=== PATIENT | male | born 1945 | race Caucasian/White ===

== ENCOUNTER 2019-08-03 02:32 | Emergency (ER) | payer MEDICARE, BC, SELFPAY ==
--- NOTE | 2019-08-03 02:42 | ED_ITS ---
Entered by Vania Cornelius, acting as scribe for Amy Samaniego MD HPI - Extremity Problem General: Chief complaint: Extremity Problem,Nontraumatic Stated complaint: Right Wrist Pain/Swelling Time Seen by Provider: 08/03/19 02:40 Source: patient and family Mode of arrival: wheelchair Limitations: no limitations History of Present Illness: HPI Narrative: 74 y/o male presents to the ED with complaint of extremity pain post back sx. Pt states he recently had a back sx and had to stop taking his arthritis medications. Pt has joint swelling and tenderness to his ankles and right wrist. reports nausea and vomiting this evening. He is scheduled to follow-up with his surgeon next week. Complaint: extremity pain, joint swelling and joint paint Onset (ago): day(s) Pain Consistency: constant Location: upper extremity and lower extremity Quality: aching and sharp Relieving factors: nothing Exacerbating factors: palpation Associated symptoms: Deny chest pain Review of Systems Const: Denies: chills Eyes: Denies: change in vision ENMT: Denies: throat pain or mouth pain Card: Denies: chest pain Resp: Denies: shortness of breath GI: Reports: nausea and vomiting; Denies: abdominal pain or diarrhea Musc: Reports: extremity pain, joint pain, redness and limited range of motion; Denies: back pain Skin/Breast: Reports: redness Neuro: Denies: headache or behavioral changes Psych: Denies: depression Endo: Denies: excessive urination [place]/Lymph: Denies: easy bruising All/Imm: Denies: hives PFSH ED PFSH: Statuses (acute, chronic, etc) shown below reflect problem list status as previously entered and may not be historically accurate Social History Smoking and tobacco status: former smoker Physical Exam Const: COMMON NORMALS: no apparent distress, oriented x3 and healthy appearing HENMT: COMMON NORMALS: normocephalic and external nose normal HEAD & SCALP: normocephalic NOSE: external nose normal Eye: COMMON NORMALS: PERRL PUPIL: Yes PERRL Neck/C-Spine: COMMON NORMALS: full ROM and no lymphadenopathy Chest: COMMONS NORMALS: inspection of chest normal Resp: COMMON NORMALS: normal respiratory effort, no use of accessory muscles and clear to auscultation bilaterally AUSCULTATION: clear to auscultation bilaterally Cardio: COMMON NORMALS: regular rate and regular rhythm RATE: regular rate RHYTHM: regular rhythm GI: COMMON NORMALS: normal to inspection, nondistended, normoactive bowel sounds, soft to palpation, non-tender and no masses PALPATION: Yes soft Back/Pelvis: THORACIC SPINE/UPPER BACK: Yes normal to inspection Extremity: COMMON NORMALS: normal capillary refill RIGHT UPPER EXTREMITY: Yes wrist (painful) Right wrist: Yes palpation and Yes ROM RIGHT LOWER EXTREMITY: Yes ankle joint LEFT LOWER EXTREMITY: Yes ankle joint Neuro: COMMON NORMALS: oriented x3 Psych: COMMON NORMALS: mental status grossly normal and cooperative Course Vital Signs: Vital signs: Vital Signs Temperature 98.6 F 08/03/19 02:49 Pulse Rate 75 08/03/19 03:46 Respiratory Rate 15 08/03/19 03:46 Blood Pressure 155/91 08/03/19 03:46 Pulse Oximetry 94 08/03/19 03:46 MDM - Extremity (Nontraumatic) MDM Narrative: Medical decision making narrative: Patient presents here with back pain from his surgery. He has no signs of infection. He also has wrist pain and has chronic arthritis and has not been taking his meloxicam due to his recent surgery. He is to follow-up with his surgeon as scheduled on Thursday. He has no signs of serious infection is stable for discharge. Patient is to return if worsening. Lab Data: Labs: Lab Results 08/03/19 08/03/19 Range/Units 03:00 03:00 WBC 11.4 H (4.0-10.0) 10^3/ uL RBC 4.98 (4.1-5.3) 10^6/u L Hgb 14.7 (11.7-16.6) g/dL Hct 44.1 (42.0-52.0) % MCV 88.6 (80-94) fL MCH 29.5 (28.0-34.0) pg MCHC 33.3 (30.0-36.0) g/dL RDW 12.9 (12.1-15.1) % Plt Count 416 H (130-400) 10^3/c mm MPV 10.1 (7.4-10.4) fL Neut % (Auto) 79.5 % Lymph % (Auto) 12.0 % [place] % (Auto) 7.7 % Eos % (Auto) 0.1 % Baso % (Auto) 0.3 % Neut # (Auto) 9.1 H (1.8-7.7) 10^3/u L Lymph # (Auto) 1.4 (0.8-4.8) 10^3/u L [place] # (Auto) 0.9 (0.2-0.9) 10^3/u L Eos # (Auto) 0.0 (0.0-0.8) 10^3/u L Baso # (Auto) 0.0 (0.0-0.1) 10^3/u L Nucleated RBC % (a uto) 0 % Nucleated RBCs # 0.0 /100WBC Sodium 139 (136-145) mmol/L Potassium 3.8 (3.5-5.1) mmol/L Chloride 103 (98-107) mmol/L Carbon Dioxide 22 (22-29) mmol/L Anion Gap 17.8 (5-19) BUN 13 (8-23) mg/dL Creatinine 0.7 (0.7-1.2) mg/dL Glucose 142 H (74-106) mg/dL Calcium 10.3 H (8.8-10.2) mg/Dl Discharge Plan Discharge Patient Disposition: Home, Self-Care Clinical Impression: Back pain Qualifiers: Back pain location: low back pain Chronicity: unspecified Back pain laterality: bilateral Sciatica presence: without sciatica Qualified Code(s): M54.5 - Low back pain Condition: Stable Prescriptions: New Zofran 4 mg tablet 4 mg PO QID PRN (Reason: nausea and vomiting) Qty: 14 RF: 0 No Action atorvastatin 20 mg tablet 20 mg PO DAILY RF: 0 meloxicam 15 mg tablet 15 mg PO DAILY RF: 0 hydrocodone-acetaminophen 10-325 mg tablet 1 tab PO Q4H PRN (Reason: Pain, Severe) RF: 0 amlodipine 10 mg tablet 10 mg PO DAILY RF: 0 DOK 100 mg capsule 100 mg PO BID RF: 0 albuterol sulfate 90 mcg/actuation HFA aerosol inhaler 2 puff INHALATION PRN RF: 0 Symbicort 160-4.5 mcg/actuation HFA aerosol inhaler 2 puff INHALATION UNK RF: 0 Discharge Orders: Discharge Order (Routine); Ordered 01/15/20 Ordered By: Amy Samaniego Referrals: Ana Luisa Dela Cruz MD [Family Provider] - Discharge Diet: Advance as tolerated Discharge Activity: Resume usual activity Patient Instructions: Back Pain (ED) Discharge Date/Time: 08/03/19 03:49 Coding Level of Care Code ED Bioinformatics Engineer for Chg Fwd Exam Problem Focused The documentation recorded by the Adryan bell Ashley, accurately reflects the service I personally performed and the decisions made by , Amy Samaniego MD Aug 03, 2019 02:32
[2019-08-03 02:49] VITALS: BP 153/89; PULSE 83; RESP 20; TEMP 37; O2SAT 96; BMI 27.4
[2019-08-03] MEDS: ondansetron 2 mg/ML SDV 2 mL 4 MG IVP (03:01)
[2019-08-03 03:03] VITALS: RESP 16; O2SAT 96
[2019-08-03] MEDS: morphine 4 mg/mL SDV 1 mL IVP (03:03)
[2019-08-03 03:06] VITALS: BP 149/90; PULSE 74; RESP 16; O2SAT 97
[2019-08-03 03:27] LABS: Basophils % 0.3 %; Eosinophils % 0.1 %; Hematocrit 44.1 % (42.0-52.0); Hemoglobin 14.7 g/dL (11.7-16.6); Lymphocytes # 1.4 10^3/uL (0.8-4.8); Mean Corpuscular HGB Conc 33.3 g/dL (30.0-36.0); Mean Corpuscular Hemoglobin 29.5 pg (28.0-34.0); Mean Corpuscular Volume 88.6 fL (80-94); Mean Platelet Volume 10.1 fL (7.4-10.4); Monocytes # 0.9 10^3/uL (0.2-0.9); Monocytes % 7.7 %; Neutrophils # 9.1 10^3/uL (1.8-7.7); Neutrophils % 79.5 %; Nucleated Red Blood Cells % 0 %; Platelet Count 416 10^3/cmm (130-400); Red Blood Count 4.98 10^6/uL (4.1-5.3); Red Cell Distribution Width 12.9 % (12.1-15.1); White Blood Count 11.4 10^3/uL (4.0-10.0)
[2019-08-03 03:31] LABS: Anion Gap 17.8 (5-19); Blood Urea Nitrogen 13 mg/dL (8-23); Calcium 10.3 mg/Dl (8.8-10.2); Carbon Dioxide 22 mmol/L (22-29); Chloride 103 mmol/L (98-107); Glucose 142 mg/dL (74-106); Potassium 3.8 mmol/L (3.5-5.1); Sodium 139 mmol/L (136-145)
[2019-08-03 03:46] VITALS: BP 155/91; PULSE 75; RESP 15; O2SAT 94
== END 2019-08-03 03:49 | disposition home or self-care (01) ==
PROVIDERS: Emergency Provider Emergency Medicine; Family Provider Family Medicine
DX: M54.5 Low back pain (principal); Z87.891 Personal history of nicotine dependence
CPT/HCPCS: 36415; 80048; 85025; 96374; 99281; J2270; J2405

== ENCOUNTER 2019-08-10 13:03 | Outpatient (RCR) | payer MEDICARE, BC, SELFPAY | END 2019-08-19 23:59 | disposition home or self-care (01) | LOC: SPT 13:03 | PROVIDERS: Family Provider Family Medicine; PCP Nurse Practitioner Family; Referring Provider Nurse Practitioner Family; Visit Provider Nurse Practitioner Family | DX: M48.062 Spinal stenosis, lumbar region with neurogenic claudication (principal); Z98.890 Other specified postprocedural states ==

== ENCOUNTER 2019-08-31 11:56 | Outpatient (CLI) | payer MEDICARE, BC, SELFPAY ==
--- NOTE | 2019-08-31 | XR_ITS ---
WS: [id number] PROCEDURE: XR chest 2V* [id number] CLINICAL INFORMATION: COUGH COMPARISON: August 06, 2018 FINDINGS: Heart: Normal cardiac silhouette. Lungs: Mild chronic emphysematous changes. No acute pulmonary infiltrates. No focal pneumonia. Bones: Postoperative changes lower cervical spine.. Hypertrophic changes thoracic spine. XR/XR chest 2V* [id number] IMPRESSION: No acute chest findings
== END 2019-08-31 11:57 | disposition home or self-care (01) ==
LOC: RADOUTREAD 14:29
PROVIDERS: Family Provider Family Medicine; PCP Nurse Practitioner Family; Visit Provider Family Medicine
DX: Z76.89 Persons encountering health services in other specified circumstances (principal)

== ENCOUNTER 2019-09-18 06:00 | Outpatient (RCR) | payer MEDICARE, BC, SELFPAY | END 2019-10-18 23:59 | disposition home or self-care (01) | LOC: SPT 06:00 | PROVIDERS: Family Provider Family Medicine; PCP Nurse Practitioner Family; Referring Provider Nurse Practitioner Family; Visit Provider Nurse Practitioner Family | DX: M54.5 Low back pain (principal); M79.604 Pain in right leg; M79.605 Pain in left leg | CPT/HCPCS: 97161; 97530 ==

== ENCOUNTER 2019-12-21 06:49 | Emergency (ER) | payer MEDICARE, BC, SELFPAY ==
--- NOTE | 2019-12-21 | XR_ITS ---
WS: [id number] XR elbow LT min 3V* [id number] REASON FOR EXAM: arm pain after fall FINDINGS: Impacted fracture of the head of the radius is seen. There is degenerate changes across the capitellum and radial head region. Anterior fat pad is identified. IMPRESSION: Impacted fracture of the head of the radius. Mild degenerate changes of the capitellum radial head articulation.
[2019-12-21 07:02] VITALS: BP 140/85; PULSE 77; RESP 20; TEMP 37; O2SAT 95; BMI 27.4
[2019-12-21 07:19] VITALS: BP 140/85
--- NOTE | 2019-12-21 07:19 | ED_ITS ---
HPI - Neck Pain/Injury General: Chief Complaint: Neck Pain/Injury Stated Complaint: NECK AND RIGHT HAND PAIN Time Seen by Provider: 12/21/19 07:19 History of Present Illness: HPI Narrative: 74-year-old male comes in with complaint of neck pain comes in complaining of neck pain for the last 2 days 2 days ago he fell off of a truck tractor immediately did not have any significant pain the following day he had some neck pain and then Thursday night he began hav ing some right arm pain this began progressively worse it is localized to the elbow he has pain with flexion and extension it does not radiate down from the shoulder or neck into the elbow does radiate a little bit into the forearm. He has a difficult time with pronation and supination he denies any other injuries denies striking his head. Associated symptoms: Denies nausea Review of Systems Const: Denies: fever(s), chills, body aches, change in appetite, fatigue or malaise ENMT: Denies: throat pain, ear or mastoid pain, nasal discharge or nasal congestion Card: Denies: chest pain, edema, dyspnea on exertion or orthopnea Resp: Denies: dyspnea, productive cough or non-productive cough GI: Denies: abdominal pain, nausea, vomiting, hematemesis, coffee ground emesis, diarrhea, constipation, bloating, hematochezia or melena : Denies: flank pain, dysuria, urinary frequency or urinary urgency Skin/Breast: Denies: rash or pruritus [facility] ED PFSH: Medical History (Updated 12/21/19 @ 11:26 by German Roberson DO) Hyperlipidemia Hypertension Surgical History (Updated 12/21/19 @ 11:28 by German Roberson DO) History of lumbar fusion S/P cervical spinal fusion Social History Smoking and tobacco status: former smoker Physical Exam Const: COMMON NORMALS: no acute distress GENERAL APPEARANCE: cooperative and comfortable ORIENTATION/CONSCIOUSNESS: Yes awake, Yes oriented to person, Yes oriented to place and Yes oriented to time HENMT: COMMON NORMALS: normocephalic, atraumatic, hearing grossly normal bilaterally, external ears normal, EAC's normal, TM's normal bilaterally, Normal nasal mucous membranes and turbinates present, moist oral mucous membranes and oropharynx normal HEAD & SCALP: normocephalic and atraumatic NOSE: Normal nasal mucous membranes and turbinates present EXTERNAL EAR: Yes external ears normal EXTERNAL AUDITORY CANAL: EAC's normal TYMPANIC MEMBRANE: TM's normal bilaterally Eye: COMMON NORMALS: Equal, round and reactive pupils present, EOMs intact bilaterally, conjunctivae normal and no scleral icterus CONJUNCTIVA: Yes conjunctivae normal PUPIL: Yes Equal, round and reactive pupils present Neck/C-Spine: COMMON NORMALS: full ROM, no lymphadenopathy, supple and no JVD Lymph: LYMPHATIC: no lymphadenopathy noted and no lymphedema noted Resp: COMMON NORMALS: normal respiratory effort, No retractions, No use of accessory muscles and clear to auscultation bilaterally AUSCULTATION: clear to auscultation bilaterally Cardio: COMMON NORMALS: no JVD, regular rate, regular rhythm and No murmurs present (Cardio) RATE: regular rate RHYTHM: regular rhythm GI: COMMON NORMALS: Soft to palpation and No hepatosplenomegaly present AUSCULTATION: Yes normoactive bowel sounds PALPATION: Yes Soft to palpation, No Tenderness to palpation present (GI), No Guarding due to palpation present (GI) and Yes No hepatosplenomegaly present Extremity: NARRATIVE EXTREMITY EXAM: Moderate swelling of the right elbow with inability to flex or extend even mild attempts at pronation and supination are met with severe pain good peripheral pulses and sensation Neuro: SENSORIUM/ORIENTATION: Yes oriented to person, Yes oriented to place and Yes oriented to time Skin: COMMON NORMALS: no rashes or lesions noted GENERAL SKIN EXAM: no rashes or lesions noted Course Vital Signs: Vital signs: Vital Signs Temperature 98.6 F 12/21/19 07:02 Pulse Rate 77 12/21/19 07:02 Respiratory Rate 17 12/21/19 09:00 Blood Pressure 140/85 12/21/19 07:19 Pulse Oximetry 95 12/21/19 07:02 MDM - Neck Pain/Injury MDM Narrative: Medical decision making narrative: CT the spine does not show any acute fracture a lot of chronic changes which is expected given his reported history. X-rays of the upper extremity on the right show an impacted radial head fracture there is some question of a olecranon fossa fracture on the distal humerus I discussed with radiologist he recommended a CT CT does not show any further fracture only the impacted radial head fracture. Recommend that he use a sling will refer to Ortho can continue to use the pain meds previously prescribed. Lab Data: Labs: Lab Results 12/21/19 12/21/19 Range/Units 08:35 08:35 WBC 9.4 (4.0-10.0) 10^3/ uL RBC 4.86 (4.1-5.3) 10^6/u L Hgb 14.9 (11.7-16.6) g/dL Hct 45.1 (42.0-52.0) % MCV 92.8 (80-94) fL MCH 30.7 (28.0-34.0) pg MCHC 33.0 (30.0-36.0) g/dL RDW 13.9 (12.1-15.1) % Plt Count 194 (130-400) 10^3/c mm MPV 10.7 H (7.4-10.4) fL Neut % (Auto) 80.2 % Lymph % (Auto) 9.5 % [place] % (Auto) 9.8 % Eos % (Auto) 0.1 % Baso % (Auto) 0.2 % Neut # (Auto) 7.5 (1.8-7.7) 10^3/u L Lymph # (Auto) 0.9 (0.8-4.8) 10^3/u L [place] # (Auto) 0.9 (0.2-0.9) 10^3/u L Eos # (Auto) 0.0 (0.0-0.8) 10^3/u L Baso # (Auto) 0.0 (0.0-0.1) 10^3/u L Nucleated RBC % (a uto) 0 % Nucleated RBCs # 0.0 /100WBC Sodium 135 L (136-145) mmol/L Potassium 3.4 L (3.5-5.1) mmol/L Chloride 96 L (98-107) mmol/L Carbon Dioxide 25 (22-29) mmol/L Anion Gap 17.4 (5-19) BUN 14 (8-23) mg/dL Creatinine 0.8 (0.7-1.2) mg/dL Glucose 113 (65-115) mg/dL Calculated Osmolal ity 277 L (285-295) mOsm/k g Calcium 9.8 (8.5-10.5) mg/dL Total Bilirubin 0.7 (0.15-1.2) mg/dL AST 18 (0-40) U/L ALT 12 (0-41) U/L Alkaline Phosphata se 66 (40-130) IU/L Total Protein 6.9 (6.6-8.7) g/dL Albumin 4.1 (3.5-5.2) g/dL Globulin 2.8 (1.3-4.6) g/dL Discharge Plan Discharge Patient Disposition: Home, Self-Care Clinical Impression: Fracture of head of right radius Condition: Stable Prescriptions: No Action atorvastatin 20 mg tablet 20 mg PO DAILY RF: 0 meloxicam 15 mg tablet 15 mg PO DAILY RF: 0 hydrocodone-acetaminophen 10-325 mg tablet 1 tab PO Q4H PRN (Reason: Pain, Severe) RF: 0 amlodipine 10 mg tablet 10 mg PO DAILY RF: 0 albuterol sulfate 90 mcg/actuation HFA aerosol inhaler 2 puff INHALATION PRN PRN (Reason: Shortness Of Breath) RF: 0 budesonide-formoterol [Symbicort] 160-4.5 mcg/actuation HFA aerosol inhaler 2 puff INHALATION BID RF: 0 cyclobenzaprine 10 mg Tablet 10 mg PO TID PRN (Reason: Muscle Pain) RF: 0 Referrals: Timo Erickson, CHECK WRITER SALESPERSON-IVETH [Primary Care Provider] - Discharge Diet: Usual diet Discharge Activity: Limit activity as instructed Activity Restrictions/Additional Instructions: Case management will call with referral to orthopedics for the radial head fracture in your right elbow. For pain continue previously prescribed medications. Coding Level of Care Code ED Solderer Barrel Ribs for Alan Mathews
--- NOTE | 2019-12-21 07:20 | CT_ITS ---
WS: [id number] CT cervical spin wo con* [id number] REASON FOR EXAM: fall IV CONTRAST ADMINISTERED: None. TOTAL EXAM DLP: All CT scans at [facility] use at least one of these dose optimization techniques: automat ed exposure control; mA and/or kV adjustment per patient size (includes targeted exams where dose is matched to clinical indication); or iterative reconstruction. FINDINGS: The odontoid process shows degenerate changes. The craniocervical junction anatomy was normal. C1-C2 shows normal anatomical findings. C2-C3: Normal vertebral alignment. Exiting foramina normal. No disc bulge or herniation. No spinal st enosis. [place] C3-4 shows hypertrophy of the left uncinate processes no stenosis of the exiting jaspal nadege were seen. No disc bulge or herniation. No fractures. There is low-grade grade 1 spondylolisthesi s C3 on C4 C4-C5 shows bilateral hypertrophy of the uncinate processes. Exiting foramina normal. No fractures ar e seen. Mild retrolisthesis C4 on C5. C5-C6 shows anterior fusion exiting foramina is were normal no spinal stenosis. C6-C7 shows fusion good alignment no fractures were noted. C7-T1: Fusion vertebra normal alignment no spinal stenosis or fractures. CT/CT cervical spin wo con* [id number] IMPRESSION: Vertically of the uncinate processes are noted on the left side at C3-4 and gwen aterally C4-C5 There is no fractures of the cervical spine noted. There is mild retrolisthesis C3 on C4 and C4-C5.
--- NOTE | 2019-12-21 08:44 | XR_ITS ---
WS: [id number] [place] [id number] REASON FOR EXAM: fall pain FINDINGS: The humerus shaft is normal. Adenoid humeral articulations normal. At the elbow there appears to be a comminuted fracture of the olecranon fossa. We recommend detail x-rays be made to this area if this has not been done. XR/[place] [id number] IMPRESSION: Normal appearance of the humerus Suspect comminuted fracture through the olecranon fossa.
--- NOTE | 2019-12-21 08:44 | XR_ITS ---
WS: [id number] XR wrist RT min 3V* [id number] REASON FOR EXAM: fall pain FINDINGS: Degenerate changes of the articulation of the head of the radius with the carpal bones. There is degenerate changes of the scaphoid with the greater and lesser multangular with loss of the joint space. There is no fractures knee seen in the wrists. XR/XR wrist RT min 3V* [id number] IMPRESSION: Moderately severe degenerated changes of the wrists. No definite fractures identified.
--- NOTE | 2019-12-21 08:44 | XR_ITS ---
WS: [id number] XR elbow LT min 3V* [id number] REASON FOR EXAM: arm pain after fall FINDINGS: Impacted fracture of the head of the radius is seen. There is degenerate changes across the capitellum and radial head region. Anterior fat pad is identified. IMPRESSION: Impacted fracture of the head of the radius. Mild degenerate changes of the capitellum radial head articulation.
--- NOTE | 2019-12-21 08:44 | XR_ITS ---
WS: [id number] XR shoulder RT min 2V* [id number] REASON FOR EXAM: fall pain FINDINGS: The clavicle and scapula show no fractures. The glenoid humeral articulations normal. There appears to be mild spurring off the olecranon and clavicle articulation. XR/XR shoulder RT min 2V* [id number] IMPRESSION: Degenerate changes of the acromioclavicular joint No fractures of the shoulder. The elbow was reevaluated was marked is the right elbow and showed the fracture of the head of the radius the fossa area did not show the fracture noted on th e humeral view consideration of CT of the elbow recommended.
[2019-12-21 08:48] LABS: Basophils % 0.2 %; Eosinophils % 0.1 %; Hematocrit 45.1 % (42.0-52.0); Hemoglobin 14.9 g/dL (11.7-16.6); Lymphocytes # 0.9 10^3/uL (0.8-4.8); Lymphocytes % 9.5 %; Mean Corpuscular Hemoglobin 30.7 pg (28.0-34.0); Mean Corpuscular Volume 92.8 fL (80-94); Mean Platelet Volume 10.7 fL (7.4-10.4); Monocytes # 0.9 10^3/uL (0.2-0.9); Monocytes % 9.8 %; Neutrophils # 7.5 10^3/uL (1.8-7.7); Neutrophils % 80.2 %; Nucleated Red Blood Cells % 0 %; Platelet Count 194 10^3/cmm (130-400); Red Blood Count 4.86 10^6/uL (4.1-5.3); Red Cell Distribution Width 13.9 % (12.1-15.1); White Blood Count 9.4 10^3/uL (4.0-10.0)
[2019-12-21] MEDS: HYDROcodone-acetaminophen 5-325 mg Tablet 2 TAB PO (08:59)
[2019-12-21 09:00] VITALS: RESP 17
[2019-12-21 09:02] LABS: Alanine Aminotransferase 12 U/L (0-41); Albumin Level 4.1 g/dL (3.5-5.2); Alkaline Phosphatase 66 IU/L (40-130); Anion Gap 17.4 (5-19); Aspartate Amino Transferase 18 U/L (0-40); Blood Urea Nitrogen 14 mg/dL (8-23); Calcium 9.8 mg/dL (8.5-10.5); Carbon Dioxide 25 mmol/L (22-29); Chloride 96 mmol/L (98-107); Globulin 2.8 g/dL (1.3-4.6); Glucose 113 mg/dL (65-115); Osmolality Calculated 277 mOsm/kg (285-295); Potassium 3.4 mmol/L (3.5-5.1); Sodium 135 mmol/L (136-145); Total Bilirubin 0.7 mg/dL (0.15-1.2); Total Protein 6.9 g/dL (6.6-8.7)
--- NOTE | 2019-12-21 09:45 | CT_ITS ---
WS: [id number] CT elbow RT wo con* [id number] REASON FOR EXAM: elbow pain/abnormal humerus xray IV CONTRAST ADMINISTERED: None. TOTAL EXAM DLP: All CT scans at [facility] use at least one of these dose optimization techniques: automat ed exposure control; mA and/or kV adjustment per patient size (includes targeted exams where dose is matched to clinical indication); or iterative reconstruction. FINDINGS: Previous evaluation of the lower humerus suggested a fracture through the olecranon fossa. Multiple CT sections through this area did not show a definite fracture there is degenerate changes p resent. The impacted fracture of the head of the radius is also well seen. Positioning appears to be satisfac tory of the fracture parts. The remaining elbow appears to be normal. CT/CT elbow RT wo con* [id number] IMPRESSION: Impacted fracture of the head of the radius No definite fractures are seen through the olecranon fossa.
[2019-12-21 11:47] VITALS: BP 136/81; PULSE 75; RESP 17; O2SAT 96
--- NOTE | 2019-12-21 14:38 | DCPLANNER ---
manager compliance had message to schedule a follow up appointment for patient with ortho. manager compliance called the ortho clinic, spoke with Natasha, gave clinic patients information. manager compliance was told that patients information would be printed and reviewed. Clinic will call family independence case manager and patient with appointment information.
--- NOTE | 2019-12-22 08:45 | DCPLANNER ---
Patient has a follow up appointment scheduled for December at 11:[address] Clemons. Clinic will call patient with appointment information.
--- NOTE | 2020-01-05 12:34 | DCPLANNER ---
Patient has a follow up appointment scheduled for Thursday, January 18, 2020 at 10:[address] Collier. Clinic will call patient with appointment information.
--- NOTE | 2020-01-05 12:36 | DCPLANNER ---
Patient attended follow up appointment scheduled for 12.22.19 with ortho.
== END 2019-12-21 11:48 | disposition home or self-care (01) ==
PROVIDERS: Emergency Provider Family Medicine; PCP Nurse Practitioner Family
DX: S52.121A Displaced fracture of head of right radius, initial encounter for closed fracture (principal); W17.89XA Other fall from one level to another, initial encounter; E78.5 Hyperlipidemia, unspecified; I10 Essential (primary) hypertension; Z87.891 Personal history of nicotine dependence
CPT/HCPCS: 12345; 36415; 72125; 73030; 73060; 73080; 73110; 73200; 80053; 85025; 99282; 99283

== ENCOUNTER → 2019-12-22 11:49 | Outpatient (BNVA) | payer MEDICARE, BC, SELFPAY | PROVIDERS: PCP Nurse Practitioner Family; Referring Provider Family Medicine; Visit Provider Specialist | DX: M25.531 Pain in right wrist (principal) | CPT/HCPCS: 73110 ==

== ENCOUNTER 2019-12-22 13:58 | Outpatient (CLI) | payer MEDICARE, BC, SELFPAY | END 2019-12-22 13:59 | disposition home or self-care (01) | LOC: SPT 13:59 | PROVIDERS: PCP Nurse Practitioner Family; Visit Provider Specialist | DX: Z46.89 Encounter for fitting and adjustment of other specified devices (principal); S52.121D Displaced fracture of head of right radius, subsequent encounter for closed fracture with routine healing; X58.XXXD Exposure to other specified factors, subsequent encounter; M25.531 Pain in right wrist | CPT/HCPCS: 73110; 97760; L3761 ==

== ENCOUNTER → 2020-01-05 10:19 | Outpatient (BNVA) | payer MEDICARE, BC, SELFPAY | PROVIDERS: PCP Nurse Practitioner Family; Visit Provider Specialist | DX: S52.124D Nondisplaced fracture of head of right radius, subsequent encounter for closed fracture with routine healing; W17.89XD Other fall from one level to another, subsequent encounter | CPT/HCPCS: 73080 ==

== ENCOUNTER 2020-01-06 14:57 | Outpatient (CLI) | payer MEDICARE, BC, SELFPAY ==
--- NOTE | 2020-01-06 15:06 | MR_ITS ---
WS: [id number] MRI CERVICAL SPINE NONCONTRAST TECHNIQUE: Sagittal T1, T2 and STIR imaging. Axial T2, gradient, and fiesta imaging. CLINICAL INFORMATION: ACUTE NECK PAIN COMPARISON: None. FINDINGS: Mild lumbar curve. No high-grade central canal stenosis. Postoperative changes anterior interbody cer vical fusion C5-C6. Prior bony fusion C6-C7. No high-grade central canal narrowing. Cord signal appea rs normal. Hardware degrades images at the C5-6 level. C2-C3: Mild bilateral foraminal narrowing. Mild facet arthropathy. Spinal canal is patent. C3-C4: Mild disc bulging and osteophytic ridging. Moderate left and mild right bony foraminal narrowi ng. Mild facet arthropathy. Mild central canal stenosis. C4-C5: Disc osteophyte complex with a broad-based central protrusion. Mild to moderate central canal stenosis. Moderate to severe left and moderate right bony foraminal narrowing. Moderate facet arthrop athy. C5-C6: Images degraded at this level due to susceptibility artifact. Spinal canal appears patent. For amen are not well visualized. C6-C7: Prior bony fusion. Anterior hardware at C6. Moderate bilateral bony foraminal narrowing right greater than left. Spinal canal is patent. C7-T1: No significant disc bulging. No significant foraminal narrowing. Spinal canal is patent. Visualized brain stem structures: Normal. Prevertebral soft tissues: Normal. MR/MR cervical spin wo con* [id number] IMPRESSION: 1. Mild cervical curve. No high-grade central canal stenosis. Anterior fusion C5-C7 with interbody fusion C5-C6 and C6-C7. 2. Cord signal appears normal. No high-grade central canal stenosis. 3. Images degraded at the C5-6 level due to susceptibility artifact from hardw are. 4. Mild central canal stenosis C3-C4 mild to moderate central canal stenosis C 4-C5 due to disc osteophyte complex. 5. Moderate to severe bony foraminal narrowing worse at left C3-4 and bilatera l C4-5 worse in the left,
== END 2020-01-06 14:58 | disposition home or self-care (01) ==
LOC: RADWPI 15:04
PROVIDERS: Family Provider Family Medicine; PCP Family Medicine; Visit Provider Family Medicine
DX: M54.2 Cervicalgia (principal); M43.22 Fusion of spine, cervical region; M48.02 Spinal stenosis, cervical region; M25.78 Osteophyte, vertebrae
CPT/HCPCS: 72141

== ENCOUNTER → 2020-02-07 08:40 | Outpatient (BNVA) | payer MEDICARE, BC, SELFPAY | PROVIDERS: Family Provider Family Medicine; PCP Family Medicine; Visit Provider Urology | DX: R31.29 Other microscopic hematuria (principal); N40.1 Benign prostatic hyperplasia with lower urinary tract symptoms; N52.9 Male erectile dysfunction, unspecified | CPT/HCPCS: 81001 ==

== ENCOUNTER → 2020-02-09 08:14 | Outpatient (BNVA) | payer MEDICARE, BC, SELFPAY | PROVIDERS: Family Provider Family Medicine; PCP Family Medicine; Visit Provider Specialist | DX: M25.531 Pain in right wrist (principal); S52.124A Nondisplaced fracture of head of right radius, initial encounter for closed fracture; X58.XXXA Exposure to other specified factors, initial encounter | CPT/HCPCS: 73080 ==

== ENCOUNTER 2020-05-21 08:19 | Outpatient (CLI) | payer MEDICARE, BC, SELFPAY ==
--- NOTE | 2020-05-21 08:41 | MR_ITS ---
WS: [id number] MRI RIGHT KNEE HISTORY: DERANGEMENT OF MENISCUS OF RIGHT KNEE COMPARISON: None available. Anterior cruciate ligament: Intact. Posterior cruciate ligament: Intact. Medial collateral ligament: Fluid on both sides of the MCL but no tear. Posterior lateral corner structures: Intact. Medial menisci: Fraying along the articular surfaces. Most significant involving the superior surface of the posterior horn. No full-thickness tear. Lateral meniscus: Intact. Normal signal, size and shape. Extensor mechanism: Distal quadriceps tendon and patellar tendons are intact. Fluid and soft tissue: There is a large amount of fluid in the suprapatellar bursa. Soft tissue edema surrounds the knee. Fluid extends into the infrapatellar fat pad. There is a small loose body versus osteophyte anterior to the tibial plateau. Large lobulated Villaseñor's cyst. Osseous and articular structures: Patellofemoral compartment: Near complete loss of cartilage over the medial patellar facet. A small a mount of subchondral edema in the superior patella. Small surface osteophytes. Medial compartment: Moderate narrowing medial compartment with loss of cartilage. Small amount of mar row edema in the medial condyle of tibial plateau. Lateral compartment: Minimal narrowing. Cartilage is well preserved. Increased fluid in the semimembranosus tendon sheath. MR/MR knee RT wo con* [id number] IMPRESSION: 1. Moderate to severe internal derangement medial compartment with joint space narrowing, loss of cartilage and marrow edema. 2. Mild chondromalacia medial patellar facet with subchondral edema. 3. Large joint effusion. 4. Large lobulated Villaseñor's cyst. 5. Mild MCL sprain. 6. Tenosynovitis semimembranosus tendon. No tear identified.
== END 2020-05-21 08:20 | disposition home or self-care (01) ==
LOC: RADWPI 08:25
PROVIDERS: PCP Family Medicine; Visit Provider Family Medicine
DX: M23.306 Other meniscus derangements, unspecified meniscus, right knee (principal); M22.41 Chondromalacia patellae, right knee; M25.461 Effusion, right knee; M71.21 Synovial cyst of popliteal space [Baker], right knee; S83.411A Sprain of medial collateral ligament of right knee, initial encounter; X58.XXXA Exposure to other specified factors, initial encounter; M65.861 Other synovitis and tenosynovitis, right lower leg
CPT/HCPCS: 73721

== ENCOUNTER → 2020-05-30 09:28 | Outpatient (BNVA) | payer MEDICARE, BC, SELFPAY | PROVIDERS: PCP Family Medicine; Referring Provider Family Medicine; Visit Provider Orthopaedic Surgery | DX: M25.561 Pain in right knee (principal) | CPT/HCPCS: 73560; 73565 ==

== ENCOUNTER 2020-07-16 15:20 | Observation (INO) | payer MEDICARE, BC, SELFPAY ==
--- NOTE | 2020-07-10 06:26 | ECG_ITS ---
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 [id number]
[2020-07-10 07:42] VITALS: BMI 26.6
[2020-07-10 08:12] LABS: Basophils # 0.1 10^3/uL (0.0-0.1); Basophils % 0.8 %; Eosinophils # 0.3 10^3/uL (0.0-0.8); Eosinophils % 3.5 %; Hemoglobin 15.7 g/dL (11.7-16.6); Lymphocytes # 2.4 10^3/uL (0.8-4.8); Lymphocytes % 26.9 %; Mean Corpuscular HGB Conc 33.4 g/dL (30.0-36.0); Mean Corpuscular Volume 89.9 fL (80-94); Mean Platelet Volume 10.7 fL (7.4-10.4); Monocytes # 0.8 10^3/uL (0.2-0.9); Monocytes % 8.8 %; Neutrophils # 5.24 10^3/uL (1.8-7.7); Neutrophils % 59.9 %; Nucleated Red Blood Cells % 0 %; Platelet Count 227 10^3/cmm (130-400); Red Blood Count 5.23 10^6/uL (4.1-5.3); Red Cell Distribution Width 13.5 % (12.1-15.1); White Blood Count 8.8 10^3/uL (4.0-10.0)
--- NOTE | 2020-07-10 08:28 | ANES.PREANE2 ---
Pre-Anesthetic Assessment Pre-Anesthetic Assessment: Height/Weight: Height 1.65 m Weight 72.575 kg Proposed Procedure: Operation Date: 07/16/20 09:30 Proposed Procedures p Total Knee Arthroplasty 77596 M17.11(Right) - Cody Najera MD Social: Social History: Tobacco (quit 2004) and No alcohol Exam: Pre-Anes Outpt Exam: alert, oriented x 3, clear to auscultation bilaterally and regular rate & rhythm Airway: Submandibular: WNL Cervical ROM: Other (limited) MP: 2 Additional comments: poor dentation History/ROS: No significant history except as noted Pulmonary: Pulmonary: COPD CV/HEM: CV/HEM: HTN : : None reported Hepatic: Hepatic: None reported GI: GI: None reported Metabolic: Metabolic: Hyperlipidemia Musc/skel: Musc/skel: OA/DJD Neuropsych: Neuropsych: None reported Anesthetic Plan: ASA status: 2 Anesthesia: Anesthesia Evaluation, General and Regional (specify below) (right adductor canal) Risk of > 500 ml blood loss (7ml/kg in children): Yes, adequate IV access and fluids planned PFSH Anesthesia PFSH: Medical History BPH NOS w ur obs/LUTS Hyperlipidemia Hypertension Impotence Microscopic hematuria Surgical History H/O sinus surgery H/O vasectomy History of colonoscopy History of lumbar fusion Hx of cataract surgery S/P cervical spinal fusion Family History Father Myocardial infarction (lateral wall) Mother Cancer lung Social History Smoking and tobacco status: former smoker Alcohol intake: current Alcohol intake frequency: holidays/special occasions only Marital status: Current occupational status: retired History of recent travel: No Data Anesthesia CBC & Chem 7: 07/10/20 08:00 07/10/20 08:00 Other Labs: Laboratory Results - last 48 hr 07/10/20 08:00 WBC 8.8 RBC 5.23 Hgb 15.7 Hct 47.0 MCV 89.9 MCH 30.0 MCHC 33.4 RDW 13.5 Plt Count 227 MPV 10.7 H Neut % (Auto) 59.9 Lymph % (Auto) 26.9 [place] % (Auto) 8.8 Eos % (Auto) 3.5 Baso % (Auto) 0.8 Neut # (Auto) 5.24 Lymph # (Auto) 2.4 [place] # (Auto) 0.8 Eos # (Auto) 0.3 Baso # (Auto) 0.1 Nucleated RBC % (auto) 0 Nucleated RBCs # 0.0 Cardiac Studies: No Data to Display
[2020-07-10 08:31] LABS: Alanine Aminotransferase 40 U/L (0-41); Albumin Level 4.5 g/dL (3.5-5.2); Alkaline Phosphatase 67 IU/L (40-130); Aspartate Amino Transferase 28 U/L (0-40); Blood Urea Nitrogen 19 mg/dL (8-23); Calcium 9.7 mg/dL (8.5-10.5); Carbon Dioxide 24 mmol/L (22-29); Chloride 101 mmol/L (98-107); Globulin 2.6 g/dL (1.3-4.6); Glucose 93 mg/dL (65-115); Osmolality Calculated 284 mOsm/kg (285-295); Sodium 136 mmol/L (136-145); Total Bilirubin 0.7 mg/dL (0.15-1.2); Total Protein 7.1 g/dL (6.6-8.7)
[2020-07-16] VITALS (25 sets, daily range): BP systolic 108–159; BP diastolic 58–94; PULSE 50–88; RESP 13–22; TEMP 36.3–36.9; O2SAT 92–98
[2020-07-16] MEDS: oxyCODONE 20 mg ER (12 HR) Tablet PO (06:17)
[2020-07-16] MEDS: acetaminophen 500 mg Tablet 1000 MG PO (06:17)
[2020-07-16] MEDS: CELEcoxib 200 mg Capsule PO ×2 (06:17→18:12)
[2020-07-16] MEDS: gabapentin 300 mg Capsule PO ×2 (06:18→18:11)
[2020-07-16] MEDS: sodium chloride 0.9% 1,000 ML 30 ML IV (06:20)
--- NOTE | 2020-07-16 06:48 | P.ANESUD_ITS ---
Pre-Anesthetic Update Pre-Anesthetic Assessment: Date of Surgery/Procedure: 07/16/20 Preop Pinky gnosis: Osteoarthritis right knee Proposed Procedure: Operation Date: 07/16/20 07:00 Proposed Procedures p Total Knee Arthroplasty 23551 M17.11(Right) - Cody Najera MD Any changes to Pre-Anesthetic Assessment?: No Last Intake: Intake Last Liquid Date 07/15/20 Last Liquid Time 18:00 Last Solid Date 07/15/20 Last Solid Time 18:00 Vitals: Temperature 98.4 F 07/16/20 05:45 Temperature Source Temporal Artery S can 07/16/20 05:45 Pulse Rate 62 07/16/20 05:45 Pulse Rhythm 07/16/20 05:45 Pulse Strength 3+ Normal 07/16/20 05:45 Respiratory Rate 18 07/16/20 05:45 Blood Pressure 150/94 07/16/20 05:45 Blood Pressure Enedina n 112 07/16/20 05:45 Pulse Oximetry 98 07/16/20 05:45 Oxygen Delivery Me thod 07/16/20 05:45 Exam: Pre-Anes Outpt Exam: alert, oriented x 3, clear to auscultation bilaterally and regular rate & rhythm Cardiac Studies: No Data to Display
--- NOTE | 2020-07-16 06:57 | W.PM.OPSFHP ---
Same Day Surgery H&P Indication for Procedure/HPI DATE OF PROCEDURE: July 16, 2020 CHIEF COMPLAINT/INDICATIONFOR SURGICAL PROCEDURE: 75-year-old male with end-stage osteoarthritis of the right knee. Patient has failed conservative measures including medication. He has complete obliteration and varus alignment. He is here for elective total knee arthroplasty. PREOP DIAGNOSIS: Osteoarthritis right knee PLANNED PROCEDRUE: Operation Date: 07/16/20 07:00 Proposed Procedures p Total Knee Arthroplasty 87617 M17.11(Right) - Coyd Najera MD Medications/Allergies* Home Medications Medication Instructions Recorded Confirmed Type albuterol sulfate 2 puff INHALATION PRN PRN 08/03/19 07/16/20 History amlodipine 10 mg PO DAILY 08/03/19 07/16/20 History atorvastatin 20 mg PO DAILY 08/03/19 07/16/20 History budesonide-formoterol [Symbicort] 2 puff INHALATION BID 08/03/19 07/16/20 History meloxicam 15 mg PO DAILY 08/03/19 07/16/20 History cyclobenzaprine 10 mg PO TID PRN 12/21/19 07/16/20 History hydrochlorothiazide 12.5 mg tablet 12.5 mg PO QAM 02/07/20 07/16/20 History Allergies/Adverse Reactions Allergy/AdvReac Type Severity Reaction Status Date / Time aclidinium AdvReac urinary Verified 05/30/20 09:18 [From Yoon Christian] retention Current Medications: Generic Name Dose Route Start Last Admin Trade Name Freq PRN Reason Stop Dose Admin Sodium Chloride 1,000 mls @ 30 mls/hr 07/16/20 05:45 07/16/20 06:20 Sodium Chloride 0.9% IV 07/17/20 05:44 30 mls/hr .Q24H JIMENA Administration Pertinent History/Comorbid Conditions* Medical History (Updated 02/09/20 @ 10:52 by Elizabeth Clemons MD) BPH NOS w ur obs/LUTS Hyperlipidemia Hypertension Impotence Microscopic hematuria Surgical History (Updated 02/07/20 @ 09:03 by Rogerio Orozco MD) H/O sinus surgery H/O vasectomy History of colonoscopy History of lumbar fusion Hx of cataract surgery S/P cervical spinal fusion Family History (Updated 01/17/20 @ 17:07 by Jane Torres LPN) Father Mother Myocardial infarction (lateral wall) Father Cancer Mother lung Social History Smoking and tobacco status: former smoker Alcohol intake: current Alcohol intake frequency: holidays/special occasions only Marital status: Current occupational status: retired History of recent travel: No Pertinent Exam Findings alert, oriented x 3, clear to auscultation bilaterally, regular rate & rhythm and operative site marked Recommendations Surgery/Procedure today Coding Level of Care Code Acute Resource Coordinator for Alan Mathews
--- NOTE | 2020-07-16 07:36 | ANES.PROC ---
Anesthesia Procedures Procedure/Date: 07/16/20 Nerve Block ^: Nerve Block 1: Main Anesthesia: spinal anesthesia block Time Out Performed: Yes Consent: requested by attending/covering physician, risks and benefits reviewed and patient agrees to proceed Nerve block location: adductor canal Anesthesia monitors applied: pulse oximetry, EKG, BP cuff and oxygen Nerve block position: supine Anesthetic Used: ropivicaine 0.5% Amount of anesthesia used (mL): 20 Ultrasound used to: recognize landmarks Nerve Stimulator Used?: No Interscalene/Femoral BLK: 4 stimuplex 21 g needle used for position and inplane approach and visualize local anesthetic spread Injection: neg aspiration of heme Patient Tolerated Procedure: well Complications: none
[2020-07-16] MEDS: ketorolac 30 mg/mL INJ XX (07:49)
[2020-07-16] MEDS: tranexamic acid 1,000 mg/10mL SDV 1000 MG IRRIGATION (07:49)
[2020-07-16] MEDS: EPINEPHrine 1 mg/mL INJ XX (07:50)
--- NOTE | 2020-07-16 07:54 | SUR.OPER ---
Family Notified Of Patient's Status Via Phone.
--- NOTE | 2020-07-16 09:21 | XRR_ITS ---
PROCEDURE INFORMATION: Exam: XR Right Knee Exam date and time: 07/16/2020 9:21 AM Age: 75 years old Clinical indication: Device placement; Joint replacement hardware; Prior surgery; Surgery date: Post-operative (0-2 days); Surgery type: Total knee arthroplasty; Additional info: Right total knee arthroplasty TECHNIQUE: Imaging protocol: XR Right knee. Views: 1 or 2 views. COMPARISON: CR XR knees AP WB w RT lmt ORTH 05/30/2020 9:34 AM FINDINGS: Bones/joints: The patient has undergone recent insertion of a total knee prosthesis. No fractures are seen. The position appears satisfactory. Soft tissues: Some gas is present in the soft tissues from the recent surgery.. XR/XR knee RT 1-2V [id number] IMPRESSION: Satisfactory appearance of the knee prosthesis.
--- NOTE | 2020-07-16 09:24 | P.OP_ITS ---
Operative Report Date of procedure: July 16, 2020 Pre-op Diagnosis: Osteoarthritis right knee Post-op diagnosis: same Post-op Findings: Same Procedure Done: Right total knee arthroplasty Implants: 1) 5 triathalon cruciate retaining femoral component 2) Size 5 Tritanium tibial component 3) Size 5/13 mm thickness CR tibial bearing insert Pathology: none sent Surgeon: Cody Najera Anesthesia: General Estimated blood loss (mL): 200 Complications: None Findings: The patient had eburnated bone over his medial femoral condyle and medial tibial plateau Condition: stable Disposition: PACU Brief History: See history and physical Procedure: The patient was taken to the operating room. Patient was given 1 g of tranexamic acid . The above anesthesia provided by the anesthesia service. A timeout was performed. The patient was prepped and draped in the usual fashion with the lower extremity exposed. A anterior incision was made, midline, from a point proximal to the patella to the distal tibial tubercle. The knee was entered through a medial parapatellar approach. The patella could be displaced laterally and the knee flexed. The patellar fat pad was resected to provide better visibility. Retractors were placed medially and laterally adjacent to the tibial plateau. The femoral canal was drilled in line with the longitudinal axis of the femur. Intramedullary femoral guide for used to make a distal femoral cut in 5 degrees of valgus, resecting 8 mm from the more prominent condyle. Next the extra medullary tibial guide was placed in alignment with the longitudinal axis of the tibia. The cutting guides were set to remove just over 9 mm from the high tibial plateau. The proximal tibia was then cut. The femoral measuring guide was then placed over the distal femur. Rotation was verified checking the relationship of the guide to the condyle and the trochlear groove. The femur was measured and cut for the desired femoral component. The desired tibial baseplate was then chosen. A trial reduction with the femur tibial baseplate and polyethylene was done, assuring that the knee was stable throughout full motion. Ligament balancing involve nothing more than a release of the deep medial collateral ligament and removal of medial osteophytes.the patella was inspected and found to be free of any significant chondromalacia. I articulated well with femoral components and patellar resurfacing was not done. All surfaces were cleaned with pulsatile lavage. The femur tibia were then press- fit into place. The posterior capsule and collateral ligaments were then injected with a 40 cc of a solution of 100 mL of 0.2% ropivacaine, 1 mL of a 1:1000 epinephrine solution, and 30 mg of Toradol. Final polyethylene component was then snapped into place into the tibia. 2 grams of tranexamic acid were applied to the wound. The tourniquet was deflated. The tranxanemic acid was left contact with the knee for 5 minutes before the knee was irrigated with saline. The extensor retinaculum was closed with 1 Ethibond. The subcutaneous tissues were closed with 2-0 Vicryl and the skin was closed with skin sigrid. A compressive dressing was applied. The patient was taken to recovery room in stable condition. Zutux total knee arthroplasty components were used includin) Size
--- NOTE | 2020-07-16 09:39 | ANE.PACU2 ---
Inpatient post-anesthesia follow up: Airway intact: Yes Vital signs: Temperature 97.3 F Pulse Rate 62 Respiratory Rate 22 Blood Pressure 114/63 Pulse Oximetry 95 Oxygen Delivery Me thod Room Air Oxygen Flow Rate Fraction of Inspir ed Oxygen Hydration adequate: Yes Nausea and vomiting: No Pain level: 1 Mental status: Baseline
--- NOTE | 2020-07-16 10:47 | SUR.PHASEI ---
0930 PT HAS SENSATION/MOVEMENT TO ALL EXTREMITIES, PEDAL PULSE PALPATED R. FOOT, CAP REFILL <3 SEC
[2020-07-16] MEDS: fentaNYL 50 mcg/mL INJ 2mL IVP ×2 (12:37→12:50)
--- NOTE | 2020-07-16 15:21 | SUR.PHASEI ---
1500 Li catheter dc'd per Dr. Najera verbal order. Cefazolin 2gm IVPB started and infusing. Pt to go to floor for observation and may be discharged home later tonight if feeling well enough for discharge. Physical therapy at bedside finishing with instruction. Pt to floor via bed. Report given to Nicole Erwin RN.
[2020-07-16] MEDS: sennosides-docusate Tablet 2 TAB PO (18:11)
--- NOTE | 2020-07-17 13:26 | P.DS_ITS ---
Discharge Providers Date of Admission: 07/16/20 15:20 Date of Discharge: July 17, 2020 Attending Provider at Admission: Cody Najera MD Attending Provider at Discharge: Cody Najera MD Diagnoses at Discharge Discharge Diagnosis (1) Osteoarthritis of right knee: Status: Resolved (2) Status post right knee replacement: Status: Acute Reason for Visit Reason for Visit: Arthritis of right knee Hospital Course Hospital Course Mr. Jimenez underwent elective right total knee arthroplasty on 07/08/2020. He had little pain postoperatively. On his first therapy session he was independent with his walker. He was then discharged home that day of surgery. He'll be on aspirin for DVT prophylaxis. Physical Exam Narrative: EXAM NARRATIVE: On the day of discharge his knee incision was clean. They had no drainage. There is minimal swelling in the thigh and knee and the calf. No distal neurovascular deficits were noted Urinary Catheter Management^: Li: Cath Placed During This Visit: yes, but has since been removed by the nurse Urinary Catheter Date of Insertion: 07/16/20 Urinary Catheter Time of Insertion: 07:25 Date Urinary Catheter Removed: 07/16/20 Time Urinary Catheter Discontinued: 15:00 Discharge Data Data Completed and Pending: Completed Studies During Hospitalization Category Date Time Status XR knee RT 1-2V 7 [id number] Routine Exams 07/16/20 09:21 Completed Vitals: Last Vital Signs Temp 97.8 F 07/16/20 19:20 Pulse 88 07/16/20 19:20 Resp 20 H 07/16/20 19:20 BP 159/84 07/16/20 19:20 Pulse Ox 95 07/16/20 19:20 Discharge Plan Discharge Patient Disposition: Home Condition: Stable Prescriptions: New aspirin 325 mg Tablet,Delayed Release (Dr/Ec) 325 mg PO DAILY 30 Days Qty: 30 RF: 0 celecoxib 200 mg Capsule 200 mg PO Q12H 15 Days Qty: 30 RF: 0 gabapentin 300 mg Capsule 300 mg PO BID 15 Days Qty: 30 RF: 0 oxycodone 5 mg Tablet 5 mg PO Q4H PRN (Reason: Moderate Pain) 7 Days Qty: 40 RF: 0 Continued (DME) Hinged Elbow Brace See Rx Instructions .Route .MEDSUPPLY Qty: 1 RF: 0 hydrochlorothiazide 12.5 mg tablet 12.5 mg PO QAM RF: 0 sildenafil 100 mg tablet 100 mg PO DAILY PRN (Reason: sexual activity) Qty: 20 RF: 12 tamsulosin 0.4 mg capsule 0.4 mg PO QDAY Qty: 90 RF: 3 atorvastatin 20 mg tablet 20 mg PO DAILY RF: 0 meloxicam 15 mg tablet 15 mg PO DAILY RF: 0 amlodipine 10 mg tablet 10 mg PO DAILY RF: 0 albuterol sulfate 90 mcg/actuation HFA aerosol inhaler 2 puff INHALATION PRN PRN (Reason: Shortness Of Breath) RF: 0 budesonide-formoterol [Symbicort] 160-4.5 mcg/actuation HFA aerosol inhaler 2 puff INHALATION BID RF: 0 cyclobenzaprine 10 mg Tablet 10 mg PO TID PRN (Reason: Muscle Pain) RF: 0 Discharge Orders: Discharge Order (Routine); Ordered 07/16/20 Ordered By: Cody Najera Referrals: Cody Najera MD [Physician] - 07/31/20 2:15 pm Discharge Diet: Advance as tolerated Discharge Activity: Limit activity as instructed Patient Instructions: Aspirin (By mouth), Gabapentin (By mouth), Oxycodone, Rapid Release (By mouth), Celecoxib (By mouth), Total Knee Replacement (DC) Activity Restrictions/Additional Instructions: Keep dressing dry and in place for next 48 hrs. May shower once incisions completely free of drainage. Replace dressing as needed. Take Celebrex and Neurontin twice a day for the next 15 days for pain , discontinue other anti-inflammatories Take Tylenol for mild pain Take oxycodone for breakthrough pain. Exercises per physical therapy. May weight-bear as tolerated on total knee arthroplasty Discharge Attestations Time Spent in Discharge Care*: other Quality Metrics Clinical Quality Measures During this hospital stay, did patient experience: None Coding Level of Care Code Acute Multicultural Services Librarian for Alan Fwchelle Diagnoses Osteoarthritis of right knee M17.11 Status post right knee replacement Z96.651
== END 2020-07-16 19:23 | disposition home or self-care (01) ==
LOC: MEDSURG 15:20
PROVIDERS: Anesthesiology; Admitting Provider Orthopaedic Surgery; Visit Provider Orthopaedic Surgery
PROC: (CPT 27447; principal; 2020-07-16 07:00)
DX: M17.11 Unilateral primary osteoarthritis, right knee (principal); J44.9 Chronic obstructive pulmonary disease, unspecified; I10 Essential (primary) hypertension; E78.5 Hyperlipidemia, unspecified; Z87.891 Personal history of nicotine dependence; N40.1 Benign prostatic hyperplasia with lower urinary tract symptoms; N13.8 Other obstructive and reflux uropathy; Z98.1 Arthrodesis status
CPT/HCPCS: 27447; 12345; 73560; 80053; 85025; 93005; 97161; 97530; C1776; G0378; J0171; J0690; J1580; J1885; J2250; J2405; J2704; J2795; J3010; J7030

== ENCOUNTER 2020-08-08 08:11 | Outpatient (RCR) | payer MEDICARE, BC, SELFPAY | END 2020-08-19 23:59 | disposition home or self-care (01) | LOC: SPT 08:11 | PROVIDERS: Referring Provider Orthopaedic Surgery; Visit Provider Orthopaedic Surgery | DX: Z47.1 Aftercare following joint replacement surgery (principal); Z96.651 Presence of right artificial knee joint | CPT/HCPCS: 97110; 97161 ==

== ENCOUNTER → 2020-08-09 09:33 | Outpatient (BNVA) | payer MEDICARE, BC, SELFPAY | PROVIDERS: PCP Family Medicine; Visit Provider Urology | DX: N40.1 Benign prostatic hyperplasia with lower urinary tract symptoms (principal); N52.9 Male erectile dysfunction, unspecified | CPT/HCPCS: 81003 ==

== ENCOUNTER 2020-08-20 06:00 | Outpatient (RCR) | payer MEDICARE, BC, SELFPAY | END 2020-09-16 23:59 | disposition home or self-care (01) | LOC: SPT 06:00 | PROVIDERS: PCP Family Medicine; Referring Provider Orthopaedic Surgery; Visit Provider Orthopaedic Surgery | DX: Z47.1 Aftercare following joint replacement surgery (principal); Z96.651 Presence of right artificial knee joint | CPT/HCPCS: 97110 ==

== ENCOUNTER → 2020-08-28 09:20 | Outpatient (BNVA) | payer MEDICARE, BC, SELFPAY | PROVIDERS: PCP Family Medicine; Visit Provider Orthopaedic Surgery | DX: Z47.1 Aftercare following joint replacement surgery (principal); M17.11 Unilateral primary osteoarthritis, right knee; Z96.651 Presence of right artificial knee joint | CPT/HCPCS: 73560; 73565 ==

== ENCOUNTER → 2020-10-19 09:54 | Outpatient (BNVA) | payer MEDICARE, BC, SELFPAY | PROVIDERS: PCP Family Medicine; Visit Provider Surgery | DX: Z20.822 Contact with and (suspected) exposure to COVID-19 (principal) | CPT/HCPCS: 87635 ==

== ENCOUNTER 2020-10-23 07:34 | Day surgery (SDC) | payer MEDICARE, BC, SELFPAY ==
[2020-10-19 11:05] VITALS: BMI 26.6
--- NOTE | 2020-10-23 07:46 | ANES.PREANE2 ---
Pre-Anesthetic Assessment Pre-Anesthetic Assessment: Height/Weight: Height 1.68 m Weight 74.843 kg Preop Diagnosis: Osteoarthritis right knee Proposed Procedure: Operation Date: 10/23/20 09:00 Proposed Procedures p Colonoscopy 32086 z12.11(Not Applicable) - Michael Hall MD Familial anesthetic complications: screening Last intake: NPO > 8 hrs Social: Social History: No alcohol and No tobacco Exam: Pre-Anes Outpt Exam: alert, oriented x 3, clear to auscultation bilaterally and regular rate & rhythm Airway: Cervical ROM: WNL MP: 4 Dentition: Full Pulmonary: Pulmonary: COPD CV/HEM: CV/HEM: HTN Musc/skel: Musc/skel: OA/DJD Anesthetic Plan: ASA status: 2 Anesthesia: MAC Risk of > 500 ml blood loss (7ml/kg in children): No PFSH Anesthesia PFSH: Medical History BPH NOS w ur obs/LUTS Hyperlipidemia Hypertension Impotence Surgical History H/O sinus surgery H/O vasectomy History of colonoscopy History of lumbar fusion Hx of cataract surgery S/P cervical spinal fusion Family History Father , at age 51 Myocardial infarction (lateral wall) Mother , at age 75 Cancer lung Social History Smoking and tobacco status: former smoker Alcohol intake: current Alcohol intake frequency: holidays/special occasions only Marital status: Current occupational status: retired History of recent travel: No Data Anesthesia Cardiac Studies: No Data to Display
--- NOTE | 2020-10-23 07:49 | P.HP_ITS ---
Same Day Surgery H&P Indication for Procedure/HPI DATE OF PROCEDURE: October 23, 2020 CHIEF COMPLAINT/INDICATIONFOR SURGICAL PROCEDURE: screening PREOP DIAGNOSIS: Osteoarthritis right knee PLANNED PROCEDRUE: Operation Date: 10/23/20 09:00 Proposed Procedures p Colonoscopy 70462 z12.11(Not Applicable) - Michael Hall MD Medications/Allergies* Home Medications Medication Instructions Recorded Confirmed Type amlodipine 10 mg PO DAILY 08/03/19 10/22/20 History atorvastatin 20 mg PO DAILY 08/03/19 10/22/20 History budesonide-formoterol [Symbicort] 2 puff INHALATION BID 08/03/19 10/22/20 History meloxicam 15 mg PO DAILY 08/03/19 10/22/20 History hydrochlorothiazide 12.5 mg tablet 12.5 mg PO QAM 02/07/20 10/22/20 History albuterol sulfate 90 mcg/actuation 2 puff INHALATION Q6H PRN 08/09/20 10/22/20 History aerosol inhaler Allergies/Adverse Reactions Allergy/AdvReac Type Severity Reaction Status Date / Time No Known Allergies Allergy Verified 10/19/20 11:03 Pertinent History/Comorbid Conditions* Medical History (Updated 08/09/20 @ 17:09 by Rogerio Orozco MD) BPH NOS w ur obs/LUTS Hyperlipidemia Hypertension Impotence Surgical History (Updated 07/16/20 @ 16:09 by Cody Najera MD) H/O sinus surgery H/O vasectomy History of colonoscopy History of lumbar fusion Hx of cataract surgery S/P cervical spinal fusion Family History (Updated 01/17/20 @ 17:07 by Jane Torres LPN) Father, at age 51 Mother, at age 75 Myocardial infarction (lateral wall) Father Cancer Mother lung Social History Smoking and tobacco status: former smoker Alcohol intake: current Alcohol intake frequency: holidays/special occasions only Marital status: Current occupational status: retired History of recent travel: No Pertinent Exam Findings alert, oriented x 3, regular rate & rhythm and operative site marked Recommendations Surgery/Procedure today Coding Level of Care Code Acute Hospital Chief Executive Officer for Brendag Reid
[2020-10-23 08:05] VITALS: BP 135/74; PULSE 56; RESP 18; TEMP 36.8; O2SAT 96
[2020-10-23] MEDS: sodium chloride 0.9% 1,000 ML 30 ML IV (08:20)
[2020-10-23 09:47] VITALS: BP 128/79; PULSE 63; RESP 18; TEMP 36.5; O2SAT 91
[2020-10-23 10:02] VITALS: BP 146/90; PULSE 58; RESP 16; TEMP 36.4; O2SAT 97
--- NOTE | 2020-10-23 12:25 | ANE.PACU2 ---
Inpatient post-anesthesia follow up: Airway intact: Yes Vital signs: Temperature 97.6 F Pulse Rate 58 Respiratory Rate 16 Blood Pressure 146/90 Pulse Oximetry 97 Oxygen Delivery Me thod Room Air Oxygen Flow Rate Fraction of Inspir ed Oxygen Hydration adequate: Yes Nausea and vomiting: No Pain level: 1 Mental status: Baseline
== END 2020-10-23 10:25 | disposition home or self-care (01) ==
PROVIDERS: PCP Family Medicine; Visit Provider Surgery
PROC: 0DJD8ZZ Inspection of Lower Intestinal Tract, Via Natural or Artificial Opening Endoscopic (ICD-10-PCS; CPT 45378; principal; 2020-10-23 09:00)
DX: Z12.11 Encounter for screening for malignant neoplasm of colon (principal); K57.30 Diverticulosis of large intestine without perforation or abscess without bleeding; K64.8 Other hemorrhoids; N40.1 Benign prostatic hyperplasia with lower urinary tract symptoms; N13.8 Other obstructive and reflux uropathy; E78.5 Hyperlipidemia, unspecified; I10 Essential (primary) hypertension; Z98.1 Arthrodesis status; Z87.891 Personal history of nicotine dependence; J44.9 Chronic obstructive pulmonary disease, unspecified
CPT/HCPCS: 45378; 96360; 96361; G0121; J7030

== ENCOUNTER → 2021-02-06 09:21 | Outpatient (BNVA) | payer MEDICARE, BC, SELFPAY | PROVIDERS: PCP Family Medicine; Visit Provider Urology | DX: N40.1 Benign prostatic hyperplasia with lower urinary tract symptoms (principal); N52.9 Male erectile dysfunction, unspecified | CPT/HCPCS: 81003 ==

== ENCOUNTER 2021-10-03 14:03 | Outpatient (CLI) | payer MEDICARE, OTHER, SELFPAY ==
--- NOTE | 2021-10-03 14:14 | CT_ITS ---
WS: [id number] LDCT LUNG CANCER SCREENING TECHNIQUE: Noncontrast CT of the chest with coronal and sagittal reformatted images. CLINICAL INFORMATION: ASBESTOS EXPOSURE COMPARISON: None. DLP: 86.30 mGy.cm DIvol: Mean CTDIvol: 1.60 (mGy) All CT scans at [facility] use at least one of these dose optimization techniques: automat ed exposure control; mA and/or kV adjustment per patient size (includes targeted exams where dose is matched to clinical indication); or iterative reconstruction. FINDINGS: Calcified granulomatous disease. No acute pulmonary infiltrates. No focal pneumonia or pleural fluid. A few tiny noncalcified nodules RIGHT upper lobe. Normal caliber thoracic aorta. Aortic calcification. Coronary calcification. No mediastinal or hilar lymphadenopathy. Numerous normal size mediastinal lymph nodes likely reactive. Partially visualized peripherally calcified low-attenuation LEFT renal lesion is indeterminant measur ing 4.0 cm. This can be further evaluated ultrasound.. Adrenal glands are normal. Mild thoracic kypho sis with hypertrophic changes. Postoperative changes lower cervical spine. CT/CT lung screening [id number] IMPRESSION: Recommend renal ultrasound for evaluation of the peripherally calci fied low-attenuation LEFT renal lesion. LUNG-RADS: 2S-Benign Appearance or Behavior with Significant Findings FOLLOW UP: 12 Month: Continue annual screening with LDCT
== END 2021-10-03 14:04 | disposition home or self-care (01) ==
PROVIDERS: PCP Family Medicine; Visit Provider Family Medicine
DX: Z12.2 Encounter for screening for malignant neoplasm of respiratory organs (principal); Z77.090 Contact with and (suspected) exposure to asbestos
CPT/HCPCS: 71271

== ENCOUNTER 2021-11-05 14:37 | Outpatient (CLI) | payer MEDICARE, OTHER, SELFPAY ==
--- NOTE | 2021-11-05 14:48 | US_ITS ---
WS: [id number] RENAL ULTRASOUND HISTORY: RENAL MASS COMPARISON: 10/27/2018 TECHNIQUE: 2-D and color Doppler imaging of the kidney submitted. Right kidney: 10.1 cm x 4.8 cm x 5.7 cm. Normal echogenicity with no hydronephrosis or mass. No cortical thinning or atrophy. No mass. Left kidney: 11.2 cm x 4.5 cm x 5.0 cm. Normal size kidney. No hydronephrosis. Lobulated cystic mass extends lateral from the mid to upper ki dney. There is partial calcification within the wall of this cystic mass. Mass measures 3.4 x 3.7 x 3 .9 cm. There is a thick septation with no increased vascularity. This mass was previously identified on a prior study of 09/14/2013 with no increase in size. Aorta: Normal. Urinary Bladder: Minimally distended. US/US renal BI* [id number] IMPRESSION: 1. No hydronephrosis or cortical atrophy. 2. Long-term stability of the complex cystic mass with wall calcification and septation in the LEFT kidney. Mass now measures 3.4 x 3.7 x 3.9 cm.
== END 2021-11-05 14:38 | disposition home or self-care (01) ==
LOC: RAD 14:43
PROVIDERS: PCP Family Medicine; Visit Provider Family Medicine
DX: N28.89 Other specified disorders of kidney and ureter (principal)
CPT/HCPCS: 76770

== ENCOUNTER → 2022-01-28 08:31 | Outpatient (BNVA) | payer MEDICARE, OTHER, BC, SELFPAY | PROVIDERS: PCP Family Medicine; Visit Provider Urology | DX: N40.1 Benign prostatic hyperplasia with lower urinary tract symptoms (principal); N52.9 Male erectile dysfunction, unspecified; N28.1 Cyst of kidney, acquired | CPT/HCPCS: 51798; G0463; 81003; 99213 ==

== ENCOUNTER 2022-05-13 06:41 | Outpatient (CLI) | payer MEDICARE, OTHER, SELFPAY | END 2022-05-13 06:42 | disposition home or self-care (01) | LOC: RT 06:41 | PROVIDERS: PCP Electrodiagnostic Medicine; Visit Provider Electrodiagnostic Medicine | DX: J43.9 Emphysema, unspecified (principal) | CPT/HCPCS: 94060; 94726; 94729; J7611 ==

== ENCOUNTER → 2022-12-03 10:10 | Outpatient (BNVA) | payer MEDICARE, OTHER, SELFPAY | PROVIDERS: PCP Electrodiagnostic Medicine; Visit Provider Internal Medicine Cardiovascular Disease | DX: I10 Essential (primary) hypertension (principal); R06.02 Shortness of breath; E78.5 Hyperlipidemia, unspecified; N40.1 Benign prostatic hyperplasia with lower urinary tract symptoms; N13.8 Other obstructive and reflux uropathy; M17.11 Unilateral primary osteoarthritis, right knee | CPT/HCPCS: 93005; 99204 ==

== ENCOUNTER 2022-12-05 13:31 | Inpatient (IN) | payer OTHER, SELFPAY ==
[2022-12-05] VITALS (13 sets, daily range): BP systolic 118–137; BP diastolic 69–91; PULSE 66–74; RESP 14–18; TEMP 36.9–38.3; O2SAT 90–96; BMI 25.9
--- NOTE | 2022-12-05 16:33 | W.ED.EXTPRO ---
HPI - Extremity Problem General: Chief complaint: Extremity Problem,Nontraumatic Stated complaint: right kneepain/fever/nauseas Time Seen by Provider: 12/05/22 16:33 History of Present Illness: Mr. Jimenez is a 77-year-old gentleman with history of right knee arthroplasty presenting to the emergency department due to fevers, chest pain, cough, nausea vomiting, abdominal pain, and right knee pain. He has not felt well for some period of time however was at his baseline yesterday. He woke up this morning with mild knee pain and went to play golf. By the end of 10 holes he had severe pain and was unable to ambulate. He also developed fevers, nausea vomiting, some cough shortness of breath and chest pain. Overall course of symptoms has worsened. Intensity is moderate to severe. No other specific changes in health, exacerbating, or alleviating factors identified. Onset (ago): hour(s) Pain Consistency: constant Location: right and knee Quality: aching Radiation: none Relieving factors: nothing Exacerbating factors: range of motion, weight bearing, walking and palpation Associated symptoms: Reports chest pain, fever(s), short of breath and other Review of Systems General: Reports: 10 or more systems reviewed and unremarkable except in HPI and below Const: Reports: fever(s) Card: Reports: chest pain PFSH ED PFSH: Medical History BPH NOS w ur obs/LUTS Complex renal cyst Originally noted in 2012 with no significant post exchange manager time. Complexity comes from some rim calcification and septation. Hyperlipidemia Hypertension Impotence Surgical History H/O sinus surgery H/O vasectomy History of colonoscopy (10/23/20) Diverticulosis, internal hemorrhoids History of lumbar fusion Hx of cataract surgery S/P cervical spinal fusion Status post right knee replacement Family History Father , at age 51 Myocardial infarction (lateral wall) Mother , at age 75 Cancer lung Social History Smoking and tobacco status: former smoker Alcohol intake: current Alcohol intake frequency: holidays/special occasions only Marital status: Current occupational status: retired Physical Exam Const: COMMON NORMALS: alert GENERAL APPEARANCE: cooperative, well developed and ill appearing (Somewhat) HENMT: COMMON NORMALS: normocephalic and atraumatic HEAD & SCALP: normocephalic and atraumatic THROAT: posterior oropharynx normal Eye: COMMON NORMALS: conjunctivae normal CONJUNCTIVA: Yes conjunctivae normal SCLERA: sclerae normal Neck/C-Spine: COMMON NORMALS: supple GENERAL: Yes trachea midline Resp: COMMON NORMALS: normal respiratory effort and clear to auscultation bilaterally EFFORT & INSPECTION: Yes able to speak in complete sentences AUSCULTATION: clear to auscultation bilaterally Cardio: COMMON NORMALS: regular rate and regular rhythm RATE: regular rate RHYTHM: regular rhythm GI: COMMON NORMALS: Soft to palpation PALPATION: Yes Soft to palpation, Yes Tenderness to palpation present (GI), No Guarding due to palpation present (GI) and No Rigid due to palpation Extremity: NARRATIVE EXTREMITY EXAM: There is warmth and generalized swelling about the right knee most palpable in the posterior aspect suspicious for Villaseñor's cyst at least. Limited range of motion secondary to pain. Distal CMS intact. No evidence of overlying skin changes or cellulitis. GENERAL: Yes normal exam except as noted and No edema Neuro: COMMON NORMALS: moves all extremities SENSORIUM/ORIENTATION: Yes alert and No Orientation impaired Psych: COMMON NORMALS: mental status grossly normal and Normal thought process present THOUGHT PROCESS: Normal thought process present Course Vital Signs: Vital signs: Vital Signs Temperature 98.0 F 12/10/22 08:00 Pulse Rate 60 12/10/22 08:00 Respiratory Rate 16 12/10/22 11:40 Blood Pressure 143/78 12/10/22 08:30 Pulse Oximetry 93 12/10/22 08:00 Oxygen Delivery Me thod Room Air 12/10/22 08:00 Oxygen Flow Rate 0 12/09/22 08:20 MDM - Extremity (Nontraumatic) Medical Decision Making 77-year-old gentleman presented to the emergency department for atraumatic knee pain associated with generalized illness. The patient endorses various symptoms including nausea, vomiting, he is febrile and mildly ill-appearing, he additionally possibly reports some chest discomfort. Knee replacement was approximately 3 years ago. Exam otherwise as above. Labs notable for leukocytosis which is mild at 12.3, normal hemoglobin and platelet count. There is neutrophil predominance. ESR 19 and CRP 31.3. Mild evidence of metabolic stress with normal lactic acid on metabolic panel. Urinalysis with hematuria without evidence of urinary tract infection. Viral panel is negative. Given laboratory findings as well as severity of diagnosis of infected prosthetic joint additional imaging is appropriate to evaluate for other causes given patient description of symptoms. CT demonstrates no significant other source of infection. Ultrasound of the leg reveals popliteal cyst and joint effusion, no x-ray abnormalities of hardware, no evidence of DVT. Given clinical findings, laboratory studies, and imaging there is high concern for septic joint. Orthopedic service consulted and came to evaluate the patient at bedside. Arthrocentesis reveals purulent appearing fluid with some blood. Sent for fluid analysis and cultures as well as other studies. Antibiotics ordered. Most likely etiology of symptoms is infected prosthetic joint. The results of ED evaluation were discussed with the patient including plan for admission due to requirement for level of care not available if discharged to prevent significant worsening/deterioration. Patient agreeable with plan. Discussed with hospitalist service who was agreeable to admit patient. Note on labs: lactic acid result of 13.4 was from synovial fluid. Patient's lactic acid on hematologic study is 0.8. Medical Records I reviewed the patient's medical records. Lab Data I reviewed the patient's lab results. 12/10/22 04:50 12/10/22 05:34 Radiology Impressions Knee X-Ray 12/05/22 16:45 IMPRESSION: 1. Total knee arthroplasty in anatomic alignment without evidence of hardware complication. 2. Mild soft tissue swelling and small effusion. If there is clinical concern for intra-articular infection, joint aspiration may be useful. Venous Duplex 12/05/22 16:49 IMPRESSION: 1. No sonographic evidence of deep vein thrombosis. 2. 2.1 x 3.5 x 0.7 cm popliteal cyst. Chest/Abdomen/Pelvis CT 12/05/22 18:22 IMPRESSION: 1. Mild central peribronchial thickening, suggestive of airway inflammation. 2. Several small pleural based right lower lobe nodular densities, measuring up to 6 mm, similar to prior. Recommend follow-up CT Chest in 6-12 IMPRESSION: 1. No CT evidence of acute intra-abdominal or pelvic pathology. 2. Enlarged prostate. Correlate with clinical exam and PSA levels. 3. Additional findings, as above. Chest X-Ray 12/09/22 11:16 IMPRESSION: RIGHT PICC line with tip in the mid to distal SVC in good position. Laboratory Results WBC 12.3 10^3/uL (4.0-10.0) H 12/05/22 17:02 RBC 4.93 10^6/uL (4.1-5.3) 12/05/22 17:02 Hgb 15.1 g/dL (11.7-16.6) 12/05/22 17:02 Hct 43.7 % (42.0-52.0) 12/05/22 17:02 MCV 88.6 fl (80-94) 12/05/22 17:02 MCH 30.6 pg (28.0-34.0) 12/05/22 17:02 MCHC 34.6 g/dL (30.0-36.0) 12/05/22 17:02 RDW 13.5 % (12.1-15.1) 12/05/22 17:02 Plt Count 188 10^3/cmm (130-400) 12/05/22 17:02 MPV 10.6 fL (7.4-10.4) H 12/05/22 17:02 Neut % (Auto) 88.7 % 12/05/22 17:02 Lymph % (Auto) 3.4 % 12/05/22 17:02 [place] % (Auto) 7.3 % 12/05/22 17:02 Eos % (Auto) 0.0 % 12/05/22 17:02 Baso % (Auto) 0.2 % 12/05/22 17:02 Neut # (Auto) 10.89 10^3/uL (1.8-7.7) H 12/05/22 17:02 Lymph # (Auto) 0.4 10^3/uL (0.8-4.8) L 12/05/22 17:02 [place] # (Auto) 0.9 10^3/uL (0.2-0.9) 12/05/22 17:02 Eos # (Auto) 0.0 10^3/uL (0.0-0.8) 12/05/22 17:02 Baso # (Auto) 0.0 10^3/uL (0.0-0.1) 12/05/22 17:02 Nucleated RBC % (auto) 0 % 12/05/22 17:02 Nucleated RBCs # 0.0 /100WBC 12/05/22 17:02 ESR 19 mm/hr (0-10) H 12/05/22 17:02 Sodium 136 mmol/L (136-145) 12/05/22 17:02 Potassium 3.5 mmol/L (3.5-5.1) 12/05/22 17:02 Chloride 100 mmol/L (98-107) 12/05/22 17:02 Carbon Dioxide 20 mmol/L (22-29) L 12/05/22 17:02 Anion Gap 19.5 (5-19) H 12/05/22 17:02 BUN 13 mg/dL (8-23) 12/05/22 17:02 Creatinine 0.7 mg/dL (0.7-1.2) 12/05/22 17:02 GFR Calculation Not Reportable 12/05/22 17:02 Glucose 122 mg/dL (65-115) H 12/05/22 17:02 Calculated Osmolality 283 mOsm/kg (285-295) L 12/05/22 17:02 Lactic Acid 13.4 mmol/L (0.5-2.2) H* 12/05/22 21:19 Calcium 8.8 mg/dL (8.5-10.5) 12/05/22 17:02 Total Bilirubin 0.6 mg/dL (0.15-1.2) 12/05/22 17:02 AST 19 U/L (0-40) 12/05/22 17:02 ALT 16 U/L (0-41) 12/05/22 17:02 Alkaline Phosphatase 65 U/L (40-130) 12/05/22 17:02 Troponin T Baseline 24 ng/L (0-15) H 12/05/22 17:02 Troponin T 120 Minute 28.84 ng/L (0-15) H 12/05/22 19:20 Delta Troponin T 4.84 ABS# (0-10) 12/05/22 19:20 C-Reactive Protein 31.3 mg/L (0.0-4.9) H 12/05/22 17:02 Total Protein 6.4 g/dL (6.6-8.7) L 12/05/22 17:02 Albumin 4.4 g/dL (3.5-5.2) 12/05/22 17:02 Globulin 2.0 g/dL (1.3-4.6) 12/05/22 17:02 Procalcitonin 0.24 ng/mL (0-0.5) 12/05/22 17:02 Urine Color Yellow (Yellow) 12/05/22 19:30 Urine Appearance Clear (CLEAR) 12/05/22 19:30 Urine pH 5 (5-7) 12/05/22 19:30 Ur Specific [place] 1.010 (1.005-1.030) 12/05/22 19:30 Urine Protein Neg (Negative) 12/05/22 19: Urine Glucose (UA) Norm (Normal) 12/05/22 19: Urine Ketones 1+ (Negative) H 12/05/22 19: Urine Blood 3+ (Negative) H 12/05/22 19:30 Urine Nitrate Negative (Negative) 12/05/22 19:30 Urine Bilirubin Neg (Negative) 12/05/22 19: Urine Urobilinogen Norm mg/dL (Negative) 12/05/22 19:30 Ur Leukocyte Esterase Negative (Negative) 12/05/22 19:30 Urine RBC None /hpf (0-2) 12/05/22 19:30 Urine WBC None /hpf (0-5) 12/05/22 19:30 Ur Squamous Epith Cells None /hpf (0-5) 12/05/22 19:30 Amorphous Sediment Not Reportable 12/05/22 19:30 Urine Bacteria Trace /hpf (NONE) 12/05/22 19:30 Urine Mucus Trace /hpf 12/05/22 19:30 Fluid Crystals See path consult 12/05/22 21:19 Synovial Color Red (PALE YELLOW) 12/05/22 21:19 Synovial Appearance Cloudy (CLEAR) 12/05/22 21:19 Synovial WBC 81977 /uL (0-150) H 12/05/22 21:19 Synovial RBC 37 10^3/uL (0-0) H 12/05/22 21:[address] Sql Data Analyst 12/05/22 21:19 Synovial Mononuclear 10.846 10^3/uL 12/05/22 21:19 Synov Polynuclear WBCs 73.763 10^3/uL 12/05/22 21:19 Synovial Other Cells Not Reportable 12/05/22 21:19 Synovial Polynuclear % 87.200 % 12/05/22 21:19 Synovial Mononuclear % 12.800 % 12/05/22 21:19 Synovial Glucose 2 mg/dL 12/05/22 21:19 Synovial Total Protein 4.5 g/dL 12/05/22 21:19 Synovial LDH > 3854.0 U/L 12/05/22 21:19 Nasal Influ A H1 2009 PCR Not detected (NOT DETECT) 12/05/22 17:50 Adenovirus (PCR) Not detected (NOT DETECT) 12/05/22 17:50 C. pneumoniae DNA (PCR) Not detected (NOT DETECT) 12/05/22 17:50 Coronavirus 229E (PCR) Not detected (NOT DETECT) 12/05/22 17:50 Human Metapneumovir PCR Not detected (NOT DETECT) 12/05/22 17:50 Influenza A (H1) PCR Not detected (NOT DETECT) 12/05/22 17:50 Influenza A (H3) PCR Not detected (NOT DETECT) 12/05/22 17:50 Influenza Type A (PCR) Not detected (NOT DETECT) 12/05/22 17:50 Influenza Type B (PCR) Not detected (NOT DETECT) 12/05/22 17:50 M. pneumoniae (PCR) Not detected (NOT DETECT) 12/05/22 17:50 Parainfluenza 1 (PCR) Not detected (NOT DETECT) 12/05/22 17:50 Parainfluenza 2 (PCR) Not detected (NOT DETECT) 12/05/22 17:50 Parainfluenza 3 (PCR) Not detected (NOT DETECT) 12/05/22 17:50 Parainfluenza 4 (PCR) Not detected (NOT DETECT) 12/05/22 17:50 RSV Type A (PCR) Not detected (NOT DETECT) 12/05/22 17:50 RSV Type B (PCR) Not detected (NOT DETECT) 12/05/22 17:50 Entero/Rhino (PCR) Not detected (NOT DETECT) 12/05/22 17:50 SARS-CoV-2 (PCR) Not detected (NOT DETECT) 12/05/22 17:50 Path Cons w/Slide Yes 12/05/22 21:19 Misc Test Reference Cancelled 05/19/23 21:19 Discharge Plan Discharge Patient Disposition: Admitted As Inpatient Admit Provider: Katina Tena Clinical Impression: Septic joint of right knee joint Condition: Stable Discharge Diet: Advance as tolerated Discharge Activity: Increase activity as tolerated Coding Level of Care Code ED Flooring Helper for Alan Mathews
--- NOTE | 2022-12-05 16:45 | XRR_ITS ---
PROCEDURE INFORMATION: Exam: XR Chest Exam date and time: 12/05/2022 5:28 PM Age: 77 years old Clinical indication: Shortness of breath; Additional info: SOB, yessica TECHNIQUE: Imaging protocol: Radiologic exam of the chest. Views: 1 view. COMPARISON: CR XR chest 2V* [id number] 08/01/2022 8:42 AM FINDINGS: Lungs: Unremarkable. No consolidation. Pleural spaces: Unremarkable. No pleural effusion. No pneumothorax. Heart/Mediastinum: Unremarkable. No cardiomegaly. Bones/joints: No acute osseous abnormality. Degenerative changes. Anterior cervical fusion hardware. XR/XR chest 1V portable [id number] IMPRESSION: No acute radiographic findings.
--- NOTE | 2022-12-05 16:45 | XRR_ITS ---
PROCEDURE INFORMATION: Exam: XR Right Knee Exam date and time: 12/05/2022 5:28 PM Age: 77 years old Clinical indication: Pain; Knee; Right; Additional info: R knee pain, fever, HX replacement TECHNIQUE: Imaging protocol: Radiologic exam of the right knee. Views: 3 views. COMPARISON: MR knee RT wo con* [id number] 05/21/2020 8:52 AM FINDINGS: Bones/joints: Ten in the arthroplasty in place. No evidence of hardware complication. No radiographic evidence of acute fracture or dislocation. Alignment anatomic. No erosive or destructive changes. No lytic or blastic lesion. Small suprapatellar effusion. Soft tissues: Mild soft tissue swelling. XR/XR knee RT 3V* [id number] IMPRESSION: 1. Total knee arthroplasty in anatomic alignment without evidence of hardware complication. 2. Mild soft tissue swelling and small effusion. If there is clinical concern for intra-articular infection, joint aspiration may be useful.
--- NOTE | 2022-12-05 16:46 | ECG_ITS ---
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 Measurements Intervals [place] Rate: 75 P: 29 VA: 172 QRS: -11 QRSD: 103 T: 123 QT: 378 QTc: 423 Interpretive Statements SINUS RHYTHM LOW QRS VOLTAGE IN PRECORDIAL LEADS [QRS DEFLECTION < 1.0 mV IN CHEST LEADS] POSSIBLE RIGHT VENTRICULAR CONDUCTION DELAY [RSR (QR) IN V1/V2] POSSIBLE LEFT VENTRICULAR HYPERTROPHY [VOLTAGE CRITERIA PLUS LAE OR QRS WIDENING] POSSIBLE LATERAL MYOCARDIAL INFARCTION , OF INDETERMINATE AGE [30 ms Q WAVE IN I/aVL/V5/V6] Compared to ECG 12/03/2022 10:23:05 Low QRS voltage now present Sinus bradycardia no longer present Left-axis deviation no longer present Myocardial infarct finding still present Electronically Signed On 12-06-2022 5:56:52 CDT by Tamela Duncan M.D. [id number]
--- NOTE | 2022-12-05 16:49 | USR_ITS ---
PROCEDURE INFORMATION: Exam: US Duplex Right Lower Extremity Veins, Limited Exam date and time: 12/05/2022 5:12 PM Age: 77 years old Clinical indication: Pain; Leg, lower; Right; Additional info: Knee swelling, pain TECHNIQUE: Imaging protocol: Real-time duplex ultrasound of the right extremity with 2-D castro scale, color Doppler flow and spectral waveform analysis including responses to compression and other maneuvers (when performed) with image documentation. Limited exam was focused on the right lower extremity veins. COMPARISON: MR knee RT wo con* [id number] 05/21/2020 8:52 AM FINDINGS: Right deep veins: Unremarkable. The common femoral, femoral, proximal profunda femoral, popliteal, posterior tibial and peroneal veins are patent without thrombus. Normal Doppler waveforms. Normal compressibility and/or augmentation response. Right superficial veins: Unremarkable. Saphenofemoral junction is patent without thrombus. Soft tissues: 2.1 x 3.5 x 0.7 cm popliteal cyst. US/[place] [id number] IMPRESSION: 1. No sonographic evidence of deep vein thrombosis. 2. 2.1 x 3.5 x 0.7 cm popliteal cyst.
[2022-12-05] MEDS: ondansetron 2 mg/ML SDV 2 mL 4 MG IVP (17:10)
[2022-12-05] MEDS: morphine 4 mg/mL SDV 1 mL IVP (17:11)
[2022-12-05 17:16] LABS: Basophils % 0.2 %; Hematocrit 43.7 % (42.0-52.0); Hemoglobin 15.1 g/dL (11.7-16.6); Lymphocytes # 0.4 10^3/uL (0.8-4.8); Lymphocytes % 3.4 %; Mean Corpuscular HGB Conc 34.6 g/dL (30.0-36.0); Mean Corpuscular Hemoglobin 30.6 pg (28.0-34.0); Mean Corpuscular Volume 88.6 fl (80-94); Mean Platelet Volume 10.6 fL (7.4-10.4); Monocytes # 0.9 10^3/uL (0.2-0.9); Monocytes % 7.3 %; Neutrophils # 10.89 10^3/uL (1.8-7.7); Neutrophils % 88.7 %; Nucleated Red Blood Cells % 0 %; Platelet Count 188 10^3/cmm (130-400); Red Blood Count 4.93 10^6/uL (4.1-5.3); Red Cell Distribution Width 13.5 % (12.1-15.1); White Blood Count 12.3 10^3/uL (4.0-10.0)
[2022-12-05 17:46] LABS: Troponin(5th) Baseline 24 ng/L (0-15)
[2022-12-05 17:48] LABS: Erythrocyte Sedimentation Rate 19 mm/hr (0-10)
[2022-12-05 17:49] LABS: Alanine Aminotransferase 16 U/L (0-41); Albumin Level 4.4 g/dL (3.5-5.2); Alkaline Phosphatase 65 U/L (40-130); Anion Gap 19.5 (5-19); Aspartate Amino Transferase 19 U/L (0-40); Blood Urea Nitrogen 13 mg/dL (8-23); C Reactive Protein 31.3 mg/L (0.0-4.9); Calcium 8.8 mg/dL (8.5-10.5); Carbon Dioxide 20 mmol/L (22-29); Chloride 100 mmol/L (98-107); Glucose 122 mg/dL (65-115); Osmolality Calculated 283 mOsm/kg (285-295); Potassium 3.5 mmol/L (3.5-5.1); Sodium 136 mmol/L (136-145); Total Bilirubin 0.6 mg/dL (0.15-1.2); Total Protein 6.4 g/dL (6.6-8.7)
[2022-12-05 17:55] LABS: Procalcitonin 0.24 ng/mL (0-0.5)
--- NOTE | 2022-12-05 18:22 | CTR_ITS ---
PROCEDURE INFORMATION: Exam: CT Chest With Contrast; Diagnostic Exam date and time: 12/05/2022 6:44 PM Age: 77 years old Clinical indication: Fever and nausea and vomiting; Abdominal pain; Generalized; Fever and shortness of breath; Chest pressure; Prior surgery; Surgery date: 6+ months; Surgery type: Vasectomy , lumbar fusion; Additional info: SOB, cp, fever, n/v, abd pain TECHNIQUE: Imaging protocol: Diagnostic computed tomography of the chest with contrast. Axial, coronal and sagittal reformatted images were created and reviewed. Radiation optimization: All CT scans at this facility use at least one of these dose optimization techniques: automated exposure control; mA and/or kV adjustment per patient size (includes targeted exams where dose is matched to clinical indication); or iterative reconstruction. Contrast material: OMNI 350; Contrast volume: 100 ml; Contrast route: INTRAVENOUS (IV); REPORTING DATA: Count of CT and Cardiac NM exams in prior 12 months: This patient has received 0 known CTs and 0 known cardiac nuclear medicine studies in the 12 months prior to the current study. COMPARISON: CT lung screening [id number] 10/03/2021 3:02 PM RADIATION DOSE METRICS: Total DLP (mGy-cm): 316.2 FINDINGS: Lungs: Mild central peribronchial thickening, suggestive of airway inflammation. No consolidation. Scattered calcified granulomata. Several small pleural based right lower lobe nodular densities, measuring up to 6 mm, similar to prior. Pleural spaces: See Lungs finding. Heart: Unremarkable. No cardiomegaly. No pericardial effusion. Lymph nodes: Small mediastinal lymph nodes, nonspecific in appearance. No pathologically enlarged lymph nodes. Vasculature: Mild atherosclerotic disease. No aneurysm or dissection. Bones/joints: No acute osseous abnormality. Degenerative changes. Partially visualized anterior cervical fusion hardware. Soft tissues: Unremarkable. months. (References: Jocelyn and Lisa) 3. Additional findings, as above. REFERENCES: 1. Keehokonrad H, et al. Guidelines for Management of Incidental Pulmonary Nodules Detected on CT Images: From the Fleischner Society 2017. Radiology. 2017;284(1):228-243. 2. Lisa Moreau et al. Updated Fleischner Society Guidelines for Managing Incidental Pulmonary Nodules: Common Questions and Challenging Scenarios. Radiographics. 2018;38(5):6146-5564. PROCEDURE INFORMATION: Exam: CT Abdomen And Pelvis With Contrast Exam date and time: 12/05/2022 6:44 PM Age: 77 years old Clinical indication: Fever and nausea and vomiting; Abdominal pain; Generalized; Fever and shortness of breath; Chest pressure; Prior surgery; Surgery date: 6+ months; Surgery type: Vasectomy , lumbar fusion; Additional info: SOB, cp, fever, n/v, abd pain TECHNIQUE: Imaging protocol: Computed tomography of the abdomen and pelvis with contrast. Axial, coronal and sagittal reformatted images were created and reviewed. Radiation optimization: All CT scans at this facility use at least one of these dose optimization techniques: automated exposure control; mA and/or kV adjustment per patient size (includes targeted exams where dose is matched to clinical indication); or iterative reconstruction. Contrast material: OMNI 350; Contrast volume: 100 ml; Contrast route: INTRAVENOUS (IV); REPORTING DATA: Count of CT and Cardiac NM exams in prior 12 months: This patient has received 0 known CTs and 0 known cardiac nuclear medicine studies in the 12 months prior to the current study. COMPARISON: CT abdomen con [id number] 04/22/2019 1:51 PM RADIATION DOSE METRICS: Total DLP (mGy-cm): 443.9 FINDINGS: Liver: Multiple scattered subcentimeter low-density hepatic lesions, measuring up to 6 mm, too small to characterize. Benign-appearing 1.4 x 0.8 cm low-density lesion in the right hepatic lobe, similar to prior. Gallbladder and bile ducts: No radiodense gallstones. No biliary ductal dilatation. Pancreas: Unremarkable. Spleen: Unremarkable. Adrenal glands: Normal. No mass. Kidneys and ureters: 4.3 cm mildly complex left renal cyst with thin peripheral calcification (no follow-up is indicated based on the imaging appearance). No radiodense calculi. No hydronephrosis. Stomach and bowel: Scattered colonic diverticula without evidence of diverticulitis. No obstruction. No bowel wall thickening. No pneumatosis. Appendix: Normal. Intraperitoneal space: No free fluid. No organized fluid collection. No free air. Vasculature: Moderate atherosclerotic disease. No aneurysm or dissection. Lymph nodes: No pathologically enlarged lymph nodes. Urinary bladder: Unremarkable as visualized. Reproductive: Enlarged prostate. Bones/joints: No acute osseous abnormality. Degenerative changes. Status post bilateral L3, L4 and L5 laminectomies. Soft tissues: Small, fat containing left greater than right inguinal hernias. CT/CT chest abdpel w/*[id number] IMPRESSION: 1. Mild central peribronchial thickening, suggestive of airway inflammation. 2. Several small pleural based right lower lobe nodular densities, measuring up to 6 mm, similar to prior. Recommend follow-up CT Chest in 6-12 [address]PRESSION: 1[address] No CT evidence of acute intra-abdominal or pelvic pathology. 2. Enlarged prostate. Correlate with clinical exam and PSA levels. 3. Additional findings, as above.
--- NOTE | 2022-12-05 18:46 | ECG_ITS ---
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 Measurements Intervals [place] Rate: 70 P: 133 MT: 188 QRS: -18 QRSD: 111 T: 140 QT: 402 QTc: 436 Interpretive Statements SINUS RHYTHM LOW QRS VOLTAGE IN PRECORDIAL LEADS [QRS DEFLECTION < 1.0 mV IN CHEST LEADS] INCOMPLETE RIGHT BUNDLE BRANCH BLOCK [90+ ms QRS DURATION, TERMINAL R IN V1/V2, 40+ ms S IN I/aVL/V4/V5/V6] LEFT VENTRICULAR HYPERTROPHY AND ST-T CHANGE [VOLTAGE CRITERIA PLUS ST/T ABNORMALITY] POSSIBLE SEPTAL MYOCARDIAL INFARCTION , OF INDETERMINATE AGE [30 ms Q WAVE IN V1/V2] PROBABLE LATERAL MYOCARDIAL INFARCTION , OF INDETERMINATE AGE [35 ms Q WAVE IN I/aVL/V5/V6] Compared to ECG 12/05/2022 17:01:18 Incomplete right bundle-branch block now present ST (T wave) deviation now present Myocardial infarct finding still present Electronically Signed On 12-06-2022 6:18:01 CDT by Tamela Duncan M.D. [id number]
[2022-12-05 19:22] LABS: Lactic Sepsis W/Reflex 0.8 mmol/L (0.5-2.2)
[2022-12-05 19:46] LABS: Adenovirus Not Detected (NOT DETECT); Chlamydia Pneumoniae Not Detected (NOT DETECT); Coronavirus 229E,HKU1,NL63,OC4 Not Detected (NOT DETECT); Human Metapneumovirus Not Detected (NOT DETECT); Human Rhinovirus/Enterovirus Not Detected (NOT DETECT); Influenza A Not Detected (NOT DETECT); Influenza A H1 Not Detected (NOT DETECT); Influenza A H1-2009 Not Detected (NOT DETECT); Influenza A H3 Not Detected (NOT DETECT); Influenza B Not Detected (NOT DETECT); Mycoplasma Pneumoniae Not Detected (NOT DETECT); Parainfluenza Virus Type 1 Not Detected (NOT DETECT); Parainfluenza Virus Type 2 Not Detected (NOT DETECT); Parainfluenza Virus Type 3 Not Detected (NOT DETECT); Parainfluenza Virus Type 4 Not Detected (NOT DETECT); Respiratory Syncytial Virus A Not Detected (NOT DETECT); Respiratory Syncytial Virus B Not Detected (NOT DETECT); SARS-COV-2 Not Detected (NOT DETECT)
[2022-12-05 19:48] LABS: Add Urine Microscopic? YES; Bacteria Urine TRACE /hpf; Bilirubin Urine Neg (Negative); Blood Urine 3+ (Negative); Glucose Urine UA Norm (Normal); Ketones Urine 1+ (Negative); Leukocyte Esterase Urine Negative (Negative); Mucus Urine TRACE /hpf; Nitrate Urine Negative (Negative); Protein Urine Neg (Negative); Urine Appearance Clear (CLEAR); Urine Color Yellow (Yellow); Urobilinogen Urine Norm (Negative); pH Urine 5 (5-7)
[2022-12-05 19:53] LABS: Troponin 5 2HR 28.84 ng/L (0-15)
[2022-12-05 19:57] LABS: Troponin 5 2HR Delta 4.84 ABS# (0-10)
[2022-12-05] MEDS: cefepime 2,000 MG in sodium chloride 0.9% (plus) 50 ML 100 MG IV (21:45)
--- NOTE | 2022-12-05 21:45 | P.CONIM_ITS ---
Providers/Reason For Consult Consulting Physician/Specialty*: Sunny Bartlett DO/orthopedic surgery Reason for Consult*: Rule out right knee periprosthetic joint infection Requesting Physician: Dr. Rooney Attending Physician: Dr. Tena Primary Care Provider: Zay Ospina DO History of Present Illness History of Present Illness Anthony Jimenez is a 77 year old male who presents to the emergency department of 2 days of persistent right knee pain. States that just started to hurt roughly 2 days ago was bearable and he subsequently went to play golf today at the end at 10 holes and barely could walk. He states he has been feeling now ill he is complains of fevers and chills just overall general sick feeling. He complains of fevers, nausea and vomiting and some shortness of breath and cough. History reveals roughly 3 years ago in 2019 he had a right total knee arthroplasty done by Dr. Najera he had an uncomplicated course postoperatively he has done really well and states he has had no issues with this up until 2 days ago. He denies any recent illness dental work, recent illness exposure, UTI. Only thing he has had is a laceration on the back of his head from viviana wire but no significant infection noted with this as well as an excoriation on the right lower extremity in the tibial region. Otherwise patient denies any recent change in his health this is confirmed with his . Orthopedics was consulted for evaluation possible joint aspiration given he has a joint effusion. Patient does have hi story of [employer] and agent orange exposure. Review of Systems General: Reports: 10 or more systems reviewed and unremarkable except in HPI and below Medications/Allergies Home Medications Medication Instructions Recorded Confirmed Last Taken Type amlodipine 10 mg tablet 10 mg PO DAILY 08/03/19 12/06/22 10/22/20 History budesonide-formoterol HFA 160 2 puff inhalation BID 08/03/19 12/06/22 10/22/20 History mcg-4.5 mcg/actuation aerosol inhaler (Symbicort) meloxicam 15 mg tablet 15 mg PO DAILY 08/03/19 12/06/22 10/22/20 History albuterol sulfate 90 mcg/actuation 2 puff inhalation Q6H PRN 08/09/20 12/06/22 10/23/20 History aerosol inhaler (Ventolin HFA) Shortness Of Breath losartan 50 mg tablet 50 mg PO DAILY 01/28/22 12/06/22 Unknown History tadalafil 20 mg tablet 20 mg PO DAILY PRN sexual activity 01/28/22 12/06/22 Unknown Rx #20 tabs tamsulosin 0.4 mg capsule See Rx Instructions .Route 01/28/22 12/06/22 Unknown Rx .COMPLEX #90 caps aspirin 325 mg tablet 325 mg PO DAILY 12/03/22 12/06/22 Unknown History montelukast 10 mg tablet 10 mg PO DAILY 12/03/22 12/06/22 Unknown History Allergies Allergy/AdvReac Type Severity Reaction Status Date / Time No Known Allergies Allergy Verified 01/28/22 09:09 PFSH Acute PFSH: Medical History BPH NOS w ur obs/LUTS Complex renal cyst Originally noted in 2012 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 Complexity comes from some rim calcification and septation. Hyperlipidemia Hypertension Impotence Surgical History H/O sinus surgery H/O vasectomy History of colonoscopy (10/23/20) Diverticulosis, internal hemorrhoids History of lumbar fusion Hx of cataract surgery S/P cervical spinal fusion Status post right knee replacement Family History Father , at age 51 Myocardial infarction (lateral wall) Mother , at age 75 Cancer lung Social History Smoking and tobacco status: former smoker Alcohol intake: current Alcohol intake frequency: holidays/special occasions only Marital status: Current occupational status: retired Vitals/I&O/Wt Last Vital Signs Temp 100.9 F H 12/05/22 16:40 Pulse 66 12/05/22 20:56 Resp 14 12/05/22 14:05 BP 128/70 12/05/22 20:56 Pulse Ox 94 12/05/22 20:56 O2 Del Method Room Air 12/05/22 20:56 Weight last 48 hrs Weight 161 lb Physical Exam Narrative: Examination the right knee: Examination right knee incisions well-healed no signs of dehiscence or draining sinus he has a large palpable joint effusion the knee is warm to touch no significant erythema is appreciated he has significant decreased range of motion unable to flex the knee past roughly 60 degrees and has severe pain on micromotion of the knee he is able to plantarflex dorsiflex ankle right lower extremity sensations intact to light touch he has no tenderness palpation of the right hip he has negative logroll bilaterally. No tenderness to palpation or painful joints to the bilateral upper extremity and left lower extremity. Const: COMMON NORMALS: no acute distress, average body habitus and patient oriented x3 Resp: COMMON NORMALS: normal respiratory effort and No retractions Cardio: COMMON NORMALS: Peripheral pulses 2+ throughout PERIPHERAL PULSES: Peripheral pulses 2+ throughout Neuro: COMMON NORMALS: patient oriented x3 Data 12/08/22 05:47 12/08/22 05:47 Other Labs: WBC count 12.3 hemoglobin 15.1 ESR 19 CRP 31.3, lactic acid 13.4 Right knee joint aspiration demonstrates 84,000 WBC with positive neutrophil shift of PMNs of 87% joint aspiration is cloudy dark castro murky fluid Micro: Microbiology 12/05/22 17:50 Blood Culture - Preliminary Blood SPECIMEN COLLECTED 12/05/22 17:02 Blood Culture - Preliminary Blood SPECIMEN COLLECTED Xray Ortho: My impression: X-rays of the right knee reviewed in person interpreted myself demonstrating no acute fracture dislocation joint effusion and swelling noted no evidence of hardware failure or loosening no periprosthetic fracture appreciated. Good stable alignment. CT Abd/Pel: Radiologist's impression: CT/CT chest abdpel w/*[id number] IMPRESSION: 1. ? Mild central peribronchial thickening, suggestive of airway inflammation. 2. ? Several small pleural based right lower lobe nodular densities, measuring up to 6 mm, similar to prior. Recommend follow-up CT Chest in 6-12 IMPRESSION: 1. ? No CT evidence of acute intra-abdominal or pelvic pathology. 2. ? Enlarged prostate. Correlate with clinical exam and PSA levels. 3. ? Additional findings, as above. US: Radiologist's impression: US/[place] [id number] IMPRESSION: 1. ? No sonographic evidence of deep vein thrombosis. 2. ? 2.1 x 3.5 x 0.7 cm popliteal cyst. ? A&P Assessment and plan (1) Infected prosthetic knee joint: Plan Procedure in detail: right knee joint fluid sterile tap aspiration?this was performed under sterile aseptic technique 20 cc of murky castro synovial joint fluid that appears to be cloudy and infected was sent for cell count as well as aerobic and anaerobic cultures as well as crystals and Gram stain patient had not received any antibiotics prior to this joint aspiration given his fevers discussed with primary team and will begin patient to start on empiric antibiotics Internal medicine to admit as primary orthopedics consulted Patient to be n.p.o. at midnight Pain control Imaging and labs reviewed Spoke with patient's previous surgeon and given the acuity of only a couple days through shared decision making with him as well as patient myself agree to proceed with a right knee irrigation debridement with poly exchange. Patient understands and agrees with current plan. All questions answered. I had detailed discussion with patient about his treatment options as well as already have spoken with his initial joint surgeon Dr. Najera.? He is overall had a complicated course with his total knee arthroplasty and was doing extremely well has great range of motion.? Literally just 2 days ago he noted some pain in his knee and this progressively worsened.? Just in the past 24 hours he had significant swelling and decreased ability of bearing weight was warm to the touch this was worked up extensively by the emergency department with no other known infectious source.? Further history he has had a large excor iation and wound on the back of head as well as a small superficial excoriation wound on the lower right tibial extremity.? These do not appear to be frankly infected or draining any wound but do have a small area of erythematous around the wound.? 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 The fluid was castro murky and purulent.? At this point in time again I have discussed this with patient as well as Dr. Najera given patient has had a acute infection given his HPI was given the option and through shared decision making agreed to proceed with hopefully a response to a right knee irrigation debridement extensive synovectomy and poly exchange.? Feel given the acuity and the nature of this I feel there is a good possibility to salvage and retained prosthesis as well as to stabilize this patient through the weekend.? Patient does understand if I go and prosthesis is completely loosen that we will proceed with the beginnings of a two-stage procedure with a explant and antibiotic cement spacer.? At this point time we detailed out the ins and outs of the procedure he is already had a joint aspiration which was not affected by any antibiotics as he had not had any antibiotics at that time.? He had been afebrile and after the joint tap was performed he had been started on empiric antibiotics we will have infectious disease on board hospitalist is admitted patient.? Plan today will be for right knee irrigation debridement extensive synovectomy and poly exchange with possible explant prosthesis and antibiotic cement spacer.? He understands the risk benefits complication a lternatives with surgery.? Understanding risk of surgery which include limited to persistent infection, repeat surgery, blood loss injury to nerves vessels or tendons persistent pain, arthrofibrosis and knee stiffness, wound complications.? Understands risk of surgery agrees to proceed with surgical intervention.? All questions answered at this time. Consult Attestations Medical Necessity Statement: Right knee periprosthetic joint infection Coding Level of Care Code Acute Code for [facility] Fwd Diagnoses Infected prosthetic knee joint T84.59XA; Z96.659 Time Spent (min) 60 Comment Right knee periprosthetic joint aspiration
[2022-12-05 22:04] LABS: Lactic Sepsis W/Reflex 13.4 mmol/L (0.5-2.2)
[2022-12-05 22:26] LABS: Crystals, Fluid See Path Consult
[2022-12-05] MEDS: vancomycin 2,000 MG/400 ML PIGGYBACK 250 MG IV (22:43)
--- NOTE | 2022-12-05 22:46 | ECG_ITS ---
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 Measurements Intervals [place] Rate: 65 P: 37 PA: 171 QRS: -45 QRSD: 103 T: 70 QT: 403 QTc: 419 Interpretive Statements SINUS RHYTHM LEFT ANTERIOR FASCICULAR BLOCK [QRS AXIS <= -45, QR IN I, RS IN II] SEPTAL MYOCARDIAL INFARCTION , PROBABLY OLD [40+ ms Q WAVE IN V1/V2] Compared to ECG 12/05/2022 18:59:40 Left anterior fascicular block now present Incomplete right bundle-branch block no longer present Left ventricular hypertrophy no longer present ST (T wave) deviation no longer present Myocardial infarct finding still present Electronically Signed On 12-06-2022 14:01:45 CDT by Ernst Weaver M.D. [id number]
[2022-12-05 22:54] LABS: Total Protein Synovial Fluid 4.5 g/dL
[2022-12-05 23:37] LABS: Troponin 5 6HR 34.26 ng/L (0-15)
[2022-12-05 23:47] LABS: Troponin 5 6HR Delta 10.26 ng/L (0-12)
[2022-12-06] VITALS (25 sets, daily range): BP systolic 106–157; BP diastolic 53–84; PULSE 51–69; RESP 15–18; TEMP 36.4–37.3; O2SAT 91–99
[2022-12-06] MEDS: ketorolac 30 mg/mL INJ IVP (00:20)
[2022-12-06] MEDS: acetaminophen 1,000 MG/100 ML PIGGYBACK 400 MG IV (00:51)
--- NOTE | 2022-12-06 03:10 | P.HP_ITS ---
Providers/Chief Complaint Admitting Physician: Katina Tena MD Primary Care Provider: Zay Ospina DO Chief Complaint: right kneepain/fever/nauseas History of Present Illness Anthony Jimenez is a 77 year old male PMHx of COPD, BPH, HTN, renal cyst, HLD . he was in his usual state of health until 2 days ago when he suddenly started to develop acute right-sided knee swelling of the previously placed prosthetic joint. Patient states that the swelling came on all of a sudden, he does not recall any obvious trauma to the site. He attempted to play golf this morning but could barely walk on the golf course and presented to the emergency room. He has had fever over the past 2 days as high as 101 Fahrenheit along with chills. He was noted to have a grossly swollen right knee, orthopedics was consulted, synovial aspirate was performed which showed 62,000 WBC with 84% PMNs raising concern for septic arthritis. Patient is planned to go to the operating room in the morning. Culture crystals and Gram stain are currently pending. Review of Systems General: Reports: 10 or more systems reviewed and unremarkable except in HPI and below Const: Denies: fever(s), chills or body aches Eyes: Denies: change in vision, blurry vision or photophobia ENMT: Reports: hoarseness; Denies: throat pain, enlarged tonsils, odynophagia or nasal congestion Card: Denies: chest pain, palpitations, irregular heart rhythm, edema, swelling of feet/ankles, lightheadedness, pre-syncope, dyspnea on exertion or orthopnea Resp: Denies: dyspnea, productive cough, non-productive cough, wheezing, stridor, pain on inspiration, change in phlegm color, hemoptysis or chest congestion GI: Denies: abdominal pain, nausea, vomiting, hematemesis, coffee ground emesis, dysphagia, heartburn, diarrhea, constipation, GI cramping, change in stool character, hematochezia or melena : Denies: flank pain, dysuria, urinary frequency, urinary urgency, urinary hesitancy or hematuria Musc: Denies: neck pain, back pain, extremity pain, joint swelling, joint warmth or deformity Neuro: Denies: headache(s), numbness in extremities, weakness in extremities, sensory changes, difficulty walking, frequent falls, dizziness, vertigo, behavioral changes, Slurred speech present or seizure-like activity Psych: Denies: anxiety, depression, suicidal ideation or homicidal ideation Endo: Denies: polyuria, polydipsia, tired all the time, cold intolerance or hot flashes Chato/Lymph: Denies: easy bruising or easy bleeding Medications/Allergies Home Medications Medication Instructions Recorded Confirmed Last Taken Type amlodipine 10 mg tablet 10 mg PO DAILY 08/03/19 01/28/22 10/22/20 History budesonide-formoterol HFA 160 2 puff inhalation BID 08/03/19 01/28/22 10/22/20 History mcg-4.5 mcg/actuation aerosol inhaler (Symbicort) meloxicam 15 mg tablet 15 mg PO DAILY 08/03/19 01/28/22 10/22/20 History albuterol sulfate 90 mcg/actuation 2 puff inhalation Q6H PRN 08/09/20 01/28/22 10/23/20 History aerosol inhaler (Ventolin HFA) Shortness Of Breath losartan 50 mg tablet 50 mg PO DAILY 01/28/22 01/28/22 Unknown History tadalafil 20 mg tablet 20 mg PO DAILY PRN sexual activity 01/28/22 01/28/22 Unknown Rx #20 tabs tamsulosin 0.4 mg capsule See Rx Instructions .Route 01/28/22 01/28/22 Unknown Rx .COMPLEX #90 caps aspirin 325 mg tablet 325 mg PO DAILY 12/03/22 Unknown History montelukast 10 mg tablet 10 mg PO DAILY 12/03/22 Unknown History Allergies Allergy/AdvReac Type Severity Reaction Status Date / Time No Known Allergies Allergy Verified 01/28/22 09:09 PFSH Acute PFSH: Medical History BPH NOS w ur obs/LUTS Complex renal cyst Originally noted in 2012 with 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 Complexity comes from some rim calcification and septation. Hyperlipidemia Hypertension Impotence Surgical History H/O sinus surgery H/O vasectomy History of colonoscopy (10/23/20) Diverticulosis, internal hemorrhoids History of lumbar fusion Hx of cataract surgery S/P cervical spinal fusion Status post right knee replacement Family History Father , at age 51 Myocardial infarction (lateral wall) Mother , at age 75 Cancer lung Social History Smoking and tobacco status: former smoker Alcohol intake: current Alcohol intake frequency: holidays/special occasions only Marital status: Current occupational status: retired Vitals/I&O/Wt Last Vital Signs Temp 98.8 F 12/06/22 01:35 Pulse 63 12/06/22 01:35 Resp 16 12/06/22 01:35 BP 119/60 12/06/22 01:35 Pulse Ox 96 12/06/22 01:35 O2 Del Method Room Air 12/06/22 01:35 12/05/22 12/05/22 12/06/22 14:59 22:59 06:59 Intake Total 50 / 50 500 / 550 Balance 50 / 50 500 / 550 Weight last 48 hrs Weight 73.028 kg Physical Exam Narrative: General: No acute distress, AO x3 HEENT: PERRLA, pupils bilaterally equal and reactive, pallors not present Chest: Normal vesicular breath sounds, no added sounds, equal good air entry bilaterally CVS: S1-S2 regular, no murmurs, no tachycardia, no gallops, no rubs Abdomen: Soft, nontender, no organomegaly, bowel sounds present Neuro: No focal deficits, no facial deformity, AO x3, power 5/5 in all limbs Extremities: right knee swelling, currently with overlying island dressing in place Data 12/05/22 17:02 12/05/22 17:02 Micro: Microbiology 12/05/22 17:50 Blood Culture - Preliminary Blood SPECIMEN COLLECTED 12/05/22 17:02 Blood Culture - Preliminary Blood SPECIMEN COLLECTED A&P Assessment and plan (1) Septic joint of right knee joint: Patient presenting with acute swelling of the right knee joint over the past 2 days. Of note this is a prosthetic joint status post TKR in 2020. Does not recall any obvious trauma to the site. Joint aspirate was performed in the emergency room by Ortho, showed 68,000 WBC 8 7% PMNs per prelim report. Awaiting this report to be uploaded into the system. Patient is planned to go to the OR for washout tomorrow Gram stain and cultures are currently pending. Empirically started on cefepime and vancomycin Further treatment course dependent on perioperative course and final cultures. prn morphine for pain npo for procedure tomorrow (2) Hypertension: currently well controlled. continue home dose losartan (3) Complex renal cyst: Attestations Medical Necessity Statement*: > 2 midnight admission anticiated for above defined care Coding Level of Care Code Acute Code for [facility] Fwd Diagnoses Septic joint of right knee joint M00.9 Hypertension I10 Complex renal cyst N28.1
--- NOTE | 2022-12-06 03:27 | PC.PHAR ---
Pharmacokinetic dosing service Date: 12/06/22 Time: 327 Objective: Patient: Anthony Jimenez Floor: 270-1 Age: 77 yo Serum creatinine: 0.7 mg/dL Height: 66.0 Inches Weight (kg): 73.028 Diagnosis: Relevant medical/social history: Cultures and sensitivities: Other labs: Assessment: IBW (kg): 63.80 Dosing wt(kg): 73.028 Estimated Creatinine clearance (ml/min): 81.0 CRCL method: Cockcroft and Gault using ibw(default). Drug selected: Vancomycin Loading dose (mg): 0 Vd (liters): 65.7 (factor used: 0.9 L/kg) Jefe (hr-1): 0.072 Half life (hrs): 9.63 Recommended dose: 1250 mg Interval: 12 hrs Infusion time (hrs): 1.5 Predicted peak (mcg/mL): 31.2 Predicted trough (mcg/mL): 14.65 Total body weight is being used for vancomycin dosing. Renal function is stable [ ] /unstable [ ] Recommendations: Give Vancomycin 1250 mg q 12 hrs with an expected Cpeak of 31.2 mcg/ml and an expected Ctrough of 14.65 mcg/ml Renal dosing of other antibiotics (review renal dosing of other medications and list guidelines here): Thank you for the consult, will continue to follow. Signature: Jonna Neal [facility]
[2022-12-06] MEDS: ipratropium-albuterol 3 mL Neb INHALATION ×3 (04:13→19:42)
[2022-12-06] MEDS: losartan 50 mg Tablet PO (08:51)
[2022-12-06] MEDS: amlodipine 10 mg Tablet PO (08:51)
[2022-12-06] MEDS: pantoprazole DR 40 mg Tablet PO (08:51)
--- NOTE | 2022-12-06 09:19 | P.HPUD_ITS ---
Surgery/Procedure H&P Update DATE OF PROCEDURE: December 06, 2022 DATE H&P PERFORMED: 12/05/22 CHANGES TO PREVIOUS DOCUMENTATION: None. No changes in patient's HPI from yesterday's consult note. I had detailed discussion with patient about his treatment options as well as already have spoken with his initial joint surgeon Dr. Najera. He is overall had a complicated course with his total knee arthroplasty and was doing extremely well has great range of motion. Literally just 2 days ago he noted some pain in his knee and this progressively worsened. Just in the past 24 hours he had significant swelling and decreased ability of bearing weight was warm to the touch this was worked up extensively by the emergency department with no other known infectious source. Further history he has had a large excoriation and wound on the back of head as well as a small superficial excoriation wound on the lower right tibial extremity. These do not appear to be frankly infected or draining any wound but do have a small area of erythematous around the wound. 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 The fluid was castro murky and purulent. At this point in time again I have discussed this with patient as well as Dr. Najera given patient has had a acute infection given his HPI was given the option and through shared decision making agreed to proceed with hopefully a response to a right knee irrigation debridement extensive synovectomy and poly exchange. Feel given the acuity and the nature of this I feel there is a good possibility to salvage and retained prosthesis as well as to stabilize this patient through the weekend. Patient does understand if I go and prosthesis is completely loosen that we will proceed with the beginnings of a two-stage procedure with a explant and antibiotic cement spacer. At this point time we detailed out the ins and outs of the procedure he is already had a joint aspiration which was not affected by any a ntibiotics as he had not had any antibiotics at that time. He had been afebrile and after the joint tap was performed he had been started on empiric antibiotics we will have infectious disease on board hospitalist is admitted patient. Plan today will be for right knee irrigation debridement extensive synovectomy and poly exchange with possible explant prosthesis and antibiotic cement spacer. He understands the risk benefits complication alternatives with surgery. Understanding risk of surgery which include limited to persistent infection, repeat surgery, blood loss injury to nerves vessels or tendons persistent pain, arthrofibrosis and knee stiffness, wound complications. Understands risk of surgery agrees to proceed with surgical intervention. All questions answered at this time. PREOP DIAGNOSIS: Right knee periprosthetic joint infection PRIMARY INDICATION FOR PROCEDURE: Right knee periprosthetic joint infection PLANNED PROCEDURE: Operation Date: 12/06/22 11:00 Proposed Procedures p Right knee incision and drainage, poly exchange(Not Applicable) - Sunny Bartlett DO s Polyethelene Exchange Knee(Not Applicable) - Sunny Bartlett DO
--- NOTE | 2022-12-06 09:19 | PM.PN ---
Subjective Subjective: Patient been n.p.o. since midnight patient did have some relief with joint aspiration but continues to have significant pain in the right knee he is ready to proceed with surgical intervention today all questions were answered. Vitals/I&O/Wt Last Vital Signs Temp 98.3 F 12/06/22 07:55 Pulse 63 12/06/22 08:00 Resp 18 12/06/22 08:00 BP 130/76 12/06/22 08:51 Pulse Ox 94 12/06/22 08:00 O2 Del Method Room Air 12/06/22 08:00 12/05/22 12/06/22 12/06/22 22:59 06:59 14:59 Intake Total 50 / 50 500 / 550 Output Total 450 / 450 Balance 50 / 50 50 / 100 Weight last 48 hrs Weight 161 lb Physical Exam Narrative: Examination the right knee: Examination right knee incision well-healed no signs of dehiscence or draining sinus he has a large palpable joint effusion the knee is warm to touch no significant erythema is appreciated he has significant decreased range of motion unable to flex the knee past roughly 60 degrees and has severe pain on micromotion of the knee he is able to plantarflex dorsiflex ankle right lower extremity sensations intact to light touch, bandage on in place from joint aspiration Const: COMMON NORMALS: no acute distress, average body habitus and patient oriented x3 Resp: COMMON NORMALS: normal respiratory effort and No retractions Cardio: COMMON NORMALS: Peripheral pulses 2+ throughout PERIPHERAL PULSES: Peripheral pulses 2+ throughout Neuro: COMMON NORMALS: patient oriented x3 Data 12/08/22 05:47 12/08/22 05:47 Micro: Microbiology 12/05/22 17:50 Blood Culture - Preliminary Blood SPECIMEN COLLECTED 12/05/22 17:02 Blood Culture - Preliminary Blood SPECIMEN COLLECTED A&P Assessment and plan (1) Infected prosthetic knee joint: Plan N.p.o. since midnight all questions have been answered patient elects to proceed with right knee irrigation and debridement with extensive synovectomy and polyethylene exchange. He understands if implant does appear to be frankly loose we will begin a stage one of his stage II revision total knee arthroplasty in the case that hardware is loose or operatively. Attestations Medical Necessity Statement*: Ongoing care right total knee periprosthetic joint infection Coding Level of Care Code Acute Code for Chg Fwd Diagnoses Infected prosthetic knee joint T84.59XA; Z96.659 Time Spent (min) 15
[2022-12-06 09:40] LABS: Lactic Sepsis W/Reflex 0.9 mmol/L (0.5-2.2)
--- NOTE | 2022-12-06 10:17 | P.ANESASSM_ITS ---
Pre-Anesthetic Assessment Height/Weight: Height 1.68 m Weight 73.028 kg Temp Pulse Resp BP Pulse Ox O2 Del Method 98.3 F 63 18 130/76 94 Room Air 12/06/22 07:55 12/06/22 08:00 12/06/22 08:00 12/06/22 08:51 12/06/22 08:00 12/06/22 08:00 Preop Diagnosis: Right knee periprosthetic joint infection Operation Date: 12/06/22 11:00 Proposed Procedures p Right knee incision and drainage, poly exchange(Not Applicable) - Sunny Bartlett DO s Polyethelene Exchange Knee(Not Applicable) - Sunny Bartlett DO Familial anesthetic complications: Sometimes displays violent behavior upon awakening Was Beta Sindhu taken within 24 hours: N/A Was Clonidine taken within 24 hours: N/A Last intake: Intake Last Liquid Date 12/05/22 Last Solid Date 12/05/22 Social No alcohol and No tobacco Exam alert, oriented x 3, clear to auscultation bilaterally and regular rate & rhythm Airway Mallampati: Class II Dentition: full Pulmonary Chronic Obstructive Pulmonary Disease (mild copd) CV/HEM Hypertension States 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 Just needed to get regular checks every few months with US. He's able to achieve over 4 METS without any cardiac or respiratory symptoms. Anesthetic Plan ASA status: 3 Anesthesia: General Risk of > 500 ml blood loss (7ml/kg in children): No Medications/Allergies Home Medications Medication Instructions Recorded Confirmed Last Taken Type amlodipine 10 mg tablet 10 mg PO DAILY 08/03/19 12/06/22 10/22/20 History budesonide-formoterol HFA 160 2 puff inhalation BID 08/03/19 12/06/22 10/22/20 History mcg-4.5 mcg/actuation aerosol inhaler (Symbicort) meloxicam 15 mg tablet 15 mg PO DAILY 08/03/19 12/06/22 10/22/20 History albuterol sulfate 90 mcg/actuation 2 puff inhalation Q6H PRN 08/09/20 12/06/22 10/23/20 History aerosol inhaler (Ventolin HFA) Shortness Of Breath losartan 50 mg tablet 50 mg PO DAILY 01/28/22 12/06/22 Unknown History tadalafil 20 mg tablet 20 mg PO DAILY PRN sexual activity 01/28/22 12/06/22 Unknown Rx #20 tabs tamsulosin 0.4 mg capsule See Rx Instructions .Route 01/28/22 12/06/22 Unknown Rx .COMPLEX #90 caps aspirin 325 mg tablet 325 mg PO DAILY 12/03/22 12/06/22 Unknown History montelukast 10 mg tablet 10 mg PO DAILY 12/03/22 12/06/22 Unknown History Allergies Allergy/AdvReac Type Severity Reaction Status Date / Time No Known Allergies Allergy Verified 01/28/22 09:09 Current Medications Generic Name Dose Route Start Last Admin Trade Name Freq PRN Reason Stop Dose Admin Albuterol/Ipratropium 3 ml 12/06/22 03:30 12/06/22 08:38 Ipratropium-Albuterol 3 Ml Neb INHALATION 3 ml Q6H.RESP JIMENA Administration Amlodipine Besylate 10 mg 12/06/22 09:00 12/06/22 08:51 Amlodipine 10 Mg Tablet PO 10 mg DAILY JIMENA Administration Enoxaparin Sodium 40 mg 12/06/22 01:45 12/06/22 03:25 Enoxaparin 40 Mg/0.4 Ml Syringe SUBCUT Not Given Q24H JIMENA Losartan Potassium 50 mg 12/06/22 09:00 12/06/22 08:51 Losartan 50 Mg Tablet PO 50 mg DAILY JIMENA Administration Pantoprazole Sodium 40 mg 12/06/22 09:00 12/06/22 08:[address] 40 Mg Tablet PO 40 mg DAILY JIMENA Administration PFSH Anesthesia Medical History BPH NOS w ur obs/LUTS Complex renal cyst Originally noted in 2012 with no significant global climate change researcher time. Complexity comes from some rim calcification and septation. Hyperlipidemia Hypertension Impotence Surgical History H/O sinus surgery H/O vasectomy History of colonoscopy (10/23/20) Diverticulosis, internal hemorrhoids History of lumbar fusion Hx of cataract surgery S/P cervical spinal fusion Status post right knee replacement Family History Father , at age 51 Myocardial infarction (lateral wall) Mother , at age 75 Cancer lung Social History Smoking and tobacco status: former smoker Alcohol intake: current Alcohol intake frequency: holidays/special occasions only Marital status: Current occupational status: retired Data Anesthesia 12/05/22 17:02 12/05/22 17:02 Short CBC 12/05/22 Range/Units 17:02 WBC 12.3 H (4.0-10.0) 10^3/uL Hgb 15.1 (11.7-16.6) g/dL Hct 43.7 (42.0-52.0) % MCV 88.6 (80-94) fl Plt Count 188 (130-400) 10^3/cmm Neut % (Auto) 88.7 % Neut # (Auto) 10.89 H (1.8-7.7) 10^3/uL BMP 12/05/22 17:02 Sodium 136 Potassium 3.5 Chloride 100 Carbon Dioxide 20 L BUN 13 Creatinine 0.7 Glucose 122 H Calcium 8.8 Cardiac Enzymes 12/05/22 12/05/22 12/05/22 Range/Units 17:02 19:20 23:10 Troponin T Baseline 24 H (0-15) ng/L Troponin T 120 Minute 28.84 H (0-15) ng/L Delta Troponin T 4.84 (0-10) ABS# Troponin T Hi Sens 6Hr 34.26 H (0-15) ng/L Troponin T Hi Sens 6Hr Delta 10.26 (0-12) ng/L Liver Function 12/05/22 Range/Units 17:02 Total Bilirubin 0.6 (0.15-1.2) mg/dL AST 19 (0-40) U/L ALT 16 (0-41) U/L Alkaline Phosphatase 65 (40-130) U/L Albumin 4.4 (3.5-5.2) g/dL Urine 12/05/22 Range/Units 19:30 Urine Color Yellow (Yellow) Urine Appearance Clear (CLEAR) Urine pH 5 (5-7) Ur Specific Guild 1.010 (1.005-1.030) Urine Protein Neg (Negative) Urine Glucose (UA) Norm (Normal) Urine Ketones 1+ H (Negative) Urine Nitrate Negative (Negative) Urine Bilirubin Neg (Negative) Ur Leukocyte Esterase Negative (Negative) Urine RBC None (0-2) /hpf Urine WBC None (0-5) /hpf Blood Bank 12/06/22 09:10 Blood Type A Positive Rho(D) Type Positive Antibody Screen Negative COVID Results 12/05/22 17:50 Coronavirus 229E (PCR) Not detected SARS-CoV-2 (PCR) Not detected Coags 12/05/22 12/05/22 17:02 17:02 ESR 19 H C-Reactive Protein 31.3 H Microbiology 12/05/22 17:50 Blood Culture - Preliminary Blood SPECIMEN COLLECTED 12/05/22 17:02 Blood Culture - Preliminary Blood SPECIMEN COLLECTED Cardiac Studies: No Data to Display
[2022-12-06] MEDS: sodium chloride 0.9% 1,000 ML 30 ML IV (10:44)
--- NOTE | 2022-12-06 11:19 | PM.PN ---
Subjective Subjective: Patient was seen this morning, is at bedside, had extensive meeting and discussion with patient's family, patient and do not know how he got this infection, he does have some breaks in his skin, he cut his head on the pig wire roughly 3 days ago, is on the top of his head is healing well, he also has a break in his skin, on his right anterior fleming, he is not sure how he got it, but denies any IV drug use, denies any other implants, he was thinking he might have a tooth infection, but his teeth are not really bothering him, jaws really not bothering him, no fevers, no chills, no chest pain, no shortness of breath, no history of cardiovascular disease no history of artificial valves, he has had neck surgery but no plates in his neck he has had ankle surgery, but no other foreign bodies in, no other metal, had extensive discussion about his right knee septic arthritis and feels better, but still feels a bit warm, did discuss surgical intervention, I have left out specifics to Dr. Bartlett, but will have to consult infectious disease he is likely going to need IV antibiotics through PICC line, will await until his blood cultures are negative, we will see what if anything grows, he might need IV antibiotics for 6 weeks, and further surgeries depending on his clinical progress, will have to find out if there is any other seeding for infection depending on what his culture show what his blood culture show and overall his clinical progress him and his voiced understanding, all questions answered Vitals/I&O/Wt Last Vital Signs Temp 99.2 F 12/06/22 10:36 Pulse 69 12/06/22 10:36 Resp 16 12/06/22 10:36 BP 157/84 12/06/22 10:36 Pulse Ox 95 12/06/22 10:36 O2 Del Method Room Air 12/06/22 10:36 12/05/22 12/06/22 12/06/22 22:59 06:59 14:59 Intake Total 50 / 50 500 / 550 Output Total 450 / 450 Balance 50 / 50 50 / 100 Weight last 48 hrs Weight 73.028 kg Physical Exam Const: COMMON NORMALS: no acute distress and patient oriented x3 Resp: COMMON NORMALS: normal respiratory effort, No retractions, No use of accessory muscles and clear to auscultation bilaterally AUSCULTATION: clear to auscultation bilaterally Cardio: COMMON NORMALS: regular rate, regular rhythm, S1 normal heart sound present and S2 normal heart sound present RATE: regular rate RHYTHM: regular rhythm HEART SOUNDS: S1 normal heart sound present and S2 normal heart sound present GI: COMMON NORMALS: Normal to inspection, nondistended, normoactive bowel sounds present and non-tender Extremity: COMMON NORMALS: no pedal edema Neuro: COMMON NORMALS: patient oriented x3 Psych: COMMON NORMALS: mental status grossly normal Data 12/05/22 17:02 12/05/22 17:02 Micro: Microbiology 12/05/22 17:50 Blood Culture - Preliminary Blood SPECIMEN COLLECTED 12/05/22 17:02 Blood Culture - Preliminary Blood SPECIMEN COLLECTED A&P Assessment and plan (1) Septic joint of right knee joint: Patient presenting with acute swelling of the right knee joint over the past 2 days. Of note this is a prosthetic joint status post TKR in 2020. Does not recall any obvious trauma to the site. But does have a break in his skin, occipital region of his head, he has a linear laceration but about 1 cm healing well he does have a break in his skin, lright fleming, looks clean and dry, roughly half a centimeter Joint aspirate was performed in the emergency room by Ortho, showed 68,000 WBC 87% PMNs per prelim report. Awaiting this report to be uploaded into the system. Patient is planned to go to the OR for washout today Gram stain and cultures are currently pending. Empirically started on cefepime and vancomycin Further treatment course dependent on perioperative course and final cultures. prn morphine for pain npo for procedure today (2) Hypertension: currently well controlled. continue home dose losartan (3) Complex renal cyst: Plan We will go to the OR today, likely will need long-term IV antibiotics continue vancomycin continue cefepime, spoke to infectious disease, spoke to Dr. Bartlett Attestations Medical Necessity Statement*: Patient requires hospitalization for right knee septic joint and High Time for a total of 60 minutes, includes reviewing past or interval history, examining/interviewing patient, placing orders, counseling patient/family/other support, updating patient/family/other support, discussing plan of care with staff, communicating with other healthcare providers, documenting encounter and coordinating care Diagnoses Septic joint of right knee joint M00.9 Hypertension I10 Complex renal cyst N28.1
[2022-12-06] MEDS: tranexamic acid 1,000 mg/10mL SDV 1000 MG IV (11:40)
[2022-12-06 11:41] LABS: Cyto Order Verification No Order
[2022-12-06 11:50] LABS: Appearance Synovial Fluid CLOUDY (CLEAR); Color Synovial Fluid RED (PALE YELLOW)
[2022-12-06 11:51] LABS: RBC Synovial Fluid 37 10^3/uL (0-0)
[2022-12-06 11:52] LABS: Synovial Fluid Polynuclear # 73.763 10^3/uL
[2022-12-06 11:53] LABS: PATH Referal YES
[2022-12-06] MEDS: cefepime 2,000 MG in sodium chloride 0.9% (plus) 50 ML 100 MG IV ×2 (12:12→22:34)
[2022-12-06] MEDS: vancomycin 1,250 MG/250 ML PIGGYBACK 250 MG IV (12:27)
[2022-12-06 13:04] LABS: Glucose Synovial Fluid 2 mg/dL
[2022-12-06] MEDS: ketorolac 30 mg/mL INJ XX (13:09)
[2022-12-06] MEDS: EPINEPHrine 1 mg/mL INJ XX (13:12)
[2022-12-06] MEDS: vancomycin 1,000 MG SDV 2000 MG XX (13:15)
--- NOTE | 2022-12-06 14:48 | PM.OP2 ---
Brief Operative Note Date of procedure: 12/06/22 Pre-op diagnosis: Right total knee periprosthetic joint infection Post-op diagnosis: same (No evidence of hardware failure or loosening) Procedure Done: Right knee irrigation and debridement (18 cm x 8 cm x 4 cm) Right knee extensive synovectomy Right total knee arthroplasty polyethylene exchange Surgeon: Sunny Bartlett Estimated blood loss (mL): 25 Complications: None Post-op Plan: Patient taken to PACU in stable condition recovering well patient updated on intraoperative findings implant was stable and infection appeared to be acute in nature appropriate cultures have been taken and sent for pathology and specimen. We will continue with empiric antibiotics and monitor cultures. Patient will return to the floor postoperatively. May be weightbearing as tolerated. We do have an incisional VAC on in place leave this on for 2 days with dressing change at that time. Encourage knee range of motion ice and elevate as needed. Postoperative pain medication DVT prophylaxis infectious disease on board and will defer to them for discharge antibiotic recommendations. Dr. Najera his surgeon's been updated. Condition: stable Disposition: floor Coding Level of Care Code Acute Code for Alan Mathews
--- NOTE | 2022-12-06 14:49 | P.OP_ITS ---
Operative Report Date of procedure: December 06, 2022 Pre-op diagnosis: Preop Diagnosis Right knee periprosthetic joint infection Post-op diagnosis: Same Procedure done: Right knee irrigation and debridement (18 cm x 8 cm x 4 cm) Right knee open extensive synovectomy Right total knee arthroplasty polyethylene exchange Implants: Dennis triathlon tibia size 5, 14 mm thickness polyethylene insert 1 was removed secondary to soft tissue interposition and loss of locking mechanism a new triathlon Bina tibia size 5, 14 mm polyethylene was inserted Specimens removed/disposition: Cultures aerobic and anaerobic x2 were taken of synovial joint fluid on entry into the capsule 5 separate individual specimens were taken of synovium and tissue around the corry-implant Pathology: 5 separate individual specimens were taken of synovium and surrounding tissue around the corry-implant Surgeon: Sunny Bartlett DO Anesthesia: General Estimated blood loss: 25 mL 83 minutes IV fluids: 800 mL IV fluids Urine output: See anesthesia record Complications: None Findings: See operative report narrative Condition: stable Disposition: floor Brief History: Anthony presents last night to the emergency department with 2 days of increasing right knee pain and swelling. He is now having difficulty with weightbearing up on his presentation he is complained of fevers and lack of knee range of motion. He has a palpable joint effusion and orthopedics was consulted for evaluation remote history of a right total knee arthroplasty with Dr. Najera in 2019. He had an uncomplicated course. Patient currently states and denies of any recent dental work any recent infections or illnesses only thing that he and his can think of is he has had an excoriation on his right lower tibia as well as viviana wire On the back of his head these do not appear to be frankly infected but is only wounds are area for possible source of infection. He states up until 2 days ago he was completely fine pertaining to his right knee. A aspiration was performed of the right knee under sterile aseptic technique by myself in the office and was sent for cell count and findings consistent with an infection as well as the clinical signs of murky dark castro purulent type fluid. At this point in time he had not received any antibiotics prior he was feverish and in discussion with primary started on empiric antibiotics and continue to follow cultures. Patient will be n.p.o. at midnight he is medically optimized and at this point time agreeable to proceed with right knee surgery I discussed this with his surgeon as well as with the patient through shared decision making patient would like to proceed with a right knee irrigation and debridement, synovectomy, poly exchange with possible implant removal if periprosthetic implants are loose. Patient understands and agrees with current plan. All questions answered. Consent was obtained. Procedure: Patient seen eval in the preoperative holding area. Consent was reviewed and signed with patient. Correct extremity was then marked. Patient was then seen evaluated by anesthesia once cleared for surgery was taken back to the operative suite. Patient was transported on the OR table placed in supine position all bony prominences well-padded patient was appropriately secured to the bed. Nonsterile tourniquet was applied to the right thigh. Patient then patient then underwent anesthesia per the anesthesia department. Once appropriately anesthetized the right lower extremity was then prepped and draped in standard orthopedic fashion. A final timeout was performed. Patient had already been receiving empiric antibiotics on the floor after his joint aspiration of the emergency department secondary to him having fevers. Again final timeout was performed confirming correct site of surgery correct patient as well as correct procedure Right lower extremity was then elevated and tourniquet was insufflated to 250 mmHg. Patient's previous total knee incision at midline anterior aspect of the knee was then utilized sharp scalpel excision with 10 blade through skin and subcutaneous tissue there is no opening draining wound or sinus noted I then developed full-thickness skin flaps and identified the previous Ethibond suture closing the joint capsule. At this point time I performed a standard medial parapatellar arthrotomy through the previous sutures I immediately encountered murky castro purulent synovial fluid which was then cultured x2 of aerobic and anaerobic. I then performed a standard releasing sequence just for mobilization and visualization for my procedure. Standard medial release was performed. Next I then utilized a rongeur as well as sharp scalpel excision to remove all of the visible suture that closed the capsule once this was all removed I then subsequently took 5 synovial and tissue samples and cultures around the implant 5 separate individuals were taken and then sent for pathology. At this point I then inserted a osteotome into the locking mechanism of the polyethylene implant and then detached to the locking mechanism and remove the polyethylene insert which was a 13 mm. At this point in time I then performed my extensive synovectomy I utilized Marion's as well as sharp scalpel excision and rongeur to perform an extensive synovectomy removing the entire layer of infected synovium to all healthy stable tissue. This was performed circumferentially in the superior and inferior aspects of the knee the medial and lateral gutters as well as the posterior capsule after the polyethylene was removed. Once I was satisfied with my extensive synovectomy I evaluated the integrity of the implants. The implants were a press-fit style implant that had significant bony ingrowth and there was no M evidence of periprosthetic loosening or infection eroding the bone around the implant and as a result plan was for implant retention and polyethylene exchange. I completed my extensive irrigation and debridement of the right knee totaling (18 cm x 8 cm x 4 cm) and this was kartik rided of skin and subcutaneous tissue fascia tendon as well as small areas of bone. This was removed of all necrotic infected appearing tissue and this was removed with sharp scalpel excision Bovie electrocautery as well as rongeur. Once satisfied with my debridement I then utilized a 3 L bag of normal saline to pulse Avage the entire joint at this point I then proceeded with standard sequence of soaks of diluted Betadine solution which was allowed to soak for 5 minutes this was then evacuated then diluted acetic acid was then placed into the joint and then finished with diluted hydrogen peroxide normal saline. Once completed with my soaking sequence I then subsequently Pulsavac the entire knee joint with 9 L of normal saline. This completed the irrigation and debridement. Once this was done I then removed all dirty instrumentations as well as changed gloves and placed new drapes around the knee I then trialed the poly insert and increase to a size 14 mm which I was satisfied with varus valgus stress and knee range of motion as well as appropriate gap balancing. I called for the final implant I attempted implant the first trial but this had soft tissue interposition and disrupted the locking mechanism which with this was subsequently then removed and discarded of it and then a new 14 mm polyethylene insert was then impacted with excellent locking fixation and had stable knee range of motion with varus valgus stress as well as full flexion extension. I then subsequently let down the tourniquet hemostasis was satisfactory with electrocautery. I did inject a periarticular cocktail for patient's pain relief. 2 g of vancomycin powder was sprinkled in the wound bed within the joint capsule as well as CORRY capsular closure. I then subsequently closed the capsule with #1 PDS in standard interrupted fashion and then closed the deep cutaneous layer with 0 PDS in the subcutaneous layer with 2-0 PDS the skin was then closed with 2-0 nylon. I then utilized a standard medium sized black foam sponge to cut out an incisional VAC the incisional VAC was covered with Xeroform and a black foam sponge was placed on and an excellent seal was then performed patient had minimal drainage on closing and bleeding as a result I felt no need for a deep drain. Incisional VAC was then hooked up to the hospital wound VAC system and had excellent seal. Patient was then subsequently dressed and well- padded 4 x 4's ABDs soft roll and an Sylvester wrap. Patient was then awake from anesthesia and taken to PACU in stable condition. Disposition: Patient taken to PACU in stable condition recovering well. We will continue to monitor joint aspiration cultures as well as patient's intraoperative cultures and tissue specimen. Patient's care will be signed out with Dr. Najera on Thursday when he returns. We will have infectious disease on board hospitalist team on his primary and appreciate their assistance in medical management patient will continue empiric antibiotics at this time. Will be allowed weightbearing as tolerated the right knee. We will leave incisional VAC on in place for 2 days postoperatively I will remove this on Thursday. Encourage knee range of motion and weightbearing as tolerated. PT/OT. Patient understands and agrees with current plan. All questions answered. Anticipate need for PICC line at discharge for IV antibiotics per infectious disease rec ommendations patient to follow-up with Dr. Najera in 2 weeks upon discharge. Patient understands and agrees with current plan. All questions answered.
--- NOTE | 2022-12-06 14:49 | PM.PACU ---
PACU note Narrative: Patient taken to PACU in stable condition recovering well. Pain controlled. Incisional VAC on in place with good seal. He is able to wiggle toes plantarflex and dorsiflex ankle sensation intact light touch distally distal pulses are palpable compartments are soft compressible. Exam: awake Disposition: back to floor
--- NOTE | 2022-12-06 15:15 | ANE.PACU2 ---
Inpatient post-anesthesia follow up: Airway intact: Yes Vital signs: Temperature 98.0 F Pulse Rate 61 Respiratory Rate 20 Blood Pressure 131/53 Pulse Oximetry 95 Oxygen Delivery Me thod [ Room Air Current Rate & Del sanju] Oxygen Delivery Me thod Room Air Oxygen Flow Rate 6 Fraction of Inspir ed Oxygen Hydration adequate: Yes Nausea and vomiting: No Pain level: 2 Mental status: Baseline
[2022-12-06] MEDS: oxyCODONE 5 mg IR Tab/Cap PO ×2 (16:02→21:32)
[2022-12-06] MEDS: docusate sodium 100 mg Capsule PO (17:00)
[2022-12-06] MEDS: iron polysaccharide complex 150 mg Capsule PO (17:00)
[2022-12-06] MEDS: calcium carb-vit d 600mg/400unit 1 Tablet 1 EACH PO (17:09)
[2022-12-07] VITALS (17 sets, daily range): BP systolic 125–146; BP diastolic 53–83; PULSE 61–71; RESP 16–20; TEMP 36.7–37; O2SAT 93–98
[2022-12-07] MEDS: vancomycin 1,250 MG/250 ML PIGGYBACK 250 MG IV ×2 (00:22→12:51)
--- NOTE | 2022-12-07 00:55 | PC.PHAR ---
Pharmacokinetic dosing service Date: 12/07/22 Time: 54 Objective: Patient: Reid Saleh Floor: ICU-5 Age: 74 yo Serum creatinine: 0.9 mg/dL Height: 63.0 Inches Weight (kg): 99.337 Diagnosis: Relevant medical/social history: Cultures and sensitivities: Other labs: Assessment: IBW (kg): 56.90 Dosing wt(kg): 99.337 Estimated Creatinine clearance (ml/min): 58.8 CRCL method: Cockcroft and Gault using ibw(default). Drug selected: Vancomycin Loading dose (mg): 0 Vd (liters): 89.4 (factor used: 0.9 L/kg) Jefe (hr-1): 0.053 Half life (hrs): 13.08 Recommended dose: 1250 mg Interval: 12 hrs Infusion time (hrs): 1.5 Predicted peak (mcg/mL): 28.6 Predicted trough (mcg/mL): 16.39 Total body weight is being used for vancomycin dosing. Renal function is stable [ ] /unstable [ ] Recommendations: Give Vancomycin 1250 mg q 12 hrs with an expected Cpeak of 28.6 mcg/ml and an expected Ctrough of 16.39 mcg/ml Renal dosing of other antibiotics (review renal dosing of other medications and list guidelines here): Thank you for the consult, will continue to follow. Signature: Jonna Neal [facility]
[2022-12-07] MEDS: enoxaparin 40 mg/0.4 mL Syringe SUBCUT (01:09)
[2022-12-07] MEDS: oxyCODONE 5 mg IR Tab/Cap PO ×5 (01:09→22:06)
[2022-12-07 06:05] LABS: Basophils % 0.1 %; Hematocrit 42.3 % (42.0-52.0); Lymphocytes # 0.9 10^3/uL (0.8-4.8); Mean Corpuscular HGB Conc 33.1 g/dL (30.0-36.0); Mean Corpuscular Hemoglobin 30.4 pg (28.0-34.0); Mean Platelet Volume 11.5 fL (7.4-10.4); Monocytes # 1.3 10^3/uL (0.2-0.9); Monocytes % 8.5 %; Neutrophils # 12.63 10^3/uL (1.8-7.7); Nucleated Red Blood Cells % 0 %; Platelet Count 182 10^3/cmm (130-400); Red Cell Distribution Width 13.9 % (12.1-15.1); White Blood Count 14.9 10^3/uL (4.0-10.0)
[2022-12-07 06:33] LABS: C Reactive Protein 223.4 mg/L (0.0-4.9); Magnesium 1.8 mg/dL (1.7-2.3)
[2022-12-07 06:34] LABS: Procalcitonin 0.24 ng/mL (0-0.5)
[2022-12-07 06:35] LABS: Alanine Aminotransferase 11 U/L (0-41); Albumin Level 3.3 g/dL (3.5-5.2); Alkaline Phosphatase 56 U/L (40-130); Anion Gap 15.7 (5-19); Aspartate Amino Transferase 17 U/L (0-40); Blood Urea Nitrogen 12 mg/dL (8-23); Calcium 8.8 mg/dL (8.5-10.5); Carbon Dioxide 18 mmol/L (22-29); Chloride 107 mmol/L (98-107); Globulin 2.9 g/dL (1.3-4.6); Glucose 100 mg/dL (65-115); Osmolality Calculated 284 mOsm/kg (285-295); Potassium 3.7 mmol/L (3.5-5.1); Sodium 137 mmol/L (136-145); Total Bilirubin 0.5 mg/dL (0.15-1.2); Total Protein 6.2 g/dL (6.6-8.7)
[2022-12-07] MEDS: ipratropium-albuterol 3 mL Neb INHALATION ×2 (07:37→13:27)
[2022-12-07] MEDS: iron polysaccharide complex 150 mg Capsule PO ×2 (08:18→17:49)
[2022-12-07] MEDS: amlodipine 10 mg Tablet PO (08:18)
[2022-12-07] MEDS: losartan 50 mg Tablet PO (08:18)
[2022-12-07] MEDS: tamsulosin 0.4 mg Capsule PO (08:18)
[2022-12-07] MEDS: docusate sodium 100 mg Capsule PO ×2 (08:18→17:49)
[2022-12-07] MEDS: multivitamin therapeutic Tablet 1 TAB PO (08:18)
[2022-12-07] MEDS: pantoprazole DR 40 mg Tablet PO (08:18)
[2022-12-07] MEDS: calcium carb-vit d 600mg/400unit 1 Tablet 1 EACH PO ×2 (10:02→17:49)
[2022-12-07] MEDS: cefepime 2,000 MG in sodium chloride 0.9% (plus) 50 ML 100 MG IV ×2 (10:02→22:07)
--- NOTE | 2022-12-07 10:16 | P.PN_ITS ---
Subjective Subjective: Patient seen and evaluated postoperatively on postoperative day 1 his pain has been controlled he is felt much less ill and no fevers. Patient states he has some relief in his knee but still has some persistent pain. We will get up and work with therapy. Incisional VAC on in place with good seal no output. Vitals/I&O/Wt Last Vital Signs Temp 98.4 F 12/07/22 08:00 Pulse 70 12/07/22 08:00 Resp 16 12/07/22 08:00 BP 146/75 12/07/22 08:18 Pulse Ox 94 12/07/22 08:00 O2 Del Method Room Air 12/07/22 08:00 O2 Flow Rate 6 12/06/22 14:35 12/06/22 12/07/22 12/07/22 22:59 06:59 14:59 Intake Total 1040 / 1340 780 / 2120 Output Total 200 / 225 Balance 1040 / 1315 580 / 1895 Weight last 48 hrs Weight 161 lb Physical Exam Narrative: Right lower extremity dressing on in place clean dry and intact patient has incisional VAC on in place with good seal and no output distal pulses are palpable toes warm well-perfused brisk capillary refill less than 2 seconds sofía ent is able to plantarflex and dorsiflex ankle sensation intact light touch distally. Data 12/08/22 05:47 12/08/22 05:47 Other Labs: WBC count from 12/07/2022 was 14.9 hemoglobin 14.0 CRP from the morning was 223 Micro: Microbiology 12/06/22 11:59 Gram Stain - Final Knee - #1 12/06/22 12:24 Gram Stain - Final Knee - #3 12/06/22 12:00 Gram Stain - Final Knee - #2 12/05/22 17:50 Blood Culture - Preliminary Blood NEGATIVE TO DATE 12/05/22 17:02 Blood Culture - Preliminary Blood NEGATIVE TO DATE A&P Assessment and plan (1) Infected prosthetic knee joint: Plan Regular diet Weight-bear as tolerated right lower extremity PT/OT Ice and elevate for pain and swelling Pain control DVT prophylaxis Empiric antibiotics Continue to monitor cultures Infectious disease on board A.m. labs reviewed We will remove incisional VAC tomorrow Attestations Medical Necessity Statement*: Ongoing care right knee periprosthetic joint infection Coding Level of Care Code Acute Code for Chg Fwd Diagnoses Infected prosthetic knee joint T84.59XA; Z96.659 Time Spent (min) 20
--- NOTE | 2022-12-07 14:30 | PM.PN ---
Subjective Subjective: Patient was seen this morning, afebrile overnight, at bedside, extensive discussion with patient about concerns for septic joint, with underlying hardware, he has received surgical intervention, will have to follow cultures, blood cultures, surgical cultures he has gone up out of bed, working with physical therapy, is worried about MRSA infection, also had a discussion with patient's family, Dr. Bartlett at bedside, discussed overall plan, patient family voiced understanding, all questions answered Vitals/I&O/Wt Last Vital Signs Temp 98.2 F 12/07/22 12:00 Pulse 69 12/07/22 13:32 Resp 18 12/07/22 13:32 BP 125/68 12/07/22 12:00 Pulse Ox 96 12/07/22 13:32 O2 Del Method Room Air 12/07/22 13:32 O2 Flow Rate 6 12/06/22 14:35 12/06/22 12/07/22 12/07/22 22:59 06:59 14:59 Intake Total 1040 / 1340 780 / 2120 290 / 290 Output Total 200 / 225 Balance 1040 / 1315 580 / 1895 290 / 290 Physical Exam Const: COMMON NORMALS: no acute distress and patient oriented x3 Resp: COMMON NORMALS: normal respiratory effort, No retractions, No use of accessory muscles and clear to auscultation bilaterally AUSCULTATION: clear to auscultation bilaterally Cardio: COMMON NORMALS: regular rate, regular rhythm, S1 normal heart sound present and S2 normal heart sound present RATE: regular rate RHYTHM: regular rhythm HEART SOUNDS: S1 normal heart sound present and S2 normal heart sound present GI: COMMON NORMALS: Normal to inspection, nondistended, normoactive bowel sounds present and non-tender Extremity: COMMON NORMALS: no pedal edema NARRATIVE EXTREMITY EXAM: Right knee wrapped in bandage, with a wound VAC in place Neuro: COMMON NORMALS: patient oriented x3 Psych: COMMON NORMALS: mental status grossly normal Data 12/07/22 05:12 12/07/22 05:12 Micro: Microbiology 12/06/22 12:00 Gram Stain - Final Knee - #2 Tissue Culture - Preliminary 12/06/22 11:59 Gram Stain - Final Knee - #1 Tissue Culture - Preliminary 12/06/22 12:24 Gram Stain - Final Knee - #3 Tissue Culture - Preliminary 12/05/22 21:19 Body Fluid Culture - Preliminary Synovial Fluid 12/05/22 17:50 Blood Culture - Preliminary Blood NEGATIVE TO DATE 12/05/22 17:02 Blood Culture - Preliminary Blood NEGATIVE TO DATE A&P Assessment and plan (1) Septic joint of right knee joint: Patient presenting with acute swelling of the right knee joint over the past 2 days. Of note this is a prosthetic joint status post TKR in 2020. Does not recall any obvious trauma to the site. But does have a break in his skin, occipital region of his head, he has a linear laceration but about 1 cm healing well he does have a break in his skin, lright fleming, looks clean and dry, roughly half a centimeter Joint aspirate was performed in the emergency room by Ortho, showed 68,000 WBC 87% PMNs per prelim report. Status post washout 12/06/[address] Bartlett Gram stain and cultures are currently pending. Blood cultures so far negative Empirically started on cefepime and vancomycin Further treatment course dependent on perioperative course and final cultures We will discuss with infectious disease, to consult Follow inflammatory markers Monitor for fevers Likely will require PICC line and IV antibiotics for 6 weeks depending on cultures and sensitivities prn morphine for pain npo for procedure today (2) Hypertension: currently well controlled. continue home dose losartan (3) Complex renal cyst: Plan Plan for today continue IV antibiotic therapy, spoke to Dr. Bartlett spoke to patient's , spoke to patient, will Attestations Medical Necessity Statement*: Patient requires hospitalization for septic joint right knee Diagnoses Septic joint of right knee joint M00.9 Hypertension I10 Complex renal cyst N28.1
[2022-12-07 23:29] LABS: Vancomycin Trough 18.3 ug/mL (10-15)
[2022-12-08] VITALS (17 sets, daily range): BP systolic 125–157; BP diastolic 73–86; PULSE 59–82; RESP 15–18; TEMP 36.4–36.9; O2SAT 93–98
[2022-12-08] MEDS: vancomycin 1,250 MG/250 ML PIGGYBACK 250 MG IV ×2 (00:34→12:30)
[2022-12-08] MEDS: oxyCODONE 5 mg IR Tab/Cap PO ×5 (01:32→19:54)
--- NOTE | 2022-12-08 02:40 | PC.PHAR ---
Vancomycin Trough 18.3, Please continue with same therapy. Will continue to follow. Thank you, Jonna Neal [facility]
[2022-12-08] MEDS: enoxaparin 40 mg/0.4 mL Syringe SUBCUT (03:07)
[2022-12-08] MEDS: ipratropium-albuterol 3 mL Neb INHALATION ×4 (03:24→20:59)
[2022-12-08 06:27] LABS: Basophils # 0.1 10^3/uL (0.0-0.1); Basophils % 0.5 %; Eosinophils # 0.2 10^3/uL (0.0-0.8); Eosinophils % 1.7 %; Hematocrit 41.8 % (42.0-52.0); Hemoglobin 13.8 g/dL (11.7-16.6); Lymphocytes # 2.1 10^3/uL (0.8-4.8); Lymphocytes % 21.6 %; Mean Corpuscular Hemoglobin 29.4 pg (28.0-34.0); Mean Corpuscular Volume 88.9 fl (80-94); Mean Platelet Volume 11.4 fL (7.4-10.4); Monocytes % 10.7 %; Neutrophils # 6.26 10^3/uL (1.8-7.7); Neutrophils % 65.2 %; Nucleated Red Blood Cells % 0 %; Platelet Count 211 10^3/cmm (130-400); Red Cell Distribution Width 13.5 % (12.1-15.1); White Blood Count 9.6 10^3/uL (4.0-10.0)
[2022-12-08 07:00] LABS: Anion Gap 15.6 (5-19); Blood Urea Nitrogen 11 mg/dL (8-23); C Reactive Protein 133.8 mg/L (0.0-4.9); Calcium 8.9 mg/dL (8.5-10.5); Carbon Dioxide 23 mmol/L (22-29); Chloride 102 mmol/L (98-107); Glucose 92 mg/dL (65-115); Magnesium 1.9 mg/dL (1.7-2.3); Osmolality Calculated 283 mOsm/kg (285-295); Potassium 3.6 mmol/L (3.5-5.1); Sodium 137 mmol/L (136-145)
--- NOTE | 2022-12-08 08:31 | P.PN_ITS ---
Subjective Subjective: Patient seen and examined this morning overall is doing well continues to state of improvement. Still has some pain to the right knee but improved since initial presentation denies any issues overnight or fevers or chills. Incisional VAC dressing subsequent on in place and taken down incision is healing well sutures in place no signs of drainage or any significant erythema. Continue to follow cultures and defer to infectious disease for antibiotic recommendations Vitals/I&O/Wt Last Vital Signs Temp 98.2 F 12/08/22 07:36 Pulse 59 L 12/08/22 07:36 Resp 15 12/08/22 07:36 BP 157/81 12/08/22 07:36 Pulse Ox 93 12/08/22 07:36 O2 Del Method Room Air 12/08/22 07:36 O2 Flow Rate 0 12/07/22 22:13 12/07/22 12/08/22 12/08/22 22:59 06:59 14:59 Intake Total 530 / 1430 250 / 1680 Output Total 600 / 600 Balance 530 / 1430 -350 / 1080 Physical Exam Narrative: Right lower extremity dressing on in place clean dry and intact patient has incisional VAC on in place with good seal and no output, dressing subsequently taken down incision inspected incisions healing well with no signs of dehiscence and no expressible drainage or fluid accumulation patient has mild joint effusion. Patient has improvement in range of motion able to bend close to 90 degrees from 0 degrees of extension he has improvement no pain with micromotion. Distal pulses are palpable toes warm well-perfused brisk capillary refill less than 2 seconds patient is able to plantarflex and dorsiflex ankle sensation intact light touch distally. Data 12/08/22 05:47 12/08/22 05:47 Micro: Microbiology 12/05/22 21:19 Anaerobic Culture - Preliminary Synovial Fluid Body Fluid Culture - Preliminary 12/06/22 12:00 Anaerobic Culture - Preliminary Knee - #2 12/06/22 12:24 Gram Stain - Final Knee - #3 Anaerobic Culture - Preliminary Tissue Culture - Preliminary 12/06/22 11:59 Anaerobic Culture - Preliminary Knee - #1 12/06/22 12:00 Gram Stain - Final Knee - #2 Tissue Culture - Preliminary 12/06/22 11:59 Gram Stain - Final Knee - #1 Tissue Culture - Preliminary A&P Assessment and plan (1) Infected prosthetic knee joint: Plan Regular diet Weight-bear as tolerated right lower extremity PT/OT Ice and elevate for pain and swelling Pain control DVT prophylaxis Empiric antibiotics Continue to monitor cultures Infectious disease on board A.m. labs reviewed Incisional VAC dressing subsequently taken down and a new Silverlon dressing applied Orthopedics will continue to follow we will handoff care to Dr. Najera for continued follow-up and care who is his initial primary right total knee arthro plasty surgeon Attestations Medical Necessity Statement*: Ongoing care right total knee arthroplasty periprosthetic joint infection Coding Level of Care Code Acute Code for Chg Fwd Diagnoses Infected prosthetic knee joint T84.59XA; Z96.659 Time Spent (min) 30
[2022-12-08] MEDS: amlodipine 10 mg Tablet PO (09:14)
[2022-12-08] MEDS: tamsulosin 0.4 mg Capsule PO (09:14)
[2022-12-08] MEDS: calcium carb-vit d 600mg/400unit 1 Tablet 1 EACH PO ×2 (09:14→18:09)
[2022-12-08] MEDS: pantoprazole DR 40 mg Tablet PO (09:14)
[2022-12-08] MEDS: losartan 50 mg Tablet PO (09:14)
[2022-12-08] MEDS: docusate sodium 100 mg Capsule PO ×2 (09:14→18:09)
[2022-12-08] MEDS: iron polysaccharide complex 150 mg Capsule PO ×2 (09:15→18:09)
[2022-12-08] MEDS: multivitamin therapeutic Tablet 1 TAB PO (09:15)
[2022-12-08] MEDS: cefepime 2,000 MG in sodium chloride 0.9% (plus) 50 ML 100 MG IV ×2 (09:25→20:55)
[2022-12-08] MEDS: ketorolac 30 mg/mL INJ 15 MG IVP (09:29)
--- NOTE | 2022-12-08 13:12 | P.PN_ITS ---
Subjective Subjective: Patient was seen this morning, he is in good spirits, at bedside, no fevers overnight, no chills, no cough, had extensive discussion with patient about septic arthritis, antibiotic therapy treatments, continued monitoring here in the hospital, following cultures, Vitals/I&O/Wt Last Vital Signs Temp 97.8 F 12/08/22 12:00 Pulse 62 12/08/22 12:00 Resp 18 12/08/22 12:03 BP 146/78 12/08/22 12:00 Pulse Ox 97 12/08/22 12:00 O2 Del Method Room Air 12/08/22 12:00 O2 Flow Rate 0 12/07/22 22:13 12/07/22 12/08/22 12/08/22 22:59 06:59 14:59 Intake Total 530 / 1430 250 / 1680 50 / 50 Output Total 600 / 600 Balance 530 / 1430 -350 / 1080 50 / 50 Physical Exam Const: COMMON NORMALS: no acute distress and patient oriented x3 Resp: COMMON NORMALS: normal respiratory effort, No retractions, No use of accessory muscles and clear to auscultation bilaterally AUSCULTATION: clear to auscultation bilaterally Cardio: COMMON NORMALS: regular rate, regular rhythm, S1 normal heart sound present and S2 normal heart sound present RATE: regular rate RHYTHM: regular rhythm HEART SOUNDS: S1 normal heart sound present and S2 normal heart sound present GI: COMMON NORMALS: Normal to inspection, nondistended, normoactive bowel sounds present and non-tender Extremity: COMMON NORMALS: no pedal edema NARRATIVE EXTREMITY EXAM: Surgical site right knee looks clean and dry, Neuro: COMMON NORMALS: patient oriented x3 Psych: COMMON NORMALS: mental status grossly normal Data 12/08/22 05:47 12/08/22 05:47 Micro: Microbiology 12/05/22 21:19 Anaerobic Culture - Preliminary Synovial Fluid Body Fluid Culture - Preliminary 12/06/22 12:00 Anaerobic Culture - Preliminary Knee - #2 12/06/22 12:24 Gram Stain - Final Knee - #3 Anaerobic Culture - Preliminary Tissue Culture - Preliminary 12/06/22 11:59 Anaerobic Culture - Preliminary Knee - #1 12/06/22 12:00 Gram Stain - Final Knee - #2 Tissue Culture - Preliminary 12/06/22 11:59 Gram Stain - Final Knee - #1 Tissue Culture - Preliminary A&P Assessment and plan (1) Septic joint of right knee joint: Patient presenting with acute swelling of the right knee joint over the past 2 days. Of note this is a prosthetic joint status post TKR in 2020. Does not recall any obvious trauma to the site. But does have a break in his skin, occipital region of his head, he has a linear laceration but about 1 cm healing well he does have a break in his skin, lright fleming, looks clean and dry, roughly half a centimeter Joint aspirate was performed in the emergency room by Ortho, showed 05193 WBCs, red, cloudy, 2 glucose, LDH 3854, PMN cells 73.63, no crystals seen Status post right knee irrigation and debridement, right knee synovectomy, right total knee arthroplasty polyethylene exchange Gram stain negative and cultures are currently pending. Blood cultures so far negative Empirically started on cefepime and vancomycin Further treatment course dependent on perioperative course and final cultures We will discuss with infectious disease, to consult Follow inflammatory markers Monitor for fevers Likely will require PICC line and IV antibiotics for 6 weeks depending on cult ures and sensitivities Pain control Infectious disease consulted (2) Hypertension: currently well controlled. continue home dose losartan (3) Complex renal cyst: Plan Plan for today continue IV antibiotic therapy, spoke to patient, spoke to Attestations Medical Necessity Statement*: Patient requires hospitalization for septic knee joint, with underlying implant Coding Level of Care Code 77245 High Time for a total of 60 minutes, includes reviewing past or interval history, examining/interviewing patient, placing orders, counseling patient/family/other support, updating patient/family/other support, discussing plan of care with staff, communicating with other healthcare providers, documenting encounter and coordinating care Diagnoses Septic joint of right knee joint M00.9 Hypertension I10 Complex renal cyst N28.1
--- NOTE | 2022-12-08 13:27 | SUR.OPER ---
07/08/[address] Bartlett's request, 500ml of Iodine mixed with 500ml of NS was placed into incision and soaked for 5 minutes. Following that, 500ml of hydrogen peroxide and 500ml of NS was irrigated into incision, then 500ml of acetic acid and 500ml of NS was irrigated into incision which was then rinsed with NS using pulsavac device.
--- NOTE | 2022-12-08 14:43 | PM.PN ---
Subjective Subjective: Hospital course are reviewed. Patient with no complaints. Pain well controlled. Vitals/I&O/Wt Last Vital Signs Temp 97.8 F 12/08/22 12:00 Pulse 68 12/08/22 13:59 Resp 18 12/08/22 13:59 BP 146/78 12/08/22 12:00 Pulse Ox 96 12/08/22 13:59 O2 Del Method Room Air 12/08/22 13:59 O2 Flow Rate 0 12/07/22 22:13 12/07/22 12/08/22 12/08/22 22:59 06:59 14:59 Intake Total 530 / 1430 250 / 1680 50 / 50 Output Total 600 / 600 Balance 530 / 1430 -350 / 1080 50 / 50 Physical Exam Narrative: Left knee dressing clean and dry. Really minimal swelling. Data 12/08/22 05:47 12/08/22 05:47 Micro: Microbiology 12/06/22 12:00 Gram Stain - Final Knee - #2 Tissue Culture - Preliminary 12/06/22 11:59 Gram Stain - Final Knee - #1 Tissue Culture - Preliminary 12/06/22 12:24 Gram Stain - Final Knee - #3 Anaerobic Culture - Preliminary Tissue Culture - Preliminary 12/05/22 21:19 Anaerobic Culture - Preliminary Synovial Fluid Body Fluid Culture - Preliminary 12/06/22 12:00 Anaerobic Culture - Preliminary Knee - #2 12/06/22 11:59 Anaerobic Culture - Preliminary Knee - #1 A&P Assessment and plan (1) Infected prosthetic knee joint: Laboratory markers and cell count highly suggestive of infection. No crystals with aspiration to suggest gout.. Unfortunately cultures are negative but this is not entirely uncommon with infected total joints. Will need aggressive IV antibiotics. Infectious disease is involved to make appropriate recommendations. Attestations Medical Necessity Statement*: Awaiting final antibiotic plans per infectious disease Coding Level of Care Code Acute Code for Chg Fwd Diagnoses Infected prosthetic knee joint T84.59XA; Z96.659
[2022-12-09] VITALS (19 sets, daily range): BP systolic 126–150; BP diastolic 64–92; PULSE 55–66; RESP 16–18; TEMP 36.4–37.3; O2SAT 91–98
[2022-12-09] MEDS: enoxaparin 40 mg/0.4 mL Syringe SUBCUT (00:10)
[2022-12-09] MEDS: vancomycin 1,250 MG/250 ML PIGGYBACK 250 MG IV ×3 (00:10→19:36)
[2022-12-09] MEDS: oxyCODONE 5 mg IR Tab/Cap PO ×6 (00:10→21:51)
[2022-12-09] MEDS: morphine 4 mg/mL SDV 1 mL 2 MG IVP (03:36)
[2022-12-09 05:56] LABS: Basophils # 0.1 10^3/uL (0.0-0.1); Basophils % 0.7 %; Eosinophils # 0.3 10^3/uL (0.0-0.8); Eosinophils % 3.8 %; Hematocrit 44.5 % (42.0-52.0); Hemoglobin 14.5 g/dL (11.7-16.6); Lymphocytes # 1.7 10^3/uL (0.8-4.8); Lymphocytes % 22.7 %; Mean Corpuscular HGB Conc 32.6 g/dL (30.0-36.0); Mean Corpuscular Hemoglobin 29.4 pg (28.0-34.0); Mean Corpuscular Volume 90.1 fl (80-94); Mean Platelet Volume 10.7 fL (7.4-10.4); Monocytes # 0.8 10^3/uL (0.2-0.9); Monocytes % 11.1 %; Neutrophils # 4.66 10^3/uL (1.8-7.7); Neutrophils % 61.4 %; Nucleated Red Blood Cells % 0 %; Platelet Count 252 10^3/cmm (130-400); Red Blood Count 4.94 10^6/uL (4.1-5.3); Red Cell Distribution Width 13.6 % (12.1-15.1); White Blood Count 7.6 10^3/uL (4.0-10.0)
[2022-12-09 06:11] LABS: Anion Gap 15.1 (5-19); Blood Urea Nitrogen 13 mg/dL (8-23); Calcium 9.3 mg/dL (8.5-10.5); Carbon Dioxide 25 mmol/L (22-29); Chloride 101 mmol/L (98-107); Glucose 85 mg/dL (65-115); Magnesium 1.9 mg/dL (1.7-2.3); Osmolality Calculated 283 mOsm/kg (285-295); Potassium 4.1 mmol/L (3.5-5.1); Sodium 137 mmol/L (136-145)
[2022-12-09] MEDS: ipratropium-albuterol 3 mL Neb INHALATION ×2 (07:38→21:08)
[2022-12-09] MEDS: iron polysaccharide complex 150 mg Capsule PO ×2 (08:25→18:01)
[2022-12-09] MEDS: docusate sodium 100 mg Capsule PO ×2 (08:26→18:02)
[2022-12-09] MEDS: calcium carb-vit d 600mg/400unit 1 Tablet 1 EACH PO ×2 (08:26→18:02)
[2022-12-09] MEDS: tamsulosin 0.4 mg Capsule PO (08:26)
[2022-12-09] MEDS: amlodipine 10 mg Tablet PO (08:27)
[2022-12-09] MEDS: losartan 50 mg Tablet PO (08:27)
[2022-12-09] MEDS: multivitamin therapeutic Tablet 1 TAB PO (08:27)
[2022-12-09] MEDS: pantoprazole DR 40 mg Tablet PO (08:28)
[2022-12-09] MEDS: cefepime 2,000 MG in sodium chloride 0.9% (plus) 50 ML 100 MG IV ×2 (09:48→21:52)
--- NOTE | 2022-12-09 11:16 | XR_ITS ---
WS: [id number] CHEST XRAY TECHNIQUE: Portable chest. CLINICAL INFORMATION: Post PICC COMPARISON: December 05, 2022 FINDINGS: RIGHT PICC line with tip in the mid to distal SVC in good position. Heart: Normal cardiac silhouette. Lungs: Chronic emphysematous changes. No acute pulmonary infiltrates. No pneumothorax. Bones: Postoperative changes lower cervical spine. XR/XR chest 1V portable [id number] IMPRESSION: RIGHT PICC line with tip in the mid to distal SVC in good position.
[2022-12-09 11:42] LABS: Vancomycin Trough 15.6 ug/mL (10-15)
--- NOTE | 2022-12-09 12:00 | PC.NURSE ---
Single lumen PICC placed to right brachial vein without difficulty. Risks and benefits explained to patient with informed consent obtained prior to procedure. Mid-arm circumference measured 10 cm from right AC 27 cm. Trimmed cath length 43 cm with 0 cm external length noted. CXR confirms tip in SVC, in good position for use per radiologist. EBL <5 mL. Dressing due to be changed 12/10/22. Report given to bedside nurseLinda.
[2022-12-09] MEDS: ketorolac 30 mg/mL INJ 15 MG IVP (12:57)
--- NOTE | 2022-12-09 14:25 | P.PN_ITS ---
Subjective Subjective: Patient was seen this morning, he has no complaints, no fevers, chills, no cough Vitals/I&O/Wt Last Vital Signs Temp 98.4 F 12/09/22 12:03 Pulse 59 L 12/09/22 12:03 Resp 18 12/09/22 13:59 BP 135/76 12/09/22 12:03 Pulse Ox 95 12/09/22 12:03 O2 Del Method Room Air 12/09/22 12:03 O2 Flow Rate 0 12/09/22 08:20 12/08/22 12/09/22 12/09/22 22:59 06:59 14:59 Intake Total 290 / 590 250 / 840 410 / 410 Output Total 800 / 800 700 / 1500 300 / 300 Balance -510 / -210 -450 / -660 110 / 110 Physical Exam Const: COMMON NORMALS: no acute distress and patient oriented x3 Resp: COMMON NORMALS: normal respiratory effort, No retractions, No use of accessory muscles and clear to auscultation bilaterally AUSCULTATION: clear to auscultation bilaterally Cardio: COMMON NORMALS: regular rate, regular rhythm, S1 normal heart sound present and S2 normal heart sound present RATE: regular rate RHYTHM: regular rhythm HEART SOUNDS: S1 normal heart sound present and S2 normal heart sound present GI: COMMON NORMALS: Normal to inspection, nondistended, normoactive bowel sounds present and non-tender Extremity: COMMON NORMALS: no pedal edema Neuro: COMMON NORMALS: patient oriented x3 Psych: COMMON NORMALS: mental status grossly normal Data 12/09/22 05:22 12/09/22 05:22 Micro: Microbiology 12/06/22 11:59 Gram Stain - Final Knee - #1 Tissue Culture - Final 12/06/22 12:00 Gram Stain - Final Knee - #2 Tissue Culture - Final 12/06/22 12:24 Gram Stain - Final Knee - #3 Anaerobic Culture - Preliminary Tissue Culture - Final 12/05/22 21:19 Anaerobic Culture - Preliminary Synovial Fluid Body Fluid Culture - Preliminary 12/06/22 12:00 Anaerobic Culture - Preliminary Knee - #2 12/06/22 11:59 Anaerobic Culture - Preliminary Knee - #1 A&P Assessment and plan (1) Septic joint of right knee joint: Patient presenting with acute swelling of the right knee joint over the past 2 days. Of note this is a prosthetic joint status post TKR in 2020. Does not recall any obvious trauma to the site. But does have a break in his skin, occipital region of his head, he has a linear laceration but about 1 cm healing well he does have a break in his skin, lright fleming, looks clean and dry, roughly half a centimeter Joint aspirate was performed in the emergency room by Ortho, showed 20423 WBCs, red, cloudy, 2 glucose, LDH 3854, PMN cells 73.63, no crystals seen Status post right knee irrigation and debridement, right knee synovectomy, right total knee arthroplasty polyethylene exchange Gram stain negative and cultures from surgical site negative Blood cultures so far negative Empirically started on cefepime and vancomycin Place PICC line today as blood cultures -72 hours Likely discharge tomorrow on IV vancomycin Spoke to infectious disease, agreeable Follow inflammatory markers Monitor for fevers Likely will require PICC line and IV antibiotics for 6 weeks depending on cult ures and sensitivities Pain control Infectious disease consulted (2) Hypertension: currently well controlled. continue home dose losartan (3) Complex renal cyst: Plan Plan for today continue IV antibiotic therapy, spoke to patient, spoke to , spoke to infectious disease, plan on PA seeing PICC line, likely IV vancomycin based on vancomycin trough 1250 every 12 hours, likely discharge tomorrow if cultures remain negative, spoke to nursing staff,, spoke to infectious disease Attestations Medical Necessity Statement*: Patient requires hospitalization for septic knee joint with hardware Diagnoses Septic joint of right knee joint M00.9 Hypertension I10 Complex renal cyst N28.1
--- NOTE | 2022-12-09 15:34 | P.CONIM_ITS ---
Providers/Reason For Consult Consulting Physician/Specialty*: Katina Tena MD/ Infectious disease Reason for Consult*: PJI Requesting Physician: Dr. Osbaldo Fam/ Hospitalist Attending Physician: Osbaldo Fam MD Primary Care Provider: Zay Ospina DO History of Present Illness History of Present Illness Anthony Jimenez is a 77 year old male with a h/o TKA in 2019 who presented currently with 2 days of sudden onset pain, swelling and erythema of the right knee. Patient was in his usual state of health just prior. Does not recall any trauma leading up to symptoms. On day 2 of symptoms, he felt well enough to play golf however could not continue playing after a few hrs due to worsened pain and swelling. He was febrile on arrival at ER. ROS + chills. No h/o antecedent trauma. No recent surgeries or dental procedures. No animal bites. He underwent joint aspiration by ortho in ER which showed WBC count ~10825, 87% PMNs raising concern for PJI After discussion with orthopedics, he underwent I&D with sy novectomy, polyethylene exchange on 12/06. CX from the synovial aspirate and OR are thus far negative to date. His fever has resolved since the procedure. Crystals are negative. ROS negative for any recent URI or diarrheal illness. no conjunctivitis. Review of Systems General: Reports: 10 or more systems reviewed and unremarkable except in HPI and below Const: Denies: fever(s), chills or body aches Eyes: Denies: change in vision, blurry vision or photophobia ENMT: Reports: hoarseness; Denies: throat pain, enlarged tonsils, odynophagia or nasal congestion Card: Denies: chest pain, palpitations, irregular heart rhythm, edema, swelling of feet/ankles, lightheadedness, pre-syncope, dyspnea on exertion or orthopnea Resp: Denies: dyspnea, productive cough, non-productive cough, wheezing, stridor, pain on inspiration, change in phlegm color, hemoptysis or chest congestion GI: Denies: abdominal pain, nausea, vomiting, hematemesis, coffee ground emesis, dysphagia, heartburn, diarrhea, constipation, GI cramping, change in stool character, hematochezia or melena : Denies: flank pain, dysuria, urinary frequency, urinary urgency, urinary hesitancy or hematuria Musc: Denies: neck pain, back pain, extremity pain, joint swelling, joint warmth or deformity Neuro: Denies: headache(s), numbness in extremities, weakness in extremities, sensory changes, difficulty walking, frequent falls, dizziness, vertigo, behavioral changes, Slurred speech present or seizure-like activity Psych: Denies: anxiety, depression, suicidal ideation or homicidal ideation Endo: Denies: polyuria, polydipsia, tired all the time, cold intolerance or hot flashes Chato/Lymph: Denies: easy bruising or easy bleeding Medications/Allergies Home Medications Medication Instructions Recorded Confirmed Last Taken Type amlodipine 10 mg tablet 10 mg PO DAILY 08/03/19 12/06/22 10/22/20 History budesonide-formoterol HFA 160 2 puff inhalation BID 08/03/19 12/06/22 10/22/20 History mcg-4.5 mcg/actuation aerosol inhaler (Symbicort) meloxicam 15 mg tablet 15 mg PO DAILY 08/03/19 12/06/22 10/22/20 History albuterol sulfate 90 mcg/actuation 2 puff inhalation Q6H PRN 08/09/20 12/06/22 10/23/20 History aerosol inhaler (Ventolin HFA) Shortness Of Breath losartan 50 mg tablet 50 mg PO DAILY 01/28/22 12/06/22 Unknown History tadalafil 20 mg tablet 20 mg PO DAILY PRN sexual activity 01/28/22 12/06/22 Unknown Rx #20 tabs tamsulosin 0.4 mg capsule See Rx Instructions .Route 01/28/22 12/06/22 Unknown Rx .COMPLEX #90 caps montelukast 10 mg tablet 10 mg PO DAILY 12/03/22 12/06/22 Unknown History aspirin 325 mg tablet 325 mg PO BID 14 days #28 tabs 12/08/22 Unknown Rx hydrocodone 5 mg-acetaminophen 325 1 tab PO Q6H PRN pain 7 days #28 12/08/22 Unknown Rx mg tablet tabs Allergies Allergy/AdvReac Type Severity Reaction Status Date / Time No Known Allergies Allergy Verified 01/28/22 09:09 Current Medications Generic Name Dose Route Start Last Admin Trade Name Freq PRN Reason Stop Dose Admin Albuterol/Ipratropium 3 ml 12/06/22 03:30 12/09/22 14:32 Ipratropium-Albuterol 3 Ml Neb INHALATION Not Given Q6H.RESP JIMENA Amlodipine Besylate 10 mg 12/06/22 09:00 12/09/22 08:27 Amlodipine 10 Mg Tablet PO 10 mg DAILY JIMENA Administration Calcium Carbonate 1 each 12/06/22 18:00 12/09/22 08:26 Calcium Carb-Vit D 600mg/400unit 1 Tablet PO 1 each BID JIMENA Administration Docusate Sodium 100 mg 12/06/22 18:00 12/09/22 08:26 Docusate Sodium 100 Mg Capsule PO 100 mg BID JIMENA Administration Enoxaparin Sodium 40 mg 12/06/22 01:45 12/09/22 00:10 Enoxaparin 40 Mg/0.4 Ml Syringe SUBCUT 40 mg Q24H JIMENA Administration Cefepime HCl 2,000 mg/ Sodium 50 mls @ 100 mls/hr 12/06/22 10:00 12/09/22 10:18 Chloride IV Infused Q12H [facility] Infusion Protocol Vancomycin/PEG/NADA/Lysine/Water 1,250 mg in 250 mls @ 250 mls/hr 12/06/22 12:00 12/09/22 12:18 Vancocin IV 250 mls/hr Q12H [facility] Administration Ketorolac Tromethamine 15 mg 12/06/22 15:12 12/09/22 12:57 Ketorolac 30 Mg/Ml Inj IVP 15 mg Q6H PRN Administration Pain - See dose instructions Losartan Potassium 50 mg 12/06/22 09:00 12/09/22 08:27 Losartan 50 Mg Tablet PO 50 mg DAILY [facility] Administration Morphine Sulfate 2 mg 12/06/22 01:34 12/09/22 03:36 Morphine 4 Mg/Ml Sdv 1 Ml IVP 2 mg Q4H PRN Administration SEVERE PAIN Multivitamins Therapeutic 1 tab 12/07/22 09:00 12/09/22 08:27 Multivitamin Therapeutic Tablet PO 1 tab DAILY [facility] Administration Oxycodone HCl 5 - 10 mg 12/06/22 15:12 12/09/22 13:59 Oxycodone 5 Mg Ir Tab/Cap PO 10 mg Q4H PRN Administration MODERATE TO SEVERE PAIN Pantoprazole Sodium 40 mg 12/06/22 09:00 12/09/22 08:[address] 40 Mg Tablet PO 40 mg DAILY JIMENA Administration Polysaccharide Iron Complex 150 mg 12/06/22 18:00 12/09/22 08:25 Iron Polysaccharide Complex 150 Mg Capsule PO 150 mg BIDWM JIMENA Administration Tamsulosin HCl 0.4 mg 12/07/22 09:00 12/09/22 08:26 Tamsulosin 0.4 Mg Capsule PO 0.4 mg DAILY JIMENA Administration PFSH Acute PFSH: Medical History BPH NOS w ur obs/LUTS Complex renal cyst Originally noted in 2012 with no significant mold insert changer time. Complexity comes from some rim calcification and septation. Hyperlipidemia Hypertension Impotence Surgical History H/O sinus surgery H/O vasectomy History of colonoscopy (10/23/20) Diverticulosis, internal hemorrhoids History of lumbar fusion Hx of cataract surgery S/P cervical spinal fusion Status post right knee replacement Family History Father , at age 51 Myocardial infarction (lateral wall) Mother , at age 75 Cancer lung Social History Smoking and tobacco status: former smoker Alcohol intake: current Alcohol intake frequency: holidays/special occasions only Marital status: Current occupational status: retired Vitals/I&O/Wt Last Vital Signs Temp 98.4 F 12/09/22 12:03 Pulse 59 L 12/09/22 14:33 Resp 18 12/09/22 14:33 BP 135/76 12/09/22 12:03 Pulse Ox 95 12/09/22 14:33 O2 Del Method Room Air 12/09/22 12:03 O2 Flow Rate 0 12/09/22 08:20 12/09/22 12/09/22 12/09/22 06:59 14:59 22:59 Intake Total 250 / 840 410 / 410 Output Total 700 / 1500 300 / 300 Balance -450 / -660 110 / 110 Data 12/09/22 05:22 12/09/22 05:22 Micro: Microbiology 12/06/22 11:59 Gram Stain - Final Knee - #1 Tissue Culture - Final 12/06/22 12:00 Gram Stain - Final Knee - #2 Tissue Culture - Final 12/06/22 12:24 Gram Stain - Final Knee - #3 Anaerobic Culture - Preliminary Tissue Culture - Final 12/05/22 21:19 Anaerobic Culture - Preliminary Synovial Fluid Body Fluid Culture - Preliminary 12/06/22 12:00 Anaerobic Culture - Preliminary Knee - #2 12/06/22 11:59 Anaerobic Culture - Preliminary Knee - #1 A&P Assessment and plan (1) 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 for culture negative PJI, recommend treating with Ceftriaxone 2g iv daily and Vancomycin iv with goal trough 15-20 for broad spectrum gram positive and gram negative coverage. Total treatment duration to be 6 weeks (12/06-01/17/23) Given retention of prosthesis, ideally patient should remain on chronic suppression however with cx remaining negative, this will present a treatment challenge. Will attempt to obtain 16S DNA sequencing from OR cx taken on 12/06. Currently we do not have capability to run this testing at our lab or at [facility] (our current lab liaison) in absence colony growth. Lab attempting to arrange biofire testing at alternate facilities. Picc line placed to facilitate above Consult Attestations Medical Necessity Statement: per admitting Coding Level of Care Code Acute Code for Chg Fwd Diagnoses Infected prosthetic knee joint T84.59XA; Z96.659
[2022-12-10] VITALS (9 sets, daily range): BP systolic 143–173; BP diastolic 78–83; PULSE 60–66; RESP 16–17; TEMP 36.7–36.8; O2SAT 92–97
[2022-12-10] MEDS: enoxaparin 40 mg/0.4 mL Syringe SUBCUT (02:06)
[2022-12-10] MEDS: oxyCODONE 5 mg IR Tab/Cap PO ×3 (02:07→10:14)
[2022-12-10 05:11] LABS: Basophils % 0.6 %; Eosinophils # 0.4 10^3/uL (0.0-0.8); Eosinophils % 5.5 %; Hematocrit 42.5 % (42.0-52.0); Hemoglobin 14.1 g/dL (11.7-16.6); Lymphocytes # 1.6 10^3/uL (0.8-4.8); Lymphocytes % 22.1 %; Mean Corpuscular HGB Conc 33.2 g/dL (30.0-36.0); Mean Corpuscular Hemoglobin 29.7 pg (28.0-34.0); Mean Corpuscular Volume 89.7 fl (80-94); Mean Platelet Volume 10.6 fL (7.4-10.4); Monocytes # 0.7 10^3/uL (0.2-0.9); Neutrophils # 4.46 10^3/uL (1.8-7.7); Neutrophils % 61.4 %; Nucleated Red Blood Cells % 0 %; Platelet Count 208 10^3/cmm (130-400); Red Blood Count 4.74 10^6/uL (4.1-5.3); Red Cell Distribution Width 13.2 % (12.1-15.1); White Blood Count 7.3 10^3/uL (4.0-10.0)
[2022-12-10 06:05] LABS: Anion Gap 14.1 (5-19); Blood Urea Nitrogen 15 mg/dL (8-23); Calcium 9.4 mg/dL (8.5-10.5); Carbon Dioxide 24 mmol/L (22-29); Chloride 102 mmol/L (98-107); Glucose 94 mg/dL (65-115); Magnesium 1.9 mg/dL (1.7-2.3); Osmolality Calculated 283 mOsm/kg (285-295); Phosphorus 3.2 mg/dL (2.5-4.5); Potassium 4.1 mmol/L (3.5-5.1); Sodium 136 mmol/L (136-145)
[2022-12-10] MEDS: ipratropium-albuterol 3 mL Neb INHALATION (07:28)
[2022-12-10] MEDS: multivitamin therapeutic Tablet 1 TAB PO (08:30)
[2022-12-10] MEDS: docusate sodium 100 mg Capsule PO (08:30)
[2022-12-10] MEDS: pantoprazole DR 40 mg Tablet PO (08:30)
[2022-12-10] MEDS: losartan 50 mg Tablet PO (08:30)
[2022-12-10] MEDS: iron polysaccharide complex 150 mg Capsule PO (08:30)
[2022-12-10] MEDS: vancomycin 1,250 MG/250 ML PIGGYBACK 250 MG IV (08:31)
[2022-12-10] MEDS: amlodipine 10 mg Tablet PO (08:31)
[2022-12-10] MEDS: tamsulosin 0.4 mg Capsule PO (08:31)
[2022-12-10] MEDS: calcium carb-vit d 600mg/400unit 1 Tablet 1 EACH PO (08:31)
[2022-12-10] MEDS: cefepime 2,000 MG in sodium chloride 0.9% (plus) 50 ML 100 MG IV (10:09)
--- NOTE | 2022-12-10 10:47 | PM.DCS ---
Discharge Providers Date of Admission: 12/05/22 21:38 Date of Discharge: December 10, 2022 Attending Provider at Admission: Katina Tena MD Attending Provider at Discharge: Osbaldo Fam MD Primary Care Provider: Zay Ospina DO Diagnoses at Discharge Discharge Diagnosis (1) Infected prosthetic knee joint: Status: Acute Reason for Visit Reason for Visit: right kneepain/fever/nauseas Hospital Course Hospital Course Anthony Jimenez is a 77 year old male PMHx of COPD, BPH, HTN, renal cyst, HLD . he was in his usual state of health until 2 days ago when he suddenly started to develop acute right-sided knee swelling of the previously placed prosthetic joint. Patient states that the swelling came on all of a sudden, he does not recall any obvious trauma to the site.? He attempted to play golf this morning but could barely walk on the golf course and presented to the emergency room.? He has had fever over the past 2 days as high as 101 Fahrenheit along with chills. He was noted to have a grossly swollen right knee, orthopedics was consulted, synovial aspirate was performed which showed 62,000 WBC with 84% PMNs raising concern for septic arthritis.? Patient is planned to go to the operating room in the morning.? Culture crystals and Gram stain are currently pending. Patient was admitted to [facility] for septic joint of right knee, history of prosthetic joint, status post arthrocentesis, had 80 K white blood cells, patient had polyethylene exchange with retention of prosthesis on 12/06/2022, with negative blood cultures, negative surgical cultures, overall clinically improved, patient will be discharged on 2 g IV Rocephin daily, the vancomycin 1250 every 12 hours with goal of Vanco trough 15-20, total duration of treatment will be 12/06 to 01/17/2023, with weekly CBCs and CMP, recheck vancomycin trough in 1 week, follow-up with infectious disease, follow-up with Dr. Najera Physical Exam Const: COMMON NORMALS: no acute distress and patient oriented x3 Resp: COMMON NORMALS: normal respiratory effort, No retractions, No use of accessory muscles and clear to auscultation bilaterally AUSCULTATION: clear to auscultation bilaterally Cardio: COMMON NORMALS: regular rate, regular rhythm, S1 normal heart sound present and S2 normal heart sound present RATE: regular rate RHYTHM: regular rhythm HEART SOUNDS: S1 normal heart sound present and S2 normal heart sound present GI: COMMON NORMALS: Normal to inspection, nondistended, normoactive bowel sounds present and non-tender Extremity: COMMON NORMALS: no pedal edema Neuro: COMMON NORMALS: patient oriented x3 Psych: COMMON NORMALS: mental status grossly normal Discharge Data Studies Completed and Pending Completed Studies During Hospitalization Category Date Time Status CT chest abdomen pelvis [CT chest abdpel w/*[id number] Cat Scan 12/05/22 18:22 Completed ] Stat CXRP [XR chest 1V portable [id number]] Routine Exams 12/09/22 11:16 Completed XR chest 1V portable [id number] Stat Exams 12/05/22 16:45 Completed XR knee RT 3V* [id number] Stat Exams 12/05/22 16:45 Completed US venous duplex lower extremity RT [CV venous duplex Ultrasound 12/05/22 16:49 [place] [id number]] Stat Pending at discharge Category Date Time Status Anaerobic Culture Routine Lab 12/06/22 11:59 Results Anaerobic Culture Routine Lab 12/06/22 12:00 Results Anaerobic Culture Routine Lab 12/06/22 12:24 Results Anaerobic Culture Stat Lab 12/05/22 21:19 Results Blood Culture Stat Lab 12/05/22 17:50 Results Body Fluid Culture Stat Lab 12/05/22 21:19 Results Complete Blood Count w/Auto AM LABS Lab 12/11/22 04:00 Ordered Complete Blood Count w/Auto AM LABS Lab 12/12/22 04:00 Ordered Magnesium AM LABS Lab 12/11/22 04:00 Ordered Magnesium AM LABS Lab 12/12/22 04:00 Ordered Miscellaneous Test Routine Lab 12/09/22 15:27 Ordered Phosphorus AM LABS Lab 12/11/22 04:00 Ordered Phosphorus AM LABS Lab 12/12/22 04:00 Ordered Tissue Culture and Gram Stain Routine Lab 12/06/22 12:24 Results Radiology Impressions Knee X-Ray 12/05/22 16:45 IMPRESSION: 1. Total knee arthroplasty in anatomic alignment without evidence of hardware complication. 2. Mild soft tissue swelling and small effusion. If there is clinical concern for intra-articular infection, joint aspiration may be useful. Venous Duplex 12/05/22 16:49 IMPRESSION: 1. No sonographic evidence of deep vein thrombosis. 2. 2.1 x 3.5 x 0.7 cm popliteal cyst. Chest/Abdomen/Pelvis CT 12/05/22 18:22 IMPRESSION: 1. Mild central peribronchial thickening, suggestive of airway inflammation. 2. Several small pleural based right lower lobe nodular densities, measuring up to 6 mm, similar to prior. Recommend follow-up CT Chest in 6-12 IMPRESSION: 1. No CT evidence of acute intra-abdominal or pelvic pathology. 2. Enlarged prostate. Correlate with clinical exam and PSA levels. 3. Additional findings, as above. Chest X-Ray 12/09/22 11:16 IMPRESSION: RIGHT PICC line with tip in the mid to distal SVC in good position. Laboratory Results WBC 7.3 10^3/uL (4.0-10.0) 12/10/22 04:50 RBC 4.74 10^6/uL (4.1-5.3) 12/10/22 04:50 Hgb 14.1 g/dL (11.7-16.6) 12/10/22 04:50 Hct 42.5 % (42.0-52.0) 12/10/22 04:50 MCV 89.7 fl (80-94) 12/10/22 04:50 MCH 29.7 pg (28.0-34.0) 12/10/22 04:50 MCHC 33.2 g/dL (30.0-36.0) 12/10/22 04:50 RDW 13.2 % (12.1-15.1) 12/10/22 04:50 Plt Count 208 10^3/cmm (130-400) 12/10/22 04:50 MPV 10.6 fL (7.4-10.4) H 12/10/22 04:50 Neut % (Auto) 61.4 % 12/10/22 04:50 Lymph % (Auto) 22.1 % 12/10/22 04:50 [place] % (Auto) 10.0 % 12/10/22 04:50 Eos % (Auto) 5.5 % 12/10/22 04:50 Baso % (Auto) 0.6 % 12/10/22 04:50 Neut # (Auto) 4.46 10^3/uL (1.8-7.7) 12/10/22 04:50 Lymph # (Auto) 1.6 10^3/uL (0.8-4.8) 12/10/22 04:50 [place] # (Auto) 0.7 10^3/uL (0.2-0.9) 12/10/22 04:50 Eos # (Auto) 0.4 10^3/uL (0.0-0.8) 12/10/22 04:50 Baso # (Auto) 0.0 10^3/uL (0.0-0.1) 12/10/22 04:50 Nucleated RBC % (auto) 0 % 12/10/22 04:50 Nucleated RBCs # 0.0 /100WBC 12/10/22 04:50 ESR 19 mm/hr (0-10) H 12/05/22 17:02 Sodium 136 mmol/L (136-145) 12/10/22 05:34 Potassium 4.1 mmol/L (3.5-5.1) 12/10/22 05:34 Chloride 102 mmol/L (98-107) 12/10/22 05:34 Carbon Dioxide 24 mmol/L (22-29) 12/10/22 05:34 Anion Gap 14.1 (5-19) 12/10/22 05:34 BUN 15 mg/dL (8-23) 12/10/22 05:34 Creatinine 0.7 mg/dL (0.7-1.2) 12/10/22 05:34 GFR Calculation Not Reportable 12/10/22 05:34 Glucose 94 mg/dL (65-115) 12/10/22 05:34 Calculated Osmolality 283 mOsm/kg (285-295) L 12/10/22 05:34 Lactic Acid 0.9 mmol/L (0.5-2.2) 12/06/22 09:10 Calcium 9.4 mg/dL (8.5-10.5) 12/10/22 05:34 Phosphorus 3.2 mg/dL (2.5-4.5) 12/10/22 05:34 Magnesium 1.9 mg/dL (1.7-2.3) 12/10/22 05:34 Total Bilirubin 0.5 mg/dL (0.15-1.2) 12/07/22 05:12 AST 17 U/L (0-40) 12/07/22 05:12 ALT 11 U/L (0-41) 12/07/22 05:12 Alkaline Phosphatase 56 U/L (40-130) 12/07/22 05:12 Troponin T Baseline 24 ng/L (0-15) H 12/05/22 17:02 Troponin T 120 Minute 28.84 ng/L (0-15) H 12/05/22 19:20 Delta Troponin T 4.84 ABS# (0-10) 12/05/22 19:20 Troponin T Hi Sens 6Hr 34.26 ng/L (0-15) H 12/05/22 23:10 Troponin T Hi Sens 6Hr Delta 10.26 ng/L (0-12) 12/05/22 23:10 C-Reactive Protein 133.8 mg/L (0.0-4.9) H 12/08/22 05:47 Total Protein 6.2 g/dL (6.6-8.7) L 12/07/22 05:12 Albumin 3.3 g/dL (3.5-5.2) L 12/07/22 05:12 Globulin 2.9 g/dL (1.3-4.6) 12/07/22 05:12 Procalcitonin 0.24 ng/mL (0-0.5) 12/07/22 05:12 Urine Color Yellow (Yellow) 12/05/22 19:30 Urine Appearance Clear (CLEAR) 12/05/22 19:30 Urine pH 5 (5-7) 12/05/22 19:30 Ur Specific [place] 1.010 (1.005-1.030) 12/05/22 19:30 Urine Protein Neg (Negative) 12/05/22 19:30 Urine Glucose (UA) Norm (Normal) 12/05/22 19:30 Urine Ketones 1+ (Negative) H 12/05/22 19:30 Urine Blood 3+ (Negative) H 12/05/22 19:30 Urine Nitrate Negative (Negative) 12/05/22 19: Urine Bilirubin Neg (Negative) 12/05/22 19:30 Urine Urobilinogen Norm mg/dL (Negative) 12/05/22 19:30 Ur Leukocyte Esterase Negative (Negative) 12/05/22 19:30 Urine RBC None /hpf (0-2) 12/05/22 19:30 Urine WBC None /hpf (0-5) 12/05/22 19:30 Ur Squamous Epith Cells None /hpf (0-5) 12/05/22 19:30 Amorphous Sediment Not Reportable 12/05/22 19:30 Urine Bacteria Trace /hpf (NONE) 12/05/22 19:30 Urine Mucus Trace /hpf 12/05/22 19:30 Fluid Crystals See path consult 12/05/22 21:19 Synovial Color Red (PALE YELLOW) 12/05/22 21:19 Synovial Appearance Cloudy (CLEAR) 12/05/22 21:19 Synovial WBC 77462 /uL (0-150) H 12/05/22 21:19 Synovial RBC 37 10^3/uL (0-0) H 12/05/22 21:[address] [employer] 12/05/22 21:19 Synovial Mononuclear 10.846 10^3/uL 12/05/22 21:19 Synov Polynuclear WBCs 73.763 10^3/uL 12/05/22 21:19 Synovial Other Cells Not Reportable 12/05/22 21:19 Synovial Polynuclear % 87.200 % 12/05/22 21:19 Synovial Mononuclear % 12.800 % 12/05/22 21:19 Synovial Glucose 2 mg/dL 12/05/22 21:19 Synovial Total Protein 4.5 g/dL 12/05/22 21:19 Synovial LDH > 3854.0 U/L 12/05/22 21:19 Nasal Influ A H1 2008 PCR Not detected (NOT DETECT) 12/05/22 17:50 Vancomycin Trough 15.6 ug/mL (10-15) H 12/09/22 11:09 Adenovirus (PCR) Not detected (NOT DETECT) 12/05/22 17:50 C. pneumoniae DNA (PCR) Not detected (NOT DETECT) 12/05/22 17:50 Coronavirus 229E (PCR) Not detected (NOT DETECT) 12/05/22 17:50 Human Metapneumovir PCR Not detected (NOT DETECT) 12/05/22 17:50 Influenza A (H1) PCR Not detected (NOT DETECT) 12/05/22 17:50 Influenza A (H3) PCR Not detected (NOT DETECT) 12/05/22 17:50 Influenza Type A (PCR) Not detected (NOT DETECT) 12/05/22 17:50 Influenza Type B (PCR) Not detected (NOT DETECT) 12/05/22 17:50 M. pneumoniae (PCR) Not detected (NOT DETECT) 12/05/22 17:50 Parainfluenza 1 (PCR) Not detected (NOT DETECT) 12/05/22 17:50 Parainfluenza 2 (PCR) Not detected (NOT DETECT) 12/05/22 17:50 Parainfluenza 3 (PCR) Not detected (NOT DETECT) 12/05/22 17:50 Parainfluenza 4 (PCR) Not detected (NOT DETECT) 12/05/22 17:50 RSV Type A (PCR) Not detected (NOT DETECT) 12/05/22 17:50 RSV Type B (PCR) Not detected (NOT DETECT) 12/05/22 17:50 Entero/Rhino (PCR) Not detected (NOT DETECT) 12/05/22 17:50 SARS-CoV-2 (PCR) Not detected (NOT DETECT) 12/05/22 17:50 Path Cons w/Slide Yes 12/05/22 21:19 Misc Test Reference Cancelled 12/05/22 21:19 Blood Type A Positive 12/06/22 09:10 Rho(D) Type Positive 12/06/22 09:10 Antibody Screen Negative 12/06/22 09:10 Vitals Last Vital Signs Temp 98.0 F 12/10/22 08:00 Pulse 60 12/10/22 08:00 Resp 16 12/10/22 10:14 BP 143/78 12/10/22 08:30 Pulse Ox 93 12/10/22 08:00 O2 Del Method Room Air 12/10/22 08:00 O2 Flow Rate 0 12/09/22 08:20 Discharge Plan Discharge Patient Disposition: Home Condition: Stable Prescriptions: New hydrocodone-acetaminophen 5-325 mg tablet 1 tab PO Q6H PRN (Reason: pain) 7 Days Qty: 28 0RF ondansetron 4 mg tablet,disintegrating 4 mg PO DAILY 5 Days Qty: 5 0RF calcium carbonate-vitamin D3 600 mg-10 mcg (400 unit) Tablet 1 tab PO BID 30 Days Qty: 60 0RF ceftriaxone 2 gram recon soln 2 g IV DAILY 39 Days Qty: 39 0RF vancomycin 1.25 gram recon soln 1.25 g IV Q12H 39 Days Qty: 10 0RF Continued albuterol sulfate [Ventolin HFA] 90 mcg/actuation HFA aerosol inhaler 2 puff inhalation Q6H PRN (Reason: Shortness Of Breath) losartan 50 mg tablet 50 mg PO DAILY tamsulosin 0.4 mg capsule See Rx Instructions .ROUTE .COMPLEX Qty: 90 3RF Dose Instruction: TAKE ONE CAPSULE BY MOUTH EVERY DAY Rx Instructions: TAKE ONE CAPSULE BY MOUTH EVERY DAY tadalafil 20 mg tablet 20 mg PO DAILY PRN (Reason: sexual activity) Qty: 20 12RF Rx Instructions: Take approx 30min before intercourse; do not use more than 1 dose per 24hrs; NO NITROGLYCERIN montelukast 10 mg tablet 10 mg PO DAILY amlodipine 10 mg tablet 10 mg PO DAILY budesonide-formoterol [Symbicort] 160-4.5 mcg/actuation HFA aerosol inhaler 2 puff INHALATION BID Changed aspirin 325 mg tablet 325 mg PO BID 14 Days Qty: 28 0RF Discontinued meloxicam 15 mg tablet 15 mg PO DAILY Discharge Orders: Discharge Order (Routine); Ordered 12/10/22 Ordered By: Osbaldo Fam Other Ambulatory Orders: DME: [facility] (Order) Location: None Selected Ordered By: Osbaldo Fam Referrals: Zay Ospina DO [Primary Care Provider] - 12/17/22 1:00 pm Cody Najera MD [Physician] - 12/23/22 10:15 am (2weeks) Katina Tena MD [Hospitalist] - 1 week Discharge Diet: Advance as tolerated Discharge Activity: Increase activity as tolerated Patient Instructions: Hydrocodone/Acetaminophen (By mouth), Ondansetron (By mouth), Ceftriaxone (By injection) (Rocephin, Novaplus cefTRIAXone,..., Vancomycin (By injection), Opioid Safety Activity Restrictions/Additional Instructions: Orthopedic discharge instructions: Take pain medication as prescribed Take antinausea medication as needed Supplement with Citracal vitamin D for overall bone health and healing Take antibiotic as prescribed by primary team Take aspirin 325 mg twice daily for blood clot prevention due to recent surgery and after 2 weeks may work back down to your daily aspirin 325 once daily that you are taking prior to surgery Elevation and ice as needed for pain and swelling Utilize Sylvester wrap or compression sleeve for pain and swelling to the right knee Weight-bear as tolerated to the right lower extremity Encourage knee range of motion as tolerated to the right lower extremity Keep incision clean dry and intact Leave Silverlon dressing on in place for 7 days postoperatively after that may take dressing down and replaced with a dry dressing Follow-up with Dr. Najera in the office in 2 weeks Contact the orthopedic office for any questions or concerns -vancomycin 1250 milligrams q12h for 6 weeks, stop date january 17/2023, recheck vancomycin trough december 16, weekly cbc and bmp -Rocephin 2gram iv q24h for 6 weeks, stop date january 17/2023 Discharge Attestations Time Spent in Discharge Care*: greater than 30 min Quality Metrics Clinical Quality Measures [ No reported AMI, CVA or VTE this stay] Coding Level of Care Code 20444 Total time (in minutes) for Discharge: 50 Diagnoses Infected prosthetic knee joint T84.59XA; Z96.659
--- NOTE | 2022-12-10 12:22 | PC.NURSE ---
picc line drsg changed today tegaderm applied.
[2022-12-22 10:25] LABS: Miscellaneous Test See Scanned Lab Rpt
== END 2022-12-10 11:41 | disposition home health service (06) | DRG 486 ==
LOC: ER 21:31 → MEDSURG 21:47
PROVIDERS: Student in an Organized Health Care Education/Training Program; Admitting Provider Student in an Organized Health Care Education/Training Program; Emergency Provider Emergency Medicine; PCP Electrodiagnostic Medicine; Visit Provider Family Medicine
PROC: 0SPC09Z Removal of Liner from Right Knee Joint, Open Approach (ICD-10-PCS; principal; 2022-12-06 11:00)
PROC: 0SPC09Z Removal of Liner from Right Knee Joint, Open Approach (ICD-10-PCS; 2022-12-06 11:00)
DX: T84.53XA Infection and inflammatory reaction due to internal right knee prosthesis, initial encounter (principal); M00.9 Pyogenic arthritis, unspecified; Y79.8 Miscellaneous orthopedic devices associated with adverse incidents, not elsewhere classified; J44.9 Chronic obstructive pulmonary disease, unspecified; N40.1 Benign prostatic hyperplasia with lower urinary tract symptoms; I10 Essential (primary) hypertension; E78.5 Hyperlipidemia, unspecified; Z79.51 Long term (current) use of inhaled steroids; Z98.1 Arthrodesis status; Z87.891 Personal history of nicotine dependence; Z57.4 Occupational exposure to toxic agents in agriculture; N28.1 Cyst of kidney, acquired
CPT/HCPCS: 36415; 36569; 71045; 71260; 73562; 74177; 80048; 80053; 80202; 80503; 81001; 82945; 83605; 83615; 83735; 84100; 84145; 84157; 84484; 85025; 85651; 86140; 86850; 86900; 87040; 87070; 87075; 87176; 87205; 87486; 87581; 87633; 89050; 93005; 93971; 94640; 96365; 96367; 96372; 97110; 97116; 97161; 97165; 99285; C1776; J0131; J0171; J0692; J1100; J1170; J1650; J1885; J2270; J2370; J2405; J2704; J2710; J2795; J3010; J3370; J3372; J3490; J7030

== ENCOUNTER 2022-12-19 14:27 | Emergency (ER) | payer OTHER, SELFPAY ==
--- NOTE | 2022-12-19 14:43 | USR_ITS ---
PROCEDURE INFORMATION: Exam: US Duplex Right Lower Extremity Veins, Limited Exam date and time: 12/19/2022 3:35 PM Age: 77 years old Clinical indication: Pain; Leg, lower; Right; Prior surgery; Surgery date: <1 month; Surgery type: Septic knee 3 weeks ago; Additional info: Leg swelling TECHNIQUE: Imaging protocol: Real-time duplex ultrasound of the right extremity with 2-D castro scale, color Doppler flow and spectral waveform analysis including responses to compression and other maneuvers (when performed) with image documentation. Limited exam was focused on the right lower extremity veins. COMPARISON: [place] [id number] 12/05/2022 5:12 PM FINDINGS: Right deep veins: Unremarkable. The common femoral, femoral, proximal profunda femoral and popliteal veins are patent without thrombus. Normal Doppler waveforms. Normal compressibility and/or augmentation response. Right superficial veins: Unremarkable. Saphenofemoral junction is patent without thrombus. Soft tissues: Unremarkable. US/[place] [id number] IMPRESSION: No evidence of deep vein thrombosis.
--- NOTE | 2022-12-19 14:43 | XR_ITS ---
WS: [id number] Exam: XR chest 1V portable [id number] Date/Time of Exam: 12/19/2022 2:57 PM Reason For Exam: sob Comparison 12/09/2022. The lungs are hyperinflated and clear. A right-sided PICC line ends in the distal SVC unchanged in po sition. Normal cardiomediastinal silhouette. No pleural effusions. Fusion hardware in the lower C-spi ne. XR/XR chest 1V portable [id number] IMPRESSION: 1. Pulmonary hyperinflation. No acute process.
[2022-12-19 14:45] VITALS: BP 183/89; PULSE 68; RESP 16; TEMP 36.7; O2SAT 98
--- NOTE | 2022-12-19 15:17 | PC.NURSE ---
Pt has PICC line in right upper arm.
[2022-12-19 15:28] VITALS: BP 163/96; PULSE 63; O2SAT 97
[2022-12-19 15:50] LABS: Basophils # 0.1 10^3/uL (0.0-0.1); Basophils % 0.7 %; Eosinophils # 0.1 10^3/uL (0.0-0.8); Eosinophils % 1.5 %; Hematocrit 43.5 % (42.0-52.0); Hemoglobin 14.1 g/dL (11.7-16.6); Lymphocytes # 1.5 10^3/uL (0.8-4.8); Lymphocytes % 17.7 %; Mean Corpuscular HGB Conc 32.4 g/dL (30.0-36.0); Mean Corpuscular Hemoglobin 29.4 pg (28.0-34.0); Mean Corpuscular Volume 90.6 fl (80-94); Mean Platelet Volume 10.4 fL (7.4-10.4); Monocytes % 11.2 %; Neutrophils # 5.89 10^3/uL (1.8-7.7); Neutrophils % 68.6 %; Nucleated Red Blood Cells % 0 %; Platelet Count 327 10^3/cmm (130-400); Red Cell Distribution Width 13.5 % (12.1-15.1); White Blood Count 8.6 10^3/uL (4.0-10.0)
--- NOTE | 2022-12-19 16:21 | PC.PHAR ---
PTS VERIFIED PTS MEDICATIONS-PTS STATES SHE DCED THE PTS AMLODIPINE 10MG DAILY ON WED 12/17/22 EXT MED HISTORY SHOWS LAST FILLED 10/02/22 90D/S-PTS STATES THE PT HAD THE AM DOSE OF VANCOMYCIN (FILLED 12/11/22 1.25G IV Q12H) BUT STATES THE DR DCED TODAY -PTS STATES THE PTS LIPITOR 20MG DAILY IS ON HOLD STATES THE PT HASNT HAD IN A MONTH-PTS STATES THE PTS MOBIC 15MG DAILY WAS DCED RX FILLED 09/30/22 90D/S-NOTES ARE MADE IN THE PHARMACY COMMENTS
[2022-12-19 16:26] LABS: SARS Covid-2 Antigen negative (Negative)
[2022-12-19 16:30] VITALS: BP 170/99; PULSE 63; O2SAT 95
--- NOTE | 2022-12-19 16:41 | ED_ITS ---
HPI - Recheck/Abnormal Lab/Rx General: Chief Complaint: Recheck/Abnormal Lab/Rx Stated Complaint: Right leg swelling/pain Time Seen by Provider: 12/19/22 15:05 Source: patient Mode of arrival: ambulatory Limitations: no limitations History of Present Illness: 77-year-old male who states that he had had a septic joint that he had surgery on to get it cleaned out on the he has been on IV antibiotics through a PICC line since then. He states that over last 2 days he had some swelling in his right lower leg he is concerned of a possible blood clot. He denies any fever denies any chest pain he is resting comfortably here with normal vital signs. 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 Complexity comes from some rim calcification and septation. Hyperlipidemia Hypertension Impotence Surgical History H/O sinus surgery H/O vasectomy History of colonoscopy (10/23/20) Diverticulosis, internal hemorrhoids History of lumbar fusion Hx of cataract surgery S/P cervical spinal fusion Status post right knee replacement Family History Father , at age 51 Myocardial infarction (lateral wall) Mother , at age 75 Cancer lung Social History Smoking and tobacco status: former smoker Alcohol intake: current Alcohol intake frequency: holidays/special occasions only Marital status: Current occupational status: retired Physical Exam Const: COMMON NORMALS: no acute distress, patient oriented x3 and healthy appearing HENMT: COMMON NORMALS: normocephalic and atraumatic HEAD & SCALP: normocephalic and atraumatic Neck/C-Spine: COMMON NORMALS: full ROM and supple Chest: COMMONS NORMALS: normal inspection of the chest and normal palpation of entire chest wall Resp: COMMON NORMALS: normal respiratory effort, No retractions, No use of accessory muscles and clear to auscultation bilaterally AUSCULTATION: clear to auscultation bilaterally Cardio: COMMON NORMALS: regular rate, regular rhythm and No murmurs present (Cardio) RATE: regular rate RHYTHM: regular rhythm GI: COMMON NORMALS: Normal to inspection, nondistended, normoactive bowel rowena nds present, Soft to palpation, non-tender and no masses PALPATION: Yes Soft to palpation Extremity: NARRATIVE EXTREMITY EXAM: Incision to right knee is clean dry and intact he has no erythema no drainage knee is not warm to touch. Some mild swelling to his right lower calf no calf tenderness Neuro: COMMON NORMALS: patient oriented x3, moves all extremities and no focal motor deficits Psych: COMMON NORMALS: mental status grossly normal, Normal thought process present and cooperative THOUGHT PROCESS: Normal thought process present Skin: COMMON NORMALS: no rashes or lesions noted and no wounds GENERAL SKIN EXAM: no rashes or lesions noted Course Vital Signs: Vital signs: Vital Signs Temperature 98.1 F 12/19/22 14:45 Pulse Rate 63 12/19/22 16:30 Respiratory Rate 16 12/19/22 14:45 Blood Pressure 170/99 12/19/22 16:30 Pulse Oximetry 95 12/19/22 16:30 Oxygen Delivery Me thod Room Air 12/19/22 14:45 MDM - Recheck/Abnormal Lab/Rx Medical Decision Making Patient presented here with some right leg swelling concern for a DVT. He had a septic joint in his right knee few weeks ago he had had it washed out has been on IV antibiotics his knee is well-appearing is no redness no warmth to touch she has some mild swelling to right lower calf that is likely from his procedure his ultrasound shows no signs of DVT vital signs including pulse ox here is normal COVID white count are negative chest x-ray is normal Lab Data 12/19/22 15:36 12/19/22 15:36 Radiology Impressions Chest X-Ray 12/19/22 14:43 IMPRESSION: 1. Pulmonary hyperinflation. No acute process. Laboratory Results WBC 8.6 10^3/uL (4.0-10.0) 12/19/22 15:36 RBC 4.80 10^6/uL (4.1-5.3) 12/19/22 15:36 Hgb 14.1 g/dL (11.7-16.6) 12/19/22 15:36 Hct 43.5 % (42.0-52.0) 12/19/22 15:36 MCV 90.6 fl (80-94) 12/19/22 15:36 MCH 29.4 pg (28.0-34.0) 12/19/22 15:36 MCHC 32.4 g/dL (30.0-36.0) 12/19/22 15:36 RDW 13.5 % (12.1-15.1) 12/19/22 15:36 Plt Count 327 10^3/cmm (130-400) 12/19/22 15:36 MPV 10.4 fL (7.4-10.4) 12/19/22 15:36 Neut % (Auto) 68.6 % 12/19/22 15:36 Lymph % (Auto) 17.7 % 12/19/22 15:36 [place] % (Auto) 11.2 % 12/19/22 15:36 Eos % (Auto) 1.5 % 12/19/22 15:36 Baso % (Auto) 0.7 % 12/19/22 15:36 Neut # (Auto) 5.89 10^3/uL (1.8-7.7) 12/19/22 15:36 Lymph # (Auto) 1.5 10^3/uL (0.8-4.8) 12/19/22 15:36 [place] # (Auto) 1.0 10^3/uL (0.2-0.9) H 12/19/22 15:36 Eos # (Auto) 0.1 10^3/uL (0.0-0.8) 12/19/22 15:36 Baso # (Auto) 0.1 10^3/uL (0.0-0.1) 12/19/22 15:36 Nucleated RBC % (auto) 0 % 12/19/22 15:36 Nucleated RBCs # 0.0 /100WBC 12/19/22 15:36 BUN 15 mg/dL (8-23) 12/19/22 15:36 Creatinine 0.7 mg/dL (0.7-1.2) 12/19/22 15:36 GFR Calculation Not Reportable 12/19/22 15:36 Glucose 87 mg/dL (65-115) 12/19/22 15:36 Calcium 9.4 mg/dL (8.5-10.5) 12/19/22 15:36 Total Bilirubin 0.2 mg/dL (0.15-1.2) 12/19/22 15:36 AST 22 U/L (0-40) 12/19/22 15:36 ALT 25 U/L (0-41) 12/19/22 15:36 Alkaline Phosphatase 68 U/L (40-130) 12/19/22 15:36 Total Protein 6.9 g/dL (6.6-8.7) 12/19/22 15:36 Albumin 4.0 g/dL (3.5-5.2) 12/19/22 15:36 Globulin 2.9 g/dL (1.3-4.6) 12/19/22 15:36 SARS-CoV-2 Ag (Rapid) negative (Negative) 12/19/22 15:43 Discharge Plan Discharge Patient Disposition: Home Clinical Impression: Right leg swelling Condition: Stable Prescriptions: No Action albuterol sulfate [Ventolin HFA] 90 mcg/actuation HFA aerosol inhaler 2 puff inhalation Q6H PRN (Reason: Shortness Of Breath) losartan 50 mg tablet 50 mg PO QAM montelukast 10 mg tablet 10 mg PO QAM budesonide-formoterol [Symbicort] 160-4.5 mcg/actuation HFA aerosol inhaler 2 puff INHALATION BID ipratropium-albuterol 0.5 mg-3 mg(2.5 mg base)/3 mL solution for nebulization 1.5 ml INHALATION BID sildenafil 50 mg tablet See Rx Instructions .ROUTE .COMPLEX Rx Instructions: TAKE ONE TABLET BY MOUTH EVERY 5 DAYS NEEDED ED hydrocodone-acetaminophen 5-325 mg tablet 1 tab PO Q6H PRN (Reason: Pain) ondansetron 4 mg tablet,disintegrating 4 mg PO DAILY PRN (Reason: Nausea And Vomiting) tamsulosin 0.4 mg capsule 0.4 mg PO QAM ceftriaxone 2 gram recon soln 2 g IV DAILY@12 atorvastatin 20 mg tablet 20 mg PO DAILY Rx Instructions: (ON HOLD NOT HAD FOR A MONTH PER 12/19/22) calcium carbonate-vitamin D3 600 mg-10 mcg (400 unit) Tablet 1 tab PO BID 30 Days Qty: 60 0RF aspirin 325 mg tablet 325 mg PO BID 14 Days Qty: 28 0RF vancomycin 1.25 gram recon soln 1.25 g IV Q12H 39 Days Qty: 10 0RF Rx Instructions: (HAD AM DOSE BUT THEN DR GRIMES PER 12/19/22) Discharge Orders: Discharge ED (Routine); Ordered 12/19/22 Ordered By: Amy Samaniego Referrals: Zay Ospina, [Primary Care Provider] - Discharge Diet: Advance as tolerated Discharge Activity: Resume usual activity Patient Instructions: Leg Edema (ED) Coding Level of Care Code ED [facility] Specialist for Alan Mathews
[2022-12-19 16:59] VITALS: BP 170/99; PULSE 61; O2SAT 94
[2022-12-19 16:59] LABS: Alanine Aminotransferase 25 U/L (0-41); Alkaline Phosphatase 68 U/L (40-130); Aspartate Amino Transferase 22 U/L (0-40); Blood Urea Nitrogen 15 mg/dL (8-23); Calcium 9.4 mg/dL (8.5-10.5); Carbon Dioxide 21 mmol/L (22-29); Globulin 2.9 g/dL (1.3-4.6); Glucose 87 mg/dL (65-115); Total Bilirubin 0.2 mg/dL (0.15-1.2); Total Protein 6.9 g/dL (6.6-8.7)
[2022-12-19 17:15] LABS: Anion Gap 16.8 (5-19); Chloride 103 mmol/L (98-107); Osmolality Calculated 284 mOsm/kg (285-295); Potassium 3.8 mmol/L (3.5-5.1); Sodium 137 mmol/L (136-145)
== END 2022-12-19 17:01 | disposition home or self-care (01) ==
PROVIDERS: Emergency Provider Emergency Medicine; PCP Electrodiagnostic Medicine
DX: M79.89 Other specified soft tissue disorders (principal); Z79.82 Long term (current) use of aspirin; E78.5 Hyperlipidemia, unspecified; I10 Essential (primary) hypertension; Z87.891 Personal history of nicotine dependence; Z20.822 Contact with and (suspected) exposure to COVID-19
CPT/HCPCS: 36415; 71045; 80053; 85025; 87426; 93971; 99285

== ENCOUNTER 2023-01-19 07:00 | Outpatient (CLI) | payer MEDICARE, OTHER, SELFPAY ==
[2023-01-19 07:07] VITALS: BMI 25.8
--- NOTE | 2023-01-19 07:20 | ECG_ITS ---
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 Interpretive Statements NAME OF STUDY: EXERCISE SESTAMIBI STRESS TEST INDICATION: Chest Pain; Shortness of Breath Baseline blood pressure of 167/98 mm Hg, heart rate 73 beats per minute and oxygen saturation 94%. EKG showed sinus rhythm left anterior fascicular block and frequent PVCs. The patient exercised for 6 minutes and 21 seconds on a standard Hi protocol. Patient attained a maximum heart rate of 136 beats per minute(94 % of the maximum predicted heart rate) with a blood pressure at the peak exercise of 217/97 mm Hg. The EKG at the peak exercise revealed sinus tachycardia with no significant ST-T wave changes. Patient did not have any chest pain or any significant arrhythmis with the exercise. PVCs noted during exercise. During the recovery phase, there were no new changes. Blood pressure at the end of the recovery phase was 175/94 mm Hg with a heart rate of per minute. Few PVCs in recovery. CONCLUSION: 1. Normal EKG response to treadmill exercise. 2. No exercise-induced chest pain or cardiac arrhythmia. 3. Good exercise tolerance, attained a maximum of 7 METs. 4. Baseline hypertension with hypertensive response to exercise. 5. Perfusion scan will be documented separately. Electronically Signed On 01-26-2023 12:25:02 CDT by Tamela Duncan M.D. [email or web address]
--- NOTE | 2023-01-19 07:21 | NMCV_ITS ---
NM baldomero perf SPECT r/s* [id number] Anthony Jimenez Age: 77 Gender: M : 1945 Exam Date: 01/19/2023 07:57 Ordering Phys: Tamela Duncan MD ([email or web address]) Technologist: DON Franco Exam Location: [facility] Indications: Chest Pain STRESS TEST Please see separate stress test report in [facility] for full findings IMAGE PROTOCOL Rest/Stress 1 Exercise Day Radiopharmaceutical Dose (mCi) Administration Site Administered by Rest: Tc-99m 10.8 IV DON Payne Sestamibi Stress:Tc-99m 32.7 IV DON Payne Sestamibi Rest: 19-Jan-2023 60 Discovery 630 Stress: 19-Jan-2023 30 Discovery 630 Radiopharmaceutical was injected at 89 % maximum heart rate. Images obtained in supine and prone position. SPECT RESULTS Technical Quality: Excellent Raw Data Analysis: Normal Image Corrections: No attenuation or motion correction applied Summed Stress Score: 1 Summed Rest Score: 0 Summed Difference Score: 1 PERFUSION FINDINGS SPECT images demonstrate homogeneous tracer distribution throughout the myocardium. FUNCTIONAL RESULTS (calculated via Gated SPECT) Stress Image LV EF (%): 75 Stress EDV (mL):80 TID: 0.71 Stress ESV (mL):20 FUNCTIONAL FINDINGS: The left ventricle is normal in size. Transient Ischemia Dilatation of 0.71. The left ventricular ejection fraction is normal with a value of 75%. There is normal left ventricular wall thickening. IMPRESSIONS 1. Myocardial perfusion imaging is normal. 2. Overall left ventricular systolic function is normal without regional wall motion abnormalities, LVEF=75%. 3. EKG portion of the study will be reported separately. 4. Scan indicates low risk for cardiac events. Tamela Duncan MD (Electronically Signed) Final Date: 26 January 2023 10:51 S
== END 2023-01-19 07:01 | disposition home or self-care (01) ==
LOC: CDL 07:01
PROVIDERS: PCP Electrodiagnostic Medicine; Visit Provider Internal Medicine Cardiovascular Disease
DX: T84.59XA Infection and inflammatory reaction due to other internal joint prosthesis, initial encounter (principal); Y79.2 Prosthetic and other implants, materials and accessory orthopedic devices associated with adverse incidents; Z96.651 Presence of right artificial knee joint; R07.9 Chest pain, unspecified; R06.02 Shortness of breath
CPT/HCPCS: 36415; 78452; 99024; A9500

== ENCOUNTER → 2023-01-22 09:27 | Outpatient (BNVA) | payer MEDICARE, OTHER, SELFPAY | PROVIDERS: PCP Electrodiagnostic Medicine; Visit Provider Student in an Organized Health Care Education/Training Program | DX: T84.59XA Infection and inflammatory reaction due to other internal joint prosthesis, initial encounter (principal); Y79.2 Prosthetic and other implants, materials and accessory orthopedic devices associated with adverse incidents; Z96.651 Presence of right artificial knee joint | CPT/HCPCS: 73560; 73565; 99213 ==

== ENCOUNTER 2023-02-17 07:20 | Outpatient (CLI) | payer MEDICARE, OTHER, SELFPAY ==
--- NOTE | 2023-02-17 08:00 | USCV_ITS ---
Anthony Jimenez Age: 77 Gender: M : 1945 Exam Date: 02/17/2023 08:06 Ordering Phys: Tamela Duncan MD ([email or web address]) Technologist: Lisa Horn [place] [facility] [place]ication: Shortness of breath BP: 140 / 90 HR: 54 Rhythm: Sinus Technical Quality: Technically difficult study MEASUREMENTS (Male / Female) Normal Values 2D ECHO LV Diastolic Diameter PLAX 4.1 cm 4.2 - 5.9 / 3.9 - 5.3 cm LV Systolic Diameter PLAX 2.4 cm IVS Diastolic Thickness 1.2 cm 0.6 - 1.0 / 0.6 - 0.9 cm IVS Systolic Thickness 1.6 cm LVPW Diastolic Thickness 1.1 cm 0.6 - 1.0 / 0.6 - 0.9 cm LVPW Systolic Thickness 1.7 cm LV Ejection Fraction 2D Teich 72.4 % LV Ejection Fraction MOD 2C 72.7 % LV Ejection Fraction 2C AL 73.7 % LA Diameter 3.4 cm LA Width 3.5 cm LA Height 4.9 cm RA Width 3.6 cm RA Height 4.2 cm Aorta at Sinotubular Diameter 3.4 cm IVC Diameter 1.3 cm M-MODE Aortic Annulus Diameter 3.1 cm LA Ao Ratio MM 1.0 MV E Point Septal Separation 1.9 cm DOPPLER AV Peak Velocity 105.0 cm/s LVOT Peak Velocity 117.0 cm/s MV Peak Velocity 99.0 cm/s MV Area PHT 3.0 cm squared Mitral E to A Ratio 0.8 MV E' Velocity 37.0 cm/s Mitral E to MV E' Ratio 6.8 Mitral E to LV E' Lateral Ratio 5.9 Mitral E to LV E' Septal Ratio 8.1 TR Peak Velocity 65.3 cm/s TR Peak Gradient 1.7 mmHg Right Atrial Pressure 5.0 mmHg Pulmonary Artery Systolic Pressu 6.7 mmHg PV Peak Velocity 87.0 cm/s RV Acceleration Time 0.2 s RV Ejection Time 0.3 s RV AcT/ET 0.6 FINDINGS Left Ventricle Normal left ventricular cavity size. Normal left ventricular systolic function. Left ventricular ejection fraction is estimated at 60-65 %. No diagnostic regional wall motion abnormality. Normal diastolic function. Right Ventricle Probably normal right ventricular size and systolic function. Right Atrium Normal right atrial size. Left Atrium Left atrium not well visualized. Mitral Valve Mild mitral annular calcification. No mitral valve regurgitation. Structurally normal mitral valve. No mitral valve stenosis. Aortic Valve Aortic valve not well visualized. No aortic valve stenosis. No aortic valve regurgitation. Tricuspid Valve Tricuspid valve not well visualized. Pulmonic Valve Pulmonic valve not well visualized. Pericardium No pericardial effusion. Aorta Aorta not well visualized. IVC Normal sized inferior vena cava. CONCLUSIONS 1. This is a technically difficult study in spite of echo contrast. 2. Normal left ventricular cavity size. Normal left ventricular systolic function. Left ventricular ejection fraction is estimated at 60-65 %. No diagnostic regional wall motion abnormality. Normal diastolic function. 3. No prior similar studies to compare. Tamela Duncan MD (Electronically Signed) Final Date: 18 February 2023 17:18 S
[2023-02-17] MEDS: perflutren protein-a microsphr 0.22 mg/mL SDV 3 mL IV (09:09)
== END 2023-02-17 07:21 | disposition home or self-care (01) ==
PROVIDERS: PCP Electrodiagnostic Medicine; Visit Provider Internal Medicine Cardiovascular Disease
DX: R06.02 Shortness of breath (principal)
CPT/HCPCS: C8929; Q9956

== ENCOUNTER 2023-02-22 11:47 | Inpatient (IN) | payer OTHER, SELFPAY ==
[2023-02-22] VITALS (13 sets, daily range): BP systolic 132–209; BP diastolic 69–112; PULSE 61–79; RESP 16–19; TEMP 36.6–37; O2SAT 94–97; BMI 26.1
--- NOTE | 2023-02-22 | CTR_ITS ---
PROCEDURE INFORMATION: Exam: CTA Head With Contrast, Arteriography Exam date and time: 02/22/2023 1:01 PM Age: 77 years old Clinical indication: Headache and visual disturbance; Other visual defect; Additional info: Intermittent headaches, vision changes TECHNIQUE: Imaging protocol: Computed tomographic angiography of the head with contrast. Exam focused on the arteries. 3D rendering (Not supervised by radiologist): MIP and/or 3D reconstructed images were created by the technologist. Radiation optimization: All CT scans at this facility use at least one of these dose optimization techniques: automated exposure control; mA and/or kV adjustment per patient size (includes targeted exams where dose is matched to clinical indication); or iterative reconstruction. Contrast material: OMNIPAQUE 350; Contrast volume: 100 ml; Contrast route: INTRAVENOUS (IV); REPORTING DATA: Count of CT and Cardiac NM exams in prior 12 months: This patient has received 2 known CTs and 0 known cardiac nuclear medicine studies in the 12 months prior to the current study. COMPARISON: CT angio headneck* [id number] 02/22/2023 12:46 PM RADIATION DOSE METRICS: Total DLP (mGy-cm): 983.55 FINDINGS: ANTERIOR CIRCULATION: Right internal carotid artery: Intracranial segment is patent with no significant stenosis. No aneurysm. Right middle cerebral artery: No occlusion or significant stenosis. No aneurysm. Right anterior cerebral artery: No occlusion or significant stenosis. No aneurysm. Left internal carotid artery: Intracranial segment is patent with no significant stenosis. No aneurysm. Left middle cerebral artery: No occlusion or significant stenosis. No aneurysm. Left anterior cerebral artery: No occlusion or significant stenosis. No aneurysm. POSTERIOR CIRCULATION: Right vertebral artery: No occlusion or significant stenosis. No aneurysm. Left vertebral artery: No occlusion or significant stenosis. No aneurysm. Basilar artery: No occlusion or significant stenosis. No aneurysm. Right posterior cerebral artery: No occlusion or significant stenosis. No aneurysm. Left posterior cerebral artery: No occlusion or significant stenosis. No aneurysm. Brain: No definite mass, mass effect, or midline shift. Cerebral ventricles: No ventriculomegaly. Bones/joints: Unremarkable. No acute fracture. Soft tissues: Unremarkable. PROCEDURE INFORMATION: Exam: CTA Neck With Contrast Exam date and time: 02/22/2023 1:01 PM Age: 77 years old Clinical indication: Headache and visual disturbance; Other visual defect; Additional info: Intermittent headaches, vision changes TECHNIQUE: Imaging protocol: Computed tomographic angiography of the neck with contrast. 3D rendering (Not supervised by radiologist): MIP and/or 3D reconstructed images were created by the technologist. Radiation optimization: All CT scans at this facility use at least one of these dose optimization techniques: automated exposure control; mA and/or kV adjustment per patient size (includes targeted exams where dose is matched to clinical indication); or iterative reconstruction. Contrast material: OMNIPAQUE 350; Contrast volume: 100 ml; Contrast route: INTRAVENOUS (IV); REPORTING DATA: Count of CT and Cardiac NM exams in prior 12 months: This patient has received 2 known CTs and 0 known cardiac nuclear medicine studies in the 12 months prior to the current study. COMPARISON: CT angio headneck* [id number] 02/22/2023 12:46 PM RADIATION DOSE METRICS: Total DLP (mGy-cm): 0.01 FINDINGS: Right common carotid artery: No stenosis. No dissection or occlusion. Right internal carotid artery: No stenosis of the extracranial segment. No dissection or occlusion. Right external carotid artery: No occlusion or stenosis of the origin. Left common carotid artery: No stenosis. No dissection or occlusion. Left internal carotid artery: Severe stenosis at the origin of the internal carotid artery. No dissection or occlusion. Left external carotid artery: No occlusion or stenosis of the origin. Right vertebral artery: No stenosis. No dissection or occlusion. Left vertebral artery: No stenosis. No dissection or occlusion. Soft tissues: Normal. No significant soft tissue swelling. Bones/joints: No acute fracture.
--- NOTE | 2023-02-22 | CTR_ITS ---
PROCEDURE INFORMATION: Exam: CTA Head With Contrast, Arteriography Exam date and time: 02/22/2023 1:01 PM Age: 77 years old Clinical indication: Headache and visual disturbance; Other visual defect; Additional info: Intermittent headaches, vision changes TECHNIQUE: Imaging protocol: Computed tomographic angiography of the head with contrast. Exam focused on the arteries. 3D rendering (Not supervised by radiologist): MIP and/or 3D reconstructed images were created by the technologist. Radiation optimization: All CT scans at this facility use at least one of these dose optimization techniques: automated exposure control; mA and/or kV adjustment per patient size (includes targeted exams where dose is matched to clinical indication); or iterative reconstruction. Contrast material: OMNIPAQUE 350; Contrast volume: 100 ml; Contrast route: INTRAVENOUS (IV); REPORTING DATA: Count of CT and Cardiac NM exams in prior 12 months: This patient has received 2 known CTs and 0 known cardiac nuclear medicine studies in the 12 months prior to the current study. COMPARISON: CT angio headneck* [id number] 02/22/2023 12:46 PM RADIATION DOSE METRICS: Total DLP (mGy-cm): 983.55 FINDINGS: ANTERIOR CIRCULATION: Right internal carotid artery: Intracranial segment is patent with no significant stenosis. No aneurysm. Right middle cerebral artery: No occlusion or significant stenosis. No aneurysm. Right anterior cerebral artery: No occlusion or significant stenosis. No aneurysm. Left internal carotid artery: Intracranial segment is patent with no significant stenosis. No aneurysm. Left middle cerebral artery: No occlusion or significant stenosis. No aneurysm. Left anterior cerebral artery: No occlusion or significant stenosis. No aneurysm. POSTERIOR CIRCULATION: Right vertebral artery: No occlusion or significant stenosis. No aneurysm. Left vertebral artery: No occlusion or significant stenosis. No aneurysm. Basilar artery: No occlusion or significant stenosis. No aneurysm. Right posterior cerebral artery: No occlusion or significant stenosis. No aneurysm. Left posterior cerebral artery: No occlusion or significant stenosis. No aneurysm. Brain: No definite mass, mass effect, or midline shift. Cerebral ventricles: No ventriculomegaly. Bones/joints: Unremarkable. No acute fracture. Soft tissues: Unremarkable. IMPRESSION: No large vessel stenosis or occlusion. PROCEDURE INFORMATION: Exam: CTA Neck With Contrast Exam date and time: 02/22/2023 1:01 PM Age: 77 years old Clinical indication: Headache and visual disturbance; Other visual defect; Additional info: Intermittent headaches, vision changes TECHNIQUE: Imaging protocol: Computed tomographic angiography of the neck with contrast. 3D rendering (Not supervised by radiologist): MIP and/or 3D reconstructed images were created by the technologist. Radiation optimization: All CT scans at this facility use at least one of these dose optimization techniques: automated exposure control; mA and/or kV adjustment per patient size (includes targeted exams where dose is matched to clinical indication); or iterative reconstruction. Contrast material: OMNIPAQUE 350; Contrast volume: 100 ml; Contrast route: INTRAVENOUS (IV); REPORTING DATA: Count of CT and Cardiac NM exams in prior 12 months: This patient has received 2 known CTs and 0 known cardiac nuclear medicine studies in the 12 months prior to the current study. COMPARISON: CT angio headneck* [id number] 02/22/2023 12:46 PM RADIATION DOSE METRICS: Total DLP (mGy-cm): 0.01 FINDINGS: Right common carotid artery: No stenosis. No dissection or occlusion. Right internal carotid artery: No stenosis of the extracranial segment. No dissection or occlusion. Right external carotid artery: No occlusion or stenosis of the origin. Left common carotid artery: No stenosis. No dissection or occlusion. Left internal carotid artery: Severe stenosis at the origin of the internal carotid artery. No dissection or occlusion. Left external carotid artery: No occlusion or stenosis of the origin. Right vertebral artery: No stenosis. No dissection or occlusion. Left vertebral artery: No stenosis. No dissection or occlusion. Soft tissues: Normal. No significant soft tissue swelling. Bones/joints: No acute fracture. IMPRESSION: Severe stenosis at the origin of the left internal carotid artery. No occlusion. REFERENCES: NASCET CRITERIA. The degree of stenosis in the cervical segment of the internal carotid artery is based on NASCET criteria. Normal is no stenosis. Mild is less than 50% stenosis. Moderate is 50-69% stenosis. Severe is 70% to 99% stenosis. Total occlusion is no detectable patent lumen [facility] CT/CT angio headneck* [id number] IMPRESSION: No large vessel stenosis or occlusion. IMPRESSION: Severe stenosis at the origin of the left internal carotid artery. No occlusion. REFERENCES: NASCET CRITERIA. The degree of stenosis in the cervical segment of the internal carotid artery is based on NASCET criteria. Normal is no stenosis. Mild is less than 50% stenosis. Moderate is 50-69% stenosis. Severe is 70% to 99% stenosis. Total occlusion is no detectable patent lumen.
--- NOTE | 2023-02-22 12:00 | ED_ITS ---
HPI - General Adult General: Chief complaint: Headache Stated complaint: headache/high bp Time Seen by Provider: 02/22/23 12:00 History of Present Illness: Mr. Jimenez is a 77-year-old gentleman presenting to the emergency department for evaluation of headaches and elevated blood pressure. He reports no history of headaches however for the past week and a half without known specific provoking event he notes intermittent headaches. Always right side of his face [place] behind his forehead and also sometimes below his eye. He notes associated right eye cloudiness with these episodes that resolves when it is gone. He also notes subjective full or swollen sensation of his right tongue and right face. He thought initially that this is a sinus related issue and has been taking medications however overall symptoms have worsened. Occurs 4-5 times a day. Moderate to severe in intensity. Denies other known neurologic symptoms associated with this. Earlier today blood pressure was well above 200 systolic despite taking his medications. No other specific changes in health, exacerbating, or alleviating factors identified. Onset (ago): week(s) Quality: stabbing and aching Relieving factors: none Exacerbating factors: none Associated symptoms: Reports headache(s), malaise, vomiting and other Review of Systems General: Reports: 10 or more systems reviewed and unremarkable except in HPI and below Const: Reports: malaise GI: Reports: vomiting Neuro: Reports: headache(s) PFS ED PFSH: Medical History BPH NOS w ur obs/LUTS Complex renal cyst Originally noted in 2012 with no significant exchange administrator time. Complexity comes from some rim calcification and septation. Hyperlipidemia Hypertension Impotence Surgical History H/O sinus surgery H/O vasectomy History of colonoscopy (10/23/20) Diverticulosis, internal hemorrhoids History of lumbar fusion Hx of cataract surgery S/P cervical spinal fusion Status post right knee replacement Family History Father , at age 51 Myocardial infarction (lateral wall) Mother , at age 75 Cancer lung Social History Smoking and tobacco status: former smoker Alcohol intake: current Alcohol intake frequency: holidays/special occasions only Marital status: Current occupational status: retired Physical Exam Const: COMMON NORMALS: patient oriented x3 and alert GENERAL APPEARANCE: cooperative and well developed HENMT: COMMON NORMALS: normocephalic and atraumatic HEAD & SCALP: normocephalic and atraumatic Eye: COMMON NORMALS: conjunctivae normal CONJUNCTIVA: Yes conjunctivae normal SCLERA: sclerae normal Neck/C-Spine: COMMON NORMALS: supple GENERAL: Yes trachea midline Resp: COMMON NORMALS: normal respiratory effort EFFORT & INSPECTION: Yes able to speak in complete sentences Cardio: COMMON NORMALS: regular rate and regular rhythm RATE: regular rate RHYTHM: regular rhythm GI: COMMON NORMALS: Soft to palpation PALPATION: Yes Soft to palpation and No Tenderness to palpation present (GI) Extremity: GENERAL: Yes normal exam except as noted and No edema Neuro: COMMON NORMALS: patient oriented x3, CN's II-XII intact bilaterally, moves all extremities, no focal motor deficits and no sensory deficits noted (Exception-subjective fullness right face) SENSORIUM/ORIENTATION: Yes alert and No Orientation impaired Psych: COMMON NORMALS: mental status grossly normal and Normal thought process present THOUGHT PROCESS: Normal thought process present Course Vital Signs: Vital signs: Vital Signs Temperature 97.0 F L 02/24/23 14:53 Pulse Rate 90 02/24/23 17:30 Respiratory Rate 16 02/24/23 17:30 Blood Pressure 100/73 02/24/23 17:30 Pulse Oximetry 96 02/24/23 17:30 Oxygen Delivery Me thod Room Air 02/24/23 15:10 Oxygen Flow Rate 6 02/24/23 15:00 MDM - General Adult Medical Decision Making 77-year-old gentleman presenting with headache and generalized illness associated with concern of high blood pressure. Exam as above. Nonfocal. EKG demonstrates sinus rhythm with left axis deviation, no STEMI. Labs with no leukocytosis, normal hemoglobin, normal platelet count. Metabolic panel without acute electrolyte arrangement. Negative range 2-hour delta troponin. Mildly elevated ESR. TSH normal. Hematuria of unclear etiology. Apparently there was initially an error with image transmission and CT scan initial read erroneous. Subsequently report health severe stenosis of the left ICA without evidence of occlusion, no LVO intracranially. No mass or hemorrhage. Intraocular pressure was normal. No evidence of abnormality on [id number] ultrasound. Patient does note fullness feeling. He also was found claudication with chewing. Though somewhat mixed clinical picture I am concerned about temporal arteritis. High-dose steroids ordered. The results of ED evaluation were discussed with the patient including plan for admission due to requirement for level of care not available if discharged to prevent significant worsening/deterioration. Patient agreeable with plan. General surgery consulted for evaluation of temporal artery biopsy. Discussed with hospitalist service who was agreeable to admit patient. Medical Records I reviewed the patient's medical records. Lab Data I reviewed the patient's lab results. 02/24/23 05:46 02/24/23 05:46 Radiology Impressions Head/Neck CTA 02/22/23 00:00 IMPRESSION: No large vessel stenosis or occlusion. IMPRESSION: Severe stenosis at the origin of the left internal carotid artery. No occlusion. REFERENCES: NASCET CRITERIA. The degree of stenosis in the cervical segment of the internal carotid artery is based on NASCET criteria. Normal is no stenosis. Mild is less than 50% stenosis. Moderate is 50-69% stenosis. Severe is 70% to 99% stenosis. Total occlusion is no detectable patent lumen. Laboratory Results WBC 9.5 10^3/uL (4.0-10.0) 02/22/23 12:05 RBC 5.20 10^6/uL (4.1-5.3) 02/22/23 12:05 Hgb 15.5 g/dL (11.7-16.6) 02/22/23 12:05 Hct 47.6 % (42.0-52.0) 02/22/23 12:05 MCV 91.5 fl (80-94) 02/22/23 12:05 MCH 29.8 pg (28.0-34.0) 02/22/23 12:05 MCHC 32.6 g/dL (30.0-36.0) 02/22/23 12:05 RDW 14.1 % (12.1-15.1) 02/22/23 12:05 Plt Count 245 10^3/cmm (130-400) 02/22/23 12:05 MPV 11.1 fL (7.4-10.4) H 02/22/23 12:05 Neut % (Auto) 65.6 % 02/22/23 12:05 Lymph % (Auto) 22.2 % 02/22/23 12:05 [place] % (Auto) 7.1 % 02/22/23 12:05 Eos % (Auto) 4.1 % 02/22/23 12:05 Baso % (Auto) 0.8 % 02/22/23 12:05 Neut # (Auto) 6.21 10^3/uL (1.8-7.7) 02/22/23 12:05 Lymph # (Auto) 2.1 10^3/uL (0.8-4.8) 02/22/23 12:05 [place] # (Auto) 0.7 10^3/uL (0.2-0.9) 02/22/23 12:05 Eos # (Auto) 0.4 10^3/uL (0.0-0.8) 02/22/23 12:05 Baso # (Auto) 0.1 10^3/uL (0.0-0.1) 02/22/23 12:05 Nucleated RBC % (auto) 0 % 02/22/23 12:05 Nucleated RBCs # 0.0 /100WBC 02/22/23 12:05 ESR 17 mm/hr (0-10) H 02/22/23 12:05 Fibrinogen 374 mg/dL (174-498) 02/22/23 12:05 Sodium 140 mmol/L (136-145) 02/22/23 12:05 Potassium 4.1 mmol/L (3.5-5.1) 02/22/23 12:05 Chloride 102 mmol/L (98-107) 02/22/23 12:05 Carbon Dioxide 25 mmol/L (22-29) 02/22/23 12:05 Anion Gap 17.1 (5-19) 02/22/23 12:05 BUN 21 mg/dL (8-23) 02/22/23 12:05 Creatinine 0.8 mg/dL (0.7-1.2) 02/22/23 12:05 GFR Calculation Not Reportable 02/22/23 12:05 Glucose 107 mg/dL (65-115) 02/22/23 12:05 Calculated Osmolality 293 mOsm/kg (285-295) 02/22/23 12:05 Calcium 9.7 mg/dL (8.5-10.5) 02/22/23 12:05 Phosphorus 2.6 mg/dL (2.5-4.5) 02/22/23 12:05 Total Bilirubin 0.3 mg/dL (0.15-1.2) 02/22/23 12:05 AST 29 U/L (0-40) 02/22/23 12:05 ALT 37 U/L (0-41) 02/22/23 12:05 Alkaline Phosphatase 64 U/L (40-130) 02/22/23 12:05 Troponin T Baseline 22 ng/L (0-15) H 02/22/23 12:05 Troponin T 120 Minute 21.92 ng/L (0-15) H 02/22/23 15:00 Delta Troponin T -0.08 ABS# (0-10) L 02/22/23 15:00 C-Reactive Protein 3.0 mg/L (0.0-4.9) 02/22/23 12:05 NT-Pro-B Natriuret Pep 91 pg/mL (0-450) 02/22/23 12:05 Total Protein 6.7 g/dL (6.6-8.7) 02/22/23 12:05 Albumin 4.5 g/dL (3.5-5.2) 02/22/23 12:05 Globulin 2.2 g/dL (1.3-4.6) 02/22/23 12:05 25-OH Vitamin D Total 33 ng/mL (30-100) 02/22/23 12:05 TSH 1.58 uIU/mL (0.27-4.20) 02/22/23 12:05 Urine Color Yellow (Yellow) 02/22/23 13:14 Urine Appearance Clear (CLEAR) 02/22/23 13:14 Urine pH 7 (5-7) 02/22/23 13:14 Ur Specific [place] 1.005 (1.005-1.030) 02/22/23 13:14 Urine Protein Neg (Negative) 02/22/23 13:14 Urine Glucose (UA) Norm (Normal) 02/22/23 13:14 Urine Ketones Negative (Negative) 02/22/23 13:14 Urine Blood 2+ (Negative) H 02/22/23 13:14 Urine Nitrate Negative (Negative) 02/22/23 13:14 Urine Bilirubin Neg (Negative) 02/22/23 13:14 Urine Urobilinogen Norm mg/dL (Negative) 02/22/23 13:14 Ur Leukocyte Esterase Negative (Negative) 02/22/23 13:14 Urine RBC 5-10 /hpf (0-2) H 02/22/23 13:14 Urine WBC Rare /hpf (0-5) 02/22/23 13:14 Ur Squamous Epith Cells Rare /hpf (0-5) 02/22/23 13:14 Amorphous Sediment Not Reportable 02/22/23 13:14 Urine Bacteria None /hpf (NONE) 02/22/23 13:14 Urine Mucus Trace /hpf 02/22/23 13:14 Discharge Plan Discharge Patient Disposition: Admitted As Inpatient Admit Provider: Rafael Chatman Clinical Impression: Temporal arteritis Condition: Stable Discharge Diet: Diabetic Discharge Activity: Resume usual activity Coding Level of Care Code ED [employer] for [facility]
--- NOTE | 2023-02-22 12:16 | CTR_ITS ---
PROCEDURE INFORMATION: Exam: CTA Head Without And With Contrast, Arteriography Exam date and time: 02/22/2023 12:46 PM Age: 77 years old Clinical indication: Headache and visual disturbance; Other visual defect; Additional info: Intermittent headaches, new, right-sided with vision disturb TECHNIQUE: Imaging protocol: Computed tomographic angiography of the head without and with contrast. Exam focused on the arteries. 3D rendering (Not supervised by radiologist): MIP and/or 3D reconstructed images were created by the technologist. Radiation optimization: All CT scans at this facility use at least one of these dose optimization techniques: automated exposure control; mA and/or kV adjustment per patient size (includes targeted exams where dose is matched to clinical indication); or iterative reconstruction. Contrast material: OMNIPAWUE 350; Contrast volume: 100 ml; Contrast route: INTRAVENOUS (IV); REPORTING DATA: Count of CT and Cardiac NM exams in prior 12 months: This patient has received 2 known CTs and 0 known cardiac nuclear medicine studies in the 12 months prior to the current study. COMPARISON: MR cervical spin wo con* [id number] 01/06/2020 2:59 PM RADIATION DOSE METRICS: Total DLP (mGy-cm): 983.55 FINDINGS: ANTERIOR CIRCULATION: Right internal carotid artery: Intracranial segment is patent with no significant stenosis or occlusion. No aneurysm. Right middle cerebral artery: No occlusion or significant stenosis. No aneurysm. Right anterior cerebral artery: No occlusion. No aneurysm. Moderate stenosis in the proximal A2 segment (series 9, image 258). Severe stenosis in the distal A2 segment (series 9, image 273, series 13, image 60, series 14, image 78). Left internal carotid artery: Intracranial segment is patent with no significant stenosis. No aneurysm. Left middle cerebral artery: No occlusion or significant stenosis. No aneurysm. Left anterior cerebral artery: No occlusion or significant stenosis. No aneurysm. POSTERIOR CIRCULATION: Right vertebral artery: No occlusion or significant stenosis. No aneurysm. Left vertebral artery: No occlusion. No aneurysm. Moderate stenosis in V4 segment associated with calcified atherosclerotic plaque. Basilar artery: No occlusion. No aneurysm. Moderate stenosis in the inferior most segment (series 13, image 92) Right posterior cerebral artery: No occlusion or significant stenosis. No aneurysm.There is developmental variant of origin of the artery from the anterior circulation. Left posterior cerebral artery: No occlusion. No aneurysm. Moderate stenosis in P1 segment (series 9, image 241, series 13, image 82). HEAD: Brain: No hemorrhage. No mass effect. There are hypodense areas in the bilateral periventricular and subinsular white matter suggestive of chronic small vessel ischemic changes. 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 Cerebral ventricles: No hydrocephalus. The ventricles and sulci are prominent in size in keeping with brain atrophy. Bones/joints: Unremarkable. No acute fracture. Paranasal sinuses: There is minimal mucosal thickening in the maxillary sinuses with no air-fluid levels compatible with mild chronic sinusitis. Mastoid air cells: Visualized mastoids are normal. No mastoid effusion. Soft tissues: Unremarkable. PROCEDURE INFORMATION: Exam: CTA Neck With Contrast Exam date and time: 02/22/2023 12:46 PM Age: 77 years old Clinical indication: Headache and visual disturbance; Other visual defect; Additional info: Intermittent headaches, new, right-sided with vision disturb TECHNIQUE: Imaging protocol: Computed tomographic angiography of the neck with contrast. 3D rendering (Not supervised by radiologist): MIP and/or 3D reconstructed images were created by the technologist. Radiation optimization: All CT scans at this facility use at least one of these dose optimization techniques: automated exposure control; mA and/or kV adjustment per patient size (includes targeted exams where dose is matched to clinical indication); or iterative reconstruction. Contrast material: OMNIPAWUE 350; Contrast volume: 100 ml; Contrast route: INTRAVENOUS (IV); REPORTING DATA: Count of CT and Cardiac NM exams in prior 12 months: This patient has received 2 known CTs and 0 known cardiac nuclear medicine studies in the 12 months prior to the current study. COMPARISON: MR cervical spin wo con* [id number] 01/06/2020 2:59 PM RADIATION DOSE METRICS: Total DLP (mGy-cm): 0.01 FINDINGS: Right common carotid artery: No significant stenosis. No dissection or occlusion. Right internal carotid artery: Extracranial segment is patent with no significant stenosis. No dissection or occlusion. Right external carotid artery: No occlusion or significant stenosis. Left common carotid artery: No significant stenosis. No dissection or occlusion. Left internal carotid artery: Extracranial segment is patent with no significant stenosis. No dissection or occlusion. Left external carotid artery: No occlusion or significant stenosis. Right vertebral artery: No significant stenosis. No dissection or occlusion. Left vertebral artery: No significant stenosis. No dissection or occlusion. Soft tissues: No significant soft tissue swelling. Bones/joints: No acute fracture.
--- NOTE | 2023-02-22 12:21 | ECG_ITS ---
[facility] Test Date: 2023-02-22 Pat Name: Anthony Jimenez Department: Room: Gender: Male Technology Project Manager: : 1945 Requested By: Gui Rooney Order Number: [id number] Ovi MD: Raji Nair M.D. Measurements Intervals [place] Rate: 58 P: 40 AL: 178 QRS: -41 QRSD: 100 T: 72 QT: 410 QTc: 405 Interpretive Statements SINUS BRADYCARDIA LEFT AXIS DEVIATION [QRS AXIS < -30] LOW QRS VOLTAGE IN PRECORDIAL LEADS [QRS DEFLECTION < 1.0 mV IN CHEST LEADS] INCOMPLETE RIGHT BUNDLE BRANCH BLOCK [90+ ms QRS DURATION, TERMINAL R IN V1/V2, 40+ ms S IN I/aVL/V4/V5/V6] SEPTAL MYOCARDIAL INFARCTION , OF INDETERMINATE AGE [40+ ms Q WAVE IN V1/V2] Compared to ECG 12/06/2022 00:15:23 Left-axis deviation now present Low QRS voltage now present Incomplete right bundle-branch block now present Sinus rhythm no longer present Left anterior fascicular block no longer present Myocardial infarct finding still present Electronically Signed On 02-22-2023 19:52:24 CDT by Raji Nair M.D. [id number]
[2023-02-22 12:24] LABS: Basophils # 0.1 10^3/uL (0.0-0.1); Basophils % 0.8 %; Eosinophils # 0.4 10^3/uL (0.0-0.8); Eosinophils % 4.1 %; Hematocrit 47.6 % (42.0-52.0); Hemoglobin 15.5 g/dL (11.7-16.6); Lymphocytes # 2.1 10^3/uL (0.8-4.8); Lymphocytes % 22.2 %; Mean Corpuscular HGB Conc 32.6 g/dL (30.0-36.0); Mean Corpuscular Hemoglobin 29.8 pg (28.0-34.0); Mean Corpuscular Volume 91.5 fl (80-94); Mean Platelet Volume 11.1 fL (7.4-10.4); Monocytes # 0.7 10^3/uL (0.2-0.9); Monocytes % 7.1 %; Neutrophils # 6.21 10^3/uL (1.8-7.7); Neutrophils % 65.6 %; Nucleated Red Blood Cells % 0 %; Platelet Count 245 10^3/cmm (130-400); Red Cell Distribution Width 14.1 % (12.1-15.1); White Blood Count 9.5 10^3/uL (4.0-10.0)
[2023-02-22 12:42] LABS: Troponin(5th) Baseline 22 ng/L (0-15)
[2023-02-22 12:53] LABS: Alanine Aminotransferase 37 U/L (0-41); Albumin Level 4.5 g/dL (3.5-5.2); Alkaline Phosphatase 64 U/L (40-130); Aspartate Amino Transferase 29 U/L (0-40); Blood Urea Nitrogen 21 mg/dL (8-23); Calcium 9.7 mg/dL (8.5-10.5); Carbon Dioxide 25 mmol/L (22-29); Chloride 102 mmol/L (98-107); Globulin 2.2 g/dL (1.3-4.6); Glucose 107 mg/dL (65-115); NT Pro B Type Natriuretic Pept 91 pg/mL (0-450); Osmolality Calculated 293 mOsm/kg (285-295); Sodium 140 mmol/L (136-145); Thyroid Stimulating Hormone 1.58 uIU/mL (0.27-4.20); Total Bilirubin 0.3 mg/dL (0.15-1.2); Total Protein 6.7 g/dL (6.6-8.7)
[2023-02-22 12:58] LABS: Anion Gap 17.1 (5-19); Potassium 4.1 mmol/L (3.5-5.1)
[2023-02-22] MEDS: iohexol 350 mg/mL 500 mL Btl (per mL) IV (13:00)
[2023-02-22 13:46] LABS: Add Urine Microscopic? YES; Bilirubin Urine Neg (Negative); Blood Urine 2+ (Negative); Glucose Urine UA Norm (Normal); Ketones Urine Negative (Negative); Leukocyte Esterase Urine Negative (Negative); Nitrate Urine Negative (Negative); Protein Urine Neg (Negative); Specific Gravity, Urine 1.005 (1.005-1.030); Urine Appearance Clear (CLEAR); Urine Color Yellow (Yellow); Urobilinogen Urine Norm (Negative); pH Urine 7 (5-7)
--- NOTE | 2023-02-22 13:46 | PC.PHAR ---
pt and pts verified pts medications-pts states she dced the pts singulair 10mg ext shows last filled 12/28/22 90d/s pts states stop giving about 2 months ago-
[2023-02-22 13:47] LABS: Squamous Epithelial Cell Urine RARE /hpf (0-5); WBC Urine RARE /hpf (0-5)
[2023-02-22 13:48] LABS: Add Urine Culture? No; Mucus Urine TRACE /hpf
[2023-02-22] MEDS: tetracaine 0.5% Op Soln 4 mL Btl 1 DROP EYE-BOTH (14:00)
--- NOTE | 2023-02-22 14:25 | ECG_ITS ---
[facility] Test Date: 2023-02-22 Pat Name: Anthony Jimenez Department: Room: Gender: Male Manager Art: : 1945 Requested By: Gui Rooney Order Number: [id number] Ovi MD: Raji Nair M.D. Measurements Intervals [place] Rate: 63 P: 60 WI: 201 QRS: -51 QRSD: 100 T: 71 QT: 403 QTc: 415 Interpretive Statements SINUS RHYTHM INCOMPLETE RIGHT BUNDLE BRANCH BLOCK [90+ ms QRS DURATION, TERMINAL R IN V1/V2, 40+ ms S IN I/aVL/V4/V5/V6] LEFT ANTERIOR FASCICULAR BLOCK [QRS AXIS <= -45, QR IN I, RS IN II] SEPTAL MYOCARDIAL INFARCTION , PROBABLY OLD [40+ ms Q WAVE IN V1/V2] Compared to ECG 02/22/2023 12:21:36 Left anterior fascicular block now present Sinus bradycardia no longer present Left-axis deviation no longer present Myocardial infarct finding still present Electronically Signed On 02-22-2023 20:05:07 CDT by Raji Nair M.D. [id number]
[2023-02-22 14:58] LABS: Erythrocyte Sedimentation Rate 17 mm/hr (0-10)
[2023-02-22 15:28] LABS: Troponin 5 2HR 21.92 ng/L (0-15)
[2023-02-22 15:30] LABS: Troponin 5 2HR Delta -0.08 ABS# (0-10)
[2023-02-22] MEDS: hyDRALAzine 20 mg/mL INJ 1 mL 10 MG IVP (16:50)
--- NOTE | 2023-02-22 16:58 | PM.HP ---
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 Patient reports that for the last 4 to 6 weeks he has had acute episodes of sharp, stabbing headache that lasts a few minutes, and is accompanied by blurry vision, conjunctival irritation, and eye pain. He says the episodes initially did not last very long, but over the last 4 to 6 weeks they have increased in duration. ?He says that it is always the right side that is involved.? He says that he has had some cloudiness and blurred vision in his right eye, that generally goes away when the headache subsides. He also notes subjective full or swollen sensation of his right tongue and right face.? He has tried kqzt-rfs-lcznjbc medications, and sinus medicine as he felt initially this could be related to his sinus infection. He says these headaches are occurring now 4-5 times a day, but today he had a single episode that has lasted most of the day. He denies any other associated neurologic symptoms including weakness, difficulty speaking, or sensory disturbance. He also says that his blood pressure has been very elevated as of recent. In the ER today, his blood pressure was noted to be in the 200s systolic. Labs were obtained and did show a mildly elevated ESR, with a normal CRP and CBC. Troponins were obtained and were negative. A UA was positive for blood, with 5-10 rbc's. A CTA of the head and neck demonstrated severe stenosis of the origin of the internal carotid artery without dissection or occlusion. Given the high suspicion of temporal arteritis based on clinical findings, elevated sed rate, patient was started on high-dose steroids while in the ER. General surgery was contacted from the ER and they are planning to see patient this week. In addition his pressures were treated with IV hydralazine. He was admitted to [facility]. Review of Systems Const: Denies: fever(s) or chills Eyes: Reports: change in vision, blurry vision, eye discomfort and eye redness Card: Denies: chest pain or palpitations Resp: Denies: dyspnea GI: Denies: abdominal pain, nausea or vomiting : Denies: flank pain Musc: Reports: neck pain Skin/Breast: Denies: rash Neuro: Reports: headache(s) Endo: Denies: polyuria Medications/Allergies Home Medications Medication Instructions Recorded Confirmed Last Taken Type budesonide-formoterol HFA 160 2 puff inhalation BID 08/03/19 02/22/23 10/22/20 History mcg-4.5 mcg/actuation aerosol inhaler (Symbicort) albuterol sulfate 90 mcg/actuation 2 puff inhalation Q6H PRN 08/09/20 02/22/23 10/23/20 History aerosol inhaler (Ventolin HFA) Shortness Of Breath losartan 50 mg tablet 50 mg PO QAM 01/28/22 02/22/23 02/22/23 08:00 History aspirin 325 mg tablet 325 mg PO BID 14 days #28 tabs 12/08/22 02/22/23 02/22/23 08:00 Rx atorvastatin 20 mg tablet 20 mg PO QAM 12/19/22 02/22/23 02/22/23 08:00 History ipratropium 0.5 mg-albuterol 3 mg 3 ml inhalation Q4H PRN Shortness 12/19/22 02/22/23 12/19/22 History (2.5 mg base)/3 mL nebulization Of Breath soln sildenafil 50 mg tablet See Rx Instructions .Route .COMPLEX 12/19/22 02/22/23 Unknown History tamsulosin 0.4 mg capsule 0.4 mg PO QAM 12/19/22 02/22/23 02/22/23 08:00 History cephalexin 500 mg capsule 500 mg PO BID 90 days #180 caps 01/21/23 02/22/23 02/22/23 08:00 Rx L.acidophil-L.casei-B.bifid-B.longum-FOS 1 cap PO DAILY 02/22/23 02/22/23 Unknown History 2 billion cell-50 mg capsule (Probiotic Blend) calcium carbonate 600 mg-vitamin 1 tab PO BID 02/22/23 02/22/23 02/22/23 08:00 History D3 5 mcg (200 unit) tablet meloxicam 15 mg tablet 15 mg PO QAM 02/22/23 02/22/23 02/22/23 08:00 History rfmxbcxjyhvnt-jstmrekuepoju-fbozkfeapzm 1 - 2 tab PO Q4H PRN Congestion 02/22/23 02/22/23 02/22/23 History 5 mg-325 mg-200 mg tablet (Tylenol Sinus Severe) Allergies Allergy/AdvReac Type Severity Reaction Status Date / Time No Known Allergies Allergy Verified 02/22/23 13:39 PFSH Acute PFSH: Medical History BPH NOS w ur obs/LUTS Complex renal cyst Originally noted in 2012 with 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 Complexity comes from some rim calcification and septation. Hyperlipidemia Hypertension Impotence Surgical History H/O sinus surgery H/O vasectomy History of colonoscopy (10/23/20) Diverticulosis, internal hemorrhoids History of lumbar fusion Hx of cataract surgery S/P cervical spinal fusion Status post right knee replacement Family History Father , at age 51 Myocardial infarction (lateral wall) Mother , at age 75 Cancer lung Social History Smoking and tobacco status: former smoker Alcohol intake: current Alcohol intake frequency: holidays/special occasions only Marital status: Current occupational status: retired Vitals/I&O/Wt Last Vital Signs Temp 98.6 F 02/22/23 11:58 Pulse 65 02/22/23 16:32 Resp 16 02/22/23 16:32 BP 197/98 02/22/23 16:32 Pulse Ox 95 02/22/23 16:32 O2 Del Method Room Air 02/22/23 16:32 Weight last 48 hrs Weight 157 lb Physical Exam Narrative: General: Cooperative patient in no apparent distress. Well developed. HEENT: Normocephalic, Atraumatic. Right temporal artery is tender, firm and palpable. PERRLA. EOMI. right conjunctive eyes erythematous. External ears normal. Nasal passages patent without drainage. MMM. Heart: RRR. Resp: LCTA. No respiratory distress, no use of accessory muscles. Abd: Soft, non-tender. Non-distended. Extremities: No edema. Skin: No rash or lesions on exposed areas. Data 02/22/23 12:05 02/22/23 12:05 A&P Assessment and plan (1) Temporal arteritis: (2) Infected prosthetic knee joint: (3) Hypertension: (4) Hyperlipidemia: (5) Hematuria: Plan 77-year-old male admitted for probable temporal arteritis. Continue inpatient monitoring. DDx: Temporal arteritis vs cluster headaches vs hypertension associated General surgery is consulted and will see the patient later this week to determine if temporal artery biopsy is indicated. Patient was started on high-dose methylprednisolone in the ER. We will continue high-dose steroids. Repeat a.m. labs. Will include protein electrophoresis. UA was positive for hematuria. Consider additional imaging to evaluate. Patient is on Keflex twice daily for an infected total joint. We will continue these antibiotics at this time. We will add hydralazine as needed for hypertension. Continue his home losartan and will add amlodipine to the regimen. Continue atorvastatin for his hyperlipidemia. Continue other home medications for chronic illnesses. Code Status: Full IVF: None DVT PPx: SCDs GI PPx: Protonix ABx: Keflex Diet: Cardiac Discharge plan: Home when appropriate Attestations Medical Necessity Statement*: Inpatient care for surgical consult, high-dose corticosteroid, continue labs. Coding Level of Care Code Acute Code for Chg Fwd Moderate MDM includes number and complexity of problems actively addressed during encounter, amount and/or complexity of data reviewed/ordered and described risk of complication, morbidity or mortality of management as documented Diagnoses Temporal arteritis M31.6 Infected prosthetic knee joint T84.59XA; Z96.659 Hypertension I10 Hyperlipidemia E78.5 Hematuria R31.9
[2023-02-22 17:24] LABS: Phosphorus 2.6 mg/dL (2.5-4.5)
[2023-02-22 17:40] LABS: 25 Hydroxy Vitamin D 33 ng/mL (30-100)
[2023-02-22] MEDS: pantoprazole 40 mg SDV IVP (18:05)
[2023-02-22] MEDS: aspirin 325 mg Tablet PO (18:06)
[2023-02-22] MEDS: HYDROcodone-acetaminophen 5-325 mg Tablet 1 TAB PO ×2 (18:06→21:15)
[2023-02-22] MEDS: cephALEXin 500 mg Capsule PO (18:06)
[2023-02-22 18:10] LABS: Fibrinogen 374 mg/dL (174-498)
--- NOTE | 2023-02-22 18:17 | ECG_ITS ---
[facility] Test Date: 2023-02-22 Pat Name: Anthony Jimenez Department: Room: 278 Gender: Male Manager Payer: : 1945 Requested By: Gui Rooney Order Number: [id number] Ovi MD: Raji Nair M.D. Measurements Intervals [place] Rate: 63 P: 68 [place]: 192 QRS: -44 QRSD: 100 T: 72 QT: 416 QTc: 427 Interpretive Statements SINUS RHYTHM LEFT AXIS DEVIATION [QRS AXIS < -30] POSSIBLE RIGHT VENTRICULAR CONDUCTION DELAY [RSR (QR) IN V1/V2] SEPTAL MYOCARDIAL INFARCTION , OF INDETERMINATE AGE [40+ ms Q WAVE IN V1/V2] Compared to ECG 02/22/2023 14:25:45 Left-axis deviation now present Incomplete right bundle-branch block no longer present Left anterior fascicular block no longer present Myocardial infarct finding still present Electronically Signed On 02-22-2023 20:05:25 CDT by Raji Nair M.D. [id number]
[2023-02-22] MEDS: ondansetron 2 mg/ML SDV 2 mL 4 MG IVP (18:39)
[2023-02-22 19:06] LABS: Troponin 5 6HR 23.89 ng/L (0-15)
[2023-02-22 19:08] LABS: Troponin 5 6HR Delta 1.89 ng/L (0-12)
[2023-02-22] MEDS: budesonide 0.5 mg/2 mL Neb INHALATION (20:11)
[2023-02-22] MEDS: albuterol 2.5 mg/3 mL Neb INHALATION (20:12)
[2023-02-23] VITALS (13 sets, daily range): BP systolic 124–167; BP diastolic 61–76; PULSE 54–82; RESP 16–20; TEMP 36.6–37; O2SAT 93–95
[2023-02-23] MEDS: morphine 4 mg/mL SDV 1 mL IVP (00:22)
[2023-02-23 05:01] LABS: Basophils % 0.1 %; Hematocrit 46.5 % (42.0-52.0); Hemoglobin 15.5 g/dL (11.7-16.6); Lymphocytes # 0.8 10^3/uL (0.8-4.8); Mean Corpuscular HGB Conc 33.3 g/dL (30.0-36.0); Mean Corpuscular Hemoglobin 30.2 pg (28.0-34.0); Mean Corpuscular Volume 90.6 fl (80-94); Monocytes % 0.4 %; Neutrophils # 6.27 10^3/uL (1.8-7.7); Neutrophils % 88.4 %; Nucleated Red Blood Cells % 0 %; Platelet Count 245 10^3/cmm (130-400); Red Blood Count 5.13 10^6/uL (4.1-5.3); White Blood Count 7.1 10^3/uL (4.0-10.0)
[2023-02-23 05:35] LABS: Alanine Aminotransferase 32 U/L (0-41); Albumin Level 4.3 g/dL (3.5-5.2); Alkaline Phosphatase 64 U/L (40-130); Aspartate Amino Transferase 23 U/L (0-40); Blood Urea Nitrogen 17 mg/dL (8-23); Calcium 9.4 mg/dL (8.5-10.5); Carbon Dioxide 21 mmol/L (22-29); Chloride 105 mmol/L (98-107); Chol HDL Ratio 3.07 mg/dL (1.0-5.00); Cholesterol 187 mg/dL (0-200); Glucose 138 mg/dL (65-115); HDL Cholesterol 61 mg/dL (60-100); LDL Cholesterol Calculated 112 mg/dL (50-129); LDL HDL Ratio 1.84 RATIO (0.00-3.22); Osmolality Calculated 296 mOsm/kg (285-295); Sodium 141 mmol/L (136-145); Total Bilirubin 0.3 mg/dL (0.15-1.2); Total Protein 6.3 g/dL (6.6-8.7); Triglycerides 68 mg/dL (0-150)
[2023-02-23] MEDS: atorvastatin 40 mg Tablet 20 MG PO (05:48)
[2023-02-23] MEDS: losartan 50 mg Tablet PO (05:48)
[2023-02-23] MEDS: tamsulosin 0.4 mg Capsule PO (05:49)
[2023-02-23] MEDS: HYDROcodone-acetaminophen 5-325 mg Tablet 1 TAB PO ×4 (05:49→20:15)
[2023-02-23] MEDS: albuterol 2.5 mg/3 mL Neb INHALATION ×4 (07:40→20:04)
[2023-02-23] MEDS: budesonide 0.5 mg/2 mL Neb INHALATION ×2 (07:40→20:04)
--- NOTE | 2023-02-23 07:41 | PM.CONSULT ---
Providers/Reason For Consult Consulting Physician/Specialty*: General Surgery Reason for Consult*: Temporal Artery Biopsy Attending Physician: Osbaldo Fam MD Primary Care Provider: Zay Ospina DO History of Present Illness History of Present Illness Anthony Jimenez is a 77 year old male who has significant past medical history remarkable for hypertension history of knee surgery requiring revision due to septic arthritis. Who is currently admitted to the hospital after experienced severe right-sided headache with visual changes on the right eye. I have been asked to perform a temporal artery biopsy for evaluation of possible giant cell arteritis. On my evaluation this morning patient is doing well headache has improved. He states that the headaches started about 2 weeks ago and have been getting worse in nature. Endorses pain only on the right side. Review of Systems Narrative: A 10 point review of systems was done and is negative otherwise noted in HPI. We did addition of right knee pain. Medications/Allergies Home Medications Medication Instructions Recorded Confirmed Last Taken Type budesonide-formoterol HFA 160 2 puff inhalation BID 08/03/19 02/22/23 10/22/20 History mcg-4.5 mcg/actuation aerosol inhaler (Symbicort) albuterol sulfate 90 mcg/actuation 2 puff inhalation Q6H PRN 08/09/20 02/22/23 10/23/20 History aerosol inhaler (Ventolin HFA) Shortness Of Breath losartan 50 mg tablet 50 mg PO QAM 01/28/22 02/22/23 02/22/23 08:00 History aspirin 325 mg tablet 325 mg PO BID 14 days #28 tabs 12/08/22 02/22/23 02/22/23 08:00 Rx atorvastatin 20 mg tablet 20 mg PO QAM 12/19/22 02/22/23 02/22/23 08:00 History ipratropium 0.5 mg-albuterol 3 mg 3 ml inhalation Q4H PRN Shortness 12/19/22 02/22/23 12/19/22 History (2.5 mg base)/3 mL nebulization Of Breath soln sildenafil 50 mg tablet See Rx Instructions .Route .COMPLEX 12/19/22 02/22/23 Unknown History tamsulosin 0.4 mg capsule 0.4 mg PO QAM 12/19/22 02/22/23 02/22/23 08:00 History cephalexin 500 mg capsule 500 mg PO BID 90 days #180 caps 01/21/23 02/22/23 02/22/23 08:00 Rx L.acidophil-L.casei-B.bifid-B.longum-FOS 1 cap PO DAILY 02/22/23 02/22/23 Unknown History 2 billion cell-50 mg capsule (Probiotic Blend) calcium carbonate 600 mg-vitamin 1 tab PO BID 02/22/23 02/22/23 02/22/23 08:00 History D3 5 mcg (200 unit) tablet meloxicam 15 mg tablet 15 mg PO QAM 02/22/23 02/22/23 02/22/23 08:00 History lrnqwynqpgvub-djsrggusirpkn-waqjxhpdpyc 1 - 2 tab PO Q4H PRN Congestion 02/22/23 02/22/23 02/22/23 History 5 mg-325 mg-200 mg tablet (Tylenol Sinus Severe) Allergies Allergy/AdvReac Type Severity Reaction Status Date / Time No Known Allergies Allergy Verified 02/22/23 13:39 Current Medications Generic Name Dose Route Start Last Admin Trade Name Freq PRN Reason Stop Dose Admin Hydrocodone Bitart/Acetaminophen 1 tab 02/22/23 16:38 02/23/23 05:49 Hydrocodone-Acetaminophen 5-325 Mg Tablet PO 1 tab Q4H PRN Administration MODERATE TO SEVERE PAIN Albuterol Sulfate 2.5 mg 02/22/23 20:00 02/23/23 07:40 Albuterol 2.5 Mg/3 Ml Neb INHALATION 2.5 mg QID.RESPIRATORY JIMENA Administration Aspirin 325 mg 02/22/23 18:00 02/22/23 18:06 Aspirin 325 Mg Tablet PO 325 mg BID JIMENA Administration Atorvastatin Calcium 20 mg 02/23/23 06:00 02/23/23 05:48 Atorvastatin 40 Mg Tablet PO 20 mg QAM JIMENA Administration Budesonide 0.5 mg 02/22/23 20:00 02/23/23 07:40 Budesonide 0.5 Mg/2 Ml Neb INHALATION 0.5 mg BID.RESPIRATORY JIMENA Administration Cephalexin HCl 500 mg 02/22/23 18:00 02/22/23 18:06 Cephalexin 500 Mg Capsule PO 500 mg BID JIMENA Administration Protocol Losartan Potassium 50 mg 02/23/23 06:00 02/23/23 05:48 Losartan 50 Mg Tablet PO 50 mg QAM JIMENA Administration Ondansetron HCl 4 mg 02/22/23 16:38 02/22/23 18:39 Ondansetron 2 Mg/Ml Sdv 2 Ml IVP 4 mg Q8H PRN Administration vomiting, or N/V if npo Pantoprazole Sodium 40 mg 02/22/23 16:45 02/22/23 18:05 Pantoprazole 40 Mg Sdv IVP 40 mg Q24H JIMENA Administration Tamsulosin HCl 0.4 mg 02/23/23 06:00 02/23/23 05:49 Tamsulosin 0.4 Mg Capsule PO 0.4 mg QAM JIMENA Administration PFSH Acute PFSH: Medical History BPH NOS w ur obs/LUTS Complex renal cyst Originally noted in 2012 with 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 Complexity comes from some rim calcification and septation. Hyperlipidemia Hypertension Impotence Surgical History H/O sinus surgery H/O vasectomy History of colonoscopy (10/23/20) Diverticulosis, internal hemorrhoids History of lumbar fusion Hx of cataract surgery S/P cervical spinal fusion Status post right knee replacement Family History Father , at age 51 Myocardial infarction (lateral wall) Mother , at age 75 Cancer lung Social History Smoking and tobacco status: former smoker Alcohol intake: current Alcohol intake frequency: holidays/special occasions only Marital status: Current occupational status: retired Vitals/I&O/Wt Last Vital Signs Temp 98.5 F 02/23/23 07:04 Pulse 69 02/23/23 07:04 Resp 16 02/23/23 07:04 BP 139/76 02/23/23 07:04 Pulse Ox 94 02/23/23 07:04 O2 Del Method Room Air 02/23/23 03:28 02/22/23 02/23/23 02/23/23 22:59 06:59 14:59 Intake Total 258 / 258 Balance 258 / 258 Weight last 48 hrs Weight 157 lb Physical Exam Narrative: General : Patient is well developed , no acute distress, oriented x3 Head : Normal cephalic, a-traumatic. Right temporal artery palpated on the temporal region. Nose : Mucous membranes are without erythema. Lungs : Equal chest rise bilaterally, no use of accessory muscles, trachea is midline. CV : Rate and rhythm are normal. Abdomen : Soft, ND, NT, no g/r/m Data 02/23/23 04:31 02/23/23 04:31 A&P Assessment and plan (1) Temporal arteritis: 77-year-old male who was admitted to the hospital for right-sided headache and hypertension. Differential includes cluster headaches and temporal arteritis. I have not asked to proceed with temporal artery biopsy for diagnosis. I have discussed the diagnostic procedure with the patient, I Discussed the reason benefits including the risk of bleeding, infection, injury to surrounding structures, pain on the incision site, lack of pathological diagnosis. Patient agrees with the risk will like to proceed. Biopsy to be scheduled for tomorrow afternoon. Please keep patient n.p.o. after midnight today. All other management can be continued by medical team. Coding Level of Care Code 67273 Diagnoses Temporal arteritis M31.6
[2023-02-23] MEDS: cephALEXin 500 mg Capsule PO ×2 (08:51→17:22)
[2023-02-23] MEDS: aspirin 325 mg Tablet PO (08:51)
[2023-02-23] MEDS: amlodipine 5 mg Tablet PO (08:52)
--- NOTE | 2023-02-23 09:41 | PC.CHAP ---
Pastoral Care Encounter/Spiritual Assessment Type of Contact [] Declined practice performance manager visit [] Patient/Family/Request visit [] Outpatient visit [] Follow-up visit [] Physician referral [] Code/Alert [x] Routine visit [] Staff referral [] Actively dying [] Patient sleeping []x Family support [] [] Out of room [] Palliative care [] [] Receiving care in room [] Pre-surgical visit [] Trauma [] Long length of stay [] ICU visit [] Other: Relational/Emotional Strength [x] Patient feels connected with others/family/visitors/staff [] Distress [] Loneliness/isolation [] Abandonment Spirituality of Patient [x] Person of Lazara [] Attends Christian of their Lazara [] Believes in Prayer [] Reads Bible or Druze materials [] There are Spiritual issues to be addressed [employer] Interventions [x] Prayer []x Active listening [x] Non-anxious presence [x] Spiritual/emotional support [] Crisis/trauma care [] Spiritual counseling [] Bereavement support [] Provided bereavement packet [] Provided Bible/devotional materials [] Provided toy/stuffed animal, coloring book to patient or family member [] Provided Communion [] Anointing/[place] [] Salvation [x] Completed spiritual assessment [] Other: Impact on Illness or Injury [] Angry [] Fearful [] Anxious [] Often cries [] Exhaustion [] Unable to work [] Unable to attend jehovah's witness [] Unable to walk/stand [] Unable to read [] Unable to drive [] Unable to eat/drink [] Unable to sleep [] Unable to be with family [] Patient intubated [] Other: Summary Time spent with patient 15 min
[2023-02-23] MEDS: pantoprazole 40 mg SDV IVP ×2 (14:39→23:49)
[2023-02-23] MEDS: methylPREDNISolone sod succ 1,000 MG in sodium chloride 0.9% 250 ML 258 MG IV (14:45)
[2023-02-23] MEDS: ondansetron 2 mg/ML SDV 2 mL 4 MG IVP (15:01)
--- NOTE | 2023-02-23 16:54 | PM.PN ---
Subjective Subjective: Patient was seen this morning, he denies temporal tenderness, no more blurry vision, no jaw claudication Vitals/I&O/Wt Last Vital Signs Temp 98.6 F 02/23/23 16:00 Pulse 82 02/23/23 16:00 Resp 16 02/23/23 16:00 BP 124/61 02/23/23 16:00 Pulse Ox 93 02/23/23 16:00 O2 Del Method Room Air 02/23/23 15:01 02/23/23 02/23/23 02/23/23 06:59 14:59 22:59 Intake Total 240 / 240 258 / 498 Balance 240 / 240 258 / 498 Weight last 48 hrs Weight 71.214 kg Physical Exam Const: COMMON NORMALS: no acute distress and patient oriented x3 Resp: COMMON NORMALS: normal respiratory effort, No retractions, No use of accessory muscles and clear to auscultation bilaterally AUSCULTATION: clear to auscultation bilaterally Cardio: COMMON NORMALS: regular rate, regular rhythm, S1 normal heart sound present and S2 normal heart sound present RATE: regular rate RHYTHM: regular rhythm HEART SOUNDS: S1 normal heart sound present and S2 normal heart sound present GI: COMMON NORMALS: Normal to inspection, nondistended, normoactive bowel sounds present and non-tender Extremity: COMMON NORMALS: no pedal edema Neuro: COMMON NORMALS: patient oriented x3 Psych: COMMON NORMALS: mental status grossly normal Data 02/23/23 04:31 02/23/23 04:31 A&P Assessment and plan (1) Temporal arteritis: (2) Infected prosthetic knee joint: (3) Hypertension: (4) Hyperlipidemia: (5) Hematuria: Plan 77-year-old male admitted for concerns for temporal arteritis.Jaw pain, temporal pain, blurry vision Continue inpatient monitoring. DDx: Temporal arteritis General surgery is consulted, npo midnight for temporal artery biopsy tommorow solumedrol 1gram q24h for 3 days Repeat a.m. labs. Will include protein electrophoresis. Patient is on Keflex twice daily for an infected total joint. We will continue these antibiotics at this time. We will add hydralazine as needed for hypertension. Continue his home losartan and will add amlodipine to the regimen. Continue atorvastatin for his hyperlipidemia. Patient has Severe stenosis at the origin of the left internal carotid artery.? Noocclusion. Assymptomatic, Patient has know history of Left 60% carotid artery stenosis [facility], will coutinue aspirin and statin, follow up with vascular surgery as outpatient Continue other home medications for chronic illnesses. Code Status: Full IVF: None DVT PPx: SCDs, lovenox GI PPx: Protonix ABx: Keflex Diet: Cardiac Discharge plan: Home when appropriate spoke to patient, spoke to , spoke to family, spoke to nursing staff Attestations Medical Necessity Statement*: patient requires hospitalization for concerns for temporal arteritis Coding Level of Care Code 89013 High Time for a total of 60 minutes, includes reviewing past or interval history, examining/interviewing patient, placing orders, counseling patient/family/other support, updating patient/family/other support, discussing plan of care with staff, communicating with other healthcare providers, documenting encounter and coordinating care Diagnoses Temporal arteritis M31.6 Infected prosthetic knee joint T84.59XA; Z96.659 Hypertension I10 Hyperlipidemia E78.5 Hematuria R31.9
[2023-02-23] MEDS: enoxaparin 40 mg/0.4 mL Syringe SUBCUT (17:21)
[2023-02-23 21:19] LABS: Glucose Point of Care 162 mg/dL (70-110)
[2023-02-24] VITALS (12 sets, daily range): BP systolic 100–169; BP diastolic 57–86; PULSE 60–90; RESP 12–23; TEMP 36.1–36.7; O2SAT 95–99
[2023-02-24] MEDS: atorvastatin 40 mg Tablet 20 MG PO (05:00)
[2023-02-24] MEDS: tamsulosin 0.4 mg Capsule PO (05:00)
[2023-02-24] MEDS: HYDROcodone-acetaminophen 5-325 mg Tablet 1 TAB PO ×3 (05:01→16:45)
[2023-02-24 06:20] LABS: Basophils % 0.1 %; Hematocrit 44.7 % (42.0-52.0); Hemoglobin 14.4 g/dL (11.7-16.6); Lymphocytes # 0.6 10^3/uL (0.8-4.8); Lymphocytes % 4.6 %; Mean Corpuscular HGB Conc 32.2 g/dL (30.0-36.0); Mean Corpuscular Hemoglobin 29.4 pg (28.0-34.0); Mean Corpuscular Volume 91.2 fl (80-94); Mean Platelet Volume 11.1 fL (7.4-10.4); Monocytes # 0.3 10^3/uL (0.2-0.9); Monocytes % 2.1 %; Neutrophils # 12.65 10^3/uL (1.8-7.7); Neutrophils % 92.8 %; Nucleated Red Blood Cells % 0 %; Platelet Count 208 10^3/cmm (130-400); Red Cell Distribution Width 14.6 % (12.1-15.1); White Blood Count 13.6 10^3/uL (4.0-10.0)
[2023-02-24 06:34] LABS: Glucose Point of Care 135 mg/dL (70-110)
[2023-02-24 06:51] LABS: Alanine Aminotransferase 24 U/L (0-41); Albumin Level 4.2 g/dL (3.5-5.2); Alkaline Phosphatase 55 U/L (40-130); Anion Gap 17.4 (5-19); Aspartate Amino Transferase 19 U/L (0-40); Blood Urea Nitrogen 30 mg/dL (8-23); Calcium 9.2 mg/dL (8.5-10.5); Carbon Dioxide 22 mmol/L (22-29); Chloride 108 mmol/L (98-107); Glucose 137 mg/dL (65-115); Osmolality Calculated 304 mOsm/kg (285-295); Potassium 4.4 mmol/L (3.5-5.1); Sodium 143 mmol/L (136-145); Total Bilirubin 0.3 mg/dL (0.15-1.2); Total Protein 6.2 g/dL (6.6-8.7)
[2023-02-24] MEDS: albuterol 2.5 mg/3 mL Neb INHALATION (08:15)
[2023-02-24] MEDS: budesonide 0.5 mg/2 mL Neb INHALATION (08:15)
[2023-02-24 08:40] LABS: PROTEIN, TOTAL 6.8 g/dL (6.1-8.1)
[2023-02-24] MEDS: aspirin 325 mg Tablet PO (08:43)
[2023-02-24] MEDS: cephALEXin 500 mg Capsule PO (08:43)
--- NOTE | 2023-02-24 11:15 | W.PM.OPSUD ---
Surgery/Procedure H&P Update DATE OF PROCEDURE: February 24, 2023 DATE H&P PERFORMED: 12/05/22 CHANGES TO PREVIOUS DOCUMENTATION: Patient has been evaluated by me today, there is no interval changes to physical examination or findings as documented in my last consult note. Procedure is indicated for diagnosis of temporal arteritis. PREOP DIAGNOSIS: Temporal Arteritis PRIMARY INDICATION FOR PROCEDURE: Temporal arteritis PLANNED PROCEDURE: Operation Date: 02/24/23 13:00 Proposed Procedures p Temporal Artery Biopsy(Right) - Toni Noriega MD
[2023-02-24] MEDS: sodium chloride 0.9% 1,000 ML 30 ML IV (12:59)
--- NOTE | 2023-02-24 13:01 | ANES.PREANE2 ---
Pre-Anesthetic Assessment Height/Weight: Height 1.65 m Weight 71.214 kg Temp Pulse Resp BP Pulse Ox O2 Del Method 97.8 F 73 16 169/85 96 Room Air 02/24/23 12:54 02/24/23 12:54 02/24/23 12:54 02/24/23 12:54 02/24/23 12:54 02/24/23 12:54 Preop Diagnosis: Temporal Arteritis Operation Date: 02/24/23 13:00 Proposed Procedures p Temporal Artery Biopsy(Right) - Toni Noriega MD Familial anesthetic complications: tendency to wake up violent (very [place]) Was Beta Sindhu taken within 24 hours: N/A Was Clonidine taken within 24 hours: N/A Last intake: Intake Last Liquid Date 02/23/23 Last Liquid Time 22:00 Last Solid Date 02/23/23 Last Solid Time 19:00 Social No alcohol and No tobacco Exam alert, oriented x 3, clear to auscultation bilaterally and regular rate & rhythm Airway Mallampati: Class II Dentition: full CV/HEM Hypertension Anesthetic Plan ASA status: 3 Anesthesia: General Risk of > 500 ml blood loss (7ml/kg in children): No Medications/Allergies Home Medications Medication Instructions Recorded Confirmed Last Taken Type budesonide-formoterol HFA 160 2 puff inhalation BID 08/03/19 02/22/23 10/22/20 History mcg-4.5 mcg/actuation aerosol inhaler (Symbicort) albuterol sulfate 90 mcg/actuation 2 puff inhalation Q6H PRN 08/09/20 02/22/23 10/23/20 History aerosol inhaler (Ventolin HFA) Shortness Of Breath losartan 50 mg tablet 50 mg PO QAM 01/28/22 02/22/23 02/22/23 08:00 History aspirin 325 mg tablet 325 mg PO BID 14 days #28 tabs 12/08/22 02/22/23 02/22/23 08:00 Rx atorvastatin 20 mg tablet 20 mg PO QAM 12/19/22 02/22/23 02/22/23 08:00 History ipratropium 0.5 mg-albuterol 3 mg 3 ml inhalation Q4H PRN Shortness 12/19/22 02/22/23 12/19/22 History (2.5 mg base)/3 mL nebulization Of Breath soln sildenafil 50 mg tablet See Rx Instructions .Route .COMPLEX 12/19/22 02/22/23 Unknown History tamsulosin 0.4 mg capsule 0.4 mg PO QAM 12/19/22 02/22/23 02/22/23 08:00 History cephalexin 500 mg capsule 500 mg PO BID 90 days #180 caps 01/21/23 02/22/23 02/22/23 08:00 Rx L.acidophil-L.casei-B.bifid-B.longum-FOS 1 cap PO DAILY 02/22/23 02/22/23 Unknown History 2 billion cell-50 mg capsule (Probiotic Blend) calcium carbonate 600 mg-vitamin 1 tab PO BID 02/22/23 02/22/23 02/22/23 08:00 History D3 5 mcg (200 unit) tablet meloxicam 15 mg tablet 15 mg PO QAM 02/22/23 02/22/23 02/22/23 08:00 History pnbgvlbjtuwps-goavtnkfkcykx-ckzffjndngt 1 - 2 tab PO Q4H PRN Congestion 02/22/23 02/22/23 02/22/23 History 5 mg-325 mg-200 mg tablet (Tylenol Sinus Severe) Allergies Allergy/AdvReac Type Severity Reaction Status Date / Time No Known Allergies Allergy Verified 02/22/23 13:39 Current Medications Generic Name Dose Route Start Last Admin Trade Name Freq PRN Reason Stop Dose Admin Hydrocodone Bitart/Acetaminophen 1 tab 02/22/23 16:38 02/24/23 09:00 Hydrocodone-Acetaminophen 5-325 Mg Tablet PO 1 tab Q4H PRN Administration MODERATE TO SEVERE PAIN Albuterol Sulfate 2.5 mg 02/22/23 20:00 02/24/23 08:15 Albuterol 2.5 Mg/3 Ml Neb INHALATION 2.5 mg QID.RESPIRATORY JIMENA Administration Amlodipine Besylate 5 mg 02/23/23 09:00 02/24/23 09:14 Amlodipine 5 Mg Tablet PO Not Given DAILY JIMENA Aspirin 325 mg 02/24/23 09:00 02/24/23 08:43 Aspirin 325 Mg Tablet PO 325 mg DAILY JIMENA Administration Atorvastatin Calcium 20 mg 02/23/23 06:00 02/24/23 05:00 Atorvastatin 40 Mg Tablet PO 20 mg QAM JIMENA Administration Budesonide 0.5 mg 02/22/23 20:00 02/24/23 08:15 Budesonide 0.5 Mg/2 Ml Neb INHALATION 0.5 mg BID.RESPIRATORY JIMENA Administration Cephalexin HCl 500 mg 02/22/23 18:00 02/24/23 08:43 Cephalexin 500 Mg Capsule PO 500 mg BID JIMENA Administration Protocol Enoxaparin Sodium 40 mg 02/23/23 18:00 02/23/23 17:21 Enoxaparin 40 Mg/0.4 Ml Syringe SUBCUT 40 mg Q24H JIMENA Administration Methylprednisolone Sodium 258 mls @ 258 mls/hr 02/23/23 12:00 02/23/23 16:17 Succinate 1,000 mg/ Sodium IV 02/25/23 11:59 Infused Chloride Q24H JIMENA Infusion Sodium Chloride 1,000 mls @ 30 mls/hr 02/24/23 13:00 02/24/23 12:59 Sodium Chloride 0.9% IV 02/25/23 12:59 30 mls/hr .Q24H JIMENA Administration Losartan Potassium 50 mg 02/23/23 06:00 02/24/23 05:08 Losartan 50 Mg Tablet PO Not Given QAM JIMENA Ondansetron HCl 4 mg 02/22/23 16:38 02/23/23 15:01 Ondansetron 2 Mg/Ml Sdv 2 Ml IVP 4 mg Q8H PRN Administration vomiting, or N/V if npo Pantoprazole Sodium 40 mg 02/23/23 12:00 02/23/23 23:49 Pantoprazole 40 Mg Sdv IVP 40 mg Q12H JIMENA Administration Tamsulosin HCl 0.4 mg 02/23/23 06:00 02/24/23 05:00 Tamsulosin 0.4 Mg Capsule PO 0.4 mg QAM JIMENA Administration PFSH Anesthesia Medical History BPH NOS w ur obs/LUTS Complex renal cyst Originally noted in 2012 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 Complexity comes from some rim calcification and septation. Hyperlipidemia Hypertension Impotence Surgical History H/O sinus surgery H/O vasectomy History of colonoscopy (10/23/20) Diverticulosis, internal hemorrhoids History of lumbar fusion Hx of cataract surgery S/P cervical spinal fusion Status post right knee replacement Family History Father , at age 51 Myocardial infarction (lateral wall) Mother , at age 75 Cancer lung Social History Smoking and tobacco status: former smoker Alcohol intake: current Alcohol intake frequency: holidays/special occasions only Marital status: Current occupational status: retired Data Anesthesia 02/24/23 05:46 02/24/23 05:46 Short CBC 02/23/23 02/24/23 Range/Units 04:31 05:46 WBC 7.1 13.6 H (4.0-10.0) 10^3/uL Hgb 15.5 14.4 (11.7-16.6) g/dL Hct 46.5 44.7 (42.0-52.0) % MCV 90.6 91.2 (80-94) fl Plt Count 245 208 (130-400) 10^3/cmm Neut % (Auto) 88.4 92.8 % Neut # (Auto) 6.27 12.65 H (1.8-7.7) 10^3/uL BMP 02/23/23 02/24/23 04:31 05:46 Sodium 141 143 Potassium 4.0 4.4 Chloride 105 108 H Carbon Dioxide 21 L 22 BUN 17 30 H Creatinine 0.9 0.9 Glucose 138 H 137 H Calcium 9.4 9.2 Cardiac Enzymes 02/22/23 02/22/23 Range/Units 15:00 18:15 Troponin T 120 Minute 21.92 H (0-15) ng/L Delta Troponin T -0.08 L (0-10) ABS# Troponin T Hi Sens 6Hr 23.89 H (0-15) ng/L Troponin T Hi Sens 6Hr Delta 1.89 (0-12) ng/L Liver Function 02/23/23 02/24/23 Range/Units 04:31 05:46 Total Bilirubin 0.3 0.3 (0.15-1.2) mg/dL AST 23 19 (0-40) U/L ALT 32 24 (0-41) U/L Alkaline Phosphatase 64 55 (40-130) U/L Albumin 4.3 4.2 (3.5-5.2) g/dL Urine 02/22/23 Range/Units 13:14 Urine Color Yellow (Yellow) Urine Appearance Clear (CLEAR) Urine pH 7 (5-7) Ur Specific [place] 1.005 (1.005-1.030) Urine Protein Neg (Negative) Urine Glucose (UA) Norm (Normal) Urine Ketones Negative (Negative) Urine Nitrate Negative (Negative) Urine Bilirubin Neg (Negative) Ur Leukocyte Esterase Negative (Negative) Urine RBC 5-10 H (0-2) /hpf Urine WBC Rare (0-5) /hpf Coags 02/22/23 02/22/23 02/22/23 12:05 12:05 12:05 ESR 17 H Fibrinogen 374 C-Reactive Protein 3.0 Cardiac Studies: Echocardiogram 02/17/23 Sestamibi Stress Test (Cardiology) 01/19/23
[2023-02-24] MEDS: ceFAZolin 2,000 MG in sodium chloride 0.9% (plus) 50 ML 100 MG IV (13:18)
--- NOTE | 2023-02-24 14:12 | P.DS_ITS ---
Discharge Providers Date of Admission: 02/22/23 15:45 Date of Discharge: February 24, 2023 Attending Provider at Admission: Rafael Chatman DO Attending Provider at Discharge: Osbaldo Fam MD Primary Care Provider: Zay Ospina DO Diagnoses at Discharge Discharge Diagnosis (1) Temporal arteritis: Status: Acute (2) Infected prosthetic knee joint: Status: Acute (3) Hypertension: Status: Acute (4) Hyperlipidemia: Status: Acute (5) Hematuria: Status: Acute Reason for Visit Reason for Visit: headache/high bp Hospital Course Hospital Course Anthony Jimenez is a 77 year old male with a past medical history of 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 Patient reports that for the last 4 to 6 weeks he has had acute episodes of sharp, stabbing headache that lasts a few minutes, and is accompanied by blurry vision, conjunctival irritation, and eye pain.? He says the episodes initially did not last very long, but over the last 4 to 6 weeks they have increased in duration. ?He says that it is always the right side that is involved.? He says that he has had some cloudiness and blurred vision in his right eye, that generally goes away when the headache subsides.? He also notes subjective full or swollen sensation of his right tongue and right face.? He has tried ntsf-ndj-xiopmui medications, and sinus medicine as he felt initially this could be related to his sinus infection.? He says these headaches are occurring now 4-5 times a day, but today he had a single episode that has lasted most of the day.? He denies any other associated neurologic symptoms including weakness, difficulty speaking, or sensory disturbance.? He also says that his blood pressure has been very elevated as of recent. In the ER today, his blood pressure was noted to be in the 200s systolic.? Labs were obtained and did show a mildly elevated ESR, with a normal CRP and CBC.? Troponins were obtained and were negative.? A UA was positive for blood, with 5- 10 rbc's.? A CTA of the head and neck demonstrated severe stenosis of the origin of the internal carotid artery without dissection or occlusion.? Given the high suspicion of temporal arteritis based on clinical findings, elevated sed rate, patient was started on high-dose steroids while in the ER.? General surgery was contacted from the ER and they are planning to see patient this week.? In addition his pressures were treated with IV hydralazine.? He was admitted to [facility] [place]. Patient was admitted to [facility] for temporal arteritis, with jaw pain, temporal pain, blurry vision, received high-dose steroids, patient significantly clinically improved, relatively asymptomatic, his ESR is 17, received a temporal artery biopsy, results pending, received 3 days of inpatient Solu-Medrol 1 g every 24 hours, discharged on prednisone 60 mg for 2 weeks, followed by 50 mg for 2 weeks, followed up with rheumatology and/or primary care provider as outpatient for slow taper of prednisone, 5 mg every 2 weeks. I am going to have him follow-up with rheumatology as outpatient, discharged on Protonix for GI prophylaxis, continue aspirin 325 mg once daily. Patient was found to have severe stenosis at the origin of the left internal carotid artery, asymptomatic, on aspirin, statin, discharged with close follow-up with vascular surgery as outpatient. Patient was advised if he were to have any strokelike symptoms call 911 Physical Exam Const: COMMON NORMALS: no acute distress and patient oriented x3 Resp: COMMON NORMALS: normal respiratory effort, No retractions, No use of accessory muscles and clear to auscultation bilaterally AUSCULTATION: clear to auscultation bilaterally Cardio: COMMON NORMALS: regular rate, regular rhythm, S1 normal heart sound present and S2 normal heart sound present RATE: regular rate RHYTHM: regular rhythm HEART SOUNDS: S1 normal heart sound present and S2 normal heart sound present GI: COMMON NORMALS: Normal to inspection, nondistended, normoactive bowel sounds present Extremity: COMMON NORMALS: no pedal edema Neuro: COMMON NORMALS: patient oriented x3 Psych: COMMON NORMALS: mental status grossly normal Discharge Data Studies Completed and Pending Completed Studies During Hospitalization Category Date Time Status CT angio headneck* [id number] Stat Cat Scan 02/22/23 Completed Pending at discharge Category Date Time Status Complete Blood Count w/Auto AM LABS Lab 02/25/23 04:00 Ordered Comprehensive Metabolic Panel AM LABS Lab 02/25/23 04:00 Ordered Serum Protien Electrophoresis [Total Protein Lab 02/22/23 18:15 Results Electrophoresis] Routine Radiology Impressions Head/Neck CTA 02/22/23 00:00 IMPRESSION: No large vessel stenosis or occlusion. IMPRESSION: Severe stenosis at the origin of the left internal carotid artery. No occlusion. REFERENCES: NASCET CRITERIA. The degree of stenosis in the cervical segment of the internal carotid artery is based on NASCET criteria. Normal is no stenosis. Mild is less than 50% stenosis. Moderate is 50-69% stenosis. Severe is 70% to 99% stenosis. Total occlusion is no detectable patent lumen. Laboratory Results WBC 13.6 10^3/uL (4.0-10.0) H 02/24/23 05:46 RBC 4.90 10^6/uL (4.1-5.3) 02/24/23 05:46 Hgb 14.4 g/dL (11.7-16.6) 02/24/23 05:46 Hct 44.7 % (42.0-52.0) 02/24/23 05:46 MCV 91.2 fl (80-94) 02/24/23 05:46 MCH 29.4 pg (28.0-34.0) 02/24/23 05:46 MCHC 32.2 g/dL (30.0-36.0) 02/24/23 05:46 RDW 14.6 % (12.1-15.1) 02/24/23 05:46 Plt Count 208 10^3/cmm (130-400) 02/24/23 05:46 MPV 11.1 fL (7.4-10.4) H 02/24/23 05:46 Neut % (Auto) 92.8 % 02/24/23 05:46 Lymph % (Auto) 4.6 % 02/24/23 05:46 [place] % (Auto) 2.1 % 02/24/23 05:46 Eos % (Auto) 0.0 % 02/24/23 05:46 Baso % (Auto) 0.1 % 02/24/23 05:46 Neut # (Auto) 12.65 10^3/uL (1.8-7.7) H 02/24/23 05:46 Lymph # (Auto) 0.6 10^3/uL (0.8-4.8) L 02/24/23 05:46 [place] # (Auto) 0.3 10^3/uL (0.2-0.9) 02/24/23 05:46 Eos # (Auto) 0.0 10^3/uL (0.0-0.8) 02/24/23 05:46 Baso # (Auto) 0.0 10^3/uL (0.0-0.1) 02/24/23 05:46 Nucleated RBC % (auto) 0 % 02/24/23 05:46 Nucleated RBCs # 0.0 /100WBC 02/24/23 05:46 ESR 17 mm/hr (0-10) H 02/22/23 12:05 Fibrinogen 374 mg/dL (174-498) 02/22/23 12:05 Sodium 143 mmol/L (136-145) 02/24/23 05:46 Potassium 4.4 mmol/L (3.5-5.1) 02/24/23 05:46 Chloride 108 mmol/L (98-107) H 02/24/23 05:46 Carbon Dioxide 22 mmol/L (22-29) 02/24/23 05:46 Anion Gap 17.4 (5-19) 02/24/23 05:46 BUN 30 mg/dL (8-23) H 02/24/23 05:46 Creatinine 0.9 mg/dL (0.7-1.2) 02/24/23 05:46 GFR Calculation Not Reportable 02/24/23 05:46 Glucose 137 mg/dL (65-115) H 02/24/23 05:46 POC Glucose 135 mg/dL (70-110) H 02/24/23 06:15 Calculated Osmolality 304 mOsm/kg (285-295) H 02/24/23 05:46 Calcium 9.2 mg/dL (8.5-10.5) 02/24/23 05:46 Phosphorus 2.6 mg/dL (2.5-4.5) 02/22/23 12:05 Total Bilirubin 0.3 mg/dL (0.15-1.2) 02/24/23 05:46 AST 19 U/L (0-40) 02/24/23 05:46 ALT 24 U/L (0-41) 02/24/23 05:46 Alkaline Phosphatase 55 U/L (40-130) 02/24/23 05:46 Troponin T Baseline 22 ng/L (0-15) H 02/22/23 12:05 Troponin T 120 Minute 21.92 ng/L (0-15) H 02/22/23 15:00 Delta Troponin T -0.08 ABS# (0-10) L 02/22/23 15:00 Troponin T Hi Sens 6Hr 23.89 ng/L (0-15) H 02/22/23 18:15 Troponin T Hi Sens 6Hr Delta 1.89 ng/L (0-12) 02/22/23 18:15 C-Reactive Protein 3.0 mg/L (0.0-4.9) 02/22/23 12:05 NT-Pro-B Natriuret Pep 91 pg/mL (0-450) 02/22/23 12:05 Total Protein 6.2 g/dL (6.6-8.7) L 02/24/23 05:46 Albumin 4.2 g/dL (3.5-5.2) 02/24/23 05:46 Globulin 2.0 g/dL (1.3-4.6) 02/24/23 05:46 Triglycerides 68 mg/dL (0-150) 02/23/23 04:31 Cholesterol 187 mg/dL (0-200) 02/23/23 04:31 LDL Cholesterol, Calc 112 mg/dL (50-129) 02/23/23 04:31 HDL Cholesterol 61 mg/dL (60-100) 02/23/23 04:31 LDL/HDL Ratio 1.84 RATIO (0.00-3.22) 02/23/23 04:31 Cholesterol/HDL Ratio 3.07 mg/dL (1.0-5.00) 02/23/23 04:31 25-OH Vitamin D Total 33 ng/mL (30-100) 02/22/23 12:05 TSH 1.58 uIU/mL (0.27-4.20) 02/22/23 12:05 Urine Color Yellow (Yellow) 02/22/23 13:14 Urine Appearance Clear (CLEAR) 02/22/23 13:14 Urine pH 7 (5-7) 02/22/23 13:14 Ur Specific [place] 1.005 (1.005-1.030) 02/22/23 13:14 Urine Protein Neg (Negative) 02/22/23 13:14 Urine Glucose (UA) Norm (Normal) 02/22/23 13:14 Urine Ketones Negative (Negative) 02/22/23 13:14 Urine Blood 2+ (Negative) H 02/22/23 13:14 Urine Nitrate Negative (Negative) 02/22/23 13:14 Urine Bilirubin Neg (Negative) 02/22/23 13:14 Urine Urobilinogen Norm mg/dL (Negative) 02/22/23 13:14 Ur Leukocyte Esterase Negative (Negative) 02/22/23 13:14 Urine RBC 5-10 /hpf (0-2) H 02/22/23 13:14 Urine WBC Rare /hpf (0-5) 02/22/23 13:14 Ur Squamous Epith Cells Rare /hpf (0-5) 02/22/23 13:14 Amorphous Sediment Not Reportable 02/22/23 13:14 Urine Bacteria None /hpf (NONE) 02/22/23 13:14 Urine Mucus Trace /hpf 02/22/23 13:14 Vitals Last Vital Signs Temp 97.8 F 02/24/23 12:54 Pulse 73 02/24/23 12:54 Resp 16 02/24/23 12:54 BP 169/85 02/24/23 12:54 Pulse Ox 96 02/24/23 12:54 O2 Del Method Room Air 02/24/23 12:54 Discharge Plan Discharge Patient Disposition: Home Condition: Stable Prescriptions: New amlodipine 10 mg tablet 10 mg PO DAILY 30 Days Qty: 30 0RF prednisone 20 mg tablet See Rx Instructions .ROUTE .COMPLEX 28 Days Qty: 77 0RF Rx Instructions: take 60 mg(3 tabs) for 2 weeks, 50 mg (2.5) for 2 weeks oxycodone 5 mg tablet 5 mg PO Q8H PRN (Reason: pain) 5 Days Qty: 15 0RF Protonix 40 mg tablet,delayed release (DR/EC) 40 mg PO DAILY 30 Days Qty: 30 0RF Continued albuterol sulfate [Ventolin HFA] 90 mcg/actuation HFA aerosol inhaler 2 puff inhalation Q6H PRN (Reason: Shortness Of Breath) losartan 50 mg tablet 50 mg PO QAM cephalexin 500 mg capsule 500 mg PO BID 90 Days Qty: 180 3RF budesonide-formoterol [Symbicort] 160-4.5 mcg/actuation HFA aerosol inhaler 2 puff INHALATION BID ipratropium-albuterol 0.5 mg-3 mg(2.5 mg base)/3 mL solution for nebulization 3 ml INHALATION Q4H PRN (Reason: Shortness Of Breath) sildenafil 50 mg tablet See Rx Instructions .ROUTE .COMPLEX Rx Instructions: TAKE ONE TABLET BY MOUTH EVERY 5 DAYS NEEDED ED tamsulosin 0.4 mg capsule 0.4 mg PO QAM atorvastatin 20 mg tablet 20 mg PO QAM calcium carbonate-vitamin D3 600 mg-5 mcg (200 unit) Tablet 1 tab PO BID Tylenol Sinus Severe 5-325-200 mg Tablet 1 - 2 tab PO Q4H PRN (Reason: Congestion) Probiotic Blend 2 billion cell-50 mg Capsule 1 cap PO DAILY Rx Instructions: give with meal/snack Changed aspirin 325 mg tablet 325 mg PO DAILY 30 Days Qty: 30 0RF Discontinued meloxicam 15 mg tablet 15 mg PO QAM Discharge Orders: Discharge Order (Routine); Ordered 02/24/23 Ordered By: Osbaldo Fam Referrals: Obinna Sanford MD [Physician] - 7-10 days (hospital dc for giant cell arteritis) Faustino Aguilar MD [Physician] - 1 month (carotid stenosis) Zay Ospina DO [Primary Care Provider] - 1-3 days Discharge Diet: Diabetic Discharge Activity: Resume usual activity Patient Instructions: Prednisone (By mouth), Oxycodone, Rapid Release (By mouth) (ETH-Oxydose, Oxy IR,..., Amlodipine (By mouth), Pantoprazole (By mouth), Temporal Arteritis (GEN), Opioid Safety Activity Restrictions/Additional Instructions: - I have discharged you on a month supply of steroids -Please follow-up with rheumatology and or primary care for slow further taper of steroids -It should be a 5 mg reduction every 2 weeks, starting after your last dose of 50 mg -If you have any headaches, blurry vision, jaw pain please come back to the emergency room -Please follow-up with rheumatology Discharge Attestations Time Spent in Discharge Care*: greater than 30 min Quality Metrics Clinical Quality Measures [ No reported AMI, CVA or VTE this stay] Coding Level of Care Code 80991 Total time (in minutes) for Discharge: 45 Diagnoses Temporal arteritis M31.6 Infected prosthetic knee joint T84.59XA; Z96.659 Hypertension I10 Hyperlipidemia E78.5 Hematuria R31.9
[2023-02-24] MEDS: lidocaine 2% INJ 20 mL 10 ML INJECTION (14:30)
--- NOTE | 2023-02-24 15:23 | PM.OP ---
Operative Report Date of procedure: February 24, 2023 Pre-op diagnosis: Preop Diagnosis Temporal Arteritis Post-op diagnosis: Same Post-op findings: Normal anatomy on the superficial temporal artery bilaterally Procedure done: Bilateral superficial temporal artery biopsy Surgeon: Toni Noriega MD; Ernesto Hector DO Estimated blood loss: 15 cc Complications: None Findings: Normal anatomy on the superficial temporal artery bilaterally Brief History: This is a 77-year-old male who presented with severe headache and symptoms concerning for giant cell arteritis. I was consulted for possible temporal artery biopsy. After discussing all the risk benefits of the procedure including the risk of bleeding, infection, wound complications, facial nerve palsy patient agreed to undergo the procedure. I have requested to have Dr. Hector as a co-surgeon due to his expertise with this procedure. Procedure: The patient was brought into the OR 2. He was placed in the supine position, general anesthesia was given without complications. Bilateral superficial temporal arteries were marked just appeared to the level of the earlobe, this was done using Doppler. The skin over the right side of the face was prepped and draped in the usual sterile fashion. A timeout was conducted. We started with the right side approach, Dr. Hector was the primary surgeon for the this side. Lidocaine was administered. 2 cm incision was made anterior to the right earlobe in the previous marked path, the incision was carried down to the level of the fascia using electrocautery. Additional lidocaine was injected below the level of the fascia to elevated. The fascia was opened with a 15 blade and then the opening was increased using tenotomy scissors. A Weitlander was placed to provide retraction. The superficial temporal artery was identified, it was dissected from the underlying tissue using hemostat. The artery was then ligated with 3-0 silk proximal and distal, and a 2 cm segment of the artery was excised and passed as the specimen. During excision a side branch of the artery was noticed, the same was transected resulting in minimal bleeding which was controlled with small titanium clips. Hemostasis was verified. Reina was placed in the wound. The wound was then closed in layers using 3 oh for the subcutaneous tissue and Dermabond for the skin. The drapes were removed, we then placed our attention to the left side of the face, the skin over the left side of the face was prepped and draped in the usual sterile fashion. We started the left side approach, I was the primary surgeon for the side. We started with the right side approach, Dr. Hector was the primary surgeon for the this side. Lidocaine was administered. 2 cm incision was made anterior to the superior aspect of the left earlobe in the previous marked path, the incision was carried down to the level of the fascia using electrocautery. Additional lidocaine was injected below the level of the fascia to elevate it. The fascia was opened with a 15 blade and then the opening was increased using hemostat. A Weitlander was placed to provide retraction. The superficial temporal artery was identified, it was dissected from the underlying tissue using hemostat. The artery was then ligated with 3-0 silk proximal and distal, and a 1.5 cm segment of the artery was excised and passed as the specimen. Hemostasis was verified. the wound was closed in layers using #3-0 Vicryl for the subcutaneous and dermabond for the skin. The patient tolerated well the procedure, was extubated and transferred to the postanesthesia care unit in a stable condition. I was scrubbed during the completed case.
[2023-02-24] MEDS: methylPREDNISolone sod succ 1,000 MG in sodium chloride 0.9% 250 ML 260 MG IV (15:32)
[2023-02-24 15:34] LABS: ALBUMIN 4.2 g/dL (3.8-4.8); ALPHA 1 GLOBULIN 0.3 g/dL (0.2-0.3); ALPHA 2 GLOBULIN 0.9 g/dL (0.5-0.9); BETA 1 GLOBULIN 0.4 g/dL (0.4-0.6); BETA 2 GLOBULIN 0.3 g/dL (0.2-0.5); GAMMA GLOBULIN 0.7 g/dL (0.8-1.7)
--- NOTE | 2023-02-24 16:30 | ANE.PACU2 ---
Inpatient post-anesthesia follow up: Airway intact: Yes Vital signs: Temperature 97.0 F Pulse Rate 90 Respiratory Rate 16 Blood Pressure 100/73 Pulse Oximetry 96 Oxygen Delivery Me thod Room Air Oxygen Flow Rate 6 Fraction of Inspir ed Oxygen Hydration adequate: Yes Nausea and vomiting: Yes Pain level: 1 Mental status: Baseline
== END 2023-02-24 17:32 | disposition home or self-care (01) | DRG 517 ==
LOC: ER 15:41 → MEDSURG 16:34
PROVIDERS: Surgery; Admitting Provider Family Medicine; Emergency Provider Emergency Medicine; PCP Electrodiagnostic Medicine; Visit Provider Family Medicine
PROC: (CPT 37609; principal; 2023-02-24 13:00)
DX: M31.6 Other giant cell arteritis (principal); I10 Essential (primary) hypertension; E78.5 Hyperlipidemia, unspecified; N40.1 Benign prostatic hyperplasia with lower urinary tract symptoms; R31.9 Hematuria, unspecified; I65.22 Occlusion and stenosis of left carotid artery; Z98.1 Arthrodesis status; Z96.651 Presence of right artificial knee joint; Z87.891 Personal history of nicotine dependence
CPT/HCPCS: 36415; 36416; 70496; 70498; 80053; 80061; 81001; 82306; 82962; 83880; 84100; 84155; 84165; 84443; 84484; 85025; 85384; 85651; 86140; 88342; 93005; 94640; 96372; 96374; 96375; 99253; 99285; C9113; J0360; J0690; J1100; J1650; J2270; J2405; J2704; J2930; J3010; J7030; J7050; J7613; J7626; Q9967

== ENCOUNTER → 2023-03-17 08:44 | Outpatient (BNVA) | payer MEDICARE, OTHER, SELFPAY | PROVIDERS: PCP Electrodiagnostic Medicine; Visit Provider Internal Medicine Rheumatology | DX: Z79.899 Other long term (current) drug therapy (principal); M19.90 Unspecified osteoarthritis, unspecified site; M31.6 Other giant cell arteritis; M00.9 Pyogenic arthritis, unspecified; Z71.85 Encounter for immunization safety counseling | CPT/HCPCS: 99204 ==

== ENCOUNTER → 2023-03-26 09:59 | Outpatient (BNVA) | payer OTHER, SELFPAY | PROVIDERS: PCP Electrodiagnostic Medicine; Visit Provider Thoracic Surgery (Cardiothoracic Vascular Surgery) | DX: I65.22 Occlusion and stenosis of left carotid artery (principal); I10 Essential (primary) hypertension; Z87.891 Personal history of nicotine dependence | CPT/HCPCS: 99213 ==

== ENCOUNTER 2023-04-13 10:06 | Outpatient (CLI) | payer OTHER, SELFPAY ==
[2023-04-13 11:06] LABS: Basophils % 0.2 %; Eosinophils % 0.1 %; Hematocrit 48.1 % (37-53); Lymphocytes # 0.8 10^3/uL (0.8-4.8); Mean Corpuscular HGB Conc 33.5 g/dL (30-55); Mean Corpuscular Hemoglobin 30.6 pg (27-33); Mean Corpuscular Volume 91.4 fl (82-101); Mean Platelet Volume 9.4 fL (7.4-10.4); Monocytes # 0.4 10^3/uL (0.2-0.9); Monocytes % 3.3 %; Neutrophils # 11.75 10^3/uL (1.8-7.7); Neutrophils % 89.9 %; Nucleated Red Blood Cells % 0 %; Platelet Count 248 10^3/cmm (157-399); Red Blood Count 5.26 10^6/uL (3.85-5.65); Red Cell Distribution Width 15.1 % (12.1-15.1); White Blood Count 13.08 10^3/uL (3.29-11.43)
[2023-04-13 11:23] LABS: Erythrocyte Sedimentation Rate 18 mm/hr (0-10)
[2023-04-13 11:28] LABS: Alanine Aminotransferase 24 U/L (0-41); Albumin Level 4.2 g/dL (3.5-5.2); Alkaline Phosphatase 50 U/L (40-130); Aspartate Amino Transferase 18 U/L (0-40); Globulin 2.3 g/dL (1.3-4.6); Total Bilirubin 0.4 mg/dL (0.15-1.2); Total Protein 6.5 g/dL (6.6-8.7)
[2023-04-14 15:14] LABS: Cyclic Citrullinated Peptide <16 UNITS
== END 2023-04-13 10:07 | disposition home or self-care (01) ==
PROVIDERS: PCP Electrodiagnostic Medicine; Visit Provider Internal Medicine Rheumatology
DX: M19.90 Unspecified osteoarthritis, unspecified site (principal); Z79.899 Other long term (current) drug therapy
CPT/HCPCS: 36415; 80076; 82565; 85025; 85651; 86140; 86200; 86431

== ENCOUNTER → 2023-04-30 09:08 | Outpatient (BNVA) | payer OTHER, SELFPAY | PROVIDERS: PCP Electrodiagnostic Medicine; Visit Provider Student in an Organized Health Care Education/Training Program | DX: Z96.651 Presence of right artificial knee joint (principal); T84.59XA Infection and inflammatory reaction due to other internal joint prosthesis, initial encounter; Y79.2 Prosthetic and other implants, materials and accessory orthopedic devices associated with adverse incidents | CPT/HCPCS: 73560; 73565; 99213 ==

== ENCOUNTER → 2023-05-15 10:07 | Outpatient (BNVA) | payer OTHER, SELFPAY | PROVIDERS: PCP Electrodiagnostic Medicine; Visit Provider Internal Medicine Cardiovascular Disease | DX: R06.02 Shortness of breath (principal); I10 Essential (primary) hypertension; Z87.891 Personal history of nicotine dependence | CPT/HCPCS: 99214 ==

== ENCOUNTER 2023-05-25 07:08 | Outpatient (CLI) | payer OTHER, SELFPAY ==
[2023-05-25] VITALS (17 sets, daily range): BP systolic 127–178; BP diastolic 77–105; PULSE 49–64; RESP 10–22; TEMP 37.1; O2SAT 93–96; BMI 25.0
--- NOTE | 2023-05-25 07:30 | XACV_ITS ---
Exam Room: 2 Ht: 165 cm Wt: 68 kg BSA: 1.78 m2 Gender: Male : 1945 Any Known Allergies: No known allergies Exam Priority: Routine Procedure(s): Procedure Description: Diagnostic procedure Procedure Description: Left Heart Catheterization Procedure Description: Left ventriculography Procedure Description: Coronary Angiography Diagnostic Cath Status: Elective Diagnostic Findings * INDICATION: 77-year-old patient with past medical history of COPD. Patient sees Dr Duncan as his primary physician practice consultant. He has been having worsening dyspnea on exertion. Stress test was normal but because of worsening symptoms, she has recommeneded left heart cath. * No significant disease noted in the Left Main, Left Anterior Descending, Right, or Circumflex coronary arteries. * Coronary angiography shows right dominance. Conclusions 1. No significant disease noted in the Left Main, Left Anterior Descending, Right, or Circumflex coronary arteries. 2. Normal left ventricular systolic function. Ejection fraction of 60%. Recommendations * Aggressive risk factor modification. * Outpatient cardiology follow up in 2-4 weeks. Diagnostic RX Recommendation: medical therapy and/or counseling Anticoagulation: Heparin Ventriculography Ejection Fraction: 60.0 % Pressures Phase:Rest AO : 115 / 72 ( 92 ) @ 10:14:00 AM 156 / 77 ( 108 ) @ 10:20:00 AM 156 / 77 ( 108 ) @ 10:20:00 AM LV : 148 / -11 / 14 @ 10:19:00 AM 153 / -6 / 19 @ 10:20:00 AM 153 / -6 / 19 @ 10:20:00 AM Valves Phase:DefaultPhase AV : 0.0 @ 9:25:56 AM 0.0 @ 9:25:56 AM AV Mean Gradient: 0.0 @ 9:25:56 AM 0.0 @ 9:25:56 AM Clinical Evaluation EBL: 5mL-10mL Procedural Details Procedure Consent Obtained. Pre-Procedure Time Out. Identified patient by full name and date of as verbalized by the patient/guarantor. Does the consent match the physician's order: Yes. Accurate & Complete Informed Consent: Yes. Inpatient/Outpatient History & Physical on Chart: Yes. If H&P is completed, is and addenduem needed: No. Visualize and Verify Site with Patient/Guarantor: N/A. Relevant Radiology Images available: Yes. The risks, benefits, and alternatives of sedation and/or procedure were discussed by physician. The patient agrees to continue. Procedure started. [facility] Clinical Fraility Score: 3: Managing Well. Process Project Engineer Indications: Other, Worsening dyspnea. Chest Pain Symptom Assessment: Asymptomatic. Cardiovascular Instability: No. Correct patient, site and procedure confirmed by cath team. PERRLA. Strong, equal hand senior librarian bilaterally. Lungs clear x 5 lobes. IV Site on Arrival: 20 gauge in the left anticubital. IV Fluids: 0.9% NaCl at KVO. 0 mL infused prior to parking lot laborer. Pre Procedural Pulses: bilateral dorsalis pedis was 3+. Pre Procedural Pulses: bilateral posterior tibial was 2+. Pre Procedural Pulses: bilateral radial was 3+. Oxygen started at 2liters/min via nasal canula. right groin was prepped with chloroprep then draped in the usual sterile fashion. right radial was prepped with chloroprep then draped in the usual sterile fashion. Physician notified. Baseline sample Acquired. HR: 54 BPM. Patient's family in CPRU. Dr. Weaver will update at the completion of the procedure. Equipment: 6F - Radial. Cardiac Cath Pack. ACIST Manifold Kit Model BT 2000. Heparinized Saline (2 units/mL), 1000 mL bag. Physician arrived. Physician scrubbed in. Immediate Pre-Procedure Time Out. Correct Patient: Yes; Correct Procedure: Yes; Correct Site: Yes; Correct Patient Position: Yes; Correct Supplies: Yes; Dried Flammable Prep: Yes; Blood Products Available: N/A;. Lidocaine 1% infiltrated to the right radial. Arterial access obtained. A 5 lithuanian TIG catheter in over the exchange wire. Multiple views taken of left coronary artery. Catheter redirected to the RCA. Multiple views taken of right coronary artery. Catheter removed over the exchange wire. A 5 lithuanian Angled Pig catheter in over the exchange wire. EDP Sample taken: LV 148/-12,14; HR: 58 BPM; SpO2: 95%. LV gram performed in SMALL @ 10 mL/second for a total of 30 mL. EDP Sample taken: LV 153/-6,19; HR: 60 BPM; SpO2: 96%. Pullback taken: LV 153/-7,19; AO 156/77(108); Mean: 0mmHg, Peak to Peak: 0mmHg, SEP: 6sec/min; HR: 59 BPM; SpO2: 95%. Catheter removed over the exchange wire. Dr. Weaver scrubbed out. A TR Band was successful obtaining hemostatsis at the Right Radial artery insertion site. Post Procedure: Pulses reassessed and unchanged. PERRLA. Strong, equal hand senior librarian bilaterally. No VTE prophylaxis required. Medication's Wasted: Nitro = 49.8 mg. Medication's Wasted: Heparin = 1000 Units. Medication's Wasted: Other = Versed 1 mg. Medication's Wasted: Other = Fentanyl 50 mcg. Total IV fluids: 30 mL. Post-op diagnosis: Non obstructive CAD. Complications: none. Estimated blood loss: 5mL-10mL. Responsiveness - Normal response to verbal stimuli; alert and oriented, PERRLA. Airway - Unaffected, no intervention required; spontaneous ventilation. Circulation: W/N/L, pulses unchanged. Nausea/Vomiting: No. Medication's Wasted: Lidocaine 1% = 1 mL. Procedure completed. Patient transferred by wheelchair to CPRU. Vital chart was stopped. Access Site Site: Right Radial artery Sheath Size: 6 Fr Hemostasis Method: TR Band Hemostasis Success: Successful Procedure Medications Start: 9:10 AM Stop: 9:10 AM Medication: Versed Amount: 1 mg Route: I.V. Start: 9:10 AM Stop: 9:10 AM Medication: Fentanyl Amount: 50 mcg Route: I.V. Start: 9:12 AM Stop: 9:12 AM Medication: Nitrogylcerin Amount: 200 mcg Route: I.A. Start: 9:14 AM Stop: 9:14 AM Medication: Heparin Amount: 5000 units Route: I.V. I, the attending physician, have reviewed and verified all procedure medications. Yes, all medications given per verbal order History/Risk Factors Hypertension: Yes Dyslipidemia: Yes Peripheral Arterial Disease (PAD): No Myocardial Infarction ([place]): No Obesity: No Renal Disease: No Tobacco Use: Former Prior Interventions PCI: No CABG: No Valve Surgery: No Report Signatures Finalized by Ernst Weaver MD on 05/26/2023 01:03 PM
[2023-05-25 08:02] LABS: Basophils % 0.3 %; Eosinophils # 0.1 10^3/uL (0.0-0.8); Eosinophils % 0.7 %; Hematocrit 46.1 % (37-53); Lymphocytes # 2.4 10^3/uL (0.8-4.8); Lymphocytes % 23.5 %; Mean Corpuscular HGB Conc 33.2 g/dL (30-55); Mean Corpuscular Hemoglobin 30.9 pg (27-33); Mean Corpuscular Volume 93.1 fl (82-101); Monocytes # 0.8 10^3/uL (0.2-0.9); Monocytes % 7.4 %; Neutrophils # 6.85 10^3/uL (1.8-7.7); Neutrophils % 67.6 %; Nucleated Red Blood Cells % 0 %; Platelet Count 243 10^3/cmm (157-399); Red Blood Count 4.95 10^6/uL (3.85-5.65); Red Cell Distribution Width 15.2 % (12.1-15.1); White Blood Count 10.13 10^3/uL (3.29-11.43)
[2023-05-25 08:11] LABS: Anion Gap 15.6 (5-19); Blood Urea Nitrogen 18 mg/dL (8-23); Calcium 9.6 mg/dL (8.5-10.5); Carbon Dioxide 25 mmol/L (22-29); Chloride 106 mmol/L (98-107); Glucose 100 mg/dL (65-115); Osmolality Calculated 298 mOsm/kg (285-295); Potassium 3.6 mmol/L (3.5-5.1); Sodium 143 mmol/L (136-145)
[2023-05-25 08:13] LABS: INR 0.85 (0.8-1.2)
[2023-05-25] MEDS: diphenhydrAMINE 50 mg Capsule PO (08:17)
--- NOTE | 2023-05-25 09:02 | W.PM.OPSUD ---
Surgery/Procedure H&P Update DATE OF PROCEDURE: May 25, 2023 DATE H&P PERFORMED: 05/15/23 H&P UPDATE INFORMATION: I have reviewed H&P completed within last 30 days, I have examined patient prior to procedure and No changes to prior documentation CHANGES TO PREVIOUS DOCUMENTATION: Patient of Dr Duncan who has been having worsening dyspnea on exertion. Stress test was normal but because of continued symptoms, she has recommeneded left heart cath. PREOP DIAGNOSIS: Worsening dyspnea on exertion PRIMARY INDICATION FOR PROCEDURE: Worsening dyspnea on exertion PLANNED PROCEDURE: Operation Date: 05/25/23 08:30 Proposed Procedures p [facility] w/-w/o 24328,R06.02(Left) - Ernst Weaver M.D Possible percutaneous coronary intervention PATIENT REASSESSED PRIOR TO SEDATION, WITH NO CHANGE NOTED: Yes PHYSICAL EXAM: alert, oriented x 3, clear to auscultation bilaterally and regular rate & rhythm AIRWAY EVAL/ANESTHESIA PLAN: normal airway, ASA III, Local Anesthesia, Risks, benefits & alternatives of sedation and/or procedure discussed and Patient agrees to continue as planned ADDITIONAL INFORMATION: Moderate sedation
--- NOTE | 2023-05-25 15:32 | PC.NURSE ---
Pt admitted to ICU with TR band in place and hematoma noted to right wrist. TR band removed at 1530 and dressing applied. Tolerated well.
--- OUTSIDE RECORDS SUMMARY | 2023-05-26 17:51 | XMS_ITS | Patient Health Record ---
Author Name Unknown Organization [facility] Address [address] [place] [address] Care Team Providers Care Child And Family Therapist Name Role Phone Ospina Zay Primary Care Provider Unavail able Edson Yepez Unavailable [phone] ALLERGIES No Known Allergies RESULTS Component Value Reference Range Notes UA Without Micro-Auto [id number] (Not yet reviewed by provider) Interpretation: Performing Lab: Notes/Report: Color yellow Clarity clear Glucose - Bili - Ketones - Sp [place] 1.015 Blood 1+ pH 5.5 Protein - Urobili - Nitrites - Leukocytes - REASON FOR REFERRAL Reason Kidney Cyst 02/16/23 Diagnosis 1 Cyst of kidney, acqu ired (N28.1) Referring Provider First Name Zay Referring Provider Last Name Bhavesh Referring Provider Speciality Family Med icine Referred Organization [facility] Referred Provider Edson Yepez Referred Address [address] [place], [place],[address], Referred Provider Specialty Urology Referral Priority Routine MEDICATIONS Medication SIG (Take, Route, Frequency, Duration) Notes Start Date End Date Status Cephalexin 500 MG 1 capsule Orally BID for two years pt stated knee infection Active Meloxicam 15 MG 1 tablet Orally Once a day Active Losartan Potassium 50 MG 1 tablet Orally Once a day Active Atorvastatin Calcium 20 MG 1 tablet Orally Once a day Active Tamsulosin HCl 0.4 MG 1 capsule Orally Once a day Active Aspirin 325 MG 1 tablet Orally Once a day Active Probiotic Active SOCIAL HISTORY Tobacco Use: Social History Observation Description Date Details (start date - stop date) Former Smoker NA - NA Sex Assigned At : Social History Observation Description Sex Assigned At Unknown Tobacco Use/Smoking Question Answer Notes Are you a former smoker How long has it been since you last smoked? > 10 years PROBLEMS Problem Type ICD Code Onset Dates Problem Status W/U Status Risk SNOMED Code Notes Problem Cyst of kidney, acquired (N28.1) Active confirmed 888871304 Problem Asymptomatic microscopic hematuria (R31.21) Active confirmed [id number] Problem BPH loc w urin obs/LUTS (N40.1) Active confirmed [id number] VITAL SIGNS Heart Rate 102 /min 02/16/2023 Temperature 99.2 degrees Fahrenheit 02/16/2023 Height-cm 165.1 cm 02/16/2023 Blood pressure diastolic 82 mm Hg 02/16/2023 Weight-kg 70.76 kg 02/16/2023 Height 65 in 02/16/2023 Blood pressure systolic 112 mm Hg 02/16/2023 Weight 156 lbs 02/16/2023 BMI 25.96 kg/m2 02/16/2023 Encounters Encounter Location Date Provider Diagnosis [facility] [address] [place] [address], [place] [address] 12/04/2022 [facility] [address] [place] [address], [place] [address] 02/16/2023 Edson Yepez Cyst of kidney, acquired N28.1 ; Asymptomatic microscopic hematuria R31.21 and BPH loc w urin obs/LUTS N40.1 ASSESSMENTS Encounter Date Diagnosis Assessment Notes Treatment Notes Treatment Clinical Notes 02/16/2023 Cyst of kidney, acquired (ICD-10 - N28.1) 02/16/2023 Asymptomatic microscopic hematuria (ICD-10 - R31.21) 02/16/2023 BPH loc w urin obs/LUTS (ICD-10 - N40.1) PLAN OF TREATMENT Pending Test Test Name Order Date UA Without Micro-Auto [id number] 02/16/2023 Future Test Test Name Order Date Blood Urea Nitrogen (BUN) 62004 06/19/20 23 Creatinine (B) 86110 06/19/2023 CT Abdomen, Pelvis w/ + w/o Contrast-741 78 06/19/2023 Insurance Providers Payer Name Payer Address Payer Phone Subscriber Number Group Number Insured Name Patient Relationship to Insured Coverage Start Date Coverage End Date [place] [address] [place] [phone] [id number] Anthony Jimenez Self - patient is the insured [facility] [address] [facility] [place] [address] [phone] [id number] Caldwell Self - patient is the insured MEDICAL (GENERAL) HISTORY Medical History History ICD Code Arthritis migraine headaches hypertension Surgical History Surgery Date(Month/Year) cervical neck surgery X2 lower back surgery 2020 right knee surgery X2 Hospitalization History Reason Date(Month/Year) surgeries
== END 2023-05-25 17:05 | disposition home or self-care (01) ==
LOC: CCL 08:04 → ICU 13:38
PROVIDERS: Internal Medicine Cardiovascular Disease; PCP Electrodiagnostic Medicine; Visit Provider Internal Medicine
DX: R06.02 Shortness of breath (principal); J44.9 Chronic obstructive pulmonary disease, unspecified; I10 Essential (primary) hypertension; E78.5 Hyperlipidemia, unspecified; Z87.891 Personal history of nicotine dependence; Z79.82 Long term (current) use of aspirin; N40.1 Benign prostatic hyperplasia with lower urinary tract symptoms; N13.8 Other obstructive and reflux uropathy; M17.11 Unilateral primary osteoarthritis, right knee
CPT/HCPCS: 36415; 80048; 85025; 85610; 93458; 96361; 96365; 99152; 99153; C1769; C1887; C1894; J1644; J2250; J3010; J3490; J7030; Q0163; Q9967

== ENCOUNTER → 2023-05-27 11:12 | Outpatient (BNVA) | payer OTHER, SELFPAY | PROVIDERS: PCP Electrodiagnostic Medicine; Visit Provider Internal Medicine Rheumatology | DX: M31.6 Other giant cell arteritis (principal); Z79.899 Other long term (current) drug therapy; M00.9 Pyogenic arthritis, unspecified; Z71.85 Encounter for immunization safety counseling | CPT/HCPCS: 99214 ==

== ENCOUNTER → 2023-06-02 09:48 | Outpatient (BNVA) | payer OTHER, SELFPAY | PROVIDERS: PCP Electrodiagnostic Medicine; Visit Provider Nurse Practitioner Family | DX: I10 Essential (primary) hypertension (principal); Z09 Encounter for follow-up examination after completed treatment for conditions other than malignant neoplasm; Z87.891 Personal history of nicotine dependence | CPT/HCPCS: 36415; 80048; 99214 ==

== ENCOUNTER 2023-06-17 16:49 | Emergency (ER) | payer OTHER, SELFPAY ==
[2023-06-17 17:16] VITALS: BP 159/88; PULSE 82; RESP 17; TEMP 36.5; O2SAT 94; BMI 25.0
--- NOTE | 2023-06-17 19:03 | W.ED.GENADLT ---
HPI - General Adult General: Chief complaint: General Medical Stated complaint: body aches Time Seen by Provider: 06/17/23 18:59 History of Present Illness: Presents to the ER with complaints of body aches worse on his right side such as right hip right knee right ankle. Patient is on high-dose prednisone that he is tapering down and just recently started methotrexate. Patient is followed by Dr. Agrawal the supervisor chemical. Patient says that he was told to come here for further evaluation and testing due to these immunosuppressant drugs and he may be developing an infection. Patient is currently on cephalexin and Bactrim due to having a history of a prosthetic right knee infection. This was operated on by Dr. Bartlett. Review of Systems General: Reports: 10 or more systems reviewed and unremarkable except in HPI and below PFSH ED PFSH: Medical History Immunization counseling High risk medication use Giant cell arteritis Complex renal cyst Originally noted in 2013 with no significant regional climate change analyst time. Complexity comes from some rim calcification and septation. Impotence BPH NOS w ur obs/LUTS Hyperlipidemia Hypertension Surgical History Status post right knee replacement H/O vasectomy Hx of cataract surgery History of colonoscopy (10/23/20) Diverticulosis, internal hemorrhoids H/O sinus surgery S/P cervical spinal fusion History of lumbar fusion Family History Father , at age 51 Myocardial infarction (lateral wall) Mother , at age 75 Cancer lung Social History Smoking and tobacco/nicotine status: former use of tobacco/nicotine Alcohol intake: current Alcohol intake frequency: holidays/special occasions only Marital status: Current occupational status: retired Physical Exam Const: COMMON NORMALS: no acute distress, average body habitus, patient oriented x3, no limitations, healthy appearing, alert and well nourished HENMT: COMMON NORMALS: normocephalic, atraumatic, hearing grossly normal bilaterally, external ears normal, Normal external nose present, moist oral mucous membranes and oropharynx normal HEAD & SCALP: normocephalic and atraumatic NOSE: Normal external nose present EXTERNAL EAR: Yes external ears normal Eye: COMMON NORMALS: Equal, round and reactive pupils present, EOMs intact bilaterally, conjunctivae normal and no scleral icterus CONJUNCTIVA: Yes conjunctivae normal PUPIL: Yes Equal, round and reactive pupils present Neck/C-Spine: COMMON NORMALS: no JVD Lymph: LYMPHATIC: no lymphadenopathy noted Chest: COMMONS NORMALS: normal inspection of the chest and normal palpation of entire chest wall Resp: COMMON NORMALS: normal respiratory effort, No retractions, No use of accessory muscles and clear to auscultation bilaterally AUSCULTATION: clear to auscultation bilaterally Cardio: COMMON NORMALS: no JVD, regular rate, regular rhythm, S1 normal heart sound present, S2 normal heart sound present, No gallops present (Cardio), No clicks present (Cardio), No murmurs present (Cardio) and No rub (Cardio) RATE: regular rate RHYTHM: regular rhythm HEART SOUNDS: S1 normal heart sound present and S2 normal heart sound present GI: COMMON NORMALS: Normal to inspection, nondistended, normoactive bowel sounds present, Soft to palpation, non-tender, No hepatosplenomegaly present and no masses PALPATION: Yes Soft to palpation and Yes No hepatosplenomegaly present Extremity: NARRATIVE EXTREMITY EXAM: No swelling bilateral lower extremities no obviously swollen or erythematous joints. Neuro: COMMON NORMALS: patient oriented x3 SENSORIUM/ORIENTATION: Yes alert Course Vital Signs: Vital signs: Vital Signs Temperature 97.7 F 06/17/23 17:16 Pulse Rate 82 06/17/23 17:16 Respiratory Rate 17 06/17/23 17:16 Blood Pressure 159/88 06/17/23 17:16 Pulse Oximetry 94 06/17/23 17:16 Oxygen Delivery Me thod Room Air 06/17/23 17:16 [facility] - General Adult Medical Decision Making Patient had lab work performed which included CBC, CMP, procalcitonin, CRP, urinalysis, influenza, COVID, blood cultures, patient refuses chest x-ray. Patient is on long-term immunosuppressant therapy as well as long-term antibiotics for septic prosthetic joint. All of patient's lab work was negative. We will await the cultures. Patient be discharged home. Patient be called with positive culture results. Medical Records I reviewed the patient's medical records. Lab Data I reviewed the patient's lab results. 06/17/23 19:09 06/17/23 19:09 Laboratory Results WBC 9.52 10^3/uL (3.29-11.43) 06/17/23 19:09 RBC 5.01 10^6/uL (3.85-5.65) 06/17/23 19:09 Hgb 15.70 g/dL (11.27-16.99) 06/17/23 19:09 Hct 48.1 % (37-53) 06/17/23 19:09 MCV 96.0 fl (82-101) 06/17/23 19:09 MCH 31.3 pg (27-33) 06/17/23 19:09 MCHC 32.6 g/dL (30-55) 06/17/23 19:09 RDW 15.6 % (12.1-15.1) H 06/17/23 19:09 Plt Count 271 10^3/cmm (157-399) 06/17/23 19:09 MPV 10.2 fL (7.4-10.4) 06/17/23 19:09 Neut % (Auto) 76.2 % 06/17/23 19:09 Lymph % (Auto) 13.3 % 06/17/23 19:09 [place] % (Auto) 9.8 % 06/17/23 19:09 Eos % (Auto) 0.2 % 06/17/23 19:09 Baso % (Auto) 0.2 % 06/17/23 19:09 Neut # (Auto) 7.25 10^3/uL (1.8-7.7) 06/17/23 19:09 Lymph # (Auto) 1.3 10^3/uL (0.8-4.8) 06/17/23 19:09 [place] # (Auto) 0.9 10^3/uL (0.2-0.9) 06/17/23 19:09 Eos # (Auto) 0.0 10^3/uL (0.0-0.8) 06/17/23 19:09 Baso # (Auto) 0.0 10^3/uL (0.0-0.1) 06/17/23 19:09 Nucleated RBC % (auto) 0 % 06/17/23 19:09 Nucleated RBCs # 0.0 /100WBC 06/17/23 19:09 Sodium 140 mmol/L (136-145) 06/17/23 19:09 Potassium 4.5 mmol/L (3.5-5.1) 06/17/23 19:09 Chloride 101 mmol/L (98-107) 06/17/23 19:09 Carbon Dioxide 25 mmol/L (22-29) 06/17/23 19:09 Anion Gap 18.5 (5-19) 06/17/23 19:09 BUN 27 mg/dL (8-23) H 06/17/23 19:09 Creatinine 1.0 mg/dL (0.7-1.2) 06/17/23 19:09 GFR Calculation Not Reportable 06/17/23 19:09 Glucose 99 mg/dL (65-115) 06/17/23 19:09 Calculated Osmolality 295 mOsm/kg (285-295) 06/17/23 19:09 Calcium 9.7 mg/dL (8.5-10.5) 06/17/23 19:09 Total Bilirubin 0.4 mg/dL (0.15-1.2) 06/17/23 19:09 AST 21 U/L (0-40) 06/17/23 19:09 ALT 22 U/L (0-41) 06/17/23 19:09 Alkaline Phosphatase 54 U/L (40-130) 06/17/23 19:09 C-Reactive Protein 3.0 mg/L (0.0-4.9) 06/17/23 19:09 Total Protein 7.0 g/dL (6.6-8.7) 06/17/23 19:09 Albumin 4.6 g/dL (3.5-5.2) 06/17/23 19:09 Globulin 2.4 g/dL (1.3-4.6) 06/17/23 19:09 Procalcitonin 0.08 ng/mL (0-0.5) 06/17/23 19:09 Urine Color Yellow (Yellow) 06/17/23 21:54 Urine Appearance Sl hazy (CLEAR) A 06/17/23 21:54 Urine pH 5 (5-7) 06/17/23 21:54 Ur Specific [place] 1.025 (1.005-1.030) 06/17/23 21:54 Urine Protein Neg (Negative) 06/17/23 21:54 Urine Glucose (UA) Norm (Normal) 06/17/23 21:54 Urine Ketones Negative (Negative) 06/17/23 21:54 Urine Blood 3+ (Negative) H 06/17/23 21:54 Urine Nitrate Negative (Negative) 06/17/23 21:54 Urine Bilirubin Neg (Negative) 06/17/23 21:54 Urine Urobilinogen Neg mg/dL (Negative) 06/17/23 21:54 Ur Leukocyte Esterase Negative (Negative) 06/17/23 21:54 Urine RBC 5-10 /hpf (0-2) H 06/17/23 21:54 Urine WBC 0-4 /hpf (0-5) H 06/17/23 21:54 Ur Squamous Epith Cells None /hpf (0-5) 06/17/23 21:54 Amorphous Sediment Not Reportable 06/17/23 21:54 Urine Bacteria Trace /hpf (NONE) 06/17/23 21:54 Urine Mucus 2+ /hpf 06/17/23 21:54 Influenza Type A Ag Negative (Negative) 06/17/23 19:29 Influenza Type B Ag Negative (Negative) 06/17/23 19:29 SARS-CoV-2 Ag (Rapid) negative (Negative) 06/17/23 19:29 All radiology interpretation(s) finalized by discharge Discharge Plan Discharge Patient Disposition: Home Clinical Impression: Immunosuppression due to chronic steroid use, Body aches Condition: Stable Prescriptions: No Action albuterol sulfate [Ventolin HFA] 90 mcg/actuation HFA aerosol inhaler 2 puff inhalation Q6H PRN (Reason: Shortness Of Breath) losartan 50 mg tablet 50 mg PO QAM aspirin 325 mg tablet 325 mg PO BID omeprazole 40 mg capsule,delayed release(DR/EC) See Rx Instructions PO DAILY Qty: 90 1RF Rx Instructions: take 1 capsule in AM 30 minutes before breakfast orally daily; folic acid 1 mg tablet 1 mg PO DAILY Qty: 90 1RF methotrexate sodium 2.5 mg tablet See Rx Instructions PO .Q7days Qty: 90 1RF Rx Instructions: take 6 tabs on same day once a week PO .Q7days; prednisone 5 mg tablet See Rx Instructions PO .COMPLEX PRN (Reason: joint pain flare) Qty: 30 1RF Rx Instructions: take 3.5 tabs daily x1wk, 3 tabs daily x2wk, 2.5 tabs daily x2wks then stay on 2tabs daily and call Dr Agrawal sulfamethoxazole-trimethoprim [Bactrim DS] 800-160 mg tablet See Rx Instructions PO .COMPLEX Qty: 45 1RF Rx Instructions: take 1 tab on Thursday, Thursday and Thursday orally; cephalexin 500 mg capsule 500 mg PO BID 90 Days Qty: 180 3RF prednisone 10 mg tablet See Rx Instructions .Route .COMPLEX Qty: 30 1RF Rx Instructions: 20mg daily budesonide-formoterol [Symbicort] 160-4.5 mcg/actuation HFA aerosol inhaler 2 puff INHALATION BID ipratropium-albuterol 0.5 mg-3 mg(2.5 mg base)/3 mL solution for nebulization 3 ml INHALATION Q4H PRN (Reason: Shortness Of Breath) tamsulosin 0.4 mg capsule 0.4 mg PO QAM atorvastatin 20 mg tablet 20 mg PO QAM Probiotic Blend 2 billion cell-50 mg Capsule 1 cap PO DAILY Rx Instructions: give with meal/snack Discharge Orders: Discharge ED (Routine); Ordered 06/17/23 Ordered By: Adilson Mims Referrals: Zay Ospina DO [Primary Care Provider] - 1 week Activity Restrictions/Additional Instructions: All the lab work and urine obtained through the visit today showed no acute signs of infection. You declined to have a chest x-ray done so that cannot rule out lung infection. You have blood cultures pending. If any results show positive in the next several days you will be called. Otherwise follow-up with your supervisor chemical and/or family practice physician within the next 7 days for further evaluation and treatment. Coding Level of Care Code ED Network Contract Manager for Alan Mathews
[2023-06-17 19:32] LABS: Basophils % 0.2 %; Eosinophils % 0.2 %; Hematocrit 48.1 % (37-53); Lymphocytes # 1.3 10^3/uL (0.8-4.8); Lymphocytes % 13.3 %; Mean Corpuscular HGB Conc 32.6 g/dL (30-55); Mean Corpuscular Hemoglobin 31.3 pg (27-33); Mean Platelet Volume 10.2 fL (7.4-10.4); Monocytes # 0.9 10^3/uL (0.2-0.9); Monocytes % 9.8 %; Neutrophils # 7.25 10^3/uL (1.8-7.7); Neutrophils % 76.2 %; Nucleated Red Blood Cells % 0 %; Platelet Count 271 10^3/cmm (157-399); Red Blood Count 5.01 10^6/uL (3.85-5.65); Red Cell Distribution Width 15.6 % (12.1-15.1); White Blood Count 9.52 10^3/uL (3.29-11.43)
[2023-06-17 19:46] LABS: Alanine Aminotransferase 22 U/L (0-41); Albumin Level 4.6 g/dL (3.5-5.2); Alkaline Phosphatase 54 U/L (40-130); Anion Gap 18.5 (5-19); Aspartate Amino Transferase 21 U/L (0-40); Blood Urea Nitrogen 27 mg/dL (8-23); Calcium 9.7 mg/dL (8.5-10.5); Carbon Dioxide 25 mmol/L (22-29); Chloride 101 mmol/L (98-107); Globulin 2.4 g/dL (1.3-4.6); Glucose 99 mg/dL (65-115); Osmolality Calculated 295 mOsm/kg (285-295); Potassium 4.5 mmol/L (3.5-5.1); Sodium 140 mmol/L (136-145); Total Bilirubin 0.4 mg/dL (0.15-1.2)
[2023-06-17 19:52] LABS: Procalcitonin 0.08 ng/mL (0-0.5)
[2023-06-17 20:11] LABS: SARS Covid-2 Antigen negative (Negative)
--- NOTE | 2023-06-17 20:11 | PC.NURSE ---
NURSE ANSWERED CALL LIGHT, PT STATED AM I EVER GETTINGA PAIN PILL NURSE REPLIED I DONT KNOW WHATS GOING ON. HE PROCEEDED TO SAY HED ASKED THAT AND THAT NURSE AND STARTED TO TALK ABOUT HER PERSONALITY (ANOTHER NURSE) AND I SAID OKAY WE DO NOT NEED TO BE RUDE AND HE STARTED YELLING AT NURSE TELLING ME TO GET HIM A PAIN PILL. I CLOSED CURTED AND WALKED AWAY WHILE HE WAS YELLING.
[2023-06-17 20:13] LABS: Influenza A by IFA Negative (Negative); Influenza B by IFA Negative (Negative)
[2023-06-17] MEDS: HYDROcodone-acetaminophen 5-325 mg Tablet 1 TAB PO (20:23)
[2023-06-17 22:17] LABS: Glucose Urine UA Norm (Normal); Protein Urine Neg (Negative); Specific Gravity, Urine 1.025 (1.005-1.030); Urine Appearance SL Hazy (CLEAR); Urine Color Yellow (Yellow); pH Urine 5 (5-7)
[2023-06-17 22:18] LABS: Add Urine Culture? No; Add Urine Microscopic? YES; Bacteria Urine TRACE /hpf; Bilirubin Urine Neg (Negative); Blood Urine 3+ (Negative); Ketones Urine Negative (Negative); Leukocyte Esterase Urine Negative (Negative); Mucus Urine 2+ /hpf; Nitrate Urine Negative (Negative); Urobilinogen Urine Neg (Negative); WBC Urine 0-4 /hpf (0-5)
== END 2023-06-17 22:39 | disposition home or self-care (01) ==
PROVIDERS: Emergency Medicine; Emergency Provider Emergency Medicine; PCP Electrodiagnostic Medicine
DX: R52 Pain, unspecified (principal); D84.821 Immunodeficiency due to drugs; T38.0X5A Adverse effect of glucocorticoids and synthetic analogues, initial encounter; Z79.52 Long term (current) use of systemic steroids; Z79.82 Long term (current) use of aspirin; Z11.52 Encounter for screening for COVID-19; Z87.891 Personal history of nicotine dependence; I10 Essential (primary) hypertension; E78.5 Hyperlipidemia, unspecified
CPT/HCPCS: 36415; 80053; 81001; 84145; 85025; 86140; 87040; 87426; 87804; 99284

== ENCOUNTER → 2023-06-19 10:53 | Outpatient (BNVA) | payer OTHER, SELFPAY | PROVIDERS: PCP Electrodiagnostic Medicine; Visit Provider Student in an Organized Health Care Education/Training Program | DX: Z96.651 Presence of right artificial knee joint (principal); T84.59XA Infection and inflammatory reaction due to other internal joint prosthesis, initial encounter; Y79.2 Prosthetic and other implants, materials and accessory orthopedic devices associated with adverse incidents | CPT/HCPCS: 73560; 73565; 99213 ==

== ENCOUNTER 2023-07-02 16:08 | Outpatient (CLI) | payer OTHER, SELFPAY ==
[2023-07-02 16:32] LABS: Basophils % 0.1 %; Hematocrit 46.6 % (37-53); Lymphocytes # 0.4 10^3/uL (0.8-4.8); Lymphocytes % 5.3 %; Mean Corpuscular HGB Conc 33.3 g/dL (30-55); Mean Corpuscular Hemoglobin 31.6 pg (27-33); Mean Corpuscular Volume 94.9 fl (82-101); Mean Platelet Volume 10.1 fL (7.4-10.4); Monocytes # 0.2 10^3/uL (0.2-0.9); Monocytes % 2.9 %; Neutrophils # 7.63 10^3/uL (1.8-7.7); Neutrophils % 91.2 %; Nucleated Red Blood Cells % 0 %; Platelet Count 282 10^3/cmm (157-399); Red Blood Count 4.91 10^6/uL (3.85-5.65); Red Cell Distribution Width 14.6 % (12.1-15.1); White Blood Count 8.36 10^3/uL (3.29-11.43)
[2023-07-02 16:59] LABS: Alanine Aminotransferase 31 U/L (0-41); Albumin Level 4.6 g/dL (3.5-5.2); Alkaline Phosphatase 53 U/L (40-130); Aspartate Amino Transferase 20 U/L (0-40); Globulin 2.5 g/dL (1.3-4.6); Total Bilirubin 0.5 mg/dL (0.15-1.2); Total Protein 7.1 g/dL (6.6-8.7)
== END 2023-07-02 16:09 | disposition home or self-care (01) ==
PROVIDERS: PCP Electrodiagnostic Medicine; Visit Provider Internal Medicine Rheumatology
DX: M31.6 Other giant cell arteritis (principal); Z79.899 Other long term (current) drug therapy
CPT/HCPCS: 36415; 80076; 82565; 85025; 86140

== ENCOUNTER 2023-07-16 08:57 | Outpatient (CLI) | payer OTHER, SELFPAY ==
[2023-07-16 09:23] LABS: Basophils % 0.4 %; Eosinophils # 0.1 10^3/uL (0.0-0.8); Hematocrit 46.4 % (37-53); Lymphocytes # 1.6 10^3/uL (0.8-4.8); Lymphocytes % 15.2 %; Mean Corpuscular HGB Conc 33.2 g/dL (30-55); Mean Corpuscular Hemoglobin 31.8 pg (27-33); Mean Corpuscular Volume 95.7 fl (82-101); Mean Platelet Volume 9.8 fL (7.4-10.4); Monocytes # 0.8 10^3/uL (0.2-0.9); Monocytes % 7.2 %; Neutrophils # 8.05 10^3/uL (1.8-7.7); Neutrophils % 75.9 %; Nucleated Red Blood Cells % 0 %; Platelet Count 220 10^3/cmm (157-399); Red Blood Count 4.85 10^6/uL (3.85-5.65); Red Cell Distribution Width 14.4 % (12.1-15.1)
--- NOTE | 2023-07-16 09:30 | USCV_ITS ---
Anthony Jimenez Age: 78 Gender: M : 1945 Exam Date: 07/16/2023 09:25 Ordering Phys: Faustino Aguilar MD (Andy) ([email or web address] [place] Technologist: CT Exam Location: [facility] [place] Indication: stenosis Risk Factors: Previous Vascular Surgery: Right Brachial BP: / Left Brachial BP: / Right Left Velocity (cm/s) Spectral Plaque Velocity (cm/s) Spectral Plaque Syst/Diast Broadening Syst/Diast Broadening 79.00/ 20.20 Prox CCA 79.30 / 22.50 69.80/ 24.30 Mid CCA 56.70 / 19.60 53.10/ 16.00 Distal CCA 52.00 / 18.30 33.80/ 12.00 Prox ICA 42.30 / 14.30 52.40/ 19.80 Mid ICA 116.65/ 46.15 53.50/ 19.80 Distal ICA 105.50/ 44.60 67.60 ECA 67.10 0.68 ICA/CCA 1.51 Antegrade Vertebral Antegrade 30.10/ 10.00 cm/s 67.90/ 15.00 cm/s Bi Subclavian Bi 132.1 130.2 0 0 CONCLUSIONS Right ICA stenosis <50%. Mild atheromatous plaque right carotid bulb/ICA. Left ICA stenosis <50%. Mild atheromatous plaque left carotid bulb/ICA. Normal antegrade Doppler flow noted in the right vertebral artery. Normal antegrade Doppler flow noted in the left vertebral artery. Colten Murillo MD (Electronically Signed) Final Date: 16 July 2023 13:55 S
[2023-07-16 09:47] LABS: Alanine Aminotransferase 24 U/L (0-41); Albumin Level 4.3 g/dL (3.5-5.2); Alkaline Phosphatase 54 U/L (40-130); Aspartate Amino Transferase 23 U/L (0-40); Globulin 2.3 g/dL (1.3-4.6); Total Bilirubin 0.4 mg/dL (0.15-1.2); Total Protein 6.6 g/dL (6.6-8.7)
== END 2023-07-16 08:58 | disposition home or self-care (01) ==
LOC: RAD 08:58
PROVIDERS: Internal Medicine Rheumatology; PCP Electrodiagnostic Medicine; Visit Provider Thoracic Surgery (Cardiothoracic Vascular Surgery)
DX: M31.6 Other giant cell arteritis (principal); I65.23 Occlusion and stenosis of bilateral carotid arteries; Z79.899 Other long term (current) drug therapy
CPT/HCPCS: 36415; 80076; 82565; 85025; 86140; 93880

== ENCOUNTER → 2023-07-21 08:39 | Outpatient (BNVA) | payer OTHER, SELFPAY | PROVIDERS: PCP Electrodiagnostic Medicine; Visit Provider Student in an Organized Health Care Education/Training Program | DX: M00.9 Pyogenic arthritis, unspecified (principal); M31.6 Other giant cell arteritis | CPT/HCPCS: 99213 ==

== ENCOUNTER → 2023-07-23 09:01 | Outpatient (BNVA) | payer OTHER, SELFPAY | PROVIDERS: PCP Electrodiagnostic Medicine; Visit Provider Thoracic Surgery (Cardiothoracic Vascular Surgery) | DX: I65.22 Occlusion and stenosis of left carotid artery (principal); Z87.891 Personal history of nicotine dependence; I10 Essential (primary) hypertension | CPT/HCPCS: 99213 ==

== ENCOUNTER 2023-08-05 12:41 | Outpatient (CLI) | payer OTHER, SELFPAY ==
[2023-08-05 13:04] VITALS: PULSE 101; RESP 18; O2SAT 98
[2023-08-05] MEDS: albuterol 2.5 mg/3 mL Neb INHALATION (13:04)
[2023-08-05 13:09] VITALS: PULSE 98
== END 2023-08-05 12:42 | disposition home or self-care (01) ==
LOC: RT 12:42
PROVIDERS: PCP Electrodiagnostic Medicine; Visit Provider Nurse Practitioner Family
DX: J44.9 Chronic obstructive pulmonary disease, unspecified (principal); R94.2 Abnormal results of pulmonary function studies
CPT/HCPCS: 94060; J7613

== ENCOUNTER → 2023-08-26 15:32 | Outpatient (BNVA) | payer OTHER, SELFPAY | PROVIDERS: PCP Electrodiagnostic Medicine; Visit Provider Internal Medicine | DX: R06.02 Shortness of breath (principal); I10 Essential (primary) hypertension; E78.5 Hyperlipidemia, unspecified; Z87.891 Personal history of nicotine dependence | CPT/HCPCS: 99214 ==

== ENCOUNTER 2023-08-31 07:30 | Outpatient (CLI) | payer OTHER, SELFPAY ==
--- NOTE | 2023-08-31 07:33 | CT_ITS ---
WS: [id number] CT ABDOMEN AND PELVIS WITH AND WITHOUT CONTRAST HISTORY: CYST OF KIDNEY TECHNIQUE: Unenhanced 5 mm axial imaging first performed through the abdomen. Post contrast imaging t hrough the abdomen and pelvis. Oral contrast has not been provided. Sagittal and coronal reformats a re submitted. All CT scans at [facility] use at least one of these dose optimization techniqu es: automated exposure control; mA and/or kV adjustment per patient size (includes targeted exams whe re dose is matched to clinical indication); or iterative reconstruction. CONTRAST: Omnipaque 350; 95 mL IV. DLP: 1121.02 mGy.cm COMPARISON: 12/05/2022, Centrilobular emphysema at the lung bases. Stable pleural nodule and calcification at the LEFT lung b ase. Similar to the prior study from 04/22/2019 heart is normal size. Small hiatal hernia. Normal size liver with numerous scattered low-attenuation nodules. Majority of these are cysts and pr esent on the study of 12/05/2022. Some of these are too small to characterize. No solid mass. Normal p ortal vein. Normal size spleen. Negative gallbladder. No bile duct dilatation. Normal pancreas. No ad renal mass. Negative RIGHT kidney. LEFT kidney: Normal size kidney. There is a lobulated complex cyst associated with the mid kidney wit h septations and peripheral calcifications. This is a lobulated cyst measuring 4.4 x 4.0 x 5.3 cm. Ve ry slight increase in size since the prior examination. There is minimal enhancement. There is variab le density on the postcontrast imaging. No renal obstruction. Moderate atherosclerosis aorta. Atherosclerotic plaque at the celiac axis. Nondistended stomach. No small bowel obstruction. Mild constipation. Normal appendix. There are fused distal sigmoid diverticula without acute diverticulitis. No ascites or adenopathy. Prostate gland is enlarged and heterogeneous encroaching into the bladder. Bladder is normally disten ded. L4 anterolisthesis by 4.7 mm. Disc bases are narrowed throughout the lumbar spine, most significant a t L4-5. There is a large posterior laminectomy defect from L3-L5. IMPRESSION: 1. Lobulated, septated LEFT renal cystic mass with wall septations. Bosniak IIf. Recommend yearly re nal mass CT protocol. 2. Stable pleural-based nodular calcification at the LEFT lung base. 3. Too small to characterize hypodensities along with hepatic cysts which are stable. 4. No GI tract obstruction.
[2023-08-31] MEDS: iohexol 350 mg/mL 500 mL Btl (per mL) IV (08:22)
== END 2023-08-31 07:31 | disposition home or self-care (01) ==
LOC: RAD 07:30
PROVIDERS: PCP Electrodiagnostic Medicine; Visit Provider Urology
DX: N28.1 Cyst of kidney, acquired (principal)
CPT/HCPCS: 74178; Q9967

== ENCOUNTER → 2023-09-03 08:50 | Outpatient (BNVA) | payer OTHER, SELFPAY | PROVIDERS: PCP Electrodiagnostic Medicine; Visit Provider Student in an Organized Health Care Education/Training Program | DX: Z96.651 Presence of right artificial knee joint (principal); T84.59XA Infection and inflammatory reaction due to other internal joint prosthesis, initial encounter; Y79.2 Prosthetic and other implants, materials and accessory orthopedic devices associated with adverse incidents | CPT/HCPCS: 73560; 73565 ==

== ENCOUNTER → 2023-09-18 08:29 | Outpatient (BNVA) | payer OTHER, SELFPAY | PROVIDERS: PCP Electrodiagnostic Medicine; Referring Provider Family Medicine; Visit Provider Orthopaedic Surgery | DX: M54.9 Dorsalgia, unspecified (principal); M48.062 Spinal stenosis, lumbar region with neurogenic claudication; M25.561 Pain in right knee | CPT/HCPCS: 36415; 72110; 80053; 81001; 85025; 99204 ==

== ENCOUNTER → 2023-10-01 09:23 | Outpatient (BNVA) | payer OTHER, SELFPAY | PROVIDERS: PCP Electrodiagnostic Medicine; Visit Provider Family Medicine | DX: Z01.818 Encounter for other preprocedural examination (principal) | CPT/HCPCS: 81003; 87086 ==

== ENCOUNTER 2023-10-05 10:08 | Inpatient (IN) | payer OTHER, SELFPAY ==
[2023-10-05] VITALS (19 sets, daily range): BP systolic 96–135; BP diastolic 57–78; PULSE 64–89; RESP 15–19; TEMP 36.6–37.3; O2SAT 94–100; BMI 24.6; BMI 24.1
--- NOTE | 2023-10-05 | XR_ITS ---
WS: [id number] Lumbar spine, C ARM fluoroscopy views, 10/05/2023 Clinical Data: OR PICS Comparison: Lumbar spine, 09/18/2023 Findings: Dr. Goddard performed a posterior lumbosacral fusion. Impression: Posterior lumbosacral fusion.
[2023-10-05] MEDS: sodium chloride 0.9% 1,000 ML 30 ML IV (06:23)
--- NOTE | 2023-10-05 06:26 | ANES.PREANE2 ---
Pre-Anesthetic Assessment Height/Weight: Height 1.65 m Preop Diagnosis: Lumbar stenosis with neurogenic claudication Operation Date: 10/05/23 07:00 Proposed Procedures p Spinal Fusion(Not Applicable) - Major Zavala Nitza, DO s Lumbar Spine Decompression Lumbar Decompression(Not Applicable) - Major Zavala Nitza, DO s Posterior Lumbar Interbody Fusion(Not Applicable) - Major Zavala Nitza, DO s Sacroiliac Joint Fusion(Not Applicable) - Major Zavala Nitza, DO s Posterior Segmental Instrumentation(Not Applicable) - Major Zavala Nitza, DO Pulmonary Chronic Obstructive Pulmonary Disease CV/HEM Hypertension CAROTID DOPPLER 07/16/23 CONCLUSIONS Right ICA stenosis <50%. Mild atheromatous plaque right carotid bulb/ICA. Left ICA stenosis <50%. Mild atheromatous plaque left carotid bulb/ICA. Normal antegrade Doppler flow noted in the right vertebral artery. Normal antegrade Doppler flow noted in the left vertebral artery. LEFT HEART CATH 05/25/23 Conclusions 1. No significant disease noted in the Left Main, Left Anterior Descending, Right, or Circumflex coronary arteries. 2. Normal left ventricular systolic function. Ejection fraction of 60%. ECHO 02/17/23 CONCLUSIONS 1. This is a technically difficult study in spite of echo contrast. 2. Normal left ventricular cavity size. Normal left ventricular systolic function. Left ventricular ejection fraction is estimated at 60-65 %. No diagnostic regional wall motion abnormality. Normal diastolic function. 3. No prior similar studies to compare. SESTAMIBI STRESS TEST 01/19/23 CONCLUSION: 1. Normal EKG response to treadmill exercise. 2. No exercise-induced chest pain or cardiac arrhythmia. 3. Good exercise tolerance, attained a maximum of 7 METs. 4. Baseline hypertension with hypertensive response to exercise. MYOCARDIAL PERFUSION SCAN 01/19/23 IMPRESSIONS 1. Myocardial perfusion imaging is normal. 2. Overall left ventricular systolic function is normal without regional wall motion abnormalities, LVEF=75%. 3. EKG portion of the study will be reported separately. 4. Scan indicates low risk for cardiac events. GI chronic nausea on prednisone- took his pills on an empty stomach this morning and vomited them up - will give reglan, pepcid, and bicitra Anesthetic Plan ASA status: 3 Anesthesia: General Other: RSI for nausea Risk of > 500 ml blood loss (7ml/kg in children): No Other Pertinent Information Low grade temp 99.1 with recent treatment for possible UTI - Surgeon informed. Was placed on bactrim from pre-op clinic as treatment. NO growth on culture. No symptoms otherwise of viral URI. Baseline chronic nausea, not increased, no complaints of diarrhea to suggest viral gastroenteritis. Medications/Allergies Home Medications Medication Instructions Recorded Confirmed Last Taken Type budesonide-formoterol HFA 160 2 puff inhalation BID 08/03/19 10/05/23 10/02/23 History mcg-4.5 mcg/actuation aerosol inhaler (Symbicort) albuterol sulfate 90 mcg/actuation 2 puff inhalation Q6H PRN 08/09/20 10/05/23 10/02/23 History aerosol inhaler (Ventolin HFA) Shortness Of Breath losartan 50 mg tablet 50 mg PO QAM 01/28/22 10/05/23 10/05/23 History atorvastatin 20 mg tablet 20 mg PO QAM 12/19/22 10/05/23 10/02/23 History tamsulosin 0.4 mg capsule 0.4 mg PO QAM 12/19/22 10/05/23 10/05/23 History L.acidophil-L.casei-B.bifid-B.longum-FOS 1 cap PO DAILY 02/22/23 10/05/23 10/05/23 History 2 billion cell-50 mg capsule (Probiotic Blend) aspirin 325 mg tablet 325 mg PO BID 03/26/23 10/05/23 09/28/23 History omeprazole 40 mg capsule,delayed See Rx Instructions PO DAILY #90 05/27/23 10/05/23 10/05/23 Rx release caps amlodipine 10 mg-atorvastatin 10 1 tab PO DAILY Blood pressure 07/21/23 10/05/23 10/05/23 History mg tablet cephalexin 500 mg capsule 500 mg PO BID 90 days #180 caps 07/21/23 10/05/23 10/05/23 Rx folic acid 1 mg tablet 1 mg PO DAILY #90 tabs 07/21/23 10/05/23 10/02/23 Rx sulfamethoxazole 800 See Rx Instructions PO .COMPLEX 07/21/23 10/05/23 10/05/23 Rx mg-trimethoprim 160 mg tablet #15 tabs (Bactrim DS) prednisone 2.5 mg tablet See Rx Instructions PO DAILY #90 01/10/05/23 10/05/23 Rx tabs hydrocodone 5 mg-acetaminophen 325 1 tab PO Q6H PRN pain 5 days #20 09/18/23 10/05/23 10/01/23 Rx mg tablet tabs prednisone 1 mg tablet 1 mg PO DAILY #120 tabs 09/24/23 10/05/23 10/05/23 Rx ciprofloxacin HCl 500 mg tablet 500 mg PO BID #10 tabs 10/02/23 10/05/23 10/05/23 Rx cyclobenzaprine 10 mg tablet 10 mg PO TID PRN muscle spasms 10/02/23 10/05/23 10/01/23 History methotrexate sodium 2.5 mg tablet See Rx Instructions .Route .COMPLEX 10/02/23 10/05/23 10/05/23 History Allergies Allergy/AdvReac Type Severity Reaction Status Date / Time No Known Allergies Allergy Verified 10/02/23 10:23 Current Medications Generic Name Dose Route Start Last Admin Trade Name Freq PRN Reason Stop Dose Admin Sodium Chloride 1,000 mls @ 30 mls/hr 10/05/23 06:15 10/05/23 06:23 Sodium Chloride 0.9% IV 10/06/23 06:14 30 mls/hr .Q24H JIMENA Administration PFSH Anesthesia Medical History Immunization counseling High risk medication use Giant cell arteritis Complex renal cyst Originally noted in 2012 with no significant private branch exchange service adviser time. Complexity comes from some rim calcification and septation. Impotence BPH NOS w ur obs/LUTS Hyperlipidemia Hypertension Surgical History Status post right knee replacement H/O vasectomy Hx of cataract surgery History of colonoscopy (10/23/20) Diverticulosis, internal hemorrhoids H/O sinus surgery S/P cervical spinal fusion History of lumbar fusion Family History Father , at age 51 Myocardial infarction (lateral wall) Mother , at age 75 Cancer lung Social History Smoking and tobacco/nicotine status: former use of tobacco/nicotine Quit status (tobacco/nicotine): has quit using Year quit tobacco: 1998 Former quit date comment: 1 ppd X 30 years Alcohol intake: current Alcohol intake frequency: holidays/special occasions only Marital status: Current occupational status: retired Data Anesthesia Cardiac Studies: Echocardiogram 02/17/23 Sestamibi Stress Test (Cardiology) 01/19/23
[2023-10-05] MEDS: citric acid-sodium citrate 30 mL UDC PO (06:47)
[2023-10-05] MEDS: ondansetron 2 mg/ML SDV 2 mL 4 MG IVP (06:48)
[2023-10-05] MEDS: famotidine 20 mg/2 mL INJ IVP (06:48)
[2023-10-05] MEDS: metoclopramide 5 mg/mL SDV 2 mL 10 MG IVP (06:48)
--- NOTE | 2023-10-05 06:49 | W.PM.OPSUD ---
Surgery/Procedure H&P Update DATE OF PROCEDURE: October 05, 2023 DATE H&P PERFORMED: 10/01/23 H&P UPDATE INFORMATION: I have reviewed H&P completed within last 30 days, I have examined patient prior to procedure and No changes to prior documentation PREOP DIAGNOSIS: Lumbar stenosis with neurogenic claudication PLANNED PROCEDURE: Operation Date: 10/05/23 07:00 Proposed Procedures p Spinal Fusion(Not Applicable) - Major Goddard DO s Lumbar Spine Decompression Lumbar Decompression(Not Applicable) - DO karen Edgar Posterior Lumbar Interbody Fusion(Not Applicable) - DO karen Edgar Sacroiliac Joint Fusion(Not Applicable) - DO karen Edgar Posterior Segmental Instrumentation(Not Applicable) - Major Goddard DO
[2023-10-05] MEDS: ceFAZolin 2,000 MG in sodium chloride 0.9% (plus) 50 ML 100 MG IV ×3 (07:02→23:16)
[2023-10-05] MEDS: heparin, porcine 1,000 unit/mL INJ 10 mL 10000 UNIT IRRIGATION (07:52)
[2023-10-05] MEDS: lidocaine-epi 1% 20 mL INJ 10 ML INJECTION (07:53)
[2023-10-05] MEDS: thrombin 5,000 unit SDV 5000 UNIT XX (09:03)
[2023-10-05] MEDS: vancomycin 1,000 MG SDV 1000 MG XX (09:04)
--- NOTE | 2023-10-05 11:04 | P.OP_ITS ---
Operative Report Date of procedure: October 05, 2023 Pre-op diagnosis: Lumbar stenosis with neurogenic claudication Post-op diagnosis: same Procedure done: 1.?L5/S1 interbody fusion with posterolateral fusion 2. Cage at L5/S1 3. Posterior fusion L2-pelvis 4.? Instrumentation L2-S1 5.? Lumbopelvic instrumentation 6. open right Sacral iliac fusion 7. open left sacral iliac fusion 8. L4/5 laminectomy with facetectomy on the right 9. L5/S1 laminectomy with facetectomy on the right 10. use of computer navigation / stereotactic spine 11. use of autograft from same incision 12. allograft 13. Bone marrow aspirate from right iliac crest 14. revison spine surgery 15. Removal of hardware from the spine Surgeon: Major Goddard DO Estimated blood loss (mL): 350 Procedure: 1.?L5/S1 interbody fusion with posterolateral fusion 2. Cage at L5/S1 3. Posterior fusion L2-pelvis 4.? Instrumentation L2-S1 5.? Lumbopelvic instrumentation 6. open right Sacral iliac fusion 7. open left sacral iliac fusion 8. L4/5 laminectomy with facetectomy on the right 9. L5/S1 laminectomy with facetectomy on the right 10. use of computer navigation / stereotactic spine 11. use of autograft from same incision 12. allograft 13. Bone marrow aspirate from right iliac crest 14. revison spine surgery 15. Removal of hardware from the spine Patient is brought to the operative suite.? After undergoing anesthesia, the patient had neuro monitoring attached.? Patient was then placed in the prone position on the Anurag table.? All areas of impingement were well-padded.? Patient was then prepped and draped in the normal sterile fashion.? Skin incision was then made over the L1 to the sacrum using previous skin incision.? Subperiosteal dissection was made out to the transverse processes of L2 bilaterally, L3 bilaterally,?L4 bilaterally L5 bilaterally and sacral ala bilaterally.? The [employer] bone marrow aspirate kit was used to aspirate bone marrow aspirate.? This was done by using the sharp probe to open up the bone.? Aspiration was performed and then the blunt probe was then used to dissect down to through the bone tunnel.? An aspirating well drawn back a millimeter approximately 20 cc of bone marrow aspirate was used.? Admixed with the allograft and autograft bone that will be used. Next tension was brought to placing the fiducial for the computer navigation.? 2 pins were placed into the right iliac crest.? The fiducial was attached.? The C- arm was brought in and information from the C arm was then linked to the computer used for placing the screws.? Next attention was brought to placing the pedicle screws.? This was done by using the gearshift probe.? The probe was used to identify the pedicle.? Then the pedicle feeler was used followed by placement of screw.? This was done at L2 bilaterally, L3 bilaterally L4 bilaterally, L5 bilaterally and S1 bilaterally. Next attension was brought to placing the iliac screws.? This was done using the sacral ala iliac technique.? The gearshift probe linked to computer navigation was then placed through the sacral ala into the sacroiliac joint into the iliac crest.? Next the pedicle feeler was used followed by the computer navigated tap.? And then the screw was passed a 80 mm screw was placed on the right side and a 80 mm screw was placed on the left side.? Both the screws were 9.5 mm in diameter. Next attension was brought to performing the open and sacral iliac fusion.? This was done by again using the gearshift probe linked to computer navigation.? Followed by pedicle feeler followed by placing a wire and then the drill drilled over the wire and then bone graft was packed into the sacroiliac joint and into the drill hole.? And the sacroiliac screw was then placed.? This technique was done on both the right and left side. Next attention was brought to performing the laminectomy of L5. This was done using the high-speed bur Kerrisons and curettes. Once the lamina was removed and then attention was brought to performing a partial facetectomy on the contralateral side. This was done again using the high-speed bur curettes and Kerrisons. The ligamentum flavum was taken down bilaterally from L5 to S1. Attention was then brought to the facet on the ipsilateral side. The facet was taken down. The s1 nerve was decompressed as it passed around the S1 pedicle. The laminectomy was done for purposes of decompressing the nerve as well as placement of the cage. The L5 nerve was identified as it traversed through the L5/s1 foramen. The thecal sac was identified and retracted. The L5/S1 disc base was identified. Using a knife the disc base was opened. And then sequential schuyler were placed. The first shaver was a 6 and the last shaver was a 8. Using a pituitary and down going curette the endplates were scraped and disc material was removed from the space. Once adequate decompression of the disc base was felt to be had. Osteoamp sponge was packed into the anterior aspect of the disc base. Then a size 9 cage from [employer] was placed after packing osteoamp into the cage. While placing the cage the thecal sac and S1 nerve was protected. C arm was used to ensure that the cages placed in the appropriate position. Next attention was brought to the L4/5 laminectomy of the facet joint. This was done by performing the laminectomy using high-speed bur and taken of facet joints. The previous laminectomy site was identified and delineated with curved curette and Bovie. Kerrison was then used to take down the remaining lamina as well as the medial aspect of facet joints. Ligamentum flavum was taken down from 4/5. The L5 nerve root was traced around the L5 pedicle and the L4 nerve root was traced out the L4/5 foramen which the superior articular processes were taken down in order to unroofed the foramen. There was scar tissue at the . Attention was then brought to the L3-4 level however scar tissue was quite thick and at this point did not want to risk getting any type of dural injury. Attention was then brought to attaching the rods to the screws placed in the L2 bilaterally, L3 bilaterally, L4 bilaterally, L5 bilaterally and S1 bilaterally.? This was then attached to the sacroiliac screw providing the lumbopelvic fixation.? Caps were torqued into position. Locking the construct in place. Wound was copiously irrigated and then attention was brought to decorticating the facets and transverse processes laterally.? Bone that was taken down from the lamina was used along with osteoamp fibers and sponges were packed into the lateral gutters along the facet joints.? This was done bilaterally. Wound was then closed in a layered fashion starting with the thoracolumbar fascia.? 0-vicryl was used the sub cutaneous tissue was closed with 2-0 vicryl and skin with 4-0 monocryl.? Glue was then used to seal the skin and a steril dressing was applied.? Patient was then placed in the supine position. The endotracheal tube was removed and patient was transferred to the PACU in stable condition.
--- NOTE | 2023-10-05 11:40 | ANE.PACU2 ---
Inpatient post-anesthesia follow up: Airway intact: Yes Vital signs: Temperature 98.3 F Pulse Rate 68 Respiratory Rate 16 Blood Pressure 117/63 Pulse Oximetry 96 Oxygen Delivery Me thod Room Air Oxygen Flow Rate 6 Fraction of Inspir ed Oxygen Hydration adequate: Yes Nausea and vomiting: No Pain level: 1 Mental status: Baseline
[2023-10-05] MEDS: lactated ringers 1,000 ML 90 ML IV ×2 (11:59→23:15)
[2023-10-05] MEDS: ketorolac 30 mg/mL INJ IVP (11:59)
[2023-10-05] MEDS: sulfamethoxazole-trimeth DS 160-800 mg Tablet 1 TAB PO (11:59)
[2023-10-05] MEDS: HYDROcodone-acetaminophen 10-325 mg Tablet PO ×2 (13:54→21:07)
[2023-10-05] MEDS: docusate sodium 100 mg Capsule PO (17:59)
[2023-10-05] MEDS: aspirin 325 mg Tablet PO (17:59)
[2023-10-05] MEDS: ciprofloxacin 500 mg Tablet PO (17:59)
[2023-10-05] MEDS: cephALEXin 500 mg Capsule PO (17:59)
[2023-10-05] MEDS: budesonide 0.5 mg/2 mL Neb INHALATION (19:59)
[2023-10-06] VITALS (7 sets, daily range): BP systolic 142–146; BP diastolic 74–85; PULSE 66–78; RESP 16–18; TEMP 36.6–37; O2SAT 94–96; BMI 24.9
[2023-10-06] MEDS: ceFAZolin 2,000 MG in sodium chloride 0.9% (plus) 50 ML 100 MG IV (06:04)
[2023-10-06] MEDS: losartan 50 mg Tablet PO (06:05)
[2023-10-06] MEDS: atorvastatin 40 mg Tablet PO (06:05)
[2023-10-06] MEDS: tamsulosin 0.4 mg Capsule 0.400000000000000022 MG PO (06:05)
--- NOTE | 2023-10-06 07:34 | PM.DCS ---
Discharge Providers Date of Admission: 10/05/23 10:08 Date of Discharge: October 06, 2023 Attending Provider at Admission: Major Goddard DO Attending Provider at Discharge: Major Goddard DO Primary Care Provider: Zay Ospina DO Reason for Visit Reason for Visit: M48.062 Physical Exam Narrative: Leg pain improved. Was up with physical therapy yesterday. Urinary Catheter Management: Li: Cath Placed During This Visit: yes, but has since been removed by the nurse Reason for Continuing Indwelling Catheter: Decision to DC Catheter Urinary Catheter Date of Insertion: 10/05/23 Urinary Catheter Time of Insertion: 07:00 Date Urinary Catheter Removed: 10/06/23 Time Urinary Catheter Discontinued: 05:10 Discharge Data Studies Completed and Pending Pending at discharge Category Date Time Status XR lumbar spine 2-3V* [id number] Routine Exams 10/05/23 00:00 Taken Vitals Last Vital Signs Temp 98.3 F 10/06/23 03:40 Pulse 73 10/06/23 03:40 Resp 17 10/06/23 03:40 BP 144/74 10/06/23 06:05 Pulse Ox 96 10/06/23 03:40 O2 Del Method Room Air 10/06/23 03:40 O2 Flow Rate 6 10/05/23 10:58 Discharge Plan Discharge Prescriptions: New hydrocodone-acetaminophen 10-325 mg tablet 1 tab PO Q4H PRN (Reason: pain) 7 Days Qty: 40 0RF Continued albuterol sulfate [Ventolin HFA] 90 mcg/actuation HFA aerosol inhaler 2 puff inhalation Q6H PRN (Reason: Shortness Of Breath) losartan 50 mg tablet 50 mg PO QAM aspirin 325 mg tablet 325 mg PO BID omeprazole 40 mg capsule,delayed release(DR/EC) See Rx Instructions PO DAILY Qty: 90 1RF Rx Instructions: take 1 capsule in AM 30 minutes before breakfast orally daily; amlodipine-atorvastatin 10-10 mg tablet 1 tab PO DAILY cephalexin 500 mg capsule 500 mg PO BID 90 Days Qty: 180 3RF folic acid 1 mg tablet 1 mg PO DAILY Qty: 90 1RF sulfamethoxazole-trimethoprim [Bactrim DS] 800-160 mg tablet See Rx Instructions PO .COMPLEX Qty: 15 3RF Rx Instructions: take 1 tab on Thursday, Thursday and Cali orally; prednisone 2.5 mg tablet See Rx Instructions PO DAILY Qty: 90 1RF Rx Instructions: take 7.5mg daily x2 weeks then stay on 5mg daily for one month then call and let us know how doing. orally daily; prednisone 1 mg tablet 1 mg PO DAILY Qty: 120 2RF Rx Instructions: take 4mg [id number] then 3mg [id number] then 2mg [id number] and stay on 1mg daily ciprofloxacin HCl 500 mg tablet 500 mg PO BID Qty: 10 0RF budesonide-formoterol [Symbicort] 160-4.5 mcg/actuation HFA aerosol inhaler 2 puff INHALATION BID tamsulosin 0.4 mg capsule 0.4 mg PO QAM atorvastatin 20 mg tablet 20 mg PO QAM Probiotic Blend 2 billion cell-50 mg Capsule 1 cap PO DAILY Rx Instructions: give with meal/snack cyclobenzaprine 10 mg tablet 10 mg PO TID PRN (Reason: muscle spasms) methotrexate sodium 2.5 mg tablet See Rx Instructions .ROUTE .COMPLEX Rx Instructions: every 7 days Discontinued hydrocodone-acetaminophen 5-325 mg tablet 1 tab PO Q6H PRN (Reason: pain) 5 Days Qty: 20 0RF Discharge Orders: Discharge Order (Routine); Ordered 10/06/23 Ordered By: Major Goddard Discharge Diet: Advance as tolerated Discharge Activity: Limit activity as instructed Patient Instructions: Opioid Safety Activity Restrictions/Additional Instructions: Thank you for [facility] for your care! The following is a list of instructions, from your provider, to follow upon your discharge to ensure you have the optimal recovery from your recent injury orsurgery. Follow-up care is a lawson part of your treatment and safety. Be sure to make and go to all appointments, and call your doctor if you are having problems. If you do not already have a follow-up appointment made, call Dr. Goddard office in the next 1-3 days to make follow up appointment for 2 weeks at [phone]. It is also a good idea to know your test results and keep a list of the medicines you take. Medications will be prescribed for you at your provider's discretion. These medications are to be used as instructed; if they are taken more often that prescribed they will not be refilled early and in most cases will not be refilled at all. > When a refill is needed,you should contact brigid adkins 2-3 business days before your prescription runs out. Medications will NOT be refilled by cardiopulmonary technician providers after hours! > Many pain medications contain Tylenol (Acetaminophen). Do not consume more than 4,000 mg of Tylenol per day in total with any combination ofmedications. > Pain medications can cause constipation. Please use an over the counter stool softener as directed, while taking pain medications. Consulty our local pharmacist with questions or recommendations on stool softeners. If constipation persists, contact our office or your primary care provider. > While under our care,you are not to receive pain medications or other controlled substances from any other provider unless our office is notified and approves. Any attempts to do so will result in refusal to prescribe any further pain medications and possible dismissal from our practice. ? Your wound and/or dressing should remain clean and dry for 7 days after surgery. On postoperative day 7 Pad dry afterwards. No further dressing should be required from that point on. Do not put any creams or ointments on theincision > It is normal for there to be a small amount of discharge (bloody or blood tinged) present from a surgical wound for the first 1-3days. > The wound should be examined twice a day for signs of infection. Mild redness or bruising is to be expected but indications that an infection maybe starting would include; An increase in redness, swelling, or discharge, a foul odor present around the incision, and/or a fever greater than 101 ?F ? Showering is permitted, however we ask that you do not take a bath, sit in a whirlpool / Jacuzzi, or go swimming for 1 month. For only the first 2 days after surgery, lt wilt be necessary for you to cover your wound/dressing with plastic and tape to keep it dry. ? Walking is essential for the healing process after surgery. We would like you to slowly advance your walking. This should be done on relatively flat clear ground (inside or out) or can be done on a treadmill. Remember this goal does not have to happen all at once, slowly increase your distance and duration. This can be broken into more more than one walk per day as tolerated. Patients who walk as directed after surgery rarely require Physical Therapy. In the unlikely event this issue arises your provider will direct hospital staff to make the appropriate arrangements. ? No lifting over 5 pounds {a gallon of milk) or bending/twisting until further notice. Each of these activities places an unnecessary amount of stress onto the body and can impede the delicate healing process. > Instead of bending at the waist, keep your back straight and bend at the knees. > Instead of twisting your torso, keep your back straight and turn your entire body with your feet. ? You may sleep in any position which makes you comfortable. Many patients find comfort sleeping in a reclining chair. It is not abnormal to have difficulty sleeping for the first several weeks following your surgery. We recommend trying Benadry! or Tylenol PM as directed to help with your sleeping difficulties. Both medications are over the counter and available withoutprescription. ? NO SMOKING!!! Smoking dramatically increases the probability of developing postoperative wound infections. ? Common complaints after lumbar and/or thoracic spine surgery include, but are not limited to: numbness and/or tingling in the legs, pain around the incision and surrounding tissues, muscle spasms, or stiffness of the middle to low back. Contact our office if these symptoms persist or if an acute change occurs. ? No driving for the first 3-5days, and not while taking narcotics until seen at your follow-up appointment and cleared. There are no restrictions for riding on short trips, however if you take a longer trip, arrangements should be made to make regular stops to get out of the vehicle and stretch . ? Swelling is an unfortunate event that will take place with any surgery and is the primary source of your postoperative discomfort. While walking and regular approved activities helps control inflammation, there are additional steps you can take to minimizeswelling. > Place ice over the surgical site and surrounding tissue for twenty minutes, followed by applying a low/medium heat (heating pad) for an additional twenty minutes every 1-2 hours as needed for painrelief. > You may use of over the counter anti-inflammatory medications (Ibuprofen, Motrin, Aleve, Advil, etc) as directed on the package label. These types of medicines wm significantly reduce the amount of discomfort you experience after surgery from swelling. It should be noted that if you have and allergy to any of these medications, or a history of ulcers or kidney disease you should consult you primary care provider prior to starting these medications. Discharge Attestations Time Spent in Discharge Care*: less than 30 min Quality Metrics Clinical Quality Measures [ No reported AMI, CVA or VTE this stay] Coding Level of Care Code Acute Code for Chg Fwd
--- NOTE | 2023-10-06 07:46 | PC.NURSE ---
This nurse removed patients hemovac drain from right lower back region. Tip of drain tubing was intact. Patient tolerated well.
[2023-10-06] MEDS: budesonide 0.5 mg/2 mL Neb INHALATION (07:59)
[2023-10-06] MEDS: folic acid 1 mg Tablet PO (08:51)
[2023-10-06] MEDS: predniSONE 5 mg Tablet PO (08:51)
[2023-10-06] MEDS: pantoprazole DR 40 mg Tablet PO (08:51)
[2023-10-06] MEDS: docusate sodium 100 mg Capsule PO (08:51)
[2023-10-06] MEDS: ciprofloxacin 500 mg Tablet PO (08:51)
[2023-10-06] MEDS: amlodipine 10 mg Tablet PO (08:51)
[2023-10-06] MEDS: aspirin 325 mg Tablet PO (08:51)
[2023-10-06] MEDS: predniSONE 1 mg Tablet PO (08:51)
[2023-10-06] MEDS: cephALEXin 500 mg Capsule PO (08:51)
--- NOTE | 2023-10-06 10:07 | PC.CHAP ---
Pastoral Care Encounter/Spiritual Assessment Type of Contact [] Declined pyrotechnic mixer visit [] Patient/Family/Request visit [] Outpatient visit [] Follow-up visit [] Physician referral [] Code/Alert [] Routine visit [] Staff referral [] Actively dying [] Patient sleeping [] Family support [] [] Out of room [] Palliative care [] [x] Receiving care in room [] Pre-surgical visit [] Trauma [] Long length of stay [] ICU visit [] Other: Relational/Emotional Strength [] Patient feels connected with others/family/visitors/staff [] Distress [] Loneliness/isolation [] Abandonment Spirituality of Patient [] Person of Lazara [] Attends Sabianism of their Lazara [] Believes in Prayer [] Reads Bible or Mandaen materials [] There are Spiritual issues to be addressed Operations [place] Interventions [] Prayer [] Active listening [] Non-anxious presence [] Spiritual/emotional support [] Crisis/trauma care [] Spiritual counseling [] Bereavement support [] Provided bereavement packet [] Provided Bible/devotional materials [] Provided toy/stuffed animal, coloring book to patient or family member [] Provided Communion [] Anointing/[place] [] Salvation [] Completed spiritual assessment [] Other: Impact on Illness or Injury [] Angry [] Fearful [] Anxious [] Often cries [] Exhaustion [] Unable to work [] Unable to attend samaritan [] Unable to walk/stand [] Unable to read [] Unable to drive [] Unable to eat/drink [] Unable to sleep [] Unable to be with family [] Patient intubated [] Other: Summary Time spent with patient
== END 2023-10-06 12:43 | disposition home health service (06) | DRG 455 ==
LOC: MEDSURG 10:33
PROVIDERS: Admitting Provider Orthopaedic Surgery; PCP Electrodiagnostic Medicine; Visit Provider Orthopaedic Surgery
PROC: 0SG30AJ Fusion of Lumbosacral Joint with Interbody Fusion Device, Posterior Approach, Anterior Column, Open Approach (ICD-10-PCS; principal; 2023-10-05 07:00)
PROC: 0SG30AJ Fusion of Lumbosacral Joint with Interbody Fusion Device, Posterior Approach, Anterior Column, Open Approach (ICD-10-PCS; CPT 63005; 2023-10-05 07:00)
PROC: 0SG30AJ Fusion of Lumbosacral Joint with Interbody Fusion Device, Posterior Approach, Anterior Column, Open Approach (ICD-10-PCS; CPT 22612; 2023-10-05 07:00)
PROC: 0SG30AJ Fusion of Lumbosacral Joint with Interbody Fusion Device, Posterior Approach, Anterior Column, Open Approach (ICD-10-PCS; CPT 27280; 2023-10-05 07:00)
PROC: 0SG30AJ Fusion of Lumbosacral Joint with Interbody Fusion Device, Posterior Approach, Anterior Column, Open Approach (ICD-10-PCS; 2023-10-05 07:00)
DX: M48.062 Spinal stenosis, lumbar region with neurogenic claudication (principal); J44.9 Chronic obstructive pulmonary disease, unspecified; N40.1 Benign prostatic hyperplasia with lower urinary tract symptoms; I10 Essential (primary) hypertension; E78.5 Hyperlipidemia, unspecified; Z79.82 Long term (current) use of aspirin; Z87.891 Personal history of nicotine dependence; Z98.1 Arthrodesis status
CPT/HCPCS: 51702; 72100; 76000; 94640; 97116; 97161; 97530; C1713; J0131; J0690; J1100; J1170; J1644; J1885; J2371; J2405; J2704; J2765; J3010; J3370; J3490; J3535; J7030; J7120; J7512; J7611; J7626

== ENCOUNTER → 2023-10-20 07:36 | Outpatient (BNVA) | payer OTHER, SELFPAY | PROVIDERS: PCP Electrodiagnostic Medicine; Visit Provider Orthopaedic Surgery | DX: Z98.1 Arthrodesis status (principal) | CPT/HCPCS: 99024 ==

== ENCOUNTER → 2023-10-27 08:26 | Outpatient (BNVA) | payer OTHER, SELFPAY | PROVIDERS: PCP Electrodiagnostic Medicine; Visit Provider Orthopaedic Surgery | DX: Z98.1 Arthrodesis status (principal) | CPT/HCPCS: 99024 ==

== ENCOUNTER 2023-11-02 11:58 | Outpatient (CLI) | payer OTHER, SELFPAY ==
--- NOTE | 2023-11-02 12:03 | USCV_ITS ---
Anthony Jimenez Age: 78 Gender: M : 1945 Exam Date: 11/02/2023 12:07 Ordering Phys: Faustino Aguilar MD (Andy) ([email or web address] [place]) Technologist: [place] [facility] [place]: Stenosis Risk Factors: Previous Vascular Surgery: Right Brachial BP: / Left Brachial BP: / Right Left Velocity (cm/s) Spectral Plaque Velocity (cm/s) Spectral Plaque Syst/Diast Broadening Syst/Diast Broadening 114.80/27.20 Prox CCA 115.60/ 30.20 103.90/23.10 Mid CCA 97.80 / 27.80 83.50/ 28.90 Distal CCA 87.80 / 19.80 51.80/ 16.70 Prox ICA 42.80 / 15.80 61.30/ 19.90 Mid ICA 141.10/ 49.00 65.10/ 22.40 Distal ICA 94.40 / 34.60 88.90 ECA 103.80 0.80 ICA/CCA 1.60 Antegrade Vertebral Antegrade 39.30/ 11.50 cm/s 56.50/ 22.10 cm/s Tri Subclavian Tri 68.10 150.7 0 FINDINGS Comparison 07/11 CONCLUSIONS Right ICA stenosis <50%. Mild atheromatous plaque right carotid bulb/ICA. Left ICA stenosis <50%. Moderate atheromatous plaque left carotid bulb/ICA. Elevated velocity left Mid ica likely due to tortuosity slightly increased from previous Intimal thickening in the common carotid arteries and internal carotid arteries bilaterally. Normal antegrade Doppler flow noted in the right vertebral artery. Normal antegrade Doppler flow noted in the left vertebral artery. Colten Murillo MD (Electronically Signed) Final Date: 02 November 2023 15:02 S
== END 2023-11-02 11:59 | disposition home or self-care (01) ==
LOC: RAD 11:58
PROVIDERS: PCP Electrodiagnostic Medicine; Visit Provider Family Medicine
DX: I65.23 Occlusion and stenosis of bilateral carotid arteries (principal)
CPT/HCPCS: 93880

== ENCOUNTER → 2023-11-03 10:55 | Outpatient (BNVA) | payer OTHER, SELFPAY | PROVIDERS: PCP Electrodiagnostic Medicine; Visit Provider Orthopaedic Surgery | DX: Z09 Encounter for follow-up examination after completed treatment for conditions other than malignant neoplasm (principal) | CPT/HCPCS: 99024 ==

== ENCOUNTER → 2023-11-19 09:14 | Outpatient (BNVA) | payer OTHER, SELFPAY | PROVIDERS: PCP Electrodiagnostic Medicine; Visit Provider Orthopaedic Surgery | DX: Z98.1 Arthrodesis status (principal) | CPT/HCPCS: 72100; 99024 ==

== ENCOUNTER → 2023-11-30 13:00 | Outpatient (BNVA) | payer OTHER, SELFPAY | PROVIDERS: PCP Electrodiagnostic Medicine; Visit Provider Internal Medicine Pulmonary Disease | DX: R06.02 Shortness of breath (principal); R91.8 Other nonspecific abnormal finding of lung field; J43.2 Centrilobular emphysema | CPT/HCPCS: 99214 ==

== ENCOUNTER → 2024-01-12 13:42 | Outpatient (BNVA) | payer MEDICARE, OTHER, SELFPAY | PROVIDERS: PCP Electrodiagnostic Medicine; Visit Provider Orthopaedic Surgery | DX: Z98.1 Arthrodesis status (principal) | CPT/HCPCS: 72100; 99024 ==

== ENCOUNTER 2024-01-15 10:37 | Outpatient (CLI) | payer MEDICARE, OTHER, SELFPAY ==
[2024-01-15 10:52] LABS: Basophils % 0.5 %; Eosinophils # 0.1 10^3/uL (0.0-0.8); Eosinophils % 0.7 %; Hematocrit 41.2 % (37-53); Lymphocytes % 12.5 %; Mean Corpuscular HGB Conc 32.5 g/dL (30-55); Mean Corpuscular Hemoglobin 30.2 pg (27-33); Mean Corpuscular Volume 92.8 fl (82-101); Mean Platelet Volume 9.9 fL (7.4-10.4); Monocytes # 0.7 10^3/uL (0.2-0.9); Monocytes % 9.1 %; Neutrophils # 5.82 10^3/uL (1.8-7.7); Neutrophils % 76.9 %; Nucleated Red Blood Cells % 0 %; Platelet Count 304 10^3/cmm (157-399); Red Blood Count 4.44 10^6/uL (3.85-5.65); Red Cell Distribution Width 14.7 % (12.1-15.1); White Blood Count 7.57 10^3/uL (3.29-11.43)
[2024-01-15 11:14] LABS: Alanine Aminotransferase 11 U/L (0-41); Albumin Level 4.4 g/dL (3.5-5.2); Alkaline Phosphatase 102 U/L (40-130); Aspartate Amino Transferase 22 U/L (0-40); C Reactive Protein 13.9 mg/L (0.0-4.9); Total Protein 7.4 g/dL (6.6-8.7)
[2024-01-15 11:27] LABS: Total Bilirubin 0.3 mg/dL (0.15-1.2)
== END 2024-01-15 10:38 | disposition home or self-care (01) ==
LOC: LAB 10:38
PROVIDERS: PCP Electrodiagnostic Medicine; Visit Provider Internal Medicine Rheumatology
DX: Z79.899 Other long term (current) drug therapy (principal); M31.6 Other giant cell arteritis
CPT/HCPCS: 80076; 82565; 85025; 86140

== ENCOUNTER → 2024-02-02 09:49 | Outpatient (BNVA) | payer MEDICARE, OTHER, SELFPAY | PROVIDERS: PCP Electrodiagnostic Medicine; Visit Provider Student in an Organized Health Care Education/Training Program | DX: M00.9 Pyogenic arthritis, unspecified (principal); M31.6 Other giant cell arteritis; Z79.899 Other long term (current) drug therapy | CPT/HCPCS: 99214 ==

== ENCOUNTER → 2024-03-01 08:46 | Outpatient (BNVA) | payer OTHER, SELFPAY | PROVIDERS: PCP Electrodiagnostic Medicine; Visit Provider Student in an Organized Health Care Education/Training Program | DX: Z96.651 Presence of right artificial knee joint (principal); M25.561 Pain in right knee | CPT/HCPCS: 73560; 73565; 99213 ==

== ENCOUNTER → 2024-04-05 07:51 | Outpatient (BNVA) | payer OTHER, SELFPAY | PROVIDERS: PCP Electrodiagnostic Medicine; Visit Provider Orthopaedic Surgery | DX: Z98.1 Arthrodesis status (principal) | CPT/HCPCS: 72100; 99213 ==

== ENCOUNTER 2024-06-23 11:04 | Outpatient (CLI) | payer OTHER, SELFPAY ==
[2024-06-23 11:47] LABS: Basophils # 0.1 10^3/uL (0.0-0.1); Basophils % 0.6 %; Eosinophils # 0.2 10^3/uL (0.0-0.8); Eosinophils % 1.8 %; Hematocrit 44.4 % (37-53); Lymphocytes # 2.1 10^3/uL (0.8-4.8); Lymphocytes % 25.8 %; Mean Corpuscular HGB Conc 31.5 g/dL (30-55); Mean Corpuscular Hemoglobin 28.1 pg (27-33); Monocytes % 11.6 %; Neutrophils # 4.97 10^3/uL (1.8-7.7); Nucleated Red Blood Cells % 0 %; Platelet Count 348 10^3/cmm (157-399); Red Blood Count 4.99 10^6/uL (3.85-5.65); Red Cell Distribution Width 16.3 % (12.1-15.1); White Blood Count 8.29 10^3/uL (3.29-11.43)
[2024-06-23 11:59] LABS: Erythrocyte Sedimentation Rate 89 mm/hr (0-10)
[2024-06-23 12:06] LABS: Alanine Aminotransferase 32 U/L (0-41); Albumin Level 3.8 g/dL (3.5-5.2); Alkaline Phosphatase 78 U/L (40-130); Aspartate Amino Transferase 24 U/L (0-40); C Reactive Protein 33.2 mg/L (0.0-4.9); Globulin 4.7 g/dL (1.3-4.6); Total Bilirubin 0.5 mg/dL (0.15-1.2); Total Protein 8.5 g/dL (6.6-8.7)
== END 2024-06-23 11:05 | disposition home or self-care (01) ==
PROVIDERS: PCP Electrodiagnostic Medicine; Visit Provider Internal Medicine Rheumatology
DX: Z79.899 Other long term (current) drug therapy (principal); M31.6 Other giant cell arteritis
CPT/HCPCS: 36415; 80076; 82565; 85025; 85651; 86140

== ENCOUNTER → 2024-07-04 10:39 | Outpatient (BNVA) | payer OTHER, SELFPAY | PROVIDERS: PCP Electrodiagnostic Medicine; Visit Provider Internal Medicine Rheumatology | DX: M31.6 Other giant cell arteritis (principal); Z79.899 Other long term (current) drug therapy; M00.9 Pyogenic arthritis, unspecified; Z71.85 Encounter for immunization safety counseling | CPT/HCPCS: 99214 ==

== ENCOUNTER → 2024-08-24 13:52 | Outpatient (BNVA) | payer OTHER, SELFPAY | PROVIDERS: PCP Electrodiagnostic Medicine; Visit Provider Internal Medicine | DX: I10 Essential (primary) hypertension (principal); R06.09 Other forms of dyspnea | CPT/HCPCS: 99214 ==

== ENCOUNTER 2024-08-29 14:10 | Outpatient (CLI) | payer OTHER, SELFPAY ==
--- NOTE | 2024-08-29 14:30 | USCV_ITS ---
Anthony Jimenez Age: 79 Gender: M : 1945 Exam Date: 08/29/2024 14:20 Ordering Phys: Ernst Weaver M.D ([email or web address]) Technologist: MARVIN [place] [facility] [place]: Neck Pain Risk Factors: Previous Vascular Surgery: Right Brachial BP: / Left Brachial BP: / Right Left Velocity (cm/s) Spectral Plaque Velocity (cm/s) Spectral Plaque Syst/Diast Broadening Syst/Diast Broadening 78.50/ 19.30 Prox CCA 96.40 / 24.50 89.10/ 24.30 Mid CCA 75.80 / 18.30 62.10/ 15.40 Distal CCA 50.80 / 14.40 51.20/ 10.60 Prox ICA 42.80 / 14.20 44.40/ 13.50 Mid ICA 114.40/ 50.00 52.20/ 17.30 Distal ICA 55.40 / 18.40 71.70 ECA 65.90 0.80 ICA/CCA 0.80 Antegrade Vertebral Antegrade 40.10/ 12.50 cm/s 46.90/ 12.10 cm/s Tri Subclavian Tri 111.1 126.0 0 0 CONCLUSIONS Right ICA stenosis <50%. Moderate atheromatous plaque right carotid bulb/ICA. Left ICA stenosis <50%. Moderate atheromatous plaque left carotid bulb/ICA. Intimal thickening in the common carotid arteries and internal carotid arteries bilaterally. Normal antegrade Doppler flow noted in the right vertebral artery. Normal antegrade Doppler flow noted in the left vertebral artery. Colten Murillo MD (Electronically Signed) Final Date: 29 August 2024 17:14 S
== END 2024-08-29 14:11 | disposition home or self-care (01) ==
PROVIDERS: PCP Electrodiagnostic Medicine; Visit Provider Internal Medicine
DX: I65.23 Occlusion and stenosis of bilateral carotid arteries (principal); M54.2 Cervicalgia; R93.89 Abnormal findings on diagnostic imaging of other specified body structures
CPT/HCPCS: 93880

== ENCOUNTER → 2024-09-08 14:27 | Outpatient (BNVA) | payer OTHER, SELFPAY | PROVIDERS: PCP Electrodiagnostic Medicine; Visit Provider Orthopaedic Surgery | DX: M48.062 Spinal stenosis, lumbar region with neurogenic claudication (principal); M54.50 Low back pain, unspecified | CPT/HCPCS: 72100; 73523; 99213 ==

== ENCOUNTER 2024-09-12 08:08 | Outpatient (CLI) | payer OTHER, SELFPAY ==
--- NOTE | 2024-09-12 08:30 | CT_ITS ---
WS: [id number] CTA THORACIC TECHNIQUE: Contrast enhanced CTA of the thoracic aorta with coronal and sagittal reformatted images and maximum intensity projection (MIP) images. CLINICAL INFORMATION: Thoracic aortic aneurysm COMPARISON: CT 12/05/2022 DLP: 650.[address] scans at [facility] use at least one of these dose optimization techniques: automated exposure control; mA and/or kV adjustment per patient size (includes targeted exams where dose is matched to clinical indication); or iterative reconstruction. FINDINGS: Ascending thoracic aorta measures 3.6 cm. Normal caliber descending thoracic aorta. Mild aortic calcification. Dense coronary calcification. Proximal main pulmonary arteries are normal. Celiac and SMA are patent in the upper abdomen. Adrenal glands are normal. A few tiny hepatic cysts. Tiny esophageal hiatal hernia. Partially visualized LEFT renal cyst measuring 4.0 cm. Lungs are well aerated. No acute pulmonary infiltrates. No other suspicious findings. CT/CT angio chest [id number] IMPRESSION: 1. Ascending thoracic aorta measuring 3.6 cm. This appears unchanged since 3 2. Dense coronary calcification. 3. Tiny esophageal hiatal hernia.
[2024-09-12 09:15] LABS: Blood Urea Nitrogen 20 mg/dL (8-23)
[2024-09-12] MEDS: iohexol 350 mg/mL 500 mL Btl (per mL) IV (09:39)
== END 2024-09-12 08:09 | disposition home or self-care (01) ==
LOC: RAD 08:09
PROVIDERS: PCP Electrodiagnostic Medicine; Visit Provider Internal Medicine
DX: I71.10 Thoracic aortic aneurysm, ruptured, unspecified (principal); I25.10 Atherosclerotic heart disease of native coronary artery without angina pectoris; I70.0 Atherosclerosis of aorta; N28.1 Cyst of kidney, acquired
CPT/HCPCS: 71275; 82565; 84520

== ENCOUNTER → 2024-09-22 08:07 | Outpatient (BNVA) | payer OTHER, SELFPAY | PROVIDERS: PCP Electrodiagnostic Medicine; Visit Provider Orthopaedic Surgery | DX: Z98.1 Arthrodesis status (principal) | CPT/HCPCS: 99213 ==

== ENCOUNTER 2024-11-01 08:12 | Outpatient (RCR) | payer OTHER, SELFPAY | END 2024-11-16 23:59 | disposition home or self-care (01) | LOC: SPT 08:12 | PROVIDERS: Visit Provider Family Medicine | DX: M54.50 Low back pain, unspecified (principal) | CPT/HCPCS: 97110; 97161 ==

== ENCOUNTER 2024-11-17 05:00 | Outpatient (RCR) | payer OTHER, SELFPAY | END 2024-12-09 09:04 | disposition home or self-care (01) | LOC: SPT 05:00 | PROVIDERS: Visit Provider Family Medicine | DX: M54.50 Low back pain, unspecified (principal) | CPT/HCPCS: 97110 ==

== ENCOUNTER → 2025-01-19 13:01 | Outpatient (BNVA) | payer OTHER, SELFPAY | PROVIDERS: Visit Provider Internal Medicine Rheumatology | DX: M31.6 Other giant cell arteritis (principal); Z79.899 Other long term (current) drug therapy; M00.9 Pyogenic arthritis, unspecified; Z71.85 Encounter for immunization safety counseling | CPT/HCPCS: 36415; 80076; 82306; 82565; 85025; 85651; 86140; 99214 ==

== ENCOUNTER → 2025-02-14 11:15 | Outpatient (BNVA) | payer OTHER, SELFPAY | PROVIDERS: Visit Provider Student in an Organized Health Care Education/Training Program | DX: R23.3 Spontaneous ecchymoses (principal); Z79.2 Long term (current) use of antibiotics; Z79.899 Other long term (current) drug therapy | CPT/HCPCS: 99213 ==

== ENCOUNTER → 2025-03-15 08:29 | Outpatient (BNVA) | payer OTHER, SELFPAY | PROVIDERS: PCP Electrodiagnostic Medicine; Visit Provider Student in an Organized Health Care Education/Training Program | DX: M25.561 Pain in right knee (principal); Z96.651 Presence of right artificial knee joint; T84.59XA Infection and inflammatory reaction due to other internal joint prosthesis, initial encounter; Y79.2 Prosthetic and other implants, materials and accessory orthopedic devices associated with adverse incidents | CPT/HCPCS: 73560; 73565; 99213 ==

== ENCOUNTER 2025-03-22 07:23 | Outpatient (CLI) | payer MEDICARE, SELFPAY ==
--- NOTE | 2025-03-22 07:28 | US_ITS ---
WS: [id number] RENAL ULTRASOUND HISTORY: RENAL CYST COMPARISON: 11/05/2021, 10/27/2018, CT 05/10/2013 and 08/31/2023 TECHNIQUE: 2-D and color Doppler imaging of the kidney submitted. Right kidney: 9.8 cm x 5.5 cm x 5.5 cm. Cortex: 1.1 cm Normal echogenicity with no hydronephrosis or mass. Left kidney: 10.9 cm x 5.2 cm x 5.0 cm. Cortex: 1.1 cm Reidentified is a lobulated cystic mass with thick septations from the mid to upper LEFT kidney. Mass measures 4.8 x 4.5 x 4.4 cm. There are a few peripheral calcifications which are better seen on the CT from 08/31/2023. Mass has not changed to effectively in size over several years. This is not a simple cyst. There is slight through transmission. Aorta: Normal. Urinary Bladder: Slightly contracted bladder with prostate gland enlargement and heterogeneity. US/US renal BI* [id number] IMPRESSION: 1. Reidentified is a complex cystic mass with septations and wall calcificatio n mid upper LEFT kidney. This mass has been previously described by ultrasound and CT. Not significantly changed over several recent years. Low-grade neoplasm is not excluded. This mass has been present since at least 05/10/2013 with min imal increase in size. 2. Negative RIGHT kidney. 3. No hydronephrosis.
== END 2025-03-22 07:24 | disposition home or self-care (01) ==
LOC: RAD 07:24
PROVIDERS: PCP Electrodiagnostic Medicine; Visit Provider Urology
DX: N28.1 Cyst of kidney, acquired (principal)
CPT/HCPCS: 76770

== ENCOUNTER 2025-06-06 17:05 | Emergency (ER) | payer OTHER, SELFPAY ==
--- OUTSIDE RECORDS SUMMARY | 2024-09-27 08:10 | XMS_ITS ---
Author Organization [facility] Address [address] [place] [address] Care Team Providers Care Wood Machine Carver Name Role Phone Zay Ospina DO Primary Care Provider Luigi Bui Unavailable [phone] Encounters Encounter Location Date Provider Diagnosis [facility] [address] [place] [address] [address] [place] [address] 09/27/2024 Luigi Funez Plan Of Treatment Next Appt Details Provider Name:Luigi Funez, 01/02/2026 01:40:00 PM, [address] [place] [address] [address], [place], [address], Progress Notes * MALIA EVANGELISTA WDOB: [birth year] (79 yo M)Acc No.[id number]:09/27/2024 Progress Notes Patient: MALIA CELESTIN Provider: Sukumar Funez MD :1945 A ge:79 Y S ex:Male Date:09/27/2024 Address:[address] [place], [place] [id number] Pcp:Zay Ospina DO * Electronic signature of Cynthia Funez MD on 06/07/2025 at 05:15 AM EXCELLENCE LEADER Sign off status: Pending * Provider: Sukumar Funez MD Date: 0 09/27/2024 Generated for Printi ng/Faxing/eTransmitting on: 1 08/07/2024 05:15 AM EXCELLENCE LEADER
[2025-06-06 17:16] VITALS: BP 212/106; PULSE 61; RESP 18; TEMP 36.4; O2SAT 98
--- NOTE | 2025-06-06 17:44 | ECG_ITS ---
[email or web address] Date: 2025-06-06 Pat Name: Anthony Jimenez Department: Room: Gender: Male Loan Manager: : 1945 Requested By: German Victor Order Number: [id number] Ovi MD: Raji Nair M.D. Measurements Intervals [place] Rate: 62 P: 64 [place]: 198 QRS: -36 QRSD: 98 T: 61 QT: 428 QTc: 437 Interpretive Statements SINUS RHYTHM LEFT AXIS DEVIATION [QRS AXIS < -30] POSSIBLE RIGHT VENTRICULAR CONDUCTION DELAY [RSR (QR) IN V1/V2] POSSIBLE SEPTAL MYOCARDIAL INFARCTION , PROBABLY OLD [30 ms Q WAVE IN V1/V2] Compared to ECG 02/22/2023 18:05:44 No significant changes Electronically Signed On 06-07-2025 07:40:15 TRIAGE LICENSED PRACTICAL NURSE by Raji Nair M.D. [email or web address]
--- NOTE | 2025-06-06 21:33 | CTR_ITS ---
PROCEDURE INFORMATION: Exam: CT Lumbar Spine Without Contrast Exam date and time: 06/06/2025 9:48 PM Age: 79 years old Clinical indication: Low back pain; Prior surgery; Surgery date: 6+ months; Surgery type: Lumbar fusion; Additional info: HX fusion, worsening lower lumbar pain TECHNIQUE: Imaging protocol: Computed tomography of the lumbar spine without contrast. Radiation optimization: All CT scans at this facility use at least one of these dose optimization techniques: automated exposure control; mA and/or kV adjustment per patient size (includes targeted exams where dose is matched to clinical indication); or iterative reconstruction. COMPARISON: 1. MR lumbar spine wo con* [id number] 08/14/2023 11:[address] abdomen pelvis wo/w [id number] 08/31/2023 8:18 AM RADIATION DOSE METRICS: Total DLP (mGy-cm): 735.2 FINDINGS: Bones/joints: There are interval posterior spinal fusion changes present L2-S1 with bilateral rods and pedicle screws. The visualized hardware is intact. There is posterior bone graft material present. The fusion extends through both SI joints. A laminectomy is present at the L4-L5 level which is unchanged. The alignment is near anatomic. No acute appearing displaced fracture seen. Bony demineralization. The left fusion screw of L2 closely approximates the superior endplate. There is minimal Ashley metallic lucency present which may indicate loosening of the hardware. Multilevel degenerative changes are present. Spinal canal contents not well assessed due to the hardware artifact. Lungs: There are calcified granulomata in the lung bases with scarring. Kidneys and ureters: There is a complex cystic mass in the midpole of the left kidney with rim calcifications measuring at least 3.4 cm incompletely visualized. Appearance is similar to the comparison CT abdomen. Small nonobstructing left nephroliths. Stomach and bowel: Colonic diverticuli are seen. Vasculature: There is atherosclerosis of the vasculature. Soft tissues: No acute soft tissue findings. CT/CT lumbar spine wo con* [id number] IMPRESSION: 1. Interval lumbosacral spinal fusion changes. Alignment near anatomic. No acute fracture. Possible loosening of the left L2 fusion screw. 2. Complex left renal cystic mass again present and incompletely characterized. This can be further evaluated with a renal protocol CT for follow-up.
[2025-06-06 22:11] VITALS: BP 211/103; PULSE 57; RESP 16; O2SAT 95
[2025-06-06] MEDS: hyDRALAzine 20 mg/mL INJ 1 mL IVP (22:14)
[2025-06-06] MEDS: morphine 4 mg/mL SDV 1 mL IVP (22:14)
[2025-06-06 22:30] VITALS: BP 162/87; PULSE 63; RESP 16; O2SAT 95
[2025-06-06 22:43] LABS: Troponin(5th) Baseline 22 ng/L (0-15)
[2025-06-06 22:44] LABS: Anion Gap 15.8 (5-19); Blood Urea Nitrogen 15 mg/dL (8-23); Calcium 9.4 mg/dL (8.5-10.5); Carbon Dioxide 22 mmol/L (22-29); Chloride 104 mmol/L (98-107); Glucose 101 mg/dL (65-115); Hematocrit 43.3 % (37-53); Hemoglobin 14.10 g/dL (11.27-16.99); Magnesium 2.0 mg/dL (1.7-2.3); Mean Corpuscular HGB Conc 32.6 g/dL (30-55); Mean Corpuscular Hemoglobin 29.0 pg (27-33); Mean Corpuscular Volume 88.9 fl (82-101); Nucleated Red Blood Cells % 0 %; Osmolality Calculated 287 mOsm/kg (285-295); Platelet Count 266 10^3/cmm (157-399); Potassium 3.8 mmol/L (3.5-5.1); Red Blood Count 4.87 10^6/uL (3.85-5.65); Sodium 138 mmol/L (136-145); White Blood Count 7.53 10^3/uL (3.29-11.43)
[2025-06-06] MEDS: ondansetron 2 mg/ML SDV 2 mL 4 MG IVP (22:47)
[2025-06-06 23:00] VITALS: BP 174/85; PULSE 71; RESP 16; O2SAT 93
[2025-06-06 23:47] VITALS: BP 161/89; PULSE 69; RESP 18; O2SAT 95
[2025-06-06] MEDS: metoclopramide 5 mg/mL SDV 2 mL 10 MG IVP (23:53)
[2025-06-07] VITALS: BP 172/100; PULSE 72; RESP 18; O2SAT 94
--- NOTE | 2025-06-07 00:19 | ED_ITS ---
HPI - Back Pain/Injury 2 General: Chief Complaint: Back Pain/Injury Stated Complaint: va sent, high bp, shaking Time Seen by Provider: 06/06/25 21:02 History of Present Illness: Patient is a 79-year-old male with a history of spinal fusion surgery, hypertension, prior knee infection, and exposure to [place], who presents with moderate lower diffuse back pain over the last month. He reports intermittent numbness of his lower legs, no actual motor weakness, no explicit saddle anesthesia, no urinary retention, no fecal incontinence. He was sent here from the [place] [facility] due to hypertension, systolics over 200, he is on losartan, he states he used to be on amlodipine but ran out of this and so has not taken it for a few weeks. He denies any chest pain, shortness of breath, syncope with his blood pressure. He has tried taking leftover oxycodone and muscle relaxants from a prior surgery for pain control with limited relief. He has also [facility] for his lower back pain with transient benefit. He has an appointment with orthopedic surgery in 2 days, states the back pain is not necessarily worsened but was sent here with concerns for hypertensive emergency. Related Data Home Medications ?Medication ?Instructions ?Recorded ?Confirmed albuterol sulfate 90 mcg/actuation 2 puff inhalation Q 6H PRN 08/09/20 03/15/25 aerosol inhaler (Ventolin HFA) Shortness Of Breath losartan 50 mg tablet 50 mg PO QAM 01/28/22 atorvastatin 20 mg tablet 20 mg PO QAM 12/19/22 tamsulosin 0.4 mg capsule 0.4 mg PO QAM 12/19/2203/15 L.acidophil-L.casei-B.bifid-B.longum-FOS 1 cap PO KINSEY Y 02/22/23 03/15/25 2 billion cell-50 mg capsule (Probiotic Blend) aspirin 325 mg tablet 325 mg PO BID 03/26/2303/15 albuterol sulfate 90 mcg/actuation 2 puff inhalation Q 6H PRN 08/24/24 03/15/25 aerosol inhaler (Ventolin HFA) budesonide 160 mcg-glycopyr 9 2 inh inhalation BID 12/1103/15/25 mcg-formot 4.8 mcg/actuation HFA inhaler (Breztri Aerosphere) Previous Rx's ?Medication ?Instructions ?Recorded cephalexin 500 mg capsule 500 mg PO BID chronic suppre ssion 02/02/24 90 days #180 caps cyclobenzaprine 10 mg tablet 10 mg PO TID 7 days #21 t abs 09/08/24 amlodipine 10 mg tablet 10 mg PO DAILY #14 tabs 05/20 03/13 oxycodone 5 mg tablet 5 mg PO TID PRN pain #10 tab s 06/06/25 tizanidine 4 mg capsule 4 mg PO TID PRN muscle spast icity 06/06/25 #14 caps amlodipine 10 mg tablet 10 mg PO DAILY #20 tabs 05/20 04/13 Allergies Allergy/AdvReac Type Severity Reaction Status Date / Time No Known Allergies Allergy Verified 03/15/25 08:33 Review of Systems 2 General: Reports: 10 or more systems reviewed and unremarkable except in HPI and below Card: Denies: chest pain Resp: Denies: dyspnea Musc: Reports: back pain Neuro: Reports: numbness in extremities PFSH ED 2 PFSH: Medical History (Updated 06/06/25 @ 23:48 by Stephon Comer DO) Immunization counseling High risk medication use Giant cell arteritis Complex renal cyst Originally noted in [address] change roof bolter time. Complexity comes from some rim calcification and septation. Impotence BPH NOS w ur obs/LUTS Hyperlipidemia Hypertension Surgical History Status post right knee replacement H/O vasectomy Hx of cataract surgery History of colonoscopy (10/23/20) Diverticulosis, internal hemorrhoids H/O sinus surgery S/P cervical spinal fusion History of lumbar fusion Family History Father , at age 51 Myocardial infarction (lateral wall) Mother , at age 75 Cancer lung Social History Smoking and tobacco/nicotine status: former use of tobacco/nicotine Quit status (tobacco/nicotine): has quit using Year quit tobacco: 1998 Former quit date comment: 1 ppd X 30 years Alcohol intake: current Alcohol intake frequency: holidays/special occasions only Marital status: Current occupational status: retired Physical Exam 2 Narrative: EXAM NARRATIVE: Patient overall well-appearing, hypertensive in the low 200s, normal heart rate, afebrile, overall well-appearing and nontoxic. Normal sinus rhythm with no murmurs, no leg swelling, 2+ pulses throughout, good cap refill. Patient with 5 out of 5 motor and sensation to bilateral lower extremities, 2+ DP and PT pulses, sensation present but decreased and no specific dermatomes to bilateral lower legs below knee. Able to ambulate without ataxia. No cervical or thoracic midline tenderness, no step-offs, no deformities. Some mild midline upper lumbar tenderness, no step-off or deformity, no overlying erythema, bruising, warmth. GCS 15. Course 2 Vital Signs: Vital signs: Vital Signs Temperature 97.6 F 06/06/25 17:16 Pulse Rate 65 06/07/25 00:41 Respiratory Rate 18 06/07/25 00:00 Blood Pressure 165/91 06/07/25 00:41 Pulse Oximetry 93 06/07/25 00:41 Oxygen Delivery Me thod Room Air 06/06/25 22:30 MDM - Back Pain/Injury Medical Decision Making -ddx: Hypertensive urgency versus emergency, ACS, dysrhythmia, chronic back pain, hardware complication, considered but less likely cauda equina, epidural abscess/hematoma - Patient overall well-appearing, has been dealing with his progressive back pain, has follow-up in a few days with his original surgeon for this, has been taking pain medication with minimal relief, will give him a shot of morphine for breakthrough pain. Patient also with elevated systolics in the low 200s, has not been able to get his second blood pressure medication at home, seemingly asymptomatic from this, no chest pain, severe headache, chest pain, syncopal episodes, will attempt to get this down with hydralazine IV, get cardiac labs, image lumbar spine and reassess. -Patient with improvement of systolics to 160 with 1 dose of IV hydralazine, troponin at baseline for him, no ALEXA, no development of other concerning cardiac or respiratory symptoms, seemingly just hypertensive urgency at this point versus emergency. His CT L-spine was overall reassuring, some possible loosening of hardware to L2 but no signs of cord compression or edema, no new fractures and nothing needing emergent intervention. His pain was much improved with morphine, he did get nauseous slightly after this and required antiemetics. With pressure decreased, and overall reassuring CT scan and laboratory workup and able to ambulate with no change in his lower extremity neurovascular status, he was able to be discharged home with a refill of his amlodipine, short supply of muscle relaxants and pain medicine and encouraged to follow-up with his orthopedic surgeon in 2 days as originally scheduled, keep a blood pressure log and follow-up with his PCP for ultimate medication reconciliation for that, discharged in stable condition with strict return precautions given, at bedside. Labs 06/06/25 22:13 06/06/25 22:13 Rad[address] Lum[address] Spine CT 06/06/25 21:33 IMPRESSION: 1. Interval lumbosacral spinal fusion changes. Alignment near anatomic. No acute fracture. Possible loosening of the left L2 fusion screw. 2. Complex left renal cystic mass again present and incompletely characterized. This can be further evaluated with a renal protocol CT for follow-up. Laboratory Results WBC 7.53 10^3/uL (3.29-11.43) 06/06/25 22:13 RBC 4.87 10^6/uL (3.85-5.65) 06/06/25 22:13 Hgb 14.10 g/dL (11.27-16.99) 06/06/25 22:13 Hct 43.3 % (37-53) 06/06/25 22:13 MCV 88.9 fl (82-101) 06/06/25 22:13 MCH 29.0 pg (27-33) 06/06/25 22:13 MCHC 32.6 g/dL (30-55) 06/06/25 22:13 RDW 14.3 % (12.1-15.1) 06/06/25 22:13 Plt Count 266 10^3/cmm (157-399) 06/06/25 22:13 MPV 10.7 fL (7.4-10.4) H 06/06/25 22:13 Neut % (Auto) 62.5 % 06/06/25 22:13 Lymph % (Auto) 24.4 % 06/06/25 22:13 Otero % (Auto) 8.9 % 06/06/25 22:13 Eos % (Auto) 3.3 % 06/06/25 22:13 Baso % (Auto) 0.8 % 06/06/25 22:13 Neut # (Auto) 4.70 10^3/uL (1.8-7.7) 06/06/25 22:13 Lymph # (Auto) 1.8 10^3/uL (0.8-4.8) 06/06/25 22:13 Otero # (Auto) 0.7 10^3/uL (0.2-0.9) 06/06/25 22:13 Eos # (Auto) 0.3 10^3/uL (0.0-0.8) 06/06/25 22:13 Baso # (Auto) 0.1 10^3/uL (0.0-0.1) 06/06/25 22:13 Nucleated RBC % (auto) 0 % 06/06/25 22:13 Nucleated RBCs # 0.0 /100WBC 06/06/25 22:13 Sodium 138 mmol/L (136-145) 06/06/25 22:13 Potassium 3.8 mmol/L (3.5-5.1) 06/06/25 22:13 Chloride 104 mmol/L (98-107) 06/06/25 22:13 Carbon Dioxide 22 mmol/L (22-29) 06/06/25 22:13 Anion Gap 15.8 (5-19) 06/06/25 22:13 BUN 15 mg/dL (8-23) 06/06/25 22:13 Creatinine 0.7 mg/dL (0.7-1.2) 06/06/25 22:13 GFR Calculation Not Reportable 06/06/25 22:13 Glucose 101 mg/dL (65-115) 06/06/25 22:13 Calculated Osmolality 287 mOsm/kg (285-295) 06/06/25 22:13 Calcium 9.4 mg/dL (8.5-10.5) 06/06/25 22:13 Phosphorus 2.7 mg/dL (2.5-4.5) 06/06/25 22:13 Magnesium 2.0 mg/dL (1.7-2.3) 06/06/25 22:13 Creatine Kinase 154 U/L (39-308) 06/06/25 22:13 Troponin T Baseline 22 ng/L (0-15) H 06/06/25 22:13 All radiology interpretation(s) finalized by discharge Discharge Plan Discharge Patient Disposition: Home Clinical Impression: Hypertensive urgency, Postoperative back pain Condition: Stable Prescriptions: New oxycodone 5 mg tablet 5 mg PO TID PRN (Reason: pain) Qty: 10 0RF amlodipine 10 mg tablet 10 mg PO DAILY Qty: 14 0RF tizanidine 4 mg capsule 4 mg PO TID PRN (Reason: muscle spasticity) Qty: 14 0RF amlodipine 10 mg tablet 10 mg PO DAILY Qty: 20 0RF No Action albuterol sulfate [Ventolin HFA] 90 mcg/actuation HFA aerosol inhaler 2 puff inhalation Q6H PRN (Reason: Shortness Of Breath) losartan 50 mg tablet 50 mg PO QAM aspirin 325 mg tablet 325 mg PO BID cephalexin 500 mg capsule 500 mg PO BID 90 Days Qty: 180 5RF albuterol sulfate [Ventolin HFA] 90 mcg/actuation HFA aerosol inhaler 2 puff inhalation Q6H PRN Breztri Aerosphere 160-9-4.8 mcg/actuation HFA aerosol inhaler 2 inh inhalation BID cyclobenzaprine 10 mg tablet 10 mg PO TID 7 Days Qty: 21 0RF tamsulosin 0.4 mg capsule 0.4 mg PO QAM atorvastatin 20 mg tablet 20 mg PO QAM Probiotic Blend 2 billion cell-50 mg Capsule 1 cap PO DAILY Rx Instructions: give with meal/snack Discharge Orders: Discharge ED (Routine); Ordered 06/07/25 Ordered By: Stephon Comer Referrals: Zay Ospina DO [Primary Care Provider, [facility]] Discharge Diet: Advance as tolerated Discharge Activity: Increase activity as tolerated Patient Instructions: Opioid Safety, Pain Management, Patient Portal & Onur Instructions Activity Restrictions/Additional Instructions: You were seen for your back pain and high blood pressure, you were evaluated with CT scan, EKG and laboratory studies. Your CT scan showed possible loosening of one of the screws to your second lumbar vertebrae but no concerning findings otherwise. Your blood pressure improved with a one-time dose of IV medication and you are deemed stable to be discharged home. A refill of your amlodipine 10 mg daily has been written for, take this as you had previously done. For the pain, use Tylenol 650 mg every 6 hours as needed, for breakthrough pain on top of this, use the oxycodone 5 mg every 8 hours, do not drive or operate heavy machinery with this medication as it can be sedating. For any muscle cramps or spasms, use the tizanidine 4 mg every 8 hours as needed. Continue to follow-up with your orthopedic surgeon as originally scheduled for reevaluation of your pain. Return to the ED with severe worsening of your pain, inability to walk or move your legs, fevers, chest pains, any other emergent concerns. Print Language: Indonesian Coding Level of Care Code ED Financial Reporting Specialist for Aaln Mathews
[2025-06-07 00:41] VITALS: BP 165/91; PULSE 65; O2SAT 93
--- OUTSIDE RECORDS SUMMARY | 2025-06-07 05:15 | XMS_ITS | Clinical Summary ---
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 9 Active meloxicam (MOBIC) 15 mg tablet Take 15 mg by mouth daily. 0 Active tiZANidine (ZANAFLEX) 2 mg Tablet Take 1 Tablet (2 mg) by mouth every 8 hours as needed for Spasm. 30 Tablet 0 0 Active losartan (COZAAR) 50 mg tablet Take 50 mg by mouth daily. 0 Active hydroCHLOROthia zide (HYDRODIURIL) 12.5 mg tablet Take 12.5 mg by mouth daily. 0 Active budesonide-form oteroL (Symbicort) 160-4.5 mcg/actuation HFA Aerosol Inhaler Take 2 Puffs by inhalation 2 times daily. 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 9 Active albuterol sulfate 90 mcg/Actuation inhaler Take 2 Puffs by inhalation every 6 hours as needed. 9 Active Active Problems Problem Noted Date Diagnosed Date Cervical strain 02/06/2020 Essential hypertension 07/08/2019 COPD (chronic obstructive pulmonary disease) Constipation 07/08/2019 Lumbar stenosis with neurogenic claudication Preoperative general physical examination 2018 Dyslipidemia 07/08/2019 Family History Medical History Relation Name Comments Unknown Brother 1 Lung Cancer Brother 2 Other Daughter Respiratory Disease Daughter Heart Disease Father Lung Cancer Mother Lung Cancer Sister Healthy Son Relation Name Status Comments Brother 1 Alive Brother 2 Alive Daughter Alive Father Mother Sister Son Alive Social History Tobacco Use Types Packs/Day Years Used Date Smoking Tobacco: Former Cigarettes Q uit: 07/20/1999 Smokeless Tobacco: Never Alcohol Use Standard Drinks/Week Comments Yes 0 (1 standard drink = 0.6 oz pur e alcohol) Sex and Gender Information Value Date Recorded Sex Assigned at Not on file 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 Gender Identity Not on file Sexual Orientation Not on file Last Filed Vital Signs Vital Sign Reading Time Taken Comments Blood Pressure 138/74 02/06/2020 1:49 PM CDT Pulse 67 02/02/2020 8:28 AM CDT Temperature 36.7 C (98 F) 02/02/2020 8:28 AM CDT Respiratory Rate 16 02/02/2020 7:39 AM CDT Oxygen Saturation - - Inhaled Oxygen Concentration - - Weight 72.6 kg (160 lb) 02/06/2020 1:49 PM CDT Height 165.1 cm (5' 5 ) 02/06/2020 1:49 PM CDT Body Mass Index 26.63 02/06/2020 1:49 PM CDT Plan of Treatment Health Maintenance Due Date Last Done Comments DTAP/TDAP/TD VACCINES (1 - Tdap) 1964 PNEUMOCOCCAL VACCINE 50+ YEARS (1 of 2 - PCV) 06/10/19 65 ZOSTER VACCINE (1 of 2) 1996 RSV VACCINE (60+ or ) (1 - 1-dose 75+ series) 2021 INFLUENZA VACCINE (#1) 2025 COLORECTAL SCREENING Discontinued 10/23/2020 Colorectal Cancer Screening Discontinued FIT-DNA Q 3 years Discontinued FIT/FOBT Q 1 year Discontinued Flex Sig/CT Colonography Q 5 years Discontinued Medical Devices Implanted Type Area Hand Scraper Device Identifier Shelf Expiration Date Model / Serial / Lot Hemostatic Surgiflo 8ml W/Thrombin 2994 - [id number] Implanted:08/2019 by Oz Garcia MD (Quantity not on file) Hemostatic N/A: Spine Lumbar [employer] 05/19/2020 [id number] / / [id number] Insurance * Guarantor: MALIA JIMENEZ Account Type Relation to Patient Date of Phone Billing Address Personal/Family [facility] [address] [address] RX [facility] [address] [address] Care Teams Fabric Cutter Relationship Specialty Start Date End Date Ana Luisa Dela Cruz MD [address] [place] [address] PCP - General Family Practice 02/02/19
--- OUTSIDE RECORDS SUMMARY | 2025-06-07 05:15 | XMS_ITS | Clinical Summary ---
Author Organization [facility] Lencho nevarez [place] Address [address] [place] [address] Phone Care Team Providers Care Post Tronic Machine Operator Name Role Phone Ana Luisa Dela Cruz MD Primary Care Provider [phone] Allergies Active Allergy Reactions Criticality Noted Date Comments Adhesive Tape-Silicones Itching Low 01/04/2019 Medications albuterol HFA 90 mcg inhaler Take 2 Puffs by inhalation every 6 hours as needed. 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 9 Active SYMBICORT 160-4.5 mcg/actuation HFA Aerosol Inhaler Take 2 Puffs by inhalation 2 times daily. 9 Active amLODIPine (NORVASC) 10 mg tablet Take 10 mg by mouth daily solar mechanical engineer. Active meloxicam (MOBIC) 15 mg tablet Take 15 mg by mouth daily. Active tiZANidine (ZANAFLEX) 2 mg Tablet Take 1 Tablet (2 mg) by mouth every 8 hours as needed for Spasm. 30 Tablet 0 Active hydroCHLOROthia zide (HYDRODIURIL) 12.5 mg tablet Take 12.5 mg by mouth daily. Active losartan (COZAAR) 50 mg tablet Take 50 mg by mouth daily. Active Active Problems Problem Noted Date Diagnosed Date Cervical strain 02/06/2020 Preoperative general physical examination 2018 Essential hypertension 07/08/2019 Dyslipidemia 07/08/2019 COPD (chronic obstructive pulmonary disease) Constipation 07/08/2019 Lumbar stenosis with neurogenic claudication Family History Medical History Relation Name Comments Unknown Brother 1 Lung Cancer Brother 2 Other Daughter Respiratory Disease Daughter Heart Disease Father Lung Cancer Mother Lung Cancer Sister Healthy Son Relation Name Status Comments Brother 1 Alive Brother 2 Alive Daughter Alive Father Mother Sister Son Alive Social History Tobacco Use Types Packs/Day Years Used Date Smoking Tobacco: Former Cigarettes 1 40 0 07/20/1959 - 07/20/1999 Cigars Smokeless Tobacco: Never Alcohol Use Standard Drinks/Week Comments Yes 0 (1 standard drink = 0.6 oz pur e alcohol) 1-2 drinks weekly Sex and Gender Information Value Date Recorded Sex Assigned at Not on file Legal Sex Male 10:10 AM CDT Gender Identity Not on file Sexual Orientation Not on file Last Filed Vital Signs Vital Sign Reading Time Taken Comments Blood Pressure 138/74 02/06/2020 1:49 PM CDT Pulse 67 02/02/2020 8:28 AM CDT Temperature 36.7 C (98 F) 02/02/2020 8:28 AM CDT Respiratory Rate 16 02/02/2020 7:39 AM CDT Oxygen Saturation 99% 02/02/2020 8:28 AM CDT Inhaled Oxygen Concentration - - Weight 72.6 [...] 75+ series) 2021 INFLUENZA VACCINE (#1) 2025 Medical Devices Implanted Type Area Manufacturing Machine Operator Device Identifier Shelf Expiration Date Model / Serial / Lot Hemostatic Surgiflo 8ml W/Thrombin 2994 - [id number] Implanted:07/21 by Oz Garcia MD at [facility] (Quantity not on file) Hemostatic N/A: Spine Lumbar [employer] 05/19/2020 2994 / / [id number] Insurance MEDICARE PART A AND B BLUE CROSS AND BLUE SHIELD RX [facility] Advance Directives For more information, please contact: [phone] * Full Code (Latest Code Status on File) Date Activated Date Inactivated Comments 07/21/2019 3:49 PM 07/25/2019 1:46 PM * Full Code Date Activated Date Inactivated Comments 07/21/2019 10:39 AM 07/21/2019 3:49 PM Care Teams Post Tronic Machine Operator Relationship Specialty Start Date End Date Ana Luisa Dela Cruz MD [address] [place] [address] PCP - General Family Practice 02/02/19
--- OUTSIDE RECORDS SUMMARY | 2025-06-07 05:15 | XMS_ITS | Patient Health Record ---
Author Organization [facility] Address [address] [place] [address] Care Team Providers Care Fagoting Machine Operator Name Role Phone Bhavesh SALGUERO Zay Primary Care Provider Unavail able Dee Dee Luigi Unavailable [phone] Allergies No Known Allergies Results Component Value Reference Range Flag Notes Chest PA/Lat-29452 Reviewed date:09/01/2024 07:09:28 PM Interpretation: Performing Lab: Notes/Report: See Below For Report Chest PA/Lat Diagnosis Description: Shortness of breath Read See Below For Report zzzCT Outside CD Reviewed date:01/02/2025 03:29:20 PM Interpretation: Performing Lab: Notes/Report: zmg=[id number]=iSite Chest PA/Lat-60853 Reviewed date:09/01/2024 07:09:28 PM Interpretation: Performing Lab: Notes/Report: fmj=[id number]&org=iSite CBC w\ Auto Diff [id number] Reviewed date:09/01/2024 07:09:28 PM Interpretation: Performing Lab: Notes/Report: Diagnosis Description: Shortness of breath WBC 8.7 4.5-11.0 X10'3 RBC 4.91 4.50-5.90 X10'6 Hgb 13.7 13.5-17.5 G/DL Hct 41.7 41.0-53.0 % MCV 84.9 80.0-100.0 FL MCH 27.9 27.0-31.0 PG MCHC 32.9 31.0-37.0 G/DL Platelet 282 150-400 X10'3 RDW-SD 47.0 35.0-49.0 FL RDW-CV 15.1 12.2-15.6 % MPV 10.7 9.2-12.0 FL Neutro Auto% 51.1 40.0-70.0 % Lymph Auto% 34.4 22.0-44.0 % [place] Auto% 11.0 3.0-7.0 % HI Eos Auto% 2.7 2.0-4.0 % Baso Auto% 0.6 0.0-1.0 % Imm Gran% .2 .0-.4 % Neutro Abs 4.43 .80-7.70 Absolute Neutrophil Count 4430 NA Lymph Abs 2.98 .10-4.10 [place] Abs .95 .20-1.00 Eos Abs .23 .00-.40 Baso Abs .05 .00-.20 Imm Gran Abs .02 .00-.10 NRBC# .00 .00-.20 NRBC% .00 .00-.20 /100 intact WBC's Reason For Referral No Information Medications Medication SIG (Take, Route, Frequency, Duration) Notes Start Date End Date Status Tamsulosin HCl 0.4 MG Capsule 1 capsule Orally Once a day Active Losartan Potassium 50 MG Tablet 1 tablet Orally Once a day Active Cephalexin 500 MG Capsule 1 capsule Orally BID for two years pt stated knee infection Active Meloxicam 15 MG Tablet 1 tablet Orally Once a day Not-Taking Omeprazole 40 MG Capsule Delayed Release 1 capsule 1/2 to 1 hour before morning meal Orally Once a day Active Albuterol Sulfate HFA 108 (90 Base) MCG/ACT Aerosol Solution 1 puff as needed Inhalation every 4 hrs Active amLODIPine Besylate 10 MG Tablet 1 tablet Orally Once a day Active Breztri Aerosphere 160-9-4.8 MCG/ACT Aerosol 2 puffs Inhalation Twice a day Active Probiotic Active Aspirin 325 MG Tablet 1 tablet Orally Once a day Active Atorvastatin Calcium 20 MG Tablet 1 tablet Orally Once a day Active Social History Tobacco Use: Social History Observation Description Date Details (start date - stop date) Former Smoker NA - NA Social History Tobacco Use: Social Info Question Answer Notes Tobacco Control (Standard) Tobacco use: Former smoker How long has it been since you last smoked? 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) Active confirmed Problem Solitary pulmonary nodule (739551620) Solitary pulmonary nodule (R91.1) Active confirmed Problem Asymptomatic microscopic hematuria (121836892233640 09) Asymptomatic microscopic hematuria (R31.21) Active confirmed Problem Chronic obstructive pulmonary disease (39915592) Stage 1 mild COPD by GOLD classification (J44.9) Active confirmed Problem Benign prostatic hypertrophy with outflow obstruction (359456584) BPH loc w urin obs/LUTS (N40.1) Active confirmed Problem Asthma-chronic obstructive pulmonary disease overlap syndrome (disorder) (307229162120949 07) Asthma-COPD overlap syndrome (J44.89) Active confirmed Vital Signs Heart Rate 74 /min 01/02/2025 Temperature 98.4 degrees Fahrenheit 01/02/2025 Respiratory Rate 18 /min 10/05/2024 Blood pressure diastolic 78 mm Hg 01/02/2025 Oximetry 96 % 01/02/2025 Height-cm 165.1 cm 01/02/2025 Weight-kg 74.6 kg 01/02/2025 Height 65 in 01/02/2025 Blood pressure systolic 106 mm Hg 01/02/2025 Weight 164.46 lbs 01/02/2025 BMI 27.36 kg/m2 01/02/2025 Procedures Procedure Date Ordered Date Performed Result Body Sit e SIX MINUTE WALK 09/01/2024 N/A PFT with FRC: (NO TGV) 09/01/2024 N/A PFT with FRC: (NO TGV) 10/05/2024 10/05/2024 N/A SIX MINUTE WALK 10/05/2024 10/05/2024 N/A Encounters Encounter Location Date Provider Diagnosis [facility] [address] [place] [address] [place] [address] 01/02/2025 Luigi Funez Shortness of breath R06.02 ; Asthma-COPD overlap syndrome J44.89 ; Former smoker Z87.891 and Solitary pulmonary nodule R91.1 [facility] [address] [place] [address] [place] [address] 09/01/2024 Luigi Funez Shortness of breath R06.02 and Former smoker Z87.891 [facility] [address] [place] [address] [place] [address] 10/05/2024 Luigi Funez Shortness of breath R06.02 ; Asthma-COPD overlap syndrome J44.89 ; Former smoker Z87.891 and Solitary pulmonary nodule R91.1 [facility] [address] [place] [address] [place] [address] 10/05/2024 Luigi Funez Shortness of breath R06.02 [facility] [address] [place] [address] 10/05/2024 Luigi Funez Shortness of breath R06.02 [facility] [address] [place] [address] 09/26/2024 Luigi Funez [facility] [address] [place] [address] 12/29/2024 Luigi Funez Assessments Encounter Date Diagnosis (ICD Code) Assessment Notes Treatment Notes Treatment Clinical Notes Section Notes 09/01/2024 Shortness of breath (ICD-10 - R06.02) Continue Albuterol HFA as needed. Continue Breztri for now. Side effect Trelegy: Headaches. Obtain CXR, CBC, PFT, and 6MW. 09/01/2024 Former smoker (ICD-10 - Z87.891) Patient smoked a ggof-pzw-cvh for 30 years. He has been abstinent since 1999. 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 Continue Breztri for now. He states he does find benefit from this. Patient has apparently been taking Symbicort as a rescue. I have informed him that he should not be taking this with Breztri. Side effect Trelegy: Headaches. 01/02/2025 Shortness of breath (ICD-10 - R06.02) 10/05/2024 Former smoker (ICD-10 - Z87.891) Patient smoked a exvx-piw-isk for 30 years. He has been abstinent since 1999. 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 Continue Breztri for now. He states he does find benefit from this. Side effect Trelegy: Headaches. 01/02/2025 Former smoker (ICD-10 - Z87.891) Patient smoked a jpfz-wlh-eym for 30 years. He has been abstinent since 1999. 10/05/2024 Solitary pulmonary nodule (ICD-10 - R91.1) He has a scheduled chest CT with the [facility]. He apparently was told he had a pulmonary nodule. I will obtain copies. 01/02/2025 Solitary pulmonary nodule (ICD-10 - R91.1) [facility]. 09/01/2024 Other Angle Agrawal am scribing for, and in the presence of Dr. Luigi Funez. I, Dr. Luigi Funez, personally performed the services described in this documentation, as scribed by Angle Yadav in my presence, and it is both accurate and complete. 10/05/2024 Other Angle Agrawal am scribing for, and in the presence of Dr. Luigi Funez. Nghia, Dr. Luigi Funez, personally performed the services described in this documentation, as scribed by Angle Yadav in my presence, and it is both accurate and complete. 01/02/2025 Other Angle Agrawal am scribing for, and in the presence of Dr. Luigi Funez. Dr. Luigi Agrawal, personally performed the services described in this documentation, as scribed by Angle Yadav in my presence, and it is both accurate and complete. Plan Of Treatment Pending Test Test Name Order Date UA Without Micro-Auto, Machine - [id number] 0 02/16/2023 SIX MINUTE WALK 09/01/2024 PFT with FRC: (NO TGV) 09/01/2024 Next Appt Details Provider Name:Luigi Funez, 01/02/2026 01:40:00 PM, [address] [place] [address] [address], [place], [address], Insurance Providers Payer Name Payer Address Payer Phone Subscriber Number Group Number Insured Name Patient Relationship to Insured Coverage Start Date Coverage End Date [facility] Medicare Advantage PPO [address] [address] [place] [address] [id number] MALIA EVANGELISTA Self - patient is the insured [facility] [address] [address] [place] [address] [id number] MALIA EVANGELISTA Self - patient is the insured Medical (General) History Medical History History ICD Code Arthritis migraine headaches hypertension measles mumps chicken pox arthritis migraine glaucoma back trouble hemorrhoids bronchitis Surgical History Surgery Date(Month/Year) right knee surgery X2 lower back surgery 2019 cervical neck surgery X2 Hospitalization History Reason Date(Month/Year) surgeries
--- OUTSIDE RECORDS SUMMARY | 2025-06-07 05:15 | XMS_ITS | Encounter Summary ---
Author Organization [facility] Address [address] [place] [address] Care Team Providers Care Websphere Consultant Name Role Phone Ana Luisa Dela Cruz MD Primary Care Provider + [phone] Reason for Referral * Radiology Services (Routine) - Closed Specialty Diagnoses / Procedures Referred By Contac t Referred To Contact Diagnoses Pain Procedures XR FLUORO LESS THAN 1 HOUR Oz Garcia MD Phone: tel: fax: Referral ID Status Reason Start Date Expiration Date Visits Re quested Visits Authorized [id number] Closed 07/21/2019 08/20/2020 1 1 OR LVN Encounter Details Date Type Department Care Team (Late st Contact Info) Description 07/21/2019 Ancillary Orders [facility] [address] [facility] [place] [address] Oz Garcia MD [address] [address] Pain Social History Tobacco Use Types Packs/Day Years [...] on file Sexual Orientation Not on file documented as of this encounter Plan of Treatment Not on file documented as of this encounter Results * XR FLUORO LESS THAN 1 HOUR (07/21/2019 1:47 PM RN OR LVN) Narrative 07/21/2019 1:47 PM RN OR LVN Order information only. Exam was auto-finalized. Oz Garcia MD DIAGNOSTIC IMAGING ORDERA BLES Final Result documented in this encounter Visit Diagnoses Diagnosis Pain Generalized pain documented in this encounter Care Teams Websphere Consultant Relationship Specialty Start Date End Date Ana Luisa Dela Cruz MD [address] [place] [address] PCP - General Family Practice 02/02/19 documented as of this encounter
--- OUTSIDE RECORDS SUMMARY | 2025-06-07 05:16 | XMS_ITS | Patient Health Record ---
Author Organization [facility] Address [address] [place] [address] Care Team Providers Care Executive Receptionist Name Role Phone Zay Ospina Primary Care Provider Lore KIRT Ortiz Unavailable [phone] Allergies No Known Allergies Results Component Value Reference Range Notes Urinalysis, Routine Reviewed date:04/03/2025 11:23:41 AM Interpretation: Performing Lab: Notes/Report: Urine-Color dark yellow Appearance clear Glucose - Bilirubin - Ketones - Specific Adena 1.015 Occult Blood +- pH 6.0 Urine Protein - Urobilinogen,Semi-Qn - Nitrite, Urine - WBC Esterase - Reason For Referral No Information Medications Medication SIG (Take, Route, Frequency, Duration) Notes Start Date End Date Status Jovanna Aerosphere 160-9-4.8 MCG/ACT 2 puffs Inhalation Twice a day Active Albuterol Sulfate HFA 108 (90 Base) MCG/ACT 1 puff as needed Inhalation every 4 hrs Active Tamsulosin HCl 0.4 MG TAKE 1 CAPSULE BY MOUTH ONCE DAILY; Duration: 90 Active Pantoprazole Sodium Active amLODIPine Besylate 10 MG 1 tablet Orally Once a day Active Cephalexin 500 MG 1 capsule Orally BID for two years pt stated knee infection Active Avanafil 100 MG 1 tablet Orally PRN; Duration: 30 days 04/04/2025 03/30/2026 Active Aspirin 325 MG 1 tablet Orally Once a day Active Meloxicam 15 MG 1 tablet Orally Once a day Not-Taking Docusate Sodium 100 MG 1 capsule as needed Orally Once a day Not-Taking Nature Made Glucosamine Active Losartan Potassium 50 MG 1 tablet Orally Once a day Active Atorvastatin Calcium 20 MG 1 tablet Orally Once a day Active Probiotic *Pick strength-form from [employer] [employer] for eRX* Active amLODIPine Besylate Not-Taking predniSONE 10 MG 1 tablet Orally Once a day 12.5mg daily 08/17/2023 Not-Taking Folic Acid 1 MG 1 tablet Orally Once a day 08/17/2023 Not-Taking Sulfamethoxazole-Tr imethoprim 800-160 MG 1 tablet Orally Two times a day 08/17/2023 Not-Taking Social History Tobacco Use: Social History Observation Description Date Details (start date - stop date) Never Smoker NA - NA Tobacco Control (Standard) Question Answer Notes Tobacco use: Nonsmoker AUDIT-C (Standard) Question Answer Notes Did you have a drink containing alcohol in the p ast year? No Points 0 Interpretation Negative Problems Problem Type SNOMED Code ICD Code Onset Dates Problem Status W/U Status Risk Notes Problem Acquired renal cystic disease (466288984) Cyst of kidney, acquired (N28.1) Active confirmed Problem Asymptomatic microscopic hematuria (265882837898418 09) Asymptomatic microscopic hematuria (R31.21) Active confirmed Problem Erectile dysfunction (disorder) (010729650) ED (erectile dysfunction) (N52.9) Active confirmed Problem Complex renal cyst (215947328) Complex renal cyst (N28.1) Active confirmed Problem Benign prostatic hypertrophy with outflow obstruction (647071878) BPH loc w urin obs/LUTS (N40.1) Active confirmed Vital Signs Heart Rate 61 /min 04/03/2025 Blood pressure diastolic 79 mm Hg 04/03/2025 Height-cm 165.1 cm 04/03/2025 Weight-kg 72.58 kg 04/03/2025 Height 65 in 04/03/2025 Blood pressure systolic 147 mm Hg 04/03/2025 Weight 160 lbs 04/03/2025 BMI 26.62 kg/m2 04/03/2025 Procedures Procedure Date Ordered Date Performed Result Body Sit e Bladder Scan 04/03/2025 04/03/2025 N/A Encounters Encounter Location Date Provider Diagnosis [facility] [address] [place] [address] 04/03/2025 KIRT MERCADO BPH loc w urin obs/LUTS N40.1 ; Cyst of kidney, acquired N28.1 and ED (erectile dysfunction) N52.9 [facility] [place] [address] [place] [address] 03/09/2025 KIRT MERCADO Cyst of kidney, acquired N28.1 [facility], [facility] [address] [place] [address] 04/04/2025 KIRT MERCADO Assessments Encounter Date Diagnosis (ICD Code) Assessment Notes Treatment Notes Treatment Clinical Notes Section Notes 04/03/2025 BPH loc w urin obs/LUTS (ICD-10 - N40.1) 1. Complex renal cyst, left kidney - N28.1 2. Microscopic hematuria - R31.9 3. Erectile dysfunction - N52.9 This is a 79-year-old male with a stable complex renal cyst of the left kidney measuring 4.8 cm, present since 2012 with minimal growth, and incidental finding of microscopic hematuria. Patient also presents with erectile dysfunction requiring medication management. 03/09/2025 Cyst of kidney, acquired (ICD-10 - N28.1) 04/03/2025 Cyst of kidney, acquired (ICD-10 - N28.1) 1. Complex renal cyst, left kidney - N28.1 2. Microscopic hematuria - R31.9 3. Erectile dysfunction - N52.9 This is a 79-year-old male with a stable complex renal cyst of the left kidney measuring 4.8 cm, present since 2012 with minimal growth, and incidental finding of microscopic hematuria. Patient also presents with erectile dysfunction requiring medication management. 04/03/2025 ED (erectile dysfunction) (ICD-10 - N52.9) 1. Complex renal cyst, left kidney - N28.1 2. Microscopic hematuria - R31.9 3. Erectile dysfunction - N52.9 This is a 79-year-old male with a stable complex renal cyst of the left kidney measuring 4.8 cm, present since 2012 with minimal growth, and incidental finding of microscopic hematuria. Patient also presents with erectile dysfunction requiring medication management. 04/03/2025 Other # Complex renal cyst, left kidney Continue annual surveillance with renal ultrasound. No intervention needed at this time as the cyst remains stable with minimal growth since 2012. Will schedule next ultrasound in one year. # Microscopic hematuria Trace blood noted on urinalysis without other abnormalities. Will monitor at next visit as this is likely related to known renal cyst. Patient to report any gross hematuria, flank pain, or urinary symptoms. # Erectile dysfunction Prescribed Avanafil (Stendra) 100mg as requested. Initial dose of 100mg with option to increase to 200mg (2 tablets) if inadequate response. Will reassess efficacy at next visit and adjust dosage if needed. Prescription sent to [facility] per patient request. Dear Mr. Jimenez, Today we reviewed your kidney ultrasound, which shows the cyst on your left kidney remains stable at 4.8 cm. This is good news as it has shown very little change since 2013. Your urine test showed a tiny amount of blood, which we will continue to monitor. This is likely related to your kidney cyst. I've sent your prescription for Avanafil (Stendra) 100mg to [facility]. Take one pill about 30 minutes before sexual activity. If one pill doesn't work well enough, you can try two pills (but no more than that). Let us know how it works for you. Please call our office if you notice any blood in your urine that you can see, pain in your side, or problems with urination. Your next appointment will be in one year with another kidney ultrasound before your visit. You can schedule this at the front counter attendant today. Thank you for the joke - it was a good one! 1. Complex renal cyst, left kidney - N28.1 2. Microscopic hematuria - R31.9 3. Erectile dysfunction - N52.9 This is a 79-year-old male with a stable complex renal cyst of the left kidney measuring 4.8 cm, present since 2012 with minimal growth, and incidental finding of microscopic hematuria. Patient also presents with erectile dysfunction requiring medication management. Plan Of Treatment Pending Test Test Name Order Date CT Abd & Pelvis W & [place] [id number] 11/25/2023 BUN 48284 11/25/2023 Creatine, Serum 11/25/2023 Renal Ultrasound RAMEZ 14015 03/09/2025 UA Without Micro-Auto [id number] 02/16/2023 Bladder Scan 08/17/2023 Future Test Test Name Order Date Blood Urea Nitrogen (BUN) 76580 06/19/20 23 Creatinine (B) 09964 06/19/2023 CT Abdomen, Pelvis w/ + w/o Contrast-[id number] [id number] 06/19/2023 CT Abd & Pelvis W & [place] [id number] 12/18/2023 BUN 23460 12/18/2023 Creatine, Serum 12/18/2023 Next Appt Details Provider Name:KIRT Curry, 04/09/2026 10:50:00 AM, [address] [place], [address], Insurance Providers Payer Name Payer Address Payer Phone Subscriber Number Group Number Insured Name Patient Relationship to Insured Coverage Start Date Coverage End Date [employer] Medicare Advantage PPO [address] [address] [place], [place] [id number] Anthony Jimenez Self - patient is the insured Medical (General) History Medical History History ICD Code Arthritis migraine headaches hypertension known renal cyst Surgical History Surgery Date(Month/Year) cervical neck surgery X2 lower back surgery 2019 right knee surgery X2 Hospitalization History Reason Date(Month/Year) surgeries
--- OUTSIDE RECORDS SUMMARY | 2025-06-07 05:16 | XMS_ITS | Data Portability ---
Author Organization MASOOD Meneses [facility], [facility] Address [address] [place] [address] Care Team Providers Care Breeding Technician Name Role Phone GENE MIMS Primary Care Provider Unavailabl e Assessment Encounter Date Assessment Date Assessment LastModified by Organization Details LastModified Time 04/22/2024 04/22/2024 Discussed with him holding his statin while taking the Paxlovid. Push fluids. Education handout provided. His was positive at home. Will send in meds for her as well. Not available 04/22/2024 09:02:16 06/01/2024 06/01/2024 Document scribed by Edgar Terrell Emr Specialist. I was present during interview and exam. I have reviewed and agree with above documentation. Dr. Gene Mims. [email or web address] Not available 06/01/2024 16:05:24 08/08/2024 08/08/2024 A Care Coordination Assessment form was filled out as part of this patient's office visit today. [email or web address] Not available 08/08/2024 18:30:51 10/26/2024 10/26/2024 Document scribed by Edgar Terrell Emr Specialist. I was present during interview and exam. I have reviewed and agree with above documentation. Dr. Gene Mims. [email or web address] Not available 10/26/2024 10:30:45 Plan of Treatment Reminders Order Date Submit Date Provider Last Modified By Organization Details Last Modified Time Details Appointments None recorded. Lab rapid flu (A+B), PCR 2023 024 [email or web address] 47 [facility] [address] [place], [address], 4 07:58:21 SARS CoV 2 RNA, QL, nasopharynx 2023 024 [email or web address] 47 [facility] ([facility]), [address] [place], [address], 4 07:58:21 SARS CoV 2 RNA, QL, nasopharynx 2023 024 [email or web address] [facility] ([facility]), [address] [place], [address], 4 17:06:49 Referral None recorded. Procedures None recorded. Surgeries None recorded. Imaging None recorded. Medication Orders Breztri Aerosphere 160 mcg-9mcg-4. 8mcg/actuat ion HFA aerosol inhaler 2024 025 [facility], [address] [place] [address], [address], [id number], 5 14:43:45 levofloxaci n 500 mg tablet 2023 024 [facility], [address] [place] [address], [id number], 4 11:09:13 prednisone 20 mg tablet 2023 024 [email or web address] [facility], [address] [place] [address], [id number], 5 10:14:07 Paxlovid 300 mg (150 mg x 2)-100 mg tablets in a dose pack 2023 024 [email or web address] [facility], [address] [place] [address], [id number], 4 14:59:56 Patient TargetsNo targets recorded. Patient Instructions Encounter Date Encounter Id Patient Instructions Last Modified By Organization Details Last Modified Time 04/22/2024 [id number] coronavirus (covid-19): care instructions Not available 04/22/2024 09:02:20 Call or return for questions or concerns. Not available 04/22/2024 09:02:19 Reason for Referral None Reported. Results Created Date Observation Date Name Description Value Unit Range Abnormal Flag Note LastModifiedBy Organization Detail LastModifiedTime 04/22/20 24 04/22/2024 SARS CoV 2 RNA, QL, nasop haryn x COVID positi ve Not Available [facility] ([facility]) [address] [place] [address], [phone], 04/22/2024 08:42:47 06/01/20 24 06/01/2024 SARS CoV 2 RNA, QL, nasop haryn x COVID negati ve Not Available [facility] ([facility]) [address] [place], [address], 06/01/2024 15:26:39 06/01/20 24 06/01/2024 rapid flu (A+B) , PCR Influenza A negati ve Not Available [facility] ([facility]) [address] [place] [address], [phone], 06/01/2024 15:26:37 06/01/20 24 06/01/2024 rapid flu (A+B) , PCR Influenza B negati ve Not Available [facility] ([facility]) [address] [place], [address], 06/01/2024 15:26:37 10/27/19 25 08/31/2023 CT, abdom en + pelvi s, w/o contr ast [facility] [address] [place] [address] CT Scan Report Signed Samuel t: Anthony Jimenez Unit #: [id number] : [id number] Age/Se x: 78 / M ADM Date: Loc: RAD Room/B ed: Attend ing Dr: Edson Levine [facility] er/Ord dequan ROBLES: Troy Yepez. Date of Servic e: Proced ure(s) : CT abdome n pelvis wo/w [address] Access ion Number (s): [id number] [id number] Report Number : [id number] WS: [id number] CT ABDOME N AND PELVIS WITH AND WITHOU T CONTRA ST HISTOR Y: CYST OF KIDNEY TECHNI QUE: Unenha nced 5 mm axial imagin g first perfor med throug h the abdome n. Post contra st imagin g throug h the abdome n and pelvis . Oral contra st has not been provid ed. Sagitt al and jarrett l reform ats are submit billy. All CT scans at [facility] use at least one of these dose optimi zation techni ques: automa billy exposu re contro l; mA and/or kV adjust ment per patien t size (inclu dara target ed exams where dose is matche d to clinic al indica tion); or iterat shannon recons tructi on. CONTRA ST: Omnipa que 350; 95 mL IV. DLP: 1121.0 2 mGy.cm COMPAR PIERO: 023, Centri lobula r emphys tino at the lung bases. Stable pleura l nodule and calcif icatio n at the LEFT lung base. Simila r to the prior study from 019 heart is normal size. Small hiatal hernia . Normal size liver with bella us scatte red low-at tenuat ion nodule s. Majori ty of these are cysts and presen t on the study of 023. Some of these are too small to charac terize . No solid mass. Normal portal vein. Normal size spleen . Negati ve gallbl adder. No bile duct dilata tion. Normal pancre as. No adrena l mass. Negati ve RIGHT kidney . LEFT kidney : Normal size kidney . There is a lobula billy comple x cyst associ ated with the mid kidney with septat ions and periph eral calcif icatio ns. This is a lobula billy cyst measur ing 4.4 x 4.0 x 5.3 cm. Very slight increa se in size since the prior examin ation. There is minima l enhanc ement. There is variab le densit y on the postco ntrast imagin g. No renal obstru ction. Modera te athero sclero sis aorta. Athero sclero tic plaque at the celiac axis. Nondis tended stomac h. No small bowel obstru ction. Mild consti pation . Normal append ix. There are fused distal sigmoi d divert icula withou t acute divert iculit is. No ascite s or adenop athy. Prosta te gland is enlarg ed and hetero geneou s encroa juliano into the bladde r. Bladde r is normal ly disten ded. L4 ebony listhe sis by 4.7 mm. Disc bases are narrow ed throug hout the lumbar spine, most signif icant at L4-5. There is a large care giver ior wily ctomy defect from L3-L5. IMPRES JAMARI: 1. Lobula billy, septat ed LEFT renal cystic mass with wall septat ions. [place] k IIf. Recomm end yearly renal mass CT protoc ol. 2. Stable pleura l-base d nodula r calcif icatio n at the LEFT lung base. 3. Too small to charac terize hypode nsitie s along with hepati c cysts which are stable . 4. No GI tract obstru ction. Dictat ed By: Carolyn Rivas DO Signed By: Carolyn Rivas DO Signed Date/T pati: 0911 DD/DT: 0850 [email or web address] Not Available 2024 10:30:35 Result Notes Documentation Provider Name and Address Organization Details Recorded Time Ct, Abdomen + Pelvis, W/o Contrast : [employer] [address] [place] [address] CT Scan Report Signed Patient: Anthony Jimenez Unit #: [id number] : 1945 Age/Sex: 78 / M ADM Date: 08/31/23 Loc: RAD Room/Bed: Attending Dr: Edson Yepez Ordering Provider/Ordering MD: Edson Yepez Date of Service: 08/31/23 Procedure(s): CT abdomen pelvis wo/w [address]77 Accession Number(s): [id number] Report Number: [id number] WS: [id number] CT ABDOMEN AND PELVIS WITH AND WITHOUT CONTRAST HISTORY: CYST OF KIDNEY TECHNIQUE: Unenhanced 5 mm axial imaging first performed through the abdomen. Post contrast imaging through the abdomen and pelvis. Oral contrast has not been provided. Sagittal and coronal reformats are submitted. All CT scans at [facility] use at least one of these dose optimization techniques: automated exposure control; mA and/or kV adjustment per patient size (includes targeted exams where dose is matched to clinical indication); or iterative reconstruction. CONTRAST: Omnipaque 350; 95 mL IV. DLP: 1121.02 mGy.cm COMPARISON: 12/05/2022, Centrilobular emphysema at the lung bases. Stable pleural nodule and calcification at the LEFT lung base. Similar to the prior study from 04/22/2019 heart is normal size. Small hiatal hernia. Normal size liver with numerous scattered low-attenuation nodules. Majority of these are cysts and present on the study of 12/05/2022. Some of these are too small to characterize. No solid mass. Normal portal vein. Normal size spleen. Negative gallbladder. No bile duct dilatation. Normal pancreas. No adrenal mass. Negative RIGHT kidney. LEFT kidney: Normal size kidney. There is a lobulated complex cyst associated with the mid kidney with septations and peripheral calcifications. This is a lobulated cyst measuring 4.4 x 4.0 x 5.3 cm. Very slight increase in size since the prior examination. There is minimal enhancement. There is variable density on the postcontrast imaging. No renal obstruction. Moderate atherosclerosis aorta. Atherosclerotic plaque at the celiac axis. Nondistended stomach. No small bowel obstruction. Mild constipation. Normal appendix. There are fused distal sigmoid diverticula without acute diverticulitis. No ascites or adenopathy. Prostate gland is enlarged and heterogeneous encroaching into the bladder. Bladder is normally distended. L4 anterolisthesis by 4.7 mm. Disc bases are narrowed throughout the lumbar spine, most significant at L4-5. There is a large posterior laminectomy defect from L3-L5. IMPRESSION: 1. Lobulated, septated LEFT renal cystic mass with wall septations. Bosniak IIf. Recommend yearly renal mass CT protocol. 2. Stable pleural-based nodular calcification at the LEFT lung base. 3. Too small to characterize hypodensities along with hepatic cysts which are stable. 4. No GI tract obstruction. Dictated By: Carolyn Rivas DO Signed By: Carolyn Rivas DO Signed Date/Time: 08/31/23 0911 DD/ 0850 Edgar Pelayomiri monalisa [facility] 10/26/2024 10:30:35 Problems Name Problem SNOMED Code Status Onset Date Resolution Date Notes Provider Name and Address Organization Details Recorded Time Nocturia 344419571 Completed 201606/22/2017 NOCTURIA - Status is Inactive ; Recorded 06/22/20 17 9:43AM by Sridevi Womack CMT, Annotati on/Adden dum; Promoted ; acuity set as *; Not Available [facility] 3 03:08:44 Chronic rheumati c arthriti s [id number] Completed 201606/22/2017 Chronic Arthriti s - Status is Inactive ; 06/22/20 17 9:43AM by Sridevi Womack CMT, Annotati on/Adden dum; Promoted ; acuity set as *; Not Available [facility] 3 03:08:44 Arthropa thy 968448875 Active 2022 ARTHRITI S Robyn sheldon [facility] 5 10:14:58 Blood in urine 28758513 Active 2022 HEMATURI A Robyn sheldon [facility] 5 10:14:58 Hyperten sive disorder 64465732 Active 2022 HYPERTEN JAMARI, BENIGN Robyn sheldon [facility] 5 10:14:58 Complex renal cyst 683626331 Active 2022 Robyn sheldon [facility] 5 10:14:58 Nodule of lung 783274934 Active 2022 Robynslim Corneliuse [facility], [facility] 5 10:14:58 Dysuria 93767465 Active 2022 Robynslim Corneliuse [facility], [facility] 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 5 10:14:58 [facility] l hyperten jamari 07465340 Active 2022 Robyn Lee [facility], [facility] 5 10:14:58 Hyperlip idemia 11736232 Active 2022 Robyn Lee [facility], [facility] 5 10:14:58 Lipoma of abdomina l wall 761510559 Active 2022 Robyn Lee [facility], [facility] 5 10:14:58 Temporal arteriti s 110541885 Active [address] [facility] 5 10:14:58 Erectile dysfunct ion 606606762 Active 2022 Robyn Lee [facility], [facility] 5 10:14:58 Chronic obstruct shannon pulmonar y disease 05922407 Active 2022 Robyn Lee [facility], [facility] 5 10:14:57 Acute exacerba tion of chronic obstruct shannon pulmonar y disease 730812539 Active [address] [facility] 5 10:14:58 Obesity 950142229 Active [address] [facility] 5 10:14:58 Moderate major depressi on, single episode 84157629 Active [address] [facility] 5 10:14:58 Family history of malignan t neoplasm of pancreas 231983775 Active [address] [facility] 5 10:32:24 Notes:Some problems listed i n Document: #[id number] could not be added to this patient's chart. Please review this document and add these problems to the patient's chart manually as needed. Problem Notes None recorded. Procedures Surgical History Date Name Laterality Status Provider Name and Address Organization Details Recorded Time 3 screening for malignant neoplasm of lung completed [facility] 08/11/2023 17:07:56 2 Psa screening completed [facility] 08/11/2023 17:08:14 2 colonoscopy completed [facility] 08/11/2023 17:06:35 Imaging Results None recorded. Procedure Notes None recorded. Medical Equipment None Reported. Allergies Allergen ID Allergen Name Allergen Category Reaction Reaction Severity Criticality Documentation Date Start Date Code Code System Note Provider Name and Address Organization Details Recorded Time 89532 aclidiniu m bromide medicatio n other moderate low 02/14/2023 33367 97 RxNorm React ion: urina ry margarita Padron [facility] 4 10:38:21 Medications Name Sig Start Date Stop Date Status Note LastModified by Organization Details LastModified Time losartan 50 mg tablet TAKE 1 TABLET BY MOUTH DAILY 03/19/ 2025 active Not Available Not Available Not Avai lable cyclobenz aprine 10 mg tablet TAKE ONE TABLET BY MOUTH THREE TIMES DAILY for SEVEN DAYS active Not Available Not Available No t Available amoxicill in 500 mg capsule TAKE THREE capsules BY MOUTH ONE hour prior TO dental appointm ent active Not Available Not Available No t Available promethaz ine-DM 6.25 mg-15 mg/5 mL oral syrup TAKE 5 TO 10 ML BY MOUTH EVERY 6 HOURS NEEDED 11/20 completed Not Available Not Available Not Available prednison e 10 mg tablet TAKE FOUR TABLETS BY MOUTH DAILY FOR TWO WEEKS, THEN TAKE THREE AND ONE-HALF TABLETS BY MOUTH DAILY FOR ONE WEEK, THEN TAKE THREE TABLETS EVERY DAY FOR ONE WEEK, AND THEN TAKE TWO AND ONE-HALF TABLETS BY MOUTH DAILY FOR ONE WEEK THEN stay ON 20mg DAILY 04/28 completed Not Available Not Available Not Available doxycycli ne hyclate 100 mg capsule TAKE 1 CAPSULE BY MOUTH TWICE A DAY FOR 7 DAYS 11/20 completed Not Available Not Available Not Available atorvasta tin 20 mg tablet TAKE 1 TABLET BY MOUTH DAILY 2024 active Not Available Not Available Not Avai lable ipratropi um 0.5 mg-albute rol 3 mg (2.5 mg base)/3 mL nebulizat ion soln active Not Available Not Available Not Available sildenafi l 50 mg tablet Take 1 tablet every day by oral route as needed. active Not Available Not Available No t Available azithromy tim 250 mg tablet 11/20 completed Not Available Not Available Not Available hydrocodo ne 5 mg-acetam inophen 325 mg tablet TAKE ONE TABLET BY MOUTH EVERY 4 HOURS NEEDED FOR PAIN for SEVEN DAYS; max DAILY DOSE of SIX TABLETS 10/26 completed Not Available Not Available Not Available meloxicam 15 mg tablet active on HOLD Not Available Not Available Not Available prednison e 20 mg tablet Take 2 tablets every day by oral route. 10/26 completed Not Available Not Available Not Available prednison e 5 mg tablet 10/26 completed Not Available Not Available Not Available methylpre dnisolone 4 mg tablet TAKE 6 TABLETS ON DAY 1 AND DECREASE BY 1 TAB EACH DAY FOR A TOTAL OF 6 DAYS 11/20 completed Not Available Not Available Not Available permethri n 5 % topical cream Thorough ly massage into SKIN from head TO soles of feet. Leave on for 8-14 hours, then remove by washing thorough ly 06/01 completed Not Available Not Available Not Available ciproflox acin 500 mg tablet TAKE ONE TABLET BY MOUTH TWICE DAILY 02/09 completed Not Available Not Available Not Available sulfameth oxazole 800 mg-trimet hoprim 160 mg tablet TAKE ONE TABLET BY MOUTH ON THURSDAY, , AND 02/09 completed Not Available Not Available Not Available hydrocodo ne 10 mg-acetam inophen 325 mg tablet TAKE ONE TABLET BY MOUTH EVERY 4 HOURS NEEDED FOR pain FOR SEVEN DAYS 10/26 completed Not Available Not Available Not Available omeprazol e 40 mg capsule,d elayed release TAKE 1 CAPSULE BY MOUTH DAILY 2024 active Not Available Not Available Not Avai lable sildenafi l 100 mg tablet TAKE 1 TABLET BY MOUTH DAILY NEEDED 10/26 completed Not Available Not Available Not Available amoxicill in 500 mg tablet Take 1 tablet twice a day by oral route for 7 days. 11/23 completed Not Available Not Available Not Available betametha sone acetate and sodium phos 6 mg/mL suspensio n for injection Take 6 mg by injectio n route. 04/22 completed Not Available Not Available Not Available methotrex ate sodium 2.5 mg tablet 10/26 completed Not Available Not Available Not Available aspirin 325 mg tablet,de layed release Take 1 tablet twice a day by oral route for 30 days. active Not Available Not Available No t Available tamsulosi n 0.4 mg capsule daily active Not Available Not Available Not Available prednison e 1 mg tablet TAKE ONE TABLET BY MOUTH DAILY. must call office for appointm ent for more refills 03/23 completed Not Available Not Available Not Available amlodipin e 10 mg tablet TAKE ONE TABLET BY MOUTH DAILY 2024 active Not Available Not Available Not Avai lable benzonata te 100 mg capsule TAKE 1 CAPSULE BY MOUTH THREE TIMES DAILY FOR 7 DAYS NEEDED FOR COUGH 11/20 completed Not Available Not Available Not Available prednison e 2.5 mg tablet TAKE THREE TABLETS BY MOUTH DAILY FOR TWO WEEKS, THEN stay ON TWO TABLETS BY MOUTH DAILY FOR one MONTH; THEN call THE office AND let them know how you are doing 03/25 completed Not Available Not Available Not Available cephalexi n 500 mg capsule 10/26 completed Not Available Not Available Not Available pantopraz ole 40 mg tablet,de layed release active Not Available Not Available Not Available budesonid e 0.5 mg/2 mL suspensio n for nebulizat ion INHALE ONE vial TWICE DAILY active Not Available Not Available No t Available folic acid 1 mg tablet active Not Available Not Available Not Available monteluka st 10 mg tablet TAKE 1 TABLET DAILY 10/26 completed Not Available Not Available Not Available furosemid e 20 mg tablet TAKE 1/2 TABLET BY MOUTH EVERY DAY 11/20 completed Not Available Not Available Not Available levofloxa tim 500 mg tablet Take 1 tablet every day by oral route for 10 days. 06/09 completed Not Available Not Available Not Available scopolami ne 1 mg over 3 days transderm al patch as directed 01/05 completed Not Available Not Available Not Available albuterol sulfate HFA 90 mcg/actua tion aerosol inhaler USE 2 INHALATI ONS BY MOUTH EVERY 6 HOURS NEEDED 2024 active Not Available Not Available Not Avai lable ondansetr on 4 mg disintegr ating tablet DISSOLVE 1 TABLET ON THE TONGUE DAILY FOR 5 DAYS 01/05 completed Not Available Not Available Not Available doxycycli ne hyclate 100 mg tablet TAKE 1 TABLET BY MOUTH TWICE DAILY 11/20 completed Not Available Not Available Not Available amoxicill in 875 mg-potass ium clavulana te 125 mg tablet TAKE ONE TABLET BY MOUTH TWICE DAILY for 10 DAYS 04/22 completed Not Available Not Available Not Available ceftriaxo ne 2 gram solution for injection 10/26 completed Not Available Not Available Not Available oxycodone 5 mg tablet 10/26 completed Not Available Not Available Not Available Ventolin 90 mcg/actua tion aerosol inhaler 2021 active Not Available Not Available Not Avai lable tadalafil 20 mg tablet active Not Available Not Available Not Available amlodipin e 10 mg-atorva statin 10 mg tablet Take 1 tablet every day by oral route for 90 days. 06/01 completed Not Available Not Available Not Available levalbute rol concentra te 1.25 mg/0.5 mL solution for nebulizat ion 0.5 mL every 4 hours by inhalati on route. active Not Available Not Available No t Available meloxicam daily for arthriti s/pain 04/28 completed LB/km; Recorded 07/02/20 22 8:47AM by Edgar Terrell, Office Visit; Mail Order Quantity : 90 Tablet; Mail Order Days: 90 Days; Refill Quantity : 0; Not Available Not Available Not Available ipratropi um-albute rol use with nebulize r up to every 4 hrs as needed for breathin g 04/28 completed Recorded 08/07/19 23 9:16AM by Gene Mims DO, Office Visit; Refill Quantity : 60; Packet; Not Available Not Available Not Available levofloxa tim 10/26 completed Not Available Not Available Not Available levalbute rol HCl every four hours, as needed 06/04 completed Recorded 10/04/19 23 12:25PM by Terri Vasquez, Historic al Summary; Mail Order Quantity : 30 Capsule; Refill Quantity : 0; Not Available Not Available Not Available Symbicort 160 mcg-4.5 mcg/actua tion HFA aerosol inhaler Inhale 2 puffs twice a day by inhalati on route for 90 days. active Not Available Not Available No t Available formotero l fumarate 20 mcg/2 mL solution for nebulizat ion INHALE 2ML TWICE DAILY active Not Available Not Available No t Available calcium 200 mg (as citrate)- vitamin D3 6.25 mcg (250 unit) tablet 10/26 completed Not Available Not Available Not Available amlodipin e besylate (bulk) daily for blood pressure 04/28 completed Recorded 02/14/20 22 2:42PM by Gene Mims DO, Annotati on/Adden dum; Mail Order Quantity : 90 Tablet; Mail Order Days: 90 Days; Refill Quantity : 0; Not Available Not Available Not Available Probiotic (S.boular dii) 2022 active Not Available Not Available Not Avai lable Spiriva Respimat 1.25 mcg/actua tion solution for inhalatio n daily 08/18 completed Recorded 08/07/19 23 9:15AM by Gene Mims DO, Office Visit; Refill Quantity : 0; Not Available Not Available Not Available vancomyci n 1.25 gram intraveno us solution 01/05 completed Not Available Not Available Not Available Breztri Aerospher e 160 mcg-9mcg- 4.8mcg/ac tuation HFA aerosol inhaler Inhale 2 puffs twice a day by inhalati on route for 90 days. 2024 active Not Available Not Available Not Avai lable Paxlovid 300 mg (150 mg x 2)-100 mg tablets in a dose pack take all 3 tabs (1 package) by mouth twice daily for 5 days as directed 06/01 completed Not Available Not Available Not Available Vitals Date Recorded Body height Body mass index (BMI) Body weight Oxygen saturation Oxygen saturation in Arterial blood by Pulse oximetry Heart rate Respiratory rate Systolic And Diastolic Provider Name and Address Organization Details Last Updated DateTime 5 152.4 cm 33.1 kg/m2 04923.9 1 g 96 % 96 % 67 /min 18 /min 138/70 mm[Hg] Robyn [facility] 5 14:16:16 Date Recorded Body height Body mass index (BMI) Body weight Oxygen saturation Oxygen saturation in Arterial blood by Pulse oximetry Heart rate Respiratory rate Systolic And Diastolic Provider Name and Address Organization Details Last Updated DateTime 5 152.4 cm 33.5 kg/m2 50391.4 g 97 % 97 % 67 /min 20 /min 116/70 mm[Hg] Robyn [facility] 5 10:16:10 Date Recorded Body height Body mass index (BMI) Body weight Oxygen saturation Oxygen saturation in Arterial blood by Pulse oximetry Heart rate Respiratory rate Body temperature Systolic And Diastolic Provider Name and Address Organization Details Last Updated DateTime 4 152.4 cm 30.1 kg/m2 84893.2 2 g 94 % 94 % 82 /min 18 /min 98.2 [degF] 140/84 mm[Hg] Lana Maldonado [facility] 4 08:41:20 Date Recorded Body height Body mass index (BMI) Body weight Oxygen saturation Oxygen saturation in Arterial blood by Pulse oximetry Heart rate Respiratory rate Systolic And Diastolic Provider Name and Address Organization Details Last Updated DateTime 4 152.4 cm 30.5 kg/m2 07630.8 1 g 96 % 96 % 68 /min 18 /min 110/68 mm[Hg] Robyn Lee [facility] 4 15:06:37 Date Recorded Body height Body mass index (BMI) Body weight Body temperature Heart rate Oxygen saturation Oxygen saturation in Arterial blood by Pulse oximetry Systolic And Diastolic Provider Name and Address Organization Details Last Updated DateTime 4 152.4 cm 31.5 kg/m2 47340.1 7 g 98.5 [degF] 80 /min 96 % 96 % 132/68 mm[Hg] Janet Erwin [facility] 4 11:01:53 Social History Question Answer Notes LastModified by Zerply Details LastModified Time Tobacco Smoking Status Never Smoker Lana Maldonado [facility] 04/22/2024 08:41:30 Which Illicit Or Recreational Drugs Have You Used? Marijuana [email or web address] Information not available 11/20/2022 Sex: Unknown Functional Status Question Answer Note LastModified by Zerply Details LastModified Time Do you use any illicit or recreational drugs? Yes [email or web address] Information not available 11/20/2022 Do you or have you ever used any other forms of tobacco or nicotine? No [email or web address] Information not available 11/20/2022 What is your level of alcohol consumption? None [email or web address] Information not available 11/20/2022 Mental Status None recorded. Family History Relationship Description Onset Age of this Age Resolved Age Notes LastModified by Organization Details LastModified Time Father No current problems or disability [email or web address] Not available 10/26 10:32:29 Mother No current problems or disability [email or web address] Not available 10/26 10:32:29 Notes:Brother with Pancreatic Cancer at age 60's. Medical History No medical history recorded. Immunizations Vaccine Type Date Status Note Provider Name and Address Organization Details Recorded Time Influenza, split virus, trivalent, preservative 023 completed Not Available [facility] 08/24/2023 23:11:51 pneumococcal polysaccharide PPV23 014 completed Not Available [facility] 08/24/2023 23:11:50 Influenza, split virus, trivalent, preservative 014 completed Not Available [facility] 08/24/2023 23:11:51 pneumococcal polysaccharide PPV23 007 completed Not Available [facility] 08/24/2023 23:11:50 Influenza, split virus, trivalent, preservative 016 completed Not Available [facility] 08/24/2023 23:11:50 Influenza, split virus, trivalent, preservative 017 completed Not Available [facility] 08/24/2023 23:11:50 Influenza, split virus, trivalent, preservative 018 completed Not Available [facility] 08/24/2023 23:11:51 Td (adult), 2 Lf tetanus toxoid, preservative free, adsorbed 007 completed Not Available [facility] 08/24/2023 23:11:51 Influenza, adjuvanted, trivalent, PF 019 completed Not Available [facility] 08/24/2023 23:11:50 zoster recombinant 022 completed Not Available [facility] 08/24/2023 23:11:50 Influenza, high-dose, quadrivalent, PF 022 completed Not Available [facility] 08/24/2023 23:11:50 Influenza, adjuvanted, quadrivalent, PF 022 completed Not Available [facility] 08/24/2023 23:11:50 COVID-19, mRNA, LNP-S, PF, 100 mcg/0.5mL dose or 50 mcg/0.25mL dose 022 completed Not Available [facility] 08/24/2023 23:11:50 COVID-19, mRNA, LNP-S, PF, 30 mcg/0.3 mL dose 021 completed Not Available [facility] 08/24/2023 23:11:50 COVID-19, mRNA, LNP-S, PF, 30 mcg/0.3 mL dose 021 completed Not Available [facility] 08/24/2023 23:11:50 Pneumococcal conjugate PCV 13 019 completed Not Available [facility] 08/24/2023 23:11:50 Influenza, high-dose, trivalent, PF 017 completed Not Available [facility] 08/24/2023 23:11:50 Pneumococcal conjugate PCV20, polysaccharide [id number] conjugate, adjuvant, PF 023 completed Not Available [facility] 10/26/2024 10:04:16 Influenza, high-dose, trivalent, PF 024 completed Not Available [facility] 10/26/2024 10:04:16 Influenza, split virus, quadrivalent, PF 023 completed Gene Mims DO [address] [place] [address], [phone], [facility] 05/21/2023 08:17:31 zoster recombinant 023 cancelled patient objection Gene Mims DO [address] [place] [address], [phone], [facility] 05/21/2023 08:17:31 Tdap 024 completed SOFIA sheldon [facility] 08/18/2023 11:02:13 zoster recombinant 024 completed Not Available [facility] 08/18/2023 11:28:27 zoster recombinant 024 completed Gene Mims DO [address] [place] [address], [phone], [facility] 12/04/2023 19:00:39 Past Encounters Encounter ID Performer Location Encounter Start Date Encounter Closed Date Diagnosis/Indication Diagnosis SNOMED-CT Code Diagnosis ICD10 Code Diagnosis IMO Codes Diagnosis Note [id number] Gene Mims DO [facility] ([facility]) [address] [place] [id number] 11/20/2022 09:24:15 11/20/2022 11:30:44 Dysuria 25340634 R30.0 UA with sojme blood, otherwise ok. Abdominal pain 43475510 R10.9 with known complex renal cyst. no acute or severe symptoms. will send to urology Screening for malignant neoplasm of colon 932718982 Z12.11 counseled. pt will consider Complex renal cyst 18871 [address]1 [address]28[address] Orozco, who is retiring, had last US at [facility] on 10/15/22. left septated cyst with mild debris 5/4.4/4cm no hydronephr osis.will refer to Dr. Yepez to take over urological care.refer red. Pt will pick up driver records from Dr. Orozco's office and take to first appt with Dr. Yepez Nodule of lung 941597511 R91.1 on LDCT ordered by [facility] september 2022. right lung base 4.4mm, also right apex with 4.6mm nodule.pt to have f/u LDCT in 3mts ordered by [place]. [id number] Gene Mims DO [facility] ([facility]) [address] [place] [address] [id number] 5 12/17/2022 13:36:11 12/17/2022 16:36:54 Pyogenic bacterial arthritis of knee 3884059528 9107 M00.862 s/p washout with spacer replaced. pt on vancomycin bid with troughs followed by ortho.keep f/u with orhto next week. continue HHC.will get records of labs drawn this afternoon at [facility]. Essential hypertension 03932029 I10 continue with losartan, hold off on amlodipine . Hyperlipidemia 42676314 E78.5 ok to stay of statin for the next few wks while on IV abx. Geen Mims DO [facility] ([facility]) [address] [place] [address] [id number] 01/05/2023 12:45:27 01/05/2023 18:30:27 Essential hypertension 78713088 I10 continue with losartan, hold off on amlodipine . Hypercholesterolemia 136 45389 E78.00 Pyogenic b acterial arthritis of knee 7468071260 9107 M00.862 s/p washout with spacer replaced by Dr. Bartlett 12/05/2022. continues on IV abx, switched from vanc to reocephin. keep f/u with ortho. healing well. [id number] Gene Mims DO [facility] ([facility]) [address] [place] [address] [id number] 03/04/2023 13:41:40 03/04/2023 16:47:26 Temporal arteritis 228741251 M31.6 I reviewed hospital stay and follow-up on results of temporal artery biopsy. Both were negative. Recommend patient continue with his current treatment despite this. He is to keep follow-up with a specialist . Hyperglycemia 99765404 R 73.9 We will get A1c due to concerns as above. [id number] Gene Mims DO [facility] ([facility]) [address] [place] [address] [id number] 04/28/2023 08:48:51 04/28/2023 12:52:22 Active or passive immunization 396583155 Z23 I counseled pt on vaccinatio ns. they are willing to accept the Shingles vaccinatio n. given today, they will return in 8 wks for the 2nd/last booster.I counsled pt on vaccinatio ns. pt given fluvax today as above per pt request. Lipoma of abdominal wall 693690043 D17.79 LLQ, anterolate ral. pt has CT scheduled for 05/14. counseled on presumed dx, will f/u on CT results.re turn if worsening. Complex renal cyst 05374 1001 N28.1 had last US at [facility] on 10/15/22. left septated cyst with mild debris 5/4.4/4cm no hydronephr osis. Keep appt for CT and keep f/u with Dr. Yepez. Pyogenic b acterial arthritis of knee 3122650471 9107 M00.862 s/p washout with spacer replaced by Dr. Bartlett 12/05/2022. continues on IV abx, switched from vanc to reocephin. keep f/u with ortho. healing well. Temporal arteritis 14504 0008 M31.6 I reviewed hospital stay and follow-up on results of temporal artery biopsy. Both were negative.r ecommend continued tapor down on prednisone . go down from 20mg daily to 15 for 2 wks, then down to 10mg. keep f/u with specialist . [id number] Gene Mims DO [facility] ([facility]) [address] [place] [address] [id number] 06/04/2023 11:14:53 06/04/2023 18:42:28 Erectile dysfunction 698185183 F52.21 worsening, likely 2/2 recent medical issues and medication s. ok to use viagra. counseled Temporal arteritis 86755 0008 M31.6 I reviewed hospital stay and follow-up on results of temporal artery biopsy. Both were negative. I reviewed last visit with Endocrinol Dr. Daysi cedillo at [facility] on 05/27/23. HE is weaning down on predisone- down to 10mg daily by jul 2023, remains on MTX and folate. Chronic ob structive pulmonary disease 09632856 J44.9 continue inhalers. .sx worsening, also with hx of [address] scan this year. will send to pulm for further eval. counseled Nodule of lung 849334420 R91.1 on LDCT ordered by [facility] september 2022. right lung base 4.4mm, also right apex with 4.6mm nodule.roxy rao send to pulm. Complex renal cyst 62715 1001 N28.1 had last US at [facility] on 10/15/22. left septated cyst with mild debris 5/4.4/4cm no hydronephr osis. Keep appt for CT and keep f/u with Dr. Yepez. [id number] JAIDA DUBOIS PA-C [facility] ([facility]) [address] [place] [address] [id number] 08/18/2023 09:26:30 08/18/2023 11:15:53 Adult health examination 302110372 Z00.00 CCA form filled out during today's office visit Administra tion of diphtheria, pertussis, and tetanus vaccine 623160785 Z23 Temporal arteritis 12355 0008 M31.6 Chronic ob structive pulmonary disease 40601151 J44.9 Hyperlipidemia 20718769 E78.5 Essential hypertension 28180727 I10 Rheumatoid arthritis 698 98686 M06.9 Gastroesop hageal reflux disease 704555655 K21.9 Administra tion of viral vaccine 23859222 Z23 Pyogenic b acterial arthritis of knee 7453097351 9107 M00.869 on keflex maintainen ce [id number] Gene Mims DO [facility] ([facility]) [address] [place] [address] [id number] 5 12/01/2023 15:49:12 12/01/2023 17:16:19 Active or passive immunization 333459233 Z23 I counseled pt on vaccinatio ns. they are willing to accept the Shingles vaccinatio n. given today, they will return in 8 wks for the 2nd/last booster.I counsled pt on vaccinatio ns. pt given fluvax today as above per pt request. [id number] SUZANNE ROSALES FINISHING AREA OPERATOR [facility] ([facility]) [address] [place] [address] [id number] 5 02/10/2024 15:01:28 02/10/2024 17:57:41 Pruritic rash 87056778 L28.2 Discussed use of permethrin tonight.If the rash is not resolving over next couple days stop your daily prednisone and use prescribed prednisone . [id number] Gene Mims DO [facility] ([facility]) [address] [place] [address] [id number] 5 03/23/2024 14:59:36 03/23/2024 17:45:28 Acute exacerbation of chronic obstructive pulmonary disease 902820887 J44.1 03/23/24- Augmentin, counseled. Prednisone makes him very nervous, is taking 2.5mg now, will give steroid injection in clinic. [id number] LULU ARAIZA FINISHING AREA OPERATOR [facility] ([facility]) [address] [place] [address] [id number] 5 04/22/2024 08:35:52 04/22/2024 09:09:40 Cough 68964794 R05.9 COVID-19 209154597 U07.1 [id number] Gene Mims DO [facility] ([facility]) [address] [place] [address] [id number] 06/01/2024 14:41:00 07/10/2024 21:25:49 Cough 77264316 R05.9 Counseled Covid/ Flu negative. Concern for Pneumonia, will start Levaquin for 10 days. Counseled continue his Cephalexin for his knee, continue his Prednisone 5mg. I will also add Prednisone taper, 40mg daily for 7 days, then 20mg daily for 7 days, then 10mg daily for 7 days, then continue his 5mg daily that he is chronicall y prescribed . Basal cell carcinoma of scalp 588946674 C44.41 06/01/24- frontal scalp, counseled RTC for procedure when current respirator y illness has improved. [id number] Juan Glover MD [facility] ([facility]) [address] [place] [address] [id number] 06/09/2024 10:50:26 06/09/2024 14:08:40 Acute exacerbation of chronic obstructive pulmonary disease 396017322 J44.1 Continue steroids and antibiotic s. Discussed inhaler medication . The patient currently is not on a long-actin g muscarinic agent. [facility] Spir[facility] but he has not started it. sample of Yupelri provided for him to use as a nebulizer for a LAMA to hopefully improve his lung function. Continue Symbicort. Last week if symptoms are improving. If respirator y distress gets significan tly worse then proceed to the ER. [id number] Gene Mims DO [facility] ([facility]) [address] [place] [address] [id number] 08/08/2024 13:46:11 08/09/2024 13:55:42 Active or passive immunization 985270489 Z23 I counseled pt on vaccinatio ns. they are willing to accept the Shingles vaccinatio n. given today, they will return in 8 wks for the 2nd/last booster.I counsled pt on vaccinatio ns. pt given fluvax today as above per pt request. Chronic ob structive pulmonary disease 50115972 J44.9 continue inhalers. .sx worsening, also with hx of [address] scan this year. will send to pulm for further eval. counseled Rheumatoid arthritis 698 68477 M06.9 pt has d/c'ed MTX, folic acid, prednisone . continue care with [facility] rheumatolo gy Hyperlipidemia 30710127 E78.5 Stable. Will repeat labs. Continue Atorvastat in. Counseled on diet and exericse. Essential hypertension 30776601 I10 continue with losartan, hold off on amlodipine . Temporal arteritis 67752 0008 M31.6 STORY: dx fall 2022, s/p treatment with high dose prednisone under the care of Rheumatsusan gy at [facility]. Obesity 924193686 E66.9 I counseled pt on obesity. We discussed risks and ways to loose weight. Pt will work on diet, exercise. Moderate m ajor depression, single episode 71005880 F32.1 likely 2/2 worsening arthropaty and COPD. we will work on imrpoving symptoms of copd, start Breztri, keep new pt appt with pulm in [facility] in september. continue care with rheumatsusan gy for treatment of RA. counseled. pt declines meds at this time for mood. [id number] Gene Mims DO [facility] ([facility]) [address] [place] [address] [id number] 5 10/26/2024 10:03:57 11/24/2024 07:42:07 Family history of malignant neoplasm of pancreas 020135238 Z80.0 Brother at age 60, .: Reassured pt I have reviewed most recent imaging of abd, CT abd/pelvis on 08/31/23, pancreas showed normal. Pt to let us know if having symptoms and worsening. Pain in left foot 864757 2849 98638 M79.672 10/26/24: Improving now, counseled apply abx ointment BID to tender area on foot, if worsening or not improving return, consider I&D. Health Concerns Section Related Observation LastModified by Organization Detai ls LastModified Time None Recorded Concern Status LastModified by Organization Details LastModified Time None Recorded Advance Directives Directive None Recorded Payers Insurance Date Sequence Insurance Name Policy Number Policy Vazquez Covered Member ID Vazquez Member ID Guarantor Name 11/24/2024 1 [facility] (MEDICARE REPLACEMENT/A DVANTAGE - PPO) [id number] Anthony Jimenez [id number] Anthony Jimenez 08/04/2023 1 MEDICARE B-[place]: [place] Anthony Jimenez [id number] Anthony Jimenez 08/04/2023 2 [facility] SELECT - DOS PRIOR TO 2024 (PPO) Anthony Jimenez [id number] Anthony Jimenez 10/25/2024 [facility] [facility] A - [facility] (MEDICARE) Anthony Jimenez [id number] Anthony Jimenez Notes Date Note Type Note Provider Name and Address Organization Details Recorded Time 04/22/2024 text/html COVID-19 Symptom s November 2019Reported by PatientUpper Respiratory SymptomsFor covid-19 signs and symptoms, patient reportscough worsening. For context, patient reportscopd. For contacts and exposure, patient reportsclose contact with a confirmed or suspected case of covid-19. For severity, patient reportsmildandmoderate. ROS as noted in the HPI WALK IN PATIENTpatient is here today for cough, nausea, sinus congestion, and body chills that a couple of says ago. Patients tested positive for covid last night with a home test. LULU ARAIZA, [address], [phone], [facility], LChase. 04/22/2024 09:03:51 06/01/2024 text/html ROS as noted in the HPI Pt presents for acute illness. Body aches and sick since 04/20/24 when he had covid.He c/o SCHERER's, extreme sob on exertion or when he is up moving around, he has nausea every morning and vomiting when he has coughing episodes. He states he has diarrhea about every other daytoday he has chills and says that he is unable to get warm todayhe has some discomfort in his chest and it goes away His states that he took a breathing tx and then went out and fed the animals and came back in and had to take another breathing tx. He also c/o pain or cramping to joints, hands, fingers, toes, knees. He is taking Cephalexin twice daily chronically, expected to be on this for two years, after a repeat knee replacement with significant infection.Also taking Prednisone, increased from 5mg to 20mg after spouse called Dr. Agrawal c/o headaches, however he has continued to take only 5mg.Continues Methotrexate wkly, with Folic Acid. Also with skin concern on scalp, not healing. he is [facility] Gene Mims DO [address] [place] [address], [phone], [facility] 07/10/2024 13:38:34 06/09/2024 text/html CoughReported by PatientROS as noted in the HPI walk in ptPt has a cough, shortness of breath and runny nose for weeks. WAs seen last week and is currently taking an antibiotic and steroids but feels like he is getting worse. The patient states that he has struggling to breathe. Juan Glover MD [address] [place] [address], [phone], [facility], L.L[facility]aseC. 06/09/2024 14:06:41 08/08/2024 text/html Annual WellnessR eported by PatientSocial/Behaviora l HistoryFor diet and nutrition, patient reportsdiscussed diet improvement. For fracture risk, patient reportsno history of fractures,no recent explained fracture,no sudden unexplained fractures, andno previous musculoskeletal injuries. For physical activity, patient reportsexercises on a regular basis,recent increase in physical activity, andgood physical condition. For additional lifestyle factors, patient reportsno tobacco useandno alcohol intake.Mental Status:For depression risk, patient reportsloss of interest in activities,sleep disturbances or insomnia,agitated,loss of energy, andfeelings of worthlessness or guiltbut reportsno significant changes in weight,no thoughts of suicide,no history of depression, andno history of mood disorders.Functional AbilityFor hearing, patient reportswears hearing aids. For vision, patient reportsno vision problems.ROS as noted in the HPI Pt presents for annual exam and CCA visit He has some depression sx d/t having health issues for the last 2 years and unable to do activities outdoorsDepression screen score 7 today He c/o increased difficulty breathing and still has tremors. DX of COPD and nodule on lung. [facility]. He did well on He stopped his MtX, folate, prednisone. that appears to be causing severe headaches and Gene Mims, DO [address] [place] [address], [phone], [facility], Shayla. 08/08/2024 18:33:18 10/26/2024 text/html ROS as noted in the HPI Pt presents for left foot pain for 2 weeks Denies any fall or injury. He states the pain is better today rates at 2/10, was at 8/10 yesterday and he was unable to bear wt on itToday the pain is much better, he is able to walk on it, pain only worse today when he moves the foot in certain directions. He has noticed a lump on the heel that is tender to touch. He has questions re pancreatic cancer, he seen a video listing sx and he states that he has those sx. He is concerned since his younger brother passed from pancreatic cancer ( was 60 when dx). He reports symptoms of lack of appetite, chronic coughing ( he admits this may be d/t COPD), occasional vomiting, intermittently bright yellow colored urine. He last had CT abd/pelvis 08/31/23: showing normal pancreas. Gene Mims, [address] [place] [address], [phone], [facility], Farzaneh 11/22/2024 23:42:17
== END 2025-06-07 00:42 | disposition home or self-care (01) ==
PROVIDERS: Emergency Provider Student in an Organized Health Care Education/Training Program; PCP Electrodiagnostic Medicine
DX: G89.18 Other acute postprocedural pain (principal); I16.0 Hypertensive urgency; Z79.82 Long term (current) use of aspirin; Z87.891 Personal history of nicotine dependence; E78.5 Hyperlipidemia, unspecified; I10 Essential (primary) hypertension
CPT/HCPCS: 36415; 72131; 80048; 82550; 83735; 84100; 84484; 85025; 93005; 96374; 96375; 99285; J0360; J2270; J2405; J2765

== ENCOUNTER → 2025-06-08 15:13 | Outpatient (BNVA) | payer MEDICARE, SELFPAY | PROVIDERS: PCP Electrodiagnostic Medicine; Visit Provider Orthopaedic Surgery | DX: M48.04 Spinal stenosis, thoracic region (principal); M48.062 Spinal stenosis, lumbar region with neurogenic claudication; M54.2 Cervicalgia; G89.18 Other acute postprocedural pain; Z98.1 Arthrodesis status; R20.0 Anesthesia of skin; R20.2 Paresthesia of skin | CPT/HCPCS: 72050; 72100; 99213 ==

== ENCOUNTER → 2025-06-20 08:55 | Outpatient (BNVA) | payer MEDICARE, SELFPAY | PROVIDERS: PCP Electrodiagnostic Medicine; Referring Provider Orthopaedic Surgery; Visit Provider Specialist | DX: Z98.1 Arthrodesis status (principal); M48.062 Spinal stenosis, lumbar region with neurogenic claudication; R20.0 Anesthesia of skin; R20.2 Paresthesia of skin; M54.32 Sciatica, left side | CPT/HCPCS: 95909 ==

== ENCOUNTER 2025-06-21 08:58 | Outpatient (CLI) | payer MEDICARE, SELFPAY ==
--- NOTE | 2025-06-21 09:30 | MR_ITS ---
WS: [id number] MRI CERVICAL SPINE NONCONTRAST HISTORY: Neck pain COMPARISON: None available. Technique: Multiplanar, multisequence noncontrast imaging of the cervical spine. Prior anterior cervical fusion at C5-6. Osseous fusion at C6-7. 2 mm retrolisthesis of C4. Signal within the cervical cord is normal. Visualized posterior fossa is unremarkable. Craniocervical junction, C1 and C2 relationship, odontoid process and soft tissues are normal. C2-C3: Small central disc protrusion. Mild foraminal stenosis due to osteophytes. C3-C4: Mild disc bulge and osteophytic ridging. Severe bilateral foraminal stenosis. Mild facet arthritis and central stenosis. Improved synovitis surrounding the LEFT facet joint. C4-C5: Central disc osteophyte complex. Moderate central stenosis with effacement of ventral CSF. Severe bilateral foraminal stenosis. LEFT facet joint synovitis. C5-C6: Poorly visualized disc space due to susceptibility artifact. No obvious interval change. C6-C7: Moderate bilateral foraminal stenosis. No central stenosis. C7-T1: Normal. Paraspinal soft tissue are normal. MR/MR cervical spin wo con* [id number] IMPRESSION: 1. Prior anterior cervical fusion at C5-6 appears intact and unchanged. 2. Complete osseous fusion at the C6-7 disc level. 3. Moderate central with severe bilateral foraminal stenosis at C4-5. Stenosis due to combination of disc, osteophyte and facet disease. Acute LEFT facet chris nt synovitis. 4. Moderate bilateral foraminal stenosis at C6-7 is stable. 5. Severe bilateral foraminal stenosis at C3-4 is stable. 6. Susceptibility artifact at the C5-6 level decreasing visibility at this lev el.
--- NOTE | 2025-06-21 10:15 | MR_ITS ---
WS: [id number] MRI THORACIC SPINE noncontrast HISTORY: Back pain COMPARISON: None available. TECHNIQUE: Multiplanar sequences are performed in sagittal and axial planes. Mild increase in thoracic kyphosis. Marrow edema with cortical irregularities involving the endplates at T9-10 and T10-11. Greatest amount of edema throughout the T10 vertebral body. Disc spaces at T9-10 and T10-11 are markedly narrowed. Edema extends into the bilateral posterior elements of T10 and on the LEFT at T11. There is no fluid or increased signal within the disc spaces. Compression upon the thoracic cord at T10-11 with increased signal for myelomalacia. T1-2: Normal. T2-3: Normal. T3-4: Mild facet arthritis and foraminal stenosis. T4-5: Mild facet arthritis and foraminal stenosis. T5-6: Tiny central disc protrusion and foraminal stenosis. Bilateral facet arthritis. T6-7: Moderate sized RIGHT paracentral disc protrusion effacing CSF. Mild foraminal stenosis. T7-8: Moderate central to RIGHT paracentral disc protrusion effacing CSF. Facet joint arthritis with moderate foraminal stenosis. T8-9: Moderate bilateral foraminal stenosis and facet arthritis. T9-10: Diffuse disc bulging complete effacement of CSF in the RIGHT foramen. There is increased low signal which is probably related to disc and facet disease. Encroachment upon the RIGHT lateral thecal sac. Mild central with severe bilateral foraminal stenosis but greater on the RIGHT. Marked facet ar thritis. T10-11: Diffuse disc bulging with osteophytic ridging. Severe facet arthritis. Severe central and bilateral foraminal stenosis due to disc and osteophyte disease. T11-12: Mild disc bulging with moderate bilateral foraminal stenosis, LEFT greater than RIGHT. Bilateral facet arthritis. Shallow LEFT paracentral disc protrusion. Partially visualized LEFT renal cyst 3.1 cm. MR/MR thoracic spin wo con* [id number] IMPRESSION: 1. Advanced degenerative changes within the discs and the vertebral bodies inv olving T9-10 and T10-11. There is a large amount of marrow edema in the vertebr al bodies but no fluid in the disc spaces. Marrow edema extends into the mortgage operations manager ior elements at T10 and T11. This may be a reactive process. Cannot completely exclude osteomyelitis but there is no adjacent fluid collection or fluid in the disc spaces. Post MRI evaluation thoracic spine with contrast may be of benefi t. 2. Severe stenosis at the T10-11 level. There is encroachment upon the cord an d narrowing by disc, osteophyte and facet disease. Small focal segment of myelo malacia within the cord at this level. 3. Moderate size RIGHT paracentral disc protrusion at T6-7 and mild foraminal stenosis. 4. Moderate central to RIGHT paracentral disc protrusion at T7-8. Moderate for aminal stenosis. 5. Moderate bilateral foraminal stenosis at T8-9. 6. Severe bilateral foraminal stenosis at T9-10 but much greater on the RIGHT. Complete effacement of fat by disc and facet disease. Mild central stenosis. 7. Moderate bilateral foraminal stenosis at T11-12, LEFT greater than RIGHT. S hallow LEFT paracentral disc protrusion.
--- NOTE | 2025-06-21 11:00 | MR_ITS ---
WS: [id number] MRI LUMBAR SPINE NONCONTRAST HISTORY: Back pain COMPARISON: 08/14/2023 TECHNIQUE: Sagittal and axial multisequence imaging is submitted. Patient has undergone posterior lumbar fusion extending from L2-S1 since the prior exam of 08/14/2023. 3 mm anterolisthesis of L4 and L5. Disc spaces are all narrowed and desiccated. No new or acute fracture. Conus terminates normally at L1-2 disc level. T12-L1: Moderate diffuse disc bulging with moderate bilateral foraminal stenosis. L1-L2: Central canal stenosis has progressed since 08/14/2023. There is annular disc bulging with mild osteophytic ridging and facet arthritis. Effacement of CSF and disc contacts the thecal sac. Bilateral foraminal disc protrusions. There is moderate central and bilateral foraminal stenosis. L2-L3: Diffuse disc bulging with marked facet arthritis. Moderate to severe bilateral foraminal stenosis. Mild central and subarticular recess encroachment. L3-L4: Diffuse annular disc bulging. Patulous thecal sac. Posterior laminectomy defect. Arachnoiditis. No central stenosis. Effacement of fat in the foramina with at least moderate foraminal stenosis. There is impingement upon the exiting L3 nerve roots. L4-L5: Diffuse disc bulging and osteophytic ridging. Patulous thecal sac with arachnoiditis. Moderate bilateral foraminal stenosis due to disc osteophyte and facet disease. L5-S1: Mild annular disc bulging with osteophytic ridging. Central disc osteophyte. No central stenosis. Limited evaluation of the foramina. Suspect at least moderate LEFT foraminal stenosis. Partially visualized LEFT renal cyst. MR/MR lumbar spine wo con* [id number] IMPRESSION: 1. Advanced degenerative lumbar spondylitic changes. 2. Since the prior study of 08/14/2023 patient has undergone a posterior lumbar fusion with decompression from L2-S1. 3. Moderate to severe bilateral foraminal stenosis at L2-3 with mild central a nd subarticular recess stenosis. 4. Moderate foraminal stenosis at L3-4 and L4-5 and on the LEFT at L5-S1 due t o disc, osteophyte and facet disease. 5. Progression of central stenosis at L1-2. Moderate central and bilateral for aminal stenosis. Small bilateral foraminal disc protrusions. 6. Patulous thecal sac beginning at the L3 level through L5 due to laminectomi es. No surgical complications are evident.
== END 2025-06-21 08:59 | disposition home or self-care (01) ==
LOC: RAD 08:59
PROVIDERS: PCP Electrodiagnostic Medicine; Visit Provider Orthopaedic Surgery
DX: M51.369 Other intervertebral disc degeneration, lumbar region without mention of lumbar back pain or lower extremity pain (principal); M48.061 Spinal stenosis, lumbar region without neurogenic claudication; M48.07 Spinal stenosis, lumbosacral region; M47.816 Spondylosis without myelopathy or radiculopathy, lumbar region; M40.204 Unspecified kyphosis, thoracic region; M47.814 Spondylosis without myelopathy or radiculopathy, thoracic region; M48.04 Spinal stenosis, thoracic region; M51.24 Other intervertebral disc displacement, thoracic region; M51.34 Other intervertebral disc degeneration, thoracic region; M50.21 Other cervical disc displacement, high cervical region; M48.02 Spinal stenosis, cervical region; M47.812 Spondylosis without myelopathy or radiculopathy, cervical region
CPT/HCPCS: 72141; 72146; 72148

== ENCOUNTER → 2025-06-22 08:27 | Outpatient (BNVA) | payer MEDICARE, SELFPAY | PROVIDERS: PCP Electrodiagnostic Medicine; Visit Provider Orthopaedic Surgery | DX: Z01.818 Encounter for other preprocedural examination (principal); M48.062 Spinal stenosis, lumbar region with neurogenic claudication; M48.04 Spinal stenosis, thoracic region; G99.2 Myelopathy in diseases classified elsewhere | CPT/HCPCS: 36415; 80053; 81001; 85025; 99214 ==

== ENCOUNTER 2025-06-28 09:04 | Day surgery (SDC) | payer MEDICARE, SELFPAY ==
[2025-06-28] VITALS (10 sets, daily range): BP systolic 101–138; BP diastolic 58–82; PULSE 61–70; RESP 17–18; TEMP 36.1–36.4; O2SAT 95–99; BMI 26.6
--- NOTE | 2025-06-28 09:43 | ANES.PREANE2 ---
Pre-Anesthetic Assessment Height/Weight: Height 5 ft 5 in Preop Diagnosis: Lumbar stenosis Operation Date: 06/28/25 10:45 Proposed Procedures p Thoracic Decompression(Not Applicable) - Major Goddard DO s Lumbar Spine Decompression(Not Applicable) - Major Goddard DO Was Beta Sindhu taken within 24 hours: N/A Was Clonidine taken within 24 hours: N/A Social No alcohol and No tobacco Exam alert, oriented x 3, clear to auscultation bilaterally and regular rate & rhythm Airway Submandibular: within normal limits Cervical ROM: Other (S/p cervical fusion) Mallampati: Class III Dentition: full Comments: Comments: Overbite Anesthetic Plan ASA status: 3 Anesthesia: General Other: No prior issues with anesthesia NPO since yesterday evening History of giant cell arteritis Patient states he had agent orange leading to emphysema. Uses occasional inhalers Hypertension on amlodipine and losartan S/p cervical fusion GERD on omeprazole Labs reviewed 06/22/2025 and acceptable for procedure Plan for general anesthesia Medications/Allergies Home Medications ?Medication ?Instructions ?Recorded ?Confirmed ?Last Taken ?Type albuterol sulfate 90 mcg/actuation 2 puff inhalation Q6H PRN 08/09/20 06/26/25 06/23/25 History aerosol inhaler (Ventolin HFA) Shortness Of Breath losartan 50 mg tablet 50 mg PO QAM 01/28/22 06/26/25 06/23/25 History atorvastatin 20 mg tablet 20 mg PO QAM 12/19/22 06/26/25 06/23/25 History tamsulosin 0.4 mg capsule 0.4 mg PO QAM 12/19/22 06/26/25 06/23/25 History L.acidophil-L.casei-B.bifid-B.longum-FOS 1 cap PO DAILY 02/22/23 06/26/25 10/05/23 History 2 billion cell-50 mg capsule (Probiotic Blend) aspirin 325 mg tablet 325 mg PO DAILY 03/26/23 06/26/25 06/22/25 History cephalexin 500 mg capsule 500 mg PO BID chronic suppression 02/02/24 06/26/25 06/23/25 Rx 90 days #180 caps budesonide 160 mcg-glycopyr 9 2 inh inhalation BID 08/24/24 06/26/25 06/23/25 History mcg-formot 4.8 mcg/actuation HFA inhaler (Breztri Aerosphere) cyclobenzaprine 10 mg tablet 10 mg PO TID 7 days #21 tabs 09/08/24 06/26/25 Unknown Rx amlodipine 10 mg tablet 10 mg PO DAILY #14 tabs 06/06/25 06/26/25 06/23/25 Rx oxycodone 5 mg tablet 5 mg PO TID pain 10 days #30 tabs 06/08/25 06/26/25 06/18/25 Rx tizanidine 4 mg capsule 4 mg PO TID PRN muscle spasticity 06/08/25 06/26/25 06/19/25 Rx #14 caps omeprazole 40 mg capsule,delayed 40 mg PO DAILY 06/23/25 06/26/25 06/23/25 History release Allergies Allergy/AdvReac Type Severity Reaction Status Date / Time No Known Allergies Allergy Verified 06/23/25 15:19 [facility] Anesthesia Medical History (Updated 06/22/25 @ 10:18 by Major Goddard DO) Immunization counseling High risk medication use Giant cell arteritis Complex renal cyst Originally noted in 2012 with no significant regional climate change analyst time. Complexity comes from some rim calcification and septation. Impotence BPH NOS w ur obs/LUTS Hyperlipidemia Hypertension Surgical History Status post right knee replacement H/O vasectomy Hx of cataract surgery History of colonoscopy (10/23/20) Diverticulosis, internal hemorrhoids H/O sinus surgery S/P cervical spinal fusion History of lumbar fusion Family History Father , at age 51 Myocardial infarction (lateral wall) Mother , at age 75 Cancer lung Social History Smoking and tobacco/nicotine status: former use of tobacco/nicotine Quit status (tobacco/nicotine): has quit using Year quit tobacco: 1998 Former quit date comment: 1 ppd X 30 years Alcohol intake: current Alcohol intake frequency: holidays/special occasions only Marital status: Current occupational status: retired Data Anesthesia Cardiac Studies: Echocardiogram 02/17/23 Sestamibi Stress Test (Cardiology) 01/19/23
--- NOTE | 2025-06-28 10:05 | W.PM.OPSUD ---
Surgery/Procedure H&P Update DATE OF PROCEDURE: June 28, 2025 DATE H&P PERFORMED: 06/22/25 H&P UPDATE INFORMATION: I have reviewed H&P completed within last 30 days, I have examined patient prior to procedure and No changes to prior documentation PREOP DIAGNOSIS: Lumbar stenosis PLANNED PROCEDURE: Operation Date: 06/28/25 10:45 Proposed Procedures p Thoracic Decompression(Not Applicable) - Major Goddard DO s Lumbar Spine Decompression(Not Applicable) - Major Goddard DO
[2025-06-28] MEDS: ceFAZolin 2,000 mg SDV 2000 MG IVP (10:42)
[2025-06-28] MEDS: lidocaine-epi 1% 20 mL INJ 10 ML INJECTION (11:17)
--- NOTE | 2025-06-28 12:40 | PM.OP ---
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 T10/11 laminectomy with partial facetectomy 2. T 12/L1 laminectomy with partial facetectomy 3. L1/L2 laminectomy with partial facetectomy Surgeon: Major Goddard DO Estimated blood loss (mL): 15 Procedure: 1. T10/11 laminectomy with partial facetectomy 2. T 12/L1 laminectomy with partial facetectomy 3. L1/L2 laminectomy with partial facetectomy Patient is brought to the operative suite. After undergoing anesthesia they are placed in the prone position. All areas of impingement are well padded. Patient is then prepped and draped in the normal sterile fashion. A skin incision is made over the T10/11 level. This is confirmed under c-arm guidance. A series of dilators are passed and the tubular retractor is docked on the T10 lamina. A bovie is used to clear the soft tissue off the lamina and the T10/11 facet joint. A high speed myranda is then used to perform the laminectomy and take down the medial aspect of the T10/11 facet joint. A kerrison rongeure was then used to take down the remaining lamina and smooth the edge of the laminectomy up to the point where the ligamentum flavum attaches. Attention was then brought to the medial aspect of the facet joint. The remaining medial aspect of the superior and inferior aspect of the facet joint were taken down with the kerrison from the pedicle of T10 to T11. The facet joint had significant hypertrophy. Attention was then brought to the Ligamentum Flavum. The ligament was taken down from the lamina of T10 to T11 and out medially to the remaining facet joint. The ligament was thick. The dura was then exposed. The dura was in good repair. The T10 nerve was then traced with a curette out the T10/11 foramen and found to be adequately decompressed. The T11 nerve was traced with a curette around the T11 pedicle. The lateral recess was opened with a kerrison helping to further decompress the T11 nerve. Wound is then irrigated copiously with saline and surgiflo is used to stop any bleeding. The tubular retractor is removed A skin incision is made over the T12/L1 level. This is confirmed under c-arm guidance. A series of dilators are passed and the tubular retractor is docked on the T12 lamina. A bovie is used to clear the soft tissue off the lamina and the T12/L1 facet joint. A high speed myranda is then used to perform the laminectomy and take down the medial aspect of the T12/L1 facet joint. A kerrison rongeure was then used to take down the remaining lamina and smooth the edge of the laminectomy up to the point where the ligamentum flavum attaches. Attention was then brought to the medial aspect of the facet joint. The remaining medial aspect of the superior and inferior aspect of the facet joint were taken down with the kerrison from the pedicle of T12 to L1. The facet joint had significant hypertrophy. Attention was then brought to the Ligamentum Flavum. The ligament was taken down from the lamina of T12 to L1 and out medially to the remaining facet joint. The ligament was thick. The dura was then exposed. The dura was in good repair. The T12 nerve was then traced with a curette out the T12/L1 foramen and found to be adequately decompressed. The L1 nerve was traced with a curette around the L1 pedicle. The lateral recess was opened with a kerrison helping to further decompress the L1 nerve. Wound is then irrigated copiously with saline and surgiflo is used to stop any bleeding. The tubular retractor is removed A skin incision is made over the L1/2 level. This is confirmed under c-arm guidance. A series of dilators are passed and the tubular retractor is docked on the L1 lamina. A bovie is used to clear the soft tissue off the lamina and the L 1/L2 facet joint. A high speed myranda is then used to perform the laminectomy and take down the medial aspect of the L 1/L2 facet joint. A kerrison rongeure was then used to take down the remaining lamina and smooth the edge of the laminectomy up to the point where the ligamentum flavum attaches. Attention was then brought to the medial aspect of the facet joint. The remaining medial aspect of the superior and inferior aspect of the facet joint were taken down with the kerrison from the pedicle of L1 to L 2. The facet joint had significant hypertrophy. Attention was then brought to the Ligamentum Flavum. The ligament was taken down from the lamina of L1 to L2 and out medially to the remaining facet joint. The ligament was thick. The dura was then exposed. The dura was in good repair. The L1 nerve was then traced with a curette out the L1/L2 foramen and found to be adequately decompressed. The L2 nerve was traced with a curette around the L2 pedicle. The lateral recess was opened with a kerrison helping to further decompress the L2 nerve. Wound is then irrigated copiously with saline and surgiflo is used to stop any bleeding. The tubular retractor is removed and the wound is closed with vicryl and monocryl suture. Steri strips were applied. A sterile dressing is then placed. Patient was then placed in the supine position and transferred to the PACU in stable condition.
--- NOTE | 2025-06-28 13:02 | XR_ITS ---
WS: [id number] XR thoracic spine 2V [id number] REASON FOR EXAM: laminectomy with partial facetectomy FINDINGS: Surgical device overlying the left L1-L2 disc space, the left L1-T12 disc space and the left T10-T11 disc space. XR/XR thoracic spine 2V [id number] IMPRESSION: Intraoperative thoracic spine level localization as above.
[2025-06-28] MEDS: oxyCODONE 5 mg IR Tab/Cap PO (13:38)
--- NOTE | 2025-06-28 14:05 | ANE.PACU2 ---
Inpatient post-anesthesia follow up: Airway intact: Yes Vital signs: Temperature 97 F Pulse Rate 62 Respiratory Rate 17 Blood Pressure 118/66 Pulse Oximetry 95 Oxygen Delivery Me thod Room Air Oxygen Flow Rate Fraction of Inspir ed Oxygen Hydration adequate: Yes Nausea and vomiting: No Pain level: 1 Mental status: Baseline
== END 2025-06-28 14:05 | disposition home or self-care (01) ==
PROVIDERS: PCP Electrodiagnostic Medicine; Visit Provider Orthopaedic Surgery
PROC: (CPT 63003; principal; 2025-06-28 10:25)
PROC: (CPT 63005; 2025-06-28 10:25)
DX: M48.062 Spinal stenosis, lumbar region with neurogenic claudication (principal); M48.04 Spinal stenosis, thoracic region; G95.9 Disease of spinal cord, unspecified; I10 Essential (primary) hypertension; Z98.1 Arthrodesis status; K21.9 Gastro-esophageal reflux disease without esophagitis; Z79.82 Long term (current) use of aspirin; Z79.891 Long term (current) use of opiate analgesic; E78.5 Hyperlipidemia, unspecified; Z87.891 Personal history of nicotine dependence
CPT/HCPCS: 63046; 63048; 63047; 72070; 76000; A4649; J0690; J1100; J2405; J2704; J3010; J3490; J7030; J9999

== ENCOUNTER 2025-06-29 15:06 | Emergency (ER) | payer OTHER, SELFPAY ==
[2025-06-29 15:07] VITALS: PULSE 83; TEMP 36.4; O2SAT 97
--- NOTE | 2025-06-29 15:36 | ED_ITS ---
HPI - Back Pain/Injury 2 General: Chief Complaint: General Medical Stated Complaint: postop pain (yesterday) Time Seen by Provider: 06/29/25 15:15 History of Present Illness: 06/28/[address] Goddard: 1. T10/11 laminectomy with partial face tectomy 2. T 12/L1 laminectomy with partial fac etectomy 3. L1/L2 laminectomy with partial facet ectomy Patient is a 80-year-old gentleman with history HTN, presents to the ED status post laminectomy yesterday, severe pain, nausea, vomiting, cannot sit still. Patient has had worsening pain since early this morning. He states he has called Dr. Goddard's office twice, and they advised to come to the ED for further evaluation. Patient stated last oxycodone was an hour ago. Right prior to that, he had nausea, vomiting. He thinks he held down his oxycodone. He complains of pain is a sharp stabbing pain just below incision surgical dressing, to just above surgical dressing. Associated symptoms: Deny abdominal pain, chills, fever(s), nausea or vomiting Related Data Home Medications ?Medication ?Instructions ?Recorded ?Confirmed albuterol sulfate 90 mcg/actuation 2 puff inhalation Q 6H PRN 08/09/20 06/29/25 aerosol inhaler (Ventolin HFA) Shortness Of Breath losartan 50 mg tablet 50 mg PO QAM 01/28/22 atorvastatin 20 mg tablet 20 mg PO QAM 12/19/22 tamsulosin 0.4 mg capsule 0.4 mg PO QAM 12/19/2206/29 L.acidophil-L.casei-B.bifid-B.longum-FOS 1 cap PO KINSEY Y 02/22/23 06/29/25 2 billion cell-50 mg capsule (Probiotic Blend) aspirin 325 mg tablet 325 mg PO DAILY 03/26/2306/13 Held on 06/28/25. Instructions: Resume on 06/30/25. budesonide 160 mcg-glycopyr 9 2 inh inhalation BID 12/1106/29/25 mcg-formot 4.8 mcg/actuation HFA inhaler (Breztri Aerosphere) omeprazole 40 mg capsule,delayed 40 mg PO DAILY 06/29/25 release fluticasone 500 mcg-salmeterol 50 1 inh inhalation BID 06/29/25 06/29/25 mcg/dose blistr powdr for inhalation (Wixela Inhub) ipratropium 0.5 mg-albuterol 3 mg 3 ml inhalation QID PRN Shortness 06/29/25 06/29/25 (2.5 mg base)/3 mL nebulization Of Breath soln tiotropium bromide 2.5 2 puff inhalation DAILY 06/1906/29/25 mcg/actuation mist for inhalation (Spiriva Respimat) Previous Rx's ?Medication ?Instructions ?Recorded cyclobenzaprine 10 mg tablet 10 mg PO TID 7 days #21 t abs 09/08/24 amlodipine 10 mg tablet 10 mg PO DAILY #14 tabs 05/20 03/13 tizanidine 4 mg capsule 4 mg PO TID PRN muscle spast icity 06/08/25 #14 caps oxycodone 5 mg tablet 5 mg PO Q4H PRN pain 7 days #42 06/28/25 tabs cephalexin 500 mg capsule 500 mg PO BID chronic suppre ssion 06/29/25 90 days #180 caps gabapentin 300 mg capsule 300 mg PO TID 30 days #90 ca ps 06/29/25 methocarbamol 750 mg tablet 750 mg PO Q8H PRN muscle s pasm #30 06/29/25 tabs methylprednisolone 4 mg tablets in See Rx Instructions PO .COMPLEX 06/29/25 a dose pack (Medrol (Eliseo)) #21 ea ondansetron 4 mg disintegrating 4 mg PO Q8H PRN nausea and 06/29/25 tablet vomiting 4 days #14 tabs Allergies Allergy/AdvReac Type Severity Reaction Status Date / Time No Known Allergies Allergy Verified 06/29/25 15:13 Review of Systems 2 General: Reports: 10 or more systems reviewed and unremarkable except in HPI and below Const: Denies: fever(s) or chills Card: Denies: chest pain or orthopnea Resp: Denies: dyspnea, productive cough or wheezing GI: Denies: abdominal pain, nausea or vomiting Musc: Reports: joint pain, joint swelling, joint stiffness and limited range of motion Skin/Breast: Denies: rash, pruritus or dry skin Neuro: Denies: numbness in extremities or weakness in extremities Psych: Reports: anxiety; Denies: depression [place]/Lymph: Denies: easy bruising or easy bleeding PFSH ED 2 PFSH: Medical History (Updated 06/29/25 @ 17:25 by SURESH Rios) Immunization counseling High risk medication use Giant cell arteritis Complex renal cyst Originally noted in 2013 with no significant manager of change time. Complexity comes from some rim calcification and septation. Impotence BPH NOS w ur obs/LUTS Hyperlipidemia Hypertension Surgical History Status post right knee replacement H/O vasectomy Hx of cataract surgery History of colonoscopy (10/23/20) Diverticulosis, internal hemorrhoids H/O sinus surgery S/P cervical spinal fusion History of lumbar fusion Family History Father , at age 51 Myocardial infarction (lateral wall) Mother , at age 75 Cancer lung Social History Smoking and tobacco/nicotine status: former use of tobacco/nicotine Quit status (tobacco/nicotine): has quit using Year quit tobacco: 1998 Former quit date comment: 1 ppd X 30 years Alcohol intake: current Alcohol intake frequency: holidays/special occasions only Marital status: Current occupational status: retired Physical Exam 2 HENMT: THROAT: posterior oropharynx normal (patent airway) Neck/C-Spine: COMMON NORMALS: full ROM Resp: COMMON NORMALS: normal respiratory effort and clear to auscultation bilaterally (decreased tidal volume tho no adventitious sounds) AUSCULTATION: clear to auscultation bilaterally (decreased tidal volume tho no adventitious sounds) Cardio: COMMON NORMALS: regular rate and No murmurs present (Cardio) RATE: regular rate GI: COMMON NORMALS: Normal to inspection, nondistended, normoactive bowel sounds present, Soft to palpation, non-tender and No hepatosplenomegaly present PALPATION: Yes Soft to palpation and Yes No hepatosplenomegaly present : COMMON NORMALS: Yes no CVA tenderness BLADDER/KIDNEY EXAM: Yes no CVA tenderness Back/Pelvis: COMMON NORMALS: no CVA tenderness GENERAL BACK: No erythema, No warmth, No swelling and Yes tenderness OTHER: Tenderness: Just above surgical padding T8, to just below surgical padding, L3- 4. Midline tenderness. Appropriate for recent surgery yesterday. Neuro: GAIT: Yes Antalgic gait present and Yes Wide-based gait present Psych: COMMON NORMALS: mental status grossly normal and normal affect M ROMY/COGNITION: Yes memory grossly intact INSIGHT: Good insight present (Psych) JUDGEMENT: Good judgement present (Psych) Skin: COMMON NORMALS: no rashes or lesions noted, no wounds (Surgical wound without drainage or redness) and turgor normal GENERAL SKIN EXAM: no rashes or lesions noted and turgor normal Course 2 Reevaluation(s): Reevaluation #1: 1635: still c/o pain, acetaminophen IV, Lyrica p.o. ordered Vital Signs: Vital signs: Vital Signs Temperature 97.6 F 06/29/25 15:07 Pulse Rate 74 06/29/25 16:11 Blood Pressure 135/67 06/29/25 16:11 Pulse Oximetry 97 06/29/25 16:58 Oxygen Delivery Me thod Room Air 06/29/25 16:11 MDM - Back Pain/Injury Medical Decision Making Discussed the case with Dr. Goddard, recommends going forward with the routine labs, IV fluids, Toradol, Norflex, Zofran, and add dexamethasone, plus taper dose of prednisone if patient tolerates for home. Suspect this is inflammatory in nature, however given the amount of nausea, and vomiting, we will need to further settle him down. Blood pressure has been able to be obtained since triage where patient could not sit still, and is 140/51. Oxygen saturations 97% on room air. Patient denied any other issues with shortness of breath, bowel, bladder incontinence. Labs 06/29/25 15:46 06/29/25 15:46 Laboratory Results WBC 15.39 10^3/uL (3.29-11.43) H 06/29/25 15:46 RBC 4.66 10^6/uL (3.85-5.65) 06/29/25 15:46 Hgb 13.70 g/dL (11.27-16.99) 06/29/25 15:46 Hct 40.9 % (37-53) 06/29/25 15:46 MCV 87.8 fl (82-101) 06/29/25 15:46 MCH 29.4 pg (27-33) 06/29/25 15:46 MCHC 33.5 g/dL (30-55) 06/29/25 15:46 RDW 14.6 % (12.1-15.1) 06/29/25 15:46 Plt Count 285 10^3/cmm (157-399) 06/29/25 15:46 MPV 10.4 fL (7.4-10.4) 06/29/25 15:46 Neut % (Auto) 77.8 % 06/29/25 15:46 Lymph % (Auto) 12.5 % 06/29/25 15:46 [place] % (Auto) 9.2 % 06/29/25 15:46 Eos % (Auto) 0.0 % 06/29/25 15:46 Baso % (Auto) 0.2 % 06/29/25 15:46 Neut # (Auto) 11.98 10^3/uL (1.8-7.7) H 06/29/25 15:46 Lymph # (Auto) 1.9 10^3/uL (0.8-4.8) 06/29/25 15:46 [place] # (Auto) 1.4 10^3/uL (0.2-0.9) H 06/29/25 15:46 Eos # (Auto) 0.0 10^3/uL (0.0-0.8) 06/29/25 15:46 Baso # (Auto) 0.0 10^3/uL (0.0-0.1) 06/29/25 15:46 Nucleated RBC % (auto) 0 % 06/29/25 15:46 Nucleated RBCs # 0.0 /100WBC 06/29/25 15:46 Sodium 137 mmol/L (136-145) 06/29/25 15:46 Potassium 3.7 mmol/L (3.5-5.1) 06/29/25 15:46 Chloride 100 mmol/L (98-107) 06/29/25 15:46 Carbon Dioxide 19 mmol/L (22-29) L 06/29/25 15:46 Anion Gap 21.7 (5-19) H 06/29/25 15:46 BUN 19 mg/dL (8-23) 06/29/25 15:46 Creatinine 0.9 mg/dL (0.7-1.2) 06/29/25 15:46 GFR Calculation Not Reportable 06/29/25 15:46 Glucose 134 mg/dL (65-115) H 06/29/25 15:46 Calculated Osmolality 288 mOsm/kg (285-295) 06/29/25 15:46 Calcium 9.4 mg/dL (8.5-10.5) 06/29/25 15:46 Magnesium 2.0 mg/dL (1.7-2.3) 06/29/25 15:46 Total Bilirubin 0.7 mg/dL (0.15-1.2) 06/29/25 15:46 AST 26 U/L (0-40) 06/29/25 15:46 ALT 20 U/L (0-41) 06/29/25 15:46 Alkaline Phosphatase 91 U/L (40-130) 06/29/25 15:46 Total Protein 7.2 g/dL (6.6-8.7) 06/29/25 15:46 Albumin 4.3 g/dL (3.5-5.2) 06/29/25 15:46 Globulin 2.9 g/dL (1.3-4.6) 06/29/25 15:46 Lipase 14 U/L (13-60) 06/29/25 15:46 No radiology studies performed this visit Discharge Plan Discharge Patient Disposition: Home Clinical Impression: Lumbar radiculopathy Condition: Stable Prescriptions: New gabapentin 300 mg capsule 300 mg PO TID 30 Days Qty: 90 0RF Rx Instructions: Take 1 by mouth today, 2 by mouth tomorrow, then 3 times a day methylprednisolone [Medrol (Eliseo)] 4 mg tablets,dose pack See Rx Instructions .ROUTE .COMPLEX Qty: 21 0RF Rx Instructions: for 6 days methocarbamol 750 mg tablet 750 mg PO Q8H PRN (Reason: muscle spasm) Qty: 30 0RF ondansetron 4 mg tablet,disintegrating 4 mg PO Q8H PRN (Reason: nausea and vomiting) 4 Days Qty: 14 0RF No Action albuterol sulfate [Ventolin HFA] 90 mcg/actuation HFA aerosol inhaler 2 puff inhalation Q6H PRN (Reason: Shortness Of Breath) Patient Comments: 90ds losartan 50 mg tablet 50 mg PO QAM aspirin 325 mg tablet 325 mg PO DAILY Breztri Aerosphere 160-9-4.8 mcg/actuation HFA aerosol inhaler 2 inh inhalation BID tizanidine 4 mg capsule 4 mg PO TID PRN (Reason: muscle spasticity) Qty: 14 0RF cyclobenzaprine 10 mg tablet 10 mg PO TID 7 Days Qty: 21 0RF cephalexin 500 mg capsule 500 mg PO BID 90 Days Qty: 180 5RF tamsulosin 0.4 mg capsule 0.4 mg PO QAM atorvastatin 20 mg tablet 20 mg PO QAM Probiotic Blend 2 billion cell-50 mg Capsule 1 cap PO DAILY Rx Instructions: give with meal/snack amlodipine 10 mg tablet 10 mg PO DAILY Qty: 14 0RF omeprazole 40 mg capsule,delayed release(DR/EC) 40 mg PO DAILY oxycodone 5 mg tablet 5 mg PO Q4H PRN (Reason: pain) 7 Days Qty: 42 0RF ipratropium-albuterol [DuoNeb] 0.5 mg-3 mg(2.5 mg base)/3 mL Solution For Nebulization 3 ml INHALATION QID PRN (Reason: Shortness Of Breath) fluticasone propion-salmeterol [Wixela Inhub] 500-50 mcg/dose Blister With Device 1 inh INHALATION BID Spiriva Respimat 2.5 mcg/actuation Mist 2 puff INHALATION DAILY Discharge Orders: Discharge ED (Routine); Ordered 06/29/25 Ordered By: Katarzyna Felix Referrals: Zay Ospina DO [Primary Care Provider, Family Practice] Patient Instructions: Lumbar Radiculopathy (ED), Muscle Spasm (ED), Patient Portal & Onur Instructions Activity Restrictions/Additional Instructions: - At the pharmacy: Zofran/ondansetron: This is for nausea. Use as directed. Side effects include constipation, therefore use sparingly. Another solution to nausea and vomiting is liquid Benadryl. You take 5 mL. I would also add a probiotic x 2 daily to help with facilitating bowel movements since she just had surgery Methocarbamol/Robaxin: This is a powerful muscle relaxer. Caution on sedation side effects given your narcotics that you are taking Gabapentin: This is for peripheral nerve pain. This is the 1 where you take 1 today, 1 in the morning tomorrow, and at night, and 3 times a day the next day. This helps with that peripheral nerve spasming pain. Medrol Dosepak: This is an anti-inflammatory/steroid. This does help with the inflammatory changes around your surgery site. Dr. Goddard wants you to take this. Make sure you use as directed. - Ice this area. It helps with the inflammatory changes locally. When to come back to the ER: If you have severe pain, pain going down your leg that is uncontrollable, numbness in your groin, fever greater than 100.4 ?F Do not forget to do your deep breathing exercises Clear liquid diet until your nausea subsides. Do not advance your diet until you feel completely better. Once you advance it, you go to soups/full liquid diet. Make sure you drink plenty of fluids postsurgery. Call Dr. Goddard's office tomorrow/in the morning for close follow-up and make sure they do not need to see you before the weekend Thank you for choosing [facility] for your healthcare needs today. You have been screened and evaluated and felt safe for discharge. Health conditions do change or evolve sometimes and as such it is important that you follow up with your Primary Doctor to be re checked, 3-5 days is a general good time frame for follow up. 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
[2025-06-29 15:52] LABS: Hematocrit 40.9 % (37-53); Hemoglobin 13.70 g/dL (11.27-16.99); Mean Corpuscular HGB Conc 33.5 g/dL (30-55); Mean Corpuscular Hemoglobin 29.4 pg (27-33); Mean Corpuscular Volume 87.8 fl (82-101); Nucleated Red Blood Cells % 0 %; Platelet Count 285 10^3/cmm (157-399); Red Blood Count 4.66 10^6/uL (3.85-5.65); White Blood Count 15.39 10^3/uL (3.29-11.43)
[2025-06-29] MEDS: ondansetron 2 mg/ML SDV 2 mL 4 MG IVP (16:07)
[2025-06-29] MEDS: orphenadrine 30 mg/mL Inj 2 mL 60 MG IV (16:07)
[2025-06-29] MEDS: pantoprazole 40 mg SDV IVP (16:07)
[2025-06-29 16:11] VITALS: BP 135/67; PULSE 74; O2SAT 97
[2025-06-29 16:16] LABS: Alanine Aminotransferase 20 U/L (0-41); Albumin Level 4.3 g/dL (3.5-5.2); Alkaline Phosphatase 91 U/L (40-130); Anion Gap 21.7 (5-19); Aspartate Amino Transferase 26 U/L (0-40); Blood Urea Nitrogen 19 mg/dL (8-23); Calcium 9.4 mg/dL (8.5-10.5); Carbon Dioxide 19 mmol/L (22-29); Chloride 100 mmol/L (98-107); Globulin 2.9 g/dL (1.3-4.6); Glucose 134 mg/dL (65-115); Lipase 14 U/L (13-60); Magnesium 2.0 mg/dL (1.7-2.3); Osmolality Calculated 288 mOsm/kg (285-295); Potassium 3.7 mmol/L (3.5-5.1); Sodium 137 mmol/L (136-145); Total Protein 7.2 g/dL (6.6-8.7)
[2025-06-29] MEDS: acetaminophen 1,000 MG/100 ML PIGGYBACK 400 MG IV (16:51)
[2025-06-29 16:58] VITALS: O2SAT 97
[2025-06-29 17:34] VITALS: BP 116/58; PULSE 72; RESP 18; O2SAT 97
== END 2025-06-29 17:36 | disposition home or self-care (01) ==
PROVIDERS: Emergency Provider Physician Assistant; PCP Electrodiagnostic Medicine
DX: M54.16 Radiculopathy, lumbar region (principal); Z79.82 Long term (current) use of aspirin; Z87.891 Personal history of nicotine dependence; E78.5 Hyperlipidemia, unspecified; I10 Essential (primary) hypertension; Z98.890 Other specified postprocedural states
CPT/HCPCS: 36415; 80053; 83690; 83735; 85025; 96361; 96374; 96375; 99285; J0131; J1100; J1885; J2360; J2405; J2470; J7030; J9999

== ENCOUNTER → 2025-07-04 14:49 | Outpatient (BNVA) | payer MEDICARE, SELFPAY | PROVIDERS: PCP Electrodiagnostic Medicine; Visit Provider Orthopaedic Surgery | DX: Z98.890 Other specified postprocedural states (principal) | CPT/HCPCS: 99024 ==

== ENCOUNTER → 2025-07-11 14:24 | Outpatient (BNVA) | payer MEDICARE, SELFPAY | PROVIDERS: PCP Electrodiagnostic Medicine; Visit Provider Orthopaedic Surgery | DX: Z98.890 Other specified postprocedural states (principal) | CPT/HCPCS: 99024 ==